=== PATIENT | female | born 1940 | race Caucasian/White ===

== ENCOUNTER → 2016-08-05 | Outpatient (CLI) | payer MEDICARE, OTHER ==
--- NOTE | 2016-08-06 16:21 | XCELERA REPORT ---
[address] [address] Transthoracic Echocardiogram Report Name: RACHNA MAYERS Age: 75 yrs Gender: Female : 1940 Patient Status: Outpatient Patient Location: Study Date: 08/05/2016 10:01 AM Height: 63 in Weight: 140 lb BSA: 1.7 m2 Procedure: A complete two-dimensional transthoracic echocardiogram was performed (2D, M-mode, spectral and color flow Doppler). The study was technically difficult with many images being suboptimal in quality. Reason For Study: AORTIC STENOSIS Ordering Physician: ALFREDA RENTERIA Performed By: Marva Acosta Interpretation Summary The left ventricular ejection fraction is within normal limits. Doppler measurements suggest pseudonormalized left ventricular relaxation, which is associated with grade II/IV or mild to moderate diastolic dysfunction There is borderline concentric left ventricular hypertrophy. There is moderate aortic stenosis There is a peak gradient of peak 40, mean 20-25 mm of Hg. There is a mild to moderate amount of aortic regurgitation There is a mild amount of mitral regurgitation There is a mild amount of tricuspid regurgitation There is mild pulmonary hypertension by echo Right ventricular systolic pressure is estimated to be elevated at 30- 40mmHg. There is no pericardial effusion. MMode/2D Measurements \T\ Calculations RVDd: 2.7 cm LVIDd: 5.1 cm FS: 35.4 % Ao root diam: 3.1 cm IVSd: 0.87 cm LVIDs: 3.3 cm EDV(Teich): 122.1 ml LVPWd: 0.87 cmESV(Teich): 43.4 ml Ao root area: 7.6 cm2 EF(Teich): 64.5 % LA dimension: 3.2 cm LVOT diam: 2.2 cm LVOT area: 3.7 cm2 Doppler Measurements \T\ Calculations MV E max carole: MV P1/2t max carole: Ao V2 max: AI max carole: 99.2 cm/sec 100.2 cm/sec 309.1 cm/sec 374.2 cm/sec MV A max carole: MV P1/2t: 66.3 msec Ao max PG: AI max P.1 cm/sec MVA(P1/2t): 3.3 cm2 38.3 mmHg 56.0 mmHg MV E/A: 0.95 MV dec slope: Ao V2 mean: AI dec slope: 442.4 cm/sec2 226.3 cm/sec 163.9 cm/sec2 MV dec time: Ao mean PG: AI P1/2t: 0.20 sec 23.1 mmHg 668.7 msec Ao V2 VTI: 78.1 cm NALINI(I,D): 1.4 cm2 NALINI(V,D): 1.4 cm2 LV V1 max PG: SV(LVOT): 110.4 ml PA V2 max: TR max carole: 5.6 mmHg 70.6 cm/sec 260.6 cm/sec LV V1 mean PG: PA max PG: TR max P.9 mmHg 2.0 mmHg 27.2 mmHg LV V1 max: 118.5 cm/sec LV V1 mean: 78.9 cm/sec LV V1 VTI: 30.0 cm Left Ventricle The left ventricle is grossly normal size. There is borderline concentric left ventricular hypertrophy. The left ventricular ejection fraction is within normal limits. Doppler measurements suggest pseudonormalized left ventricular relaxation, which is associated with grade II/IV or mild to moderate diastolic dysfunction. Wall motion cannot be accurately commented on, but no definite regional wall motion abnormalities noted. Right Ventricle The right ventricle is grossly normal size. There is normal right ventricular wall thickness. The right ventricular systolic function is normal. Atria The right atrium is normal in size. The left atrial size is normal. Interarterial septum not well visualized and not well dopplered. Cannot comment on ASD/PFO presence. Mitral Valve There is mild mitral annular calcification. There is no mitral valve stenosis. There is a mild amount of mitral regurgitation. Aortic Valve The aortic valve is moderately calcified. There is moderate aortic stenosis. There is a peak gradient of peak 40, mean 20-25 mm of Hg. There is a mild to moderate amount of aortic regurgitation. Tricuspid Valve The tricuspid valve is not well visualized, but is grossly normal. There is no tricuspid stenosis. There is a mild amount of tricuspid regurgitation. There is mild pulmonary hypertension by echo. Right ventricular systolic pressure is estimated to be elevated at 30-40mmHg. Pulmonic Valve The pulmonic valve is not well visualized. Great Vessels The aortic root is not well visualized but is probably normal size. The inferior vena cava appeared small and collapsed with respiration (RAP 0-5 mmHg). Effusions There is no pericardial effusion. : ALFREDA RENTERIA > [address]
== END ==
LOC: SP 09:51
PROVIDERS: ATTEND Internal Medicine
DX: I35.0 Nonrheumatic aortic (valve) stenosis (principal)
CPT/HCPCS: 93306

== ENCOUNTER 2016-08-25 07:33 | Day surgery (SDC) | payer MEDICARE, OTHER ==
[~2016-08-25 07:33] MED LIST: PROPOFOL INJ 200 MG/20 ML VIAL IV ONE
[2016-08-25] MEDS ORDERED: GLYCOPYRROLATE INJ 0.4 MG/2 ML VIAL ONE (08:52)
[2016-08-25] MEDS ORDERED: EPHEDRINE SULFATE INJ 50 MG/1 ML AMPULE ONE (08:52)
[2016-08-25 09:40] VITALS: BP 166/67
--- NOTE | 2016-08-25 14:02 | Operative Report ---
Operative Report DATE OF SURGERY: 08/25/16 Operative Report: The risks, benefits and alternatives of the procedure including risks of bleeding, perforation requiring surgery are explained to the patient in detail and informed consent is obtained. Patient is taken back to the endoscopy suite. Timeout is called. Propofol medication is administered. A rectal examination was done which did not reveal any masses, tears or fissures. An Olympus videoscope was inserted into the patient's rectum. Keeping the lumen in site at all times the scope was then gradually advanced all the way to the cecum. The cecum as identified by the usual anatomical landmarks of the ileocecal valve as well as the appendiceal office. Her documentations obtained. Prep is good. The scope was then sequentially pulled back out via the various segments of the colon including the ascending colon, hepatic flexure , transverse colon, splenic flexure, descending colon and find the rectosigmoid colon. Retroflexion maneuvers performed. PREOPERATIVE DIAGNOSIS: Bright red blood per rectum POSTOPERATIVE DIAGNOSIS: Mild colitis that is noted. Internal hemorrhoids. Mild diverticulosis OPERATION: Colonoscopy with biopsy SURGEON: ERNESTINE AMARAL ANESTHESIA: LMAC TISSUE REMOVED OR ALTERED: Right-sided colon specimens obtained rule out microscopic, lymphocytic, collagenous colitis COMPLICATIONS: None. ESTIMATED BLOOD LOSS: none. INTRAOPERATIVE FINDINGS: As described above. No evidence of obstructing mass, AVMs, or areas of ischemia noted. PROCEDURE: Patient tolerated the procedure well. No immediate postprocedure complications are noted. Patient is discharged in good condition. Discharge date 08/25/2016. Discharge diet: Regular. Discharge activity: Regular. Patient does have a 2-3 week follow-up to discuss findings She'll need a surveillance colonoscopy in 5 years We'll await on biopsies Patient is instructed to call the office or proceed to the emergency room should there be any further problems or questions
== END 2016-08-25 09:32 | disposition home or self-care (01) ==
LOC: END 07:33
PROVIDERS: ATTEND Internal Medicine Gastroenterology
PROC: 0DBF8ZX Excision of Right Large Intestine, Via Natural or Artificial Opening Endoscopic, Diagnostic (ICD-10-PCS; principal; 2016-08-25 08:30)
DX: K52.9 Noninfective gastroenteritis and colitis, unspecified (principal); K62.89 Other specified diseases of anus and rectum; K62.5 Hemorrhage of anus and rectum; I10 Essential (primary) hypertension; M19.90 Unspecified osteoarthritis, unspecified site; Z86.73 Personal history of transient ischemic attack (TIA), and cerebral infarction without residual deficits; Z79.82 Long term (current) use of aspirin; Z79.899 Other long term (current) drug therapy
CPT/HCPCS: 45380; 88305 ×2; J3490; J2704; 810

== ENCOUNTER → 2016-10-07 | Outpatient (CLI) | payer MEDICARE, OTHER ==
[2016-10-07 11:27] LABS: CHOLESTEROL 125.87 mg/dL (0-200); Direct HDL 63 mg/dL (>40); TRIGLYCERIDES 70 mg/dL (<150)
[2016-10-07 11:39] LABS: DIRECT LDL 32 mg/dL (<100)
== END ==
LOC: OD 09:08
PROVIDERS: ATTEND Family Medicine Geriatric Medicine
DX: E03.9 Hypothyroidism, unspecified (principal); E78.5 Hyperlipidemia, unspecified
CPT/HCPCS: 36415; 80061; 84443

== ENCOUNTER → 2017-02-09 | Outpatient (CLI) | payer MEDICARE, OTHER ==
[2017-02-09 09:33] LABS: ABSOLUTE EOSINOPHILS # (AUTO) 0.2 10^3/uL (0.0-0.6); ABSOLUTE MONOCYTES (AUTO) 0.5 10^3/uL (0.1-1.4); ABSOLUTE NEUT (AUTO) 2.3 10^3/uL (1.7-8.2); BASOPHILS % (AUTO) 1.1 % (0-2); EOSINOPHILS % (AUTO) 3.9 % (0-6); HEMATOCRIT 36.6 % (36.0-47.0); HEMOGLOBIN 12.4 g/dL (12.0-15.5); HGB HCT DIFFERENCE 0.6; LYMPHOCYTES % (AUTO) 25.5 % (13-45); MEAN CORPUSCULAR HEMOGLOBIN 34.2 pg (27.0-33.4); MEAN CORPUSCULAR HGB CONC 33.8 g/dL (32.0-36.0); MEAN CORPUSCULAR VOLUME 101 fl (80-97); MONOCYTES % (AUTO) 11.6 % (3-13); RED BLOOD COUNT 3.62 10^6/uL (3.72-5.28); RED CELL DISTRIBUTION WIDTH 14.2 % (11.5-14.0); SEGMENTED NEUTROPHILS % (AUTO) 57.9 % (42-78)
[2017-02-09 10:06] LABS: ANION GAP 8 (5-19); BLOOD UREA NITROGEN 19 mg/dL (7-20); CALCIUM 9.5 mg/dL (8.4-10.2); CARBON DIOXIDE 24 mmol/L (22-30); CHLORIDE 108 mmol/L (98-107); CREATININE RESULT 0.93 mg/dL (0.52-1.25); GLUCOSE 88 mg/dL (75-110); POTASSIUM 4.5 mmol/L (3.6-5.0); SODIUM 139.8 mmol/L (137-145)
== END ==
LOC: OD 08:47
PROVIDERS: ATTEND Family Medicine Geriatric Medicine
DX: E78.5 Hyperlipidemia, unspecified (principal); I10 Essential (primary) hypertension; E55.9 Vitamin D deficiency, unspecified; Z79.899 Other long term (current) drug therapy; G89.4 Chronic pain syndrome
CPT/HCPCS: 36415; 80048; 84443; 85025

== ENCOUNTER → 2017-06-23 | Outpatient (CLI) | payer MEDICARE, OTHER ==
--- NOTE | 2017-06-23 13:30 | RADIOLOGY REPORT (SQ) ---
EXAM DESCRIPTION: CHEST PA/LATERAL COMPLETED DATE/TIME: 06/23/2017 12:58 pm REASON FOR STUDY: COUGH COMPARISON: 06/12/2014 EXAM PARAMETERS: NUMBER OF VIEWS: two views TECHNIQUE: Digital Frontal and Lateral radiographic views of the chest acquired. RADIATION DOSE: NA LIMITATIONS: none FINDINGS: LUNGS AND PLEURA: Chronic interstitial changes are present. There is no acute pulmonary i nfiltrate. There is no effusion no mass is seen. MEDIASTINUM AND HILAR STRUCTURES: No masses or contour abnormalities. HEART AND VASCULAR STRUCTURES: Heart normal size. No evidence for failure. BONES: No acute findings. HARDWARE: None in the chest. OTHER: No other significant finding. IMPRESSION: Chronic interstitial changes with no acute cardiopulmonary disease. TECHNICAL DOCUMENTATION: JOB ID: [id number] [employer]- All Rights Reserved
== END ==
LOC: OD 11:45
PROVIDERS: ATTEND Family Medicine Geriatric Medicine
DX: R05 Cough (principal)
CPT/HCPCS: 71020

== ENCOUNTER → 2017-09-23 | Outpatient (CLI) | payer MEDICARE, OTHER ==
--- NOTE | 2017-09-25 13:29 | Pulmonary Function Test ---
Pulmonary Function Test Date of Procedure:: 09/23/17 INDICATION:: Dyspnea Referring Provider: Dr. Sanchez Subsystems Engineer: Becky Florence SENIOR TRAINING SPECIALIST - Report Spirometry: FVC 2.01 L 83% FEV1 1.73 L 96% FEV1/FVC % 86 predicted 81 FEF 25-75% 2.85 62% Lung Volume: Total lung capacity 3.35 L 77% Vital capacity 2.13 L 88% Inspiratory capacity 1.68 FRC N2 1.67 64% ERV 0.39 RV 1.23 66% RV/TLC % 37 predicted 42 Diffusion Capactity: DLCO 4.7 29% DLCO/VA 1.77 51% Impression: This study does not demonstrate any obstructive ventilatory defect. There is mild restrictive ventilatory defect with no hyperinflation or air trapping. Profound decrease in diffusion capacity.
== END ==
LOC: RT 11:44
PROVIDERS: ATTEND Family Medicine Geriatric Medicine
DX: J84.10 Pulmonary fibrosis, unspecified (principal)
CPT/HCPCS: 94060; 94727; 94729

== ENCOUNTER → 2017-12-22 | Outpatient (CLI) | payer MEDICARE, OTHER ==
[2017-12-22 10:28] LABS: ABSOLUTE EOSINOPHILS # (AUTO) 0.2 10^3/uL (0.0-0.6); ABSOLUTE MONOCYTES (AUTO) 0.5 10^3/uL (0.1-1.4); ABSOLUTE NEUT (AUTO) 2.7 10^3/uL (1.7-8.2); HEMATOCRIT 34.7 % (36.0-47.0); HEMOGLOBIN 12.1 g/dL (12.0-15.5); LYMPHOCYTES % (AUTO) 22.5 % (13-45); MEAN CORPUSCULAR HGB CONC 34.9 g/dL (32.0-36.0); MEAN CORPUSCULAR VOLUME 100 fl (80-97); MONOCYTES % (AUTO) 11.4 % (3-13); RED BLOOD COUNT 3.46 10^6/uL (3.72-5.28); RED CELL DISTRIBUTION WIDTH 14.2 % (11.5-14.0); SEGMENTED NEUTROPHILS % (AUTO) 61.1 % (42-78); TOTAL CELLS COUNTED % (AUTO) 100 %; WHITE BLOOD COUNT 4.5 10^3/uL (4.0-10.5)
[2017-12-22 10:44] LABS: PLATELET COUNT 66 10^3/uL (150-450)
[2017-12-22 10:48] LABS: ALANINE AMINOTRANSFERASE 36 U/L (9-52); ALBUMIN 3.3 g/dL (3.5-5.0); ALKALINE PHOSPHATASE 93 U/L (38-126); ANION GAP 12 (5-19); ASPARTATE AMINO TRANSFERASE 60 U/L (14-36); BILIRUBIN,DIRECT 0.5 mg/dL (0.0-0.4); BILIRUBIN,TOTAL 1.2 mg/dL (0.2-1.3); BLOOD UREA NITROGEN 18 mg/dL (7-20); CARBON DIOXIDE 26 mmol/L (22-30); CHLORIDE 109 mmol/L (98-107); CHOLESTEROL 104.58 mg/dL (0-200); GLUCOSE 103 mg/dL (75-110); NEONATAL BILIRUBIN RESULT 0.8 mg/dL (0.1-1.1); POTASSIUM 4.7 mmol/L (3.6-5.0); SODIUM 146.5 mmol/L (137-145); TOTAL PROTEIN 6.9 g/dL (6.3-8.2); TRIGLYCERIDES 53 mg/dL (<150)
[2017-12-22 10:58] LABS: DIRECT LDL 31 mg/dL (<100)
== END ==
LOC: OD 09:25
PROVIDERS: ATTEND Family Medicine Geriatric Medicine
DX: I10 Essential (primary) hypertension (principal); E78.5 Hyperlipidemia, unspecified; Z79.899 Other long term (current) drug therapy
CPT/HCPCS: 36415; 80053; 80061; 84443; 85025

== ENCOUNTER → 2017-12-23 | Outpatient (CLI) | payer MEDICARE, OTHER ==
--- NOTE | 2017-12-23 15:55 | RADIOLOGY REPORT (SQ) ---
EXAM DESCRIPTION: CHEST PA/LATERAL COMPLETED DATE/TIME: 12/23/2017 1:27 pm REASON FOR STUDY: WHEEZING COMPARISON: 06/23/2017 and 06/12/2014 EXAM PARAMETERS: NUMBER OF VIEWS: two views TECHNIQUE: Digital Frontal and Lateral radiographic views of the chest acquired. RADIATION DOSE: NA LIMITATIONS: none FINDINGS: LUNGS AND PLEURA: Interstitial/vascular markings seen of the lung bowman, concerning for c hronic interstitial change and/or vascular congestion. No consolidation or pleural fluid. MEDIASTINUM AND HILAR STRUCTURES: Stable. HEART AND VASCULAR STRUCTURES: heart appears borderline for size on the current study. Prominent in terstitial/ vascular markings. BONES: No acute findings. HARDWARE: None in the chest. OTHER: No other significant finding. IMPRESSION: Prominent interstitial/ vascular markings. Borderline heart size. TECHNICAL DOCUMENTATION: JOB ID: [id number] [email or web address]- All Rights Reserved Reading location - IP/workstation name: [email or web address]
== END ==
LOC: OD 13:09
PROVIDERS: ATTEND Family Medicine Geriatric Medicine
DX: R06.2 Wheezing (principal)
CPT/HCPCS: 71046

== ENCOUNTER → 2017-12-30 | Outpatient (CLI) | payer MEDICARE, OTHER ==
--- NOTE | 2017-12-31 07:47 | XCELERA REPORT ---
[address] [address] Lower Extremity Arterial Evaluation Name: RACHNA MAYERS Age: 77 yrs Gender: Female : 1940 Patient Status: Outpatient Patient Location: Study Date: 12/30/2017 11:14 AM Procedure: A color flow and duplex scan of the lower extremity arteries was performed bilaterally with velocity and waveform anaylsis. Ankle brachial indicies performed. Reason For Study: PVD Ordering Physician: JOON MORALEZ Performed By: Zo Jiménez Measurements and Calculations Right Left FALSEWORK BUILDER PSV 192.5 188.6 cm/sec Prox PFA PSV -82.0 -54.6 cm/sec Prox SFA PSV 100.7 -122.9 cm/sec Mid SFA PSV -103.7 -125.0 cm/sec Dist SFA PSV -121.3 -122.9 cm/sec Prox Pop A PSV 105.0 120.1 cm/sec Dist DARY PSV 91.8 129.2 cm/sec Dist JEWEL SUPERVISOR PSV 116.9 147.0 cm/sec Ivan Pedis PSV 99.9 119.7 cm/sec Right Side Arterial Evaluation Normal velocity and triphasic waveforms noted from the Common Femoral artery to the infrageniculate vessels. 0 % stenosis . Ankle Brachial index is 1.16. Left Side Arterial Evaluation Normal velocity and triphasic waveforms noted from the Common Femoral artery to the infrageniculate vessels. 0 % stenosis . Ankle Brachial index is 1.23. Interpretation Summary No hemodynamically significant lesions in the bilateral lower extremities, on duplex imaging, at rest. : JOON MORALEZ > [address] Lazar
== END ==
LOC: SP 10:54
PROVIDERS: ATTEND Family Medicine Geriatric Medicine
DX: I73.9 Peripheral vascular disease, unspecified (principal); R60.0 Localized edema
CPT/HCPCS: 93925

== ENCOUNTER → 2017-12-31 | Outpatient (CLI) | payer MEDICARE, OTHER ==
--- NOTE | 2017-12-31 17:58 | XCELERA REPORT ---
[address] [address] Transthoracic Echocardiogram Report Name: RACHNA MAYERS Age: 77 yrs Gender: Female : 1940 Patient Status: Outpatient Patient Location: Study Date: 12/31/2017 09:02 AM Height: 62.5 in Weight: 140 lb BSA: 1.7 m2 Procedure: A complete two-dimensional transthoracic echocardiogram was performed (2D, M-mode, spectral and color flow Doppler). The study was technically adequate with some images being suboptimal in quality. Reason For Study: CARDIOMEGALY Ordering Physician: JOON MORALEZ Performed By: Marva Acosta Interpretation Summary The left ventricular ejection fraction is normal. There is moderate to severe aortic stenosis There is a peak gradient of 55, mean 30-35 mm of Hg. There is a mild to moderate amount of aortic regurgitation There is borderline concentric left ventricular hypertrophy. There is a mild amount of mitral regurgitation There is no mitral valve stenosis. There is a mild amount of tricuspid regurgitation There is mild pulmonary hypertension by echo Right ventricular systolic pressure is estimated to be elevated at 30- 40mmHg. There is no pericardial effusion. MMode/2D Measurements & Calculations RVDd: 3.0 cm LVIDd: 5.6 cm FS: 42.0 % Ao root diam: 3.0 cm IVSd: 0.73 cm LVIDs: 3.3 cm EDV(Teich): 156.0 ml LVPWd: 0.71 cmESV(Teich): 43.1 ml Ao root area: 6.9 cm2 EF(Teich): 72.4 % LVOT diam: 2.1 cm LVOT area: 3.3 cm2 Doppler Measurements & Calculations MV E max carole: MV dec slope: Ao V2 max: AI max carole: 133.7 cm/sec 569.1 cm/sec2 379.0 cm/sec 436.3 cm/sec MV A max carole: MV dec time: Ao max PG: AI max P.6 cm/sec 0.24 sec 57.5 mmHg 76.1 mmHg MV E/A: 1.4 Ao V2 mean: AI dec slope: 268.9 cm/sec 251.0 cm/sec2 Ao mean PG: AI P1/2t: 32.3 mmHg 509.2 msec Ao V2 VTI: 104.4 cm NALINI(I,D): 1.1 cm2 NALINI(V,D): 1.0 cm2 LV V1 max PG: MR max carole: SV(LVOT): PA V2 max: 5.6 mmHg 554.2 cm/sec 110.5 ml 75.0 cm/sec LV V1 mean PG: MR max PG: PA max P.3 mmHg 3.2 mmHg 122.8 mmHg LV V1 max: 118.7 cm/sec LV V1 mean: 85.4 cm/sec LV V1 VTI: 33.3 cm LV dP/dt: 1407 mmHg/s TR max carole: 284.7 cm/sec TR max P.4 mmHg Left Ventricle The left ventricle is grossly normal size. There is borderline concentric left ventricular hypertrophy. The left ventricular ejection fraction is normal. LV diastolic function could not be adequately assessed. Wall motion cannot be accurately commented on, but no definite regional wall motion abnormalities noted. Right Ventricle The right ventricle is grossly normal size. There is normal right ventricular wall thickness. The right ventricular systolic function is normal. Atria The right atrium is normal in size. The left atrial size is normal. Interarterial septum not well visualized and not well dopplered. Cannot comment on ASD/PFO presence. Mitral Valve The mitral valve is grossly normal. There is no mitral valve stenosis. There is a mild amount of mitral regurgitation. Aortic Valve The aortic valve is moderately calcified. There is moderate to severe aortic stenosis. There is a peak gradient of 55, mean 30-35 mm of Hg. There is a mild to moderate amount of aortic regurgitation. Tricuspid Valve The tricuspid valve is not well visualized, but is grossly normal. There is no tricuspid stenosis. There is a mild amount of tricuspid regurgitation. There is mild pulmonary hypertension by echo. Right ventricular systolic pressure is estimated to be elevated at 30-40mmHg. Pulmonic Valve The pulmonic valve is not well visualized. Great Vessels The aortic root is not well visualized but is probably normal size. The inferior vena cava was not well visualized. Effusions There is no pericardial effusion. : JOON MORALEZ > [address]
== END ==
LOC: SP 08:44
PROVIDERS: ATTEND Family Medicine Geriatric Medicine
DX: I51.7 Cardiomegaly (principal)
CPT/HCPCS: 93306

== ENCOUNTER → 2018-01-09 | Outpatient (CLI) | payer MEDICARE, OTHER ==
[2018-01-09 10:21] LABS: ABSOLUTE BASOPHILS # (AUTO) 0.1 10^3/uL (0.0-0.2); ABSOLUTE EOSINOPHILS # (AUTO) 0.2 10^3/uL (0.0-0.6); ABSOLUTE MONOCYTES (AUTO) 0.5 10^3/uL (0.1-1.4); ABSOLUTE NEUT (AUTO) 3.1 10^3/uL (1.7-8.2); BASOPHILS % (AUTO) 1.4 % (0-2); EOSINOPHILS % (AUTO) 4.5 % (0-6); HEMATOCRIT 35.7 % (36.0-47.0); HEMOGLOBIN 12.4 g/dL (12.0-15.5); LYMPHOCYTES % (AUTO) 20.7 % (13-45); MEAN CORPUSCULAR HEMOGLOBIN 35.3 pg (27.0-33.4); MEAN CORPUSCULAR HGB CONC 34.8 g/dL (32.0-36.0); MEAN CORPUSCULAR VOLUME 101 fl (80-97); MONOCYTES % (AUTO) 10.4 % (3-13); RED BLOOD COUNT 3.52 10^6/uL (3.72-5.28); RED CELL DISTRIBUTION WIDTH 14.5 % (11.5-14.0); TOTAL CELLS COUNTED % (AUTO) 100 %; WHITE BLOOD COUNT 4.8 10^3/uL (4.0-10.5)
[2018-01-09 10:33] LABS: ALANINE AMINOTRANSFERASE 28 U/L (9-52); ALBUMIN 3.2 g/dL (3.5-5.0); ALKALINE PHOSPHATASE 108 U/L (38-126); ANION GAP 10 (5-19); ASPARTATE AMINO TRANSFERASE 61 U/L (14-36); BILIRUBIN,DIRECT 0.6 mg/dL (0.0-0.4); BILIRUBIN,TOTAL 2.4 mg/dL (0.2-1.3); BLOOD UREA NITROGEN 12 mg/dL (7-20); CARBON DIOXIDE 24 mmol/L (22-30); CHLORIDE 108 mmol/L (98-107); GLUCOSE 91 mg/dL (75-110); POTASSIUM 4.3 mmol/L (3.6-5.0); SODIUM 142.3 mmol/L (137-145)
[2018-01-09 10:43] LABS: PLATELET COUNT 58 10^3/uL (150-450)
== END ==
LOC: OD 09:31
PROVIDERS: ATTEND Family Medicine Geriatric Medicine
DX: I10 Essential (primary) hypertension (principal); R60.0 Localized edema; E66.9 Obesity, unspecified; Z79.899 Other long term (current) drug therapy
CPT/HCPCS: 36415; 80053; 84443; 85025

== ENCOUNTER 2018-01-29 10:24 | Emergency (ER) | payer MEDICARE, OTHER ==
[2018-01-29 10:30] VITALS: BP 134/45
[2018-01-29] MEDS ORDERED: SENNOSIDES/DOCUSATE 8.6-50 MG 1 EACH TABLET PO ONE (10:42)
[2018-01-29] MEDS ORDERED: POLYETHYLENE GLYCOL 3350 POWDER 17 GM/1 PACKET PO ONE (10:42)
[2018-01-29] MEDS ORDERED: DOCUSATE SODIUM 100 MG CAPSULE PO ONE (10:43)
--- NOTE | 2018-01-29 10:45 | ER Document Report ---
ED Medical Screen (RME) - General Chief Complaint: Abdominal Swelling Stated Complaint: ABDOMINAL PAIN Time Seen by Provider: 01/29/18 10:39 Notes: RAPID MEDICAL EVALUATION DISCLOSURE I have seen this patient as part of a Rapid Medical Evaluation and, if applicable, placed any initially appropriate orders. The patient will be seen and fully evaluated, including a full history and physical exam, by a provider ( in Main ED or Fast Track) when a room becomes available. 77-year-old female here with complaints of severe constipation for the past week. Over the past 2 days, she has been unable to defecate anything whereas prior to that she was at least able to get out very small pieces. She has not had any nausea vomiting dysuria hematuria frequency fevers chills. She has tried MiraLAX with minimal relief. She has not really had much abdominal pain and does not currently have any abdominal pain. She states "it feels like I have a basketball in my stomach". EXAM No abdominal TTP No peritoneal signs TRAVEL OUTSIDE OF THE [place] IN LAST 30 DAYS: No - Related Data Allergies/Adverse Reactions: No Known Allergies Allergy (Verified 01/29/18 10:25) Past Medical History - Social History Chew tobacco use (# tins/day): No Frequency of alcohol use: None Drug Abuse: None - Past Medical History Cardiac Medical History: Reports: Hx Coronary Artery Disease, Hx Hypertension, Hx Peripheral Vascular Disease - Bilateral internal carotid artery stenosis Denies: Hx Heart Attack Pulmonary Medical History: Denies: Hx Asthma, Hx Bronchitis, Hx COPD, Hx Pneumonia Neurological Medical History: Reports: Hx Cerebrovascular Accident - 2014. Denies: Hx Seizures Renal/ Medical History: Denies: Hx Peritoneal Dialysis Musculoskeltal Medical History: Reports Hx Arthritis Past Surgical History: Reports: Hx Appendectomy, Hx Cholecystectomy, Hx Hysterectomy, Hx Tonsillectomy - Immunizations Hx Diphtheria, Pertussis, Tetanus Vaccination: Yes Physical Exam - Vital signs Vitals: Temp Pulse Resp BP Pulse Ox 98.0 F 57 L 18 134/45 H 98 01/29/18 10:29 01/29/18 10:29 01/29/18 10:29 01/29/18 10:29 01/29/18 10:29 Course - Vital Signs Vital signs: Temp Pulse Resp BP Pulse Ox 98.0 F 57 L 18 134/45 H 98 01/29/18 10:29 01/29/18 10:29 01/29/18 10:29 01/29/18 10:01/29/18 10:29 Doctor's Discharge - Discharge Referrals: JOON MORALEZ MD [Primary Care Provider] - Follow up as needed
--- NOTE | 2018-01-29 12:02 | RADIOLOGY REPORT (SQ) ---
EXAM DESCRIPTION: ACUTE ABDOMEN SERIES COMPLETED DATE/TIME: 01/29/2018 11:32 am REASON FOR STUDY: severe constipation COMPARISON: None. NUMBER OF VIEWS: Three views. TECHNIQUE: Frontal chest, supine abdomen and upright/decubitus abdomen radiographic images acquired. LIMITATIONS: None. FINDINGS: CHEST: Severe chronic interstitial changes. FREE AIR: None. No abnormal gas collections. Large amount of fecal material in the right colon. Dis katarzyna colon is relatively free of fecal material. BOWEL GAS PATTERN: Nonobstructive pattern. No dilated loops or air fluid levels. CALCIFICATIONS: No suspicious calcifications. Arterial calcification. HARDWARE: Multiple surgical clips. SOFT TISSUES: No gross mass or suggestion of organomegaly. BONES: No acute fracture. No worrisome bone lesions. OTHER: No other significant finding. IMPRESSION: 1. Large amount of fecal material in the proximal colon. 2. Chronic interstitial lung disease. TECHNICAL DOCUMENTATION: JOB ID: [id number] [employer]- All Rights Reserved Reading location - IP/workstation name: [email or web address]
--- NOTE | 2018-01-29 12:18 | ER Document Report ---
ED General - General Chief Complaint: Abdominal Swelling Stated Complaint: ABDOMINAL PAIN Time Seen by Provider: 01/29/18 10:39 Notes: 77-year-old female here with complaints of severe constipation for the past week. Over the past 2 days, she has been unable to defecate anything whereas prior to that she was at least able to get out very small pieces. She has not had any nausea vomiting dysuria hematuria frequency fevers chills. She has tried MiraLAX with minimal relief. She has not really had much abdominal pain and does not currently have any abdominal pain. She states "it feels like I have a basketball in my stomach". TRAVEL OUTSIDE OF THE [place] IN LAST 30 DAYS: No - Related Data Allergies/Adverse Reactions: No Known Allergies Allergy (Verified 01/29/18 10:25) Past Medical History - Social History Smoking Status: Never Smoker Chew tobacco use (# tins/day): No Frequency of alcohol use: None Drug Abuse: None Family History: Reviewed & Not Pertinent Patient has suicidal ideation: No Patient has homicidal ideation: No - Past Medical History Cardiac Medical History: Reports: Hx Coronary Artery Disease, Hx Hypertension, Hx Peripheral Vascular Disease - Bilateral internal carotid artery stenosis Denies: Hx Heart Attack Pulmonary Medical History: Denies: Hx Asthma, Hx Bronchitis, Hx COPD, Hx Pneumonia Neurological Medical History: Reports: Hx Cerebrovascular Accident - 2014. Denies: Hx Seizures Renal/ Medical History: Denies: Hx Peritoneal Dialysis Musculoskeltal Medical History: Reports Hx Arthritis Past Surgical History: Reports: Hx Appendectomy, Hx Cholecystectomy, Hx Hysterectomy, Hx Tonsillectomy - Immunizations Hx Diphtheria, Pertussis, Tetanus Vaccination: Yes Hx Pneumococcal Vaccination: 06/03/16 Review of Systems - Review of Systems Notes: See history of present illness for pertinent positive review of systems; otherwise all review of systems have been reviewed and are negative Physical Exam - Vital signs Vitals: Temp Pulse Resp BP Pulse Ox 98.0 F 57 L 18 134/45 H 98 01/29/18 10:01/29/18 10:01/29/18 10:01/29/18 10:01/29/18 10:29 - Notes Notes: PHYSICAL EXAMINATION: GENERAL: Well-appearing and in no acute distress. HEAD: Atraumatic, normocephalic. EYES: Pupils equal round and reactive to light, extraocular movements intact, sclera anicteric, conjunctiva are normal. ENT: nares patent, oropharynx clear without exudates. Moist mucous membranes. NECK: Normal range of motion, supple without lymphadenopathy LUNGS: CTAB and equal. No wheezes rales or rhonchi. HEART: Regular rate and rhythm without murmurs ABDOMEN: Soft, no tenderness. No facial grimacing/wincing upon palpation. No guarding, no rebound. EXTREMITIES: Normal range of motion, no pitting edema. No cyanosis. NEUROLOGICAL: Cranial nerves grossly intact. Normal sensory/motor exams. PSYCH: Normal mood, normal affect. SKIN: Warm, Dry, normal turgor, no rashes or lesions noted Course - Re-evaluation Re-evalutation: 01/29/18 12:14 MEDICAL DECISION MAKING: Concern for constipation, lower suspicion for colitis diverticulitis (nontender) The x-ray shows proximal constipation so enema will not be of utility I have discussed the results with the patient and prescription for GoLYTELY Return precautions given otherwise follow-up PCP next day or few Patient understands and agrees to the plan of care - Vital Signs Vital signs: Temp Pulse Resp BP Pulse Ox 98.0 F 57 L 18 134/45 H 98 01/29/18 10:29 01/29/18 10:29 01/29/18 10:29 01/29/18 10:29 01/29/18 10:29 Discharge - Discharge Clinical Impression: Constipated Qualifiers: Constipation type: unspecified constipation type Qualified Code(s): K59.00 - Constipation, unspecified Condition: Good Disposition: HOME, SELF-CARE Additional Instructions: You were seen in the emergency department at [facility]. The x- ray showed moderate constipation. Drink one half of the gallon of GoLYTELY prescribed to you. Drink this 1/2 gallon over the next 24 hours or until you achieve desired results. If this 1/2 gallon does not resolve your symptoms, drink the rest of the half-gallon over the course of another 24 hours. If you happen to have any leftover, please refrigerate the left over GoLYTELY. Please followup with your primary physician in the next few days for further management /evaluation. Please return to the emergency department for worsening of symptoms or any symptom that you deem to be concerning or life-threatening. Thank you for allowing us to be part of your care. Prescriptions: Peg 3350/Na Sulf,Bicarb,Cl/KCl [Golytely Solution 4000 ml] 4,000 ml PO DAILY #1 bottle Referrals: JOON MORALEZ MD [Primary Care Provider] - Follow up as needed
== END 2018-01-29 12:26 | disposition home or self-care (01) ==
LOC: ER 10:24
DX: K59.00 Constipation, unspecified (principal); R10.9 Unspecified abdominal pain; I25.10 Atherosclerotic heart disease of native coronary artery without angina pectoris; I10 Essential (primary) hypertension; Z86.73 Personal history of transient ischemic attack (TIA), and cerebral infarction without residual deficits; Z90.49 Acquired absence of other specified parts of digestive tract; Z90.710 Acquired absence of both cervix and uterus
CPT/HCPCS: 99284; 74022; A9270 ×2; J3490

== ENCOUNTER 2018-02-02 15:40 | Inpatient (IN) | payer MEDICARE, OTHER ==
[2018-02-02 16:20] LABS: ABSOLUTE EOSINOPHILS # (AUTO) 0.2 10^3/uL (0.0-0.6); ABSOLUTE LYMPHOCYTES (AUTO) 0.6 10^3/uL (0.5-4.7); ABSOLUTE MONOCYTES (AUTO) 0.7 10^3/uL (0.1-1.4); ABSOLUTE NEUT (AUTO) 8.1 10^3/uL (1.7-8.2); BASOPHILS % (AUTO) 0.2 % (0-2); EOSINOPHILS % (AUTO) 1.9 % (0-6); HEMOGLOBIN 11.9 g/dL (12.0-15.5); LYMPHOCYTES % (AUTO) 6.4 % (13-45); MEAN CORPUSCULAR HEMOGLOBIN 35.6 pg (27.0-33.4); MEAN CORPUSCULAR HGB CONC 34.8 g/dL (32.0-36.0); MEAN CORPUSCULAR VOLUME 102 fl (80-97); MONOCYTES % (AUTO) 7.6 % (3-13); PLATELET COUNT 102 10^3/uL (150-450); RED BLOOD COUNT 3.33 10^6/uL (3.72-5.28); SEGMENTED NEUTROPHILS % (AUTO) 83.9 % (42-78); TOTAL CELLS COUNTED % (AUTO) 100 %; WHITE BLOOD COUNT 9.6 10^3/uL (4.0-10.5)
[2018-02-02 16:23] LABS: INTERNATIONAL RATION (INR) 1.37; PROTHROMBIN TIME 17.6 SEC (11.4-15.4)
[2018-02-02 16:39] LABS: ALANINE AMINOTRANSFERASE 32 U/L (9-52); ALKALINE PHOSPHATASE 93 U/L (38-126); ANION GAP 11 (5-19); ASPARTATE AMINO TRANSFERASE 66 U/L (14-36); BILIRUBIN,DIRECT 0.9 mg/dL (0.0-0.4); BLOOD UREA NITROGEN 21 mg/dL (7-20); CALCIUM 8.3 mg/dL (8.4-10.2); CARBON DIOXIDE 24 mmol/L (22-30); CHLORIDE 102 mmol/L (98-107); GLUCOSE 84 mg/dL (75-110); POTASSIUM 3.7 mmol/L (3.6-5.0); TOTAL PROTEIN 6.8 g/dL (6.3-8.2)
--- NOTE | 2018-02-02 16:58 | RADIOLOGY REPORT (SQ) ---
EXAM DESCRIPTION: CT HEAD WITHOUT COMPLETED DATE/TIME: 02/02/2018 4:29 pm REASON FOR STUDY: weakness COMPARISON: 2013 TECHNIQUE: Axial images acquired through the brain without intravenous contrast. Images reviewed wi th bone, brain and subdural windows. Additional sagittal and coronal reconstructions were generated. Images stored on PACS. All CT scanners at this facility use dose modulation, iterative reconstruction, and/or weight based d osing when appropriate to reduce radiation dose to as low as reasonably achievable (ALARA). [facility]: Dose Right [facility]: CareDose [facility]: Dose Right [facility]: Teradose 4D [facility]: Smart Phizzle RADIATION DOSE: CT Rad equipment meets quality standard of care and radiation dose reduction techniq ues were employed. CTDIvol: 48.7 mGy. DLP: 1004 mGy-cm. mGy. LIMITATIONS: None. FINDINGS: VENTRICLES: Normal size and contour. CEREBRUM: No masses. No hemorrhage. No midline shift. No evidence for acute infarction. Normal gra y/white matter differentiation. No areas of low density in the white matter. CEREBELLUM: No masses. No hemorrhage. No alteration of density. No evidence for acute infarction. EXTRAAXIAL SPACES: No fluid collections. No masses. ORBITS AND GLOBE: No intra- or extraconal masses. Normal contour of globe without masses. CALVARIUM: No fracture. PARANASAL SINUSES: No fluid or mucosal thickening. SOFT TISSUES: No mass or hematoma. OTHER: No other significant finding. IMPRESSION: NORMAL BRAIN CT WITHOUT CONTRAST. EVIDENCE OF ACUTE STROKE: NO. COMMENT: Quality ID # [id number]: Final reports with documentation of one or more dose reduction techniques (e.g., Automated exposure control, adjustment of the mA and/or kV according to patient size, use of iterative reconstruction technique) TECHNICAL DOCUMENTATION: JOB ID: [id number] [employer]- All Rights Reserved Reading location - IP/workstation name: [email or web address]
--- NOTE | 2018-02-02 17:00 | RADIOLOGY REPORT (SQ) ---
EXAM DESCRIPTION: CHEST 2 VIEWS COMPLETED DATE/TIME: 02/02/2018 4:46 pm REASON FOR STUDY: weakness COMPARISON: 06/12/2014 EXAM PARAMETERS: NUMBER OF VIEWS: two views TECHNIQUE: Digital Frontal and Lateral radiographic views of the chest acquired. RADIATION DOSE: NA LIMITATIONS: none FINDINGS: LUNGS AND PLEURA: Interstitial changes. Kelvin a and B-lines. Hilar haziness. MEDIASTINUM AND HILAR STRUCTURES: No masses or contour abnormalities. HEART AND VASCULAR STRUCTURES: Heart enlarged. Vascular congestion. BONES: No acute findings. HARDWARE: None in the chest. OTHER: No other significant finding. IMPRESSION: Congestive failure with interstitial pulmonary edema. Cannot exclude underlying interstitial lung disease. TECHNICAL DOCUMENTATION: JOB ID: [id number] [employer]- All Rights Reserved Reading location - IP/workstation name: [email or web address]
[2018-02-02] MEDS ORDERED: NORMAL SALINE 1000 ML 1,000 ML IV ONE (17:09)
[2018-02-02 17:34] LABS: VENOUS BLOOD BASE EXCESS -2.8 mmol/L; VENOUS BLOOD HCO3 20.1 mmol/L (20-32); VENOUS BLOOD PCO2 28.8 mmHg (35-63); VENOUS BLOOD PH 7.46 (7.30-7.42)
[2018-02-02 17:39] LABS: APPEARANCE,URINE CLEAR; BILIRUBIN,URINE NEGATIVE (NEGATIVE); GLUCOSE, URINE NEGATIVE (NEGATIVE); KETONES,URINE NEGATIVE (NEGATIVE); LEUKOCYTE ESTERASE,URINE NEGATIVE (NEGATIVE); NITRITE,URINE NEGATIVE (NEGATIVE); PROTEIN,URINE NEGATIVE (NEGATIVE)
[2018-02-02 17:40] LABS: COLOR,URINE YELLOW
[2018-02-02 17:42] LABS: LIPASE 185.5 U/L (23-300)
[2018-02-02] MEDS ORDERED: LIDOCAINE 1% INJ-PF (10 MG/ML) 30 ML SDV INJ ONE (17:50)
[2018-02-02] MEDS ORDERED: VANCOMYCIN HCL INJ 1000 MG VIAL IV ONE (17:50)
[2018-02-02] MEDS ORDERED: CEFTRIAXONE 1 GM/D5W RTU 1 GM/50 ML RTUPB IV ONE (17:55)
[2018-02-02] MEDS ORDERED: ACETAMINOPHEN 650 MG SUPP.RECT PR PRN (18:08)
[2018-02-02] MEDS ORDERED: ONDANSETRON HCL INJ/PF 4 MG/2 ML SDV IV PRN (18:08)
[2018-02-02] MEDS ORDERED: ONDANSETRON 4 MG TAB.RAPDIS PO PRN (18:08)
[2018-02-02] MEDS ORDERED: POTASSI CL 20 MEQ/NS 1L 1,000 ML IV PRN (18:08)
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
--- NOTE | 2018-02-02 18:37 | RADIOLOGY REPORT (SQ) ---
EXAM DESCRIPTION: CT ABD/PELVIS WITH IV ONLY COMPLETED DATE/TIME: 02/02/2018 6:17 pm REASON FOR STUDY: fever COMPARISON: Chest radiograph TECHNIQUE: CT scan of the abdomen and pelvis performed using helical scanning technique with dynamic intravenous contrast injection. No oral contrast. Images reviewed with lung, soft tissue, and bone windows. Reconstructed coronal and sagittal MPR images reviewed. Delayed images for evaluation of the urinary system also acquired. All images stored on PACS. All CT scanners at this facility use dose modulation, iterative reconstruction, and/or weight based d osing when appropriate to reduce radiation dose to as low as reasonably achievable (ALARA). [facility]: Dose Right [facility]: CareDose [facility]: Dose Right [facility]: Teradose 4D [facility]: Echolocation CONTRAST TYPE AND DOSE: contrast/concentration: Isovue 370.00 mg/ml; Total Contrast Delivered: 74.0 ml; Total Saline Delivered: 36.8 ml RENAL FUNCTION: Creatinine 1.15 RADIATION DOSE: CT Rad equipment meets quality standard of care and radiation dose reduction techniq ues were employed. CTDIvol: 7.3 - 8.6 mGy. DLP: 785 mGy-cm.. LIMITATIONS: None. FINDINGS: LOWER CHEST: Interstitial edema. LIVER: Nodular. No masses. SPLEEN: Normal size. No focal lesions. PANCREAS: No masses. No significant calcifications. No adjacent inflammation or peripancreatic fluid collections. Pancreatic duct not dilated. GALLBLADDER: Surgically absent. ADRENAL GLANDS: No significant masses or asymmetry. RIGHT KIDNEY AND URETER: No solid masses. No significant calcifications. No hydronephrosis or hyd roureter. LEFT KIDNEY AND URETER: No solid masses. No significant calcifications. No hydronephrosis or hydr oureter. AORTA AND VESSELS: No aneurysm. No dissection. Renal arteries, SMA, celiac without stenosis. RETROPERITONEUM: No retroperitoneal adenopathy, hemorrhage or masses. BOWEL AND PERITONEAL CAVITY: Marked generalized ascites. No bowel obstruction. APPENDIX: Surgically absent. PELVIS: No contrast in the bladder. Limited visualization of the collecting system. ABDOMINAL WALL: Generalized anasarca. BONES: No significant or acute findings. OTHER: No other significant finding. IMPRESSION: Massive ascites. Minimal visualization of the collecting system. Interstitial edema of the lung bases. TECHNICAL DOCUMENTATION: JOB ID: [id number] Quality ID # [id number]: Final reports with documentation of one or more dose reduction techniques (e.g., Au tomated exposure control, adjustment of the mA and/or kV according to patient size, use of iterative reconstruction technique) 2010 [employer]- All Rights Reserved Reading location - IP/workstation name: [email or web address]
--- NOTE | 2018-02-02 18:52 | EKG REPORT ---
SEVERITY:- ABNORMAL ECG - SINUS RHYTHM LEFT ANTERIOR FASCICULAR BLOCK BORDERLINE T ABNORMALITIES, ANT-LAT LEADS BORDERLINE PROLONGED QT INTERVAL : Confirmed by: Raheel Man MD 02-Feb-2018 18:51:20
[2018-02-02] MEDS ORDERED: FUROSEMIDE INJ/PF 20 MG/2 ML SDV IV ONE (18:58)
[2018-02-02] MEDS ORDERED: POTASSIUM CHLORIDE 20 MEQ/15 ML UDCUP PO ONE (19:00)
[2018-02-02] MEDS ORDERED: TRAMADOL HCL 50 MG TABLET PO PRN (19:01)
[2018-02-02] MEDS ORDERED: VANCOMYCIN HCL 0 MG in DEXTROSE 5%-WATER 250 ML IV NR (19:15)
[2018-02-02] MEDS ORDERED: FUROSEMIDE INJ/PF 40 MG/4 ML SDV IV ONE (19:30)
[2018-02-02 19:48] LABS: APPEARANCE ALL TUBES CLEAR; COLOR TUBE 1 PINK; COLOR TUBE 2 COLORLESS; COLOR TUBE 3 COLORLESS; COLOR TUBE 4 COLORLESS; CSF TUBE NUMBER 1
[2018-02-02 19:49] LABS: CSF TOTAL VOLUME 2.9 CC; VOLUME TUBE 1 0.5 CC; VOLUME TUBE 2 0.8 CC; VOLUME TUBE 3 0.8 CC; VOLUME TUBE 4 0.8 CC
[2018-02-02 19:50] LABS: RED BLOOD CELL,CSF 43 /uL (0-10); WHITE BLOOD CELL,CSF 3 /uL (0-5)
[2018-02-02 19:51] LABS: APPEARANCE ALL TUBES CLEAR; COLOR TUBE 1 PINK; COLOR TUBE 2 COLORLESS; COLOR TUBE 3 COLORLESS; COLOR TUBE 4 COLORLESS; CSF TOTAL VOLUME 2.9 CC; CSF TUBE NUMBER 4; VOLUME TUBE 1 0.5 CC; VOLUME TUBE 2 0.8 CC; VOLUME TUBE 3 0.8 CC; VOLUME TUBE 4 0.8 CC
[2018-02-02 19:52] LABS: RED BLOOD CELL,CSF 4 /uL (0-10); WHITE BLOOD CELL,CSF 1 /uL (0-5)
[2018-02-02 19:53] LABS: GLUCOSE,CSF 43 mg/dL (40-70); PROTEIN,CSF 64 mg/dL (12-60)
--- NOTE | 2018-02-02 19:53 | PDOC H&P ---
History of Present Illness Admission Date/PCP: 02/02/18 18:37 JOON MORALEZ MD Patient complains of: Fever, confusion History of Present Illness: The patient is a very pleasant 77-year-old female with past medical history of Moderate to severe aortic stenosis Hemochromatosis Cirrhosis Hypertension Hyperlipidemia Is Past Medical History Cardiac Medical History: Reports: Coronary Artery Disease, Hypertension, Peripheral Vascular Disease - Bilateral internal carotid artery stenosis GI Medical History: Reports: Cirrhosis - Thank you for your Musculoskeltal Medical History: Reports: Arthritis Hematology: Reports: Other - Hemochromatosis Past Surgical History Past Surgical History: Reports: Appendectomy, Cholecystectomy, Hysterectomy, Tonsillectomy Social History Information Source: Patient Smoking Status: Never Smoker Frequency of Alcohol Use: None Hx Recreational Drug Use: No Hx Prescription Drug Abuse: No - Advance Directive Resuscitation Status: Full Code Family History Family History: Hypertension Parental Family History Reviewed: Yes Children Family History Reviewed: Yes Sibling(s) Family History Reviewed.: Yes Medication/Allergy Home Medications: Amlodipine Besylate [Norvasc 2.5 mg Tablet] 2.5 mg PO DAILY 02/02/18 Aspirin [Aspirin EC] 81 mg PO DAILY 02/02/18 Atorvastatin Calcium [Lipitor 10 mg Tablet] 10 mg PO QHS 02/02/18 Bisoprolol/Hydrochlorothiazide [Bisoprolol-Hctz 5-6.25 mg Tab] 1 tab PO DAILY Cholecalciferol (Vitamin D3) [Vitamin D3 1000 Unit Tablet] 2,000 unit PO DAILY 02/02/18 Losartan Potassium [Cozaar 100 mg Tablet] 100 mg PO DAILY 02/02/18 Sulfamethoxazole/Trimethoprim [Bactrim Ds Tablet] 1 tab PO BID 02/02/18 Tramadol HCl [Ultram 50 mg Tablet] 50 mg PO Q6HP PRN 02/02/18 Allergies/Adverse Reactions: No Known Allergies Allergy (Verified 01/29/18 10:25) Physical Exam Vital Signs: Temp Pulse Resp BP Pulse Ox 98.6 F 60 19 100/66 95 02/02/18 19:11 02/02/18 17:00 02/02/18 19:06 02/02/18 19:06 02/02/18 19:06 Intake & Output 02/01/18 02/02/18 02/03/18 06:59 06:59 06:59 Weight 65.771 kg General appearance: PRESENT: no acute distress, thin Head exam: PRESENT: normocephalic Eye exam: PRESENT: PERRLA - Nutrition. ABSENT: scleral icterus Ear exam: PRESENT: normal external ear exam Mouth exam: PRESENT: moist Throat exam: ABSENT: tonsillar erythema - Swallow Neck exam: ABSENT: meningismus, tracheal deviation Respiratory exam: PRESENT: crackles - bibasilar crackles, symmetrical, unlabored. ABSENT: wheezes Cardiovascular exam: PRESENT: RRR, systolic murmur GI/Abdominal exam: PRESENT: ascites - She, distended, soft. ABSENT: tenderness Rectal exam: PRESENT: deferred Gentrourinary exam: ABSENT: indwelling catheter Extremities exam: PRESENT: pedal edema Musculoskeletal exam: PRESENT: normal inspection Neurological exam: PRESENT: alert, awake, oriented to person, oriented to place , oriented to time, oriented to situation, CN II-XII grossly intact. ABSENT: motor sensory deficit, aphasic Psychiatric exam: PRESENT: appropriate affect Skin exam: ABSENT: petechiae Results Impressions: Chest X-Ray 02/02/18 16:09 IMPRESSION: Congestive failure with interstitial pulmonary edema. Cannot exclude underlying interstitial lung disease. Head CT 02/02/18 16:09 IMPRESSION: NORMAL BRAIN CT WITHOUT CONTRAST. EVIDENCE OF ACUTE STROKE: NO. Abdomen/Pelvis CT 02/02/18 17:46 IMPRESSION: Massive ascites. Minimal visualization of the collecting system. Interstitial edema of the lung bases. Assessment & Plan - Diagnosis (1) Confusion Is this a current diagnosis for this admission?: Yes Plan: Likely secondary to fever and underlying UTI. Urinalysis here does not show any evidence of infection. She only had 1 dose of antibiotics at home yesterday. CT showed no acute abnormality. LP was done. (2) Fever of unknown origin Is this a current diagnosis for this admission?: Yes Plan: Follow-up on CSF studies. She has been started on empiric Rocephin and vancomycin. (3) Cirrhosis Is this a current diagnosis for this admission?: Yes Plan: Due to hemochromatosis. (4) Pedal edema Is this a current diagnosis for this admission?: Yes (5) Severe aortic stenosis Is this a current diagnosis for this admission?: Yes (6) Hemochromatosis Is this a current diagnosis for this admission?: Yes (7) Pulmonary vascular congestion Is this a current diagnosis for this admission?: Yes Plan: Diurese. (8) Ascites Qualifiers: Ascites type: other type Qualified Code(s): R18.8 - Other ascites Is this a current diagnosis for this admission?: Yes Plan: IV furosemide, low-sodium diet. Will also start her on some spironolactone. No abdominal tenderness tenderness, do not suspect SBP.. - Time Time Spent: Greater than 70 Minutes - Inpatient Certification Based on my medical assessment, after consideration of the patient's comorbidities, presenting symptoms, or acuity I expect that the services needed warrant INPATIENT care.: Yes I certify that my determination is in accordance with my understanding of Medicare's requirements for reasonable and necessary INPATIENT services [42 CFR 412.3e].: Yes Medical Necessity: Need Close Monitoring Due to Risk of Patient Decompensation, Need for IV Antibiotics
[2018-02-02 19:59] LABS: H. INFLUENZAE TYPE B AG NEGATIVE (NEGATIVE); S. PNEUMONIAE AG NEGATIVE (NEGATIVE); STREP. GROUP B AG NEGATIVE (NEGATIVE)
[2018-02-02] MEDS ORDERED: CEFTRIAXONE 2 GM/D5W RTU 2 GM/50 ML RTUPB IV ONE (22:27)
[2018-02-02] MEDS ORDERED: FUROSEMIDE INJ/PF 40 MG/4 ML SDV ONE (22:35)
[2018-02-02] MEDS ORDERED: POTASSIUM CHLORIDE 20 MEQ/15 ML UDCUP ONE (22:35)
[2018-02-02] MEDS: CEFTRIAXONE 2 GM/D5W RTU 2 GM/50 ML RTUPB IV SCH (22:50)
[2018-02-02] MEDS: ATORVASTATIN CALCIUM 10 MG TABLET PO SCH (22:55)
[2018-02-03] MEDS: IPRATROPIUM/ALBUTEROL 0.5-2.5 MG/3 ML AMPUL NEB PRN ×2 (01:26→04:05)
[2018-02-03 02:40] LABS: ARTERIAL BLOOD BASE EXCESS -4.2 mmol/L; ARTERIAL BLOOD H2CO3 0.75 mmol/L (1.05-1.35); ARTERIAL BLOOD HCO3 17.7 mmol/L (20-26); ARTERIAL BLOOD O2 SATURATION 96.7 % (94-98); ARTERIAL BLOOD PCO2 24.9 mmHg (35-45); ARTERIAL BLOOD PH 7.47 (7.35-7.45); ARTERIAL BLOOD PO2 80.4 mmHg (80-100); ARTERIAL BLOOD TOTAL CO2 18.5 mmol/L (21-25)
[2018-02-03 02:42] LABS: ARTERIAL BLOOD FIO2 3L
[2018-02-03] MEDS ORDERED: PHYTONADIONE INJ 10 MG/1 ML AMPULE SUBCUT ONE (02:54)
--- NOTE | 2018-02-03 03:33 | RADIOLOGY REPORT (SQ) ---
EXAM DESCRIPTION: US ABDOMEN ANEURYSM SCREENING COMPLETED DATE/TME: 02/03/2018 00:00 CLINICAL HISTORY: 77 years Female, DYSPNEA COMPARISON: None. NUMBER OF VIEWS/TECHNIQUE: 3 LIMITATIONS: None. FINDINGS: Intestinal gas pattern is within normal limits. No suspicious calcification. Surgical clips of the right upper quadrant and mid upper pelvis. Grossly intact skeletal structures. Moderate chronic interstitial markings. Atherosclerosis. IMPRESSION: No acute findings. Moderate chronic interstitial lung disease.
[2018-02-03] MEDS ORDERED: FUROSEMIDE INJ/PF 20 MG/2 ML SDV IV SCH (06:00)
[2018-02-03 06:39] LABS: ABSOLUTE RETICS # 0.076 10^6/uL (0.028-0.122); HEMOGLOBIN 11.1 g/dL (12.0-15.5); MEAN CORPUSCULAR HEMOGLOBIN 36.3 pg (27.0-33.4); MEAN CORPUSCULAR HGB CONC 35.8 g/dL (32.0-36.0); MEAN CORPUSCULAR VOLUME 101 fl (80-97); RED BLOOD COUNT 3.06 10^6/uL (3.72-5.28); RETICULOCYTE COUNT (AUTO) 2.47 % (0.66-2.85); WHITE BLOOD COUNT 6.5 10^3/uL (4.0-10.5)
[2018-02-03 06:53] LABS: ALANINE AMINOTRANSFERASE 34 U/L (9-52); ALBUMIN 2.6 g/dL (3.5-5.0); ALKALINE PHOSPHATASE 76 U/L (38-126); ANION GAP 8 (5-19); ASPARTATE AMINO TRANSFERASE 77 U/L (14-36); BILIRUBIN,DIRECT 0.9 mg/dL (0.0-0.4); BILIRUBIN,TOTAL 1.7 mg/dL (0.2-1.3); BLOOD UREA NITROGEN 20 mg/dL (7-20); CALCIUM 7.7 mg/dL (8.4-10.2); CARBON DIOXIDE 20 mmol/L (22-30); CHLORIDE 108 mmol/L (98-107); CREATINE KINASE 312 U/L (30-135); GLUCOSE 94 mg/dL (75-110); IRON(TIBC) 57.5 ug/dL (37-170); PHOSPHORUS 2.3 mg/dL (2.5-4.5); POTASSIUM 3.9 mmol/L (3.6-5.0); SODIUM 135.9 mmol/L (137-145)
[2018-02-03 07:27] LABS: ABSOLUTE MONOCYTES # (MANUAL) 0.3 10^3/uL (0.1-1.4); ABSOLUTE NEUTROPHILS# (MANUAL) 6.2 10^3/uL (1.7-8.2); BASOPHILS % (MANUAL) 0 % (0-2); EOSINOPHILS % (MANUAL) 0 % (0-6); LYMPHOCYTES % (MANUAL) 0 % (13-45); MONOCYTES % (MANUAL) 5 % (3-13); SEGMENTED NEUTROPHILS % (MAN) 95 % (42-78); TOTAL CELLS COUNTED 100
[2018-02-03 07:33] LABS: ANISOCYTOSIS SLIGHT; OVALOCYTES SLIGHT; PLATELET COMMENT DECREASED; POIKILOCYTOSIS SLIGHT
[2018-02-03 07:38] LABS: PLATELET COUNT 47 10^3/uL (150-450)
[2018-02-03 07:59] LABS: FOLATE 4.29 ng/mL (>2.76)
[2018-02-03] MEDS ORDERED: THIAMINE HCL 100 MG, FOLIC ACID 1 MG in NORMAL SALINE 250 ML IV SCH (08:00)
[2018-02-03] MEDS: CYANOCOBALAMIN (VITAMIN B-12) INJ 1000 MCG/1 ML VIAL IM SCH (08:54)
[2018-02-03] MEDS: CEFTRIAXONE 2 GM/D5W RTU 2 GM/50 ML RTUPB IV SCH ×2 (09:11→19:31)
[2018-02-03] MEDS: LACTOBACILLUS ACIDOPHILUS 250 MG TAB PO SCH ×2 (09:13→17:50)
[2018-02-03] MEDS: LOSARTAN POTASSIUM 25 MG TABLET PO SCH (09:14)
[2018-02-03] MEDS: METOPROLOL TARTRATE 25 MG TABLET PO SCH ×2 (09:15→21:13)
[2018-02-03] MEDS: ACETAMINOPHEN 325 MG TABLET PO PRN (09:34)
[2018-02-03] MEDS ORDERED: SPIRONOLACTONE 25 MG TABLET PO SCH (10:00)
[2018-02-03] MEDS ORDERED: ASPIRIN 81 MG TABLET, ENT COATED PO SCH (10:00)
[2018-02-03] MEDS: THIAMINE HCL 100 MG, FOLIC ACID 1 MG in NORMAL SALINE 250 ML IV SCH (11:14)
--- NOTE | 2018-02-03 12:29 | PDOC PROGRESS REPORT ---
Subjective Progress Note for:: 02/03/18 Subjective:: Feeling better today. Thinking better/less confused since admission. Was afebrile overnight however spiked fever this AM, while on broad spectrum antibtiotics. Infectious work up pending. Notes to have abdominal distention with mild pain. No nausea or vomiting. Denies chills or other localizing symptoms. Admits to history of hemochromatosis. Reason For Visit: FEVER AND ENCEPHALOPATHY OF UNKNOWN ORIGIN Physical Exam Vital Signs: Temp Pulse Resp BP Pulse Ox 101.1 F H 70 18 104/41 L 99 02/03/18 07:44 02/03/18 07:44 02/03/18 07:44 02/03/18 07:44 02/03/18 07:44 Intake & Output 02/02/18 02/03/18 02/04/18 06:59 06:59 06:59 Intake Total 310 Output Total 1000 Balance -690 Weight 72.8 kg General appearance: PRESENT: no acute distress, well-developed, well-nourished Head exam: PRESENT: normocephalic Mouth exam: PRESENT: moist Respiratory exam: PRESENT: unlabored. ABSENT: tachypnea Cardiovascular exam: PRESENT: +S1, +S2 GI/Abdominal exam: PRESENT: distended, other - Typanic. ABSENT: firm Neurological exam: PRESENT: alert, awake, CN II-XII grossly intact, other - No asterixis Psychiatric exam: PRESENT: appropriate affect Skin exam: PRESENT: dry, warm Results Laboratory Results: 02/03/18 05:18 02/03/18 05:18 02/02/18 02/02/18 02/02/18 19:00 19:00 19:00 WBC RBC Hgb Hct MCV MCH MCHC RDW Plt Count Seg Neutrophils % Lymphocytes % Monocytes % Eosinophils % Basophils % Absolute Neutrophils Absolute Lymphocytes Absolute Monocytes Absolute Eosinophils Absolute Basophils Retic Count (auto) Absolute Retic Carbonic Acid HCO3/H2CO3 Ratio ABG pH ABG pCO2 ABG pO2 ABG HCO3 ABG O2 Saturation ABG Base Excess FiO2 Sodium Potassium Chloride Carbon Dioxide Anion Gap BUN Creatinine Est GFR ( Amer) Est GFR (Non-Af Amer) Glucose Lactic Acid Calcium Phosphorus Magnesium Iron TIBC % Saturation Ferritin Total Bilirubin AST ALT Alkaline Phosphatase Total Protein Albumin Vitamin B12 Folate TSH Fluid Tube Number 1 4 CSF Volume 2.9 2.9 CSF Appearance CLEAR CLEAR CSF Color CSF WBC 3 1 CSF RBC 43 4 CSF Color (1) PINK PINK CSF Appearance (1) CSF Color (2) COLORLESS COLORLESS CSF Appearance (2) CSF Color (3) COLORLESS COLORLESS CSF Appearance (3) CSF Color (4) COLORLESS COLORLESS CSF Appearance (4) CSF Comment CSF CULTURE ORDERED CSF Glucose CSF Total Protein 02/02/18 02/02/18 02/02/18 19:00 19:00 19:00 WBC RBC Hgb Hct MCV MCH MCHC RDW Plt Count Seg Neutrophils % Lymphocytes % Monocytes % Eosinophils % Basophils % Absolute Neutrophils Absolute Lymphocytes Absolute Monocytes Absolute Eosinophils Absolute Basophils Retic Count (auto) Absolute Retic Carbonic Acid HCO3/H2CO3 Ratio ABG pH ABG pCO2 ABG pO2 ABG HCO3 ABG O2 Saturation ABG Base Excess FiO2 Sodium Potassium Chloride Carbon Dioxide Anion Gap BUN Creatinine Est GFR ( Amer) Est GFR (Non-Af Amer) Glucose Lactic Acid Calcium Phosphorus Magnesium Iron TIBC % Saturation Ferritin Total Bilirubin AST ALT Alkaline Phosphatase Total Protein Albumin Vitamin B12 Folate TSH Fluid Tube Number Cancelled Cancelled CSF Volume Cancelled Cancelled CSF Appearance Cancelled Cancelled CSF Color Cancelled Cancelled CSF WBC Cancelled Cancelled CSF RBC Cancelled Cancelled CSF Color (1) Cancelled Cancelled CSF Appearance (1) Cancelled Cancelled CSF Color (2) Cancelled Cancelled CSF Appearance (2) Cancelled Cancelled CSF Color (3) Cancelled Cancelled CSF Appearance (3) Cancelled Cancelled CSF Color (4) Cancelled Cancelled CSF Appearance (4) Cancelled Cancelled CSF Comment CSF Glucose 43 CSF Total Protein 64 H 02/02/18 02/03/18 02/03/18 21:25 02:20 05:18 WBC 6.5 RBC 3.06 L Hgb 11.1 L Hct 31.0 L MCV 101 H MCH 36.3 H MCHC 35.8 RDW 15.0 H Plt Count 47 L Seg Neutrophils % Not Reportable Lymphocytes % Not Reportable Monocytes % Not Reportable Eosinophils % Not Reportable Basophils % Not Reportable Absolute Neutrophils Not Reportable Absolute Lymphocytes Not Reportable Absolute Monocytes Not Reportable Absolute Eosinophils Not Reportable Absolute Basophils Not Reportable Retic Count (auto) 2.47 Absolute Retic 0.076 Carbonic Acid 0.75 L HCO3/H2CO3 Ratio 23:1 ABG pH 7.47 H ABG pCO2 24.9 L ABG pO2 80.4 ABG HCO3 17.7 L ABG O2 Saturation 96.7 ABG Base Excess -4.2 FiO2 3L Sodium Potassium Chloride Carbon Dioxide Anion Gap BUN Creatinine Est GFR ( Amer) Est GFR (Non-Af Amer) Glucose Lactic Acid 1.9 Calcium Phosphorus Magnesium Iron TIBC % Saturation Ferritin Total Bilirubin AST ALT Alkaline Phosphatase Total Protein Albumin Vitamin B12 Folate TSH Fluid Tube Number CSF Volume CSF Appearance CSF Color CSF WBC CSF RBC CSF Color (1) CSF Appearance (1) CSF Color (2) CSF Appearance (2) CSF Color (3) CSF Appearance (3) CSF Color (4) CSF Appearance (4) CSF Comment CSF Glucose CSF Total Protein 02/03/18 02/03/18 05:18 05:18 WBC RBC Hgb Hct MCV MCH MCHC RDW Plt Count Seg Neutrophils % Lymphocytes % Monocytes % Eosinophils % Basophils % Absolute Neutrophils Absolute Lymphocytes Absolute Monocytes Absolute Eosinophils Absolute Basophils Retic Count (auto) Absolute Retic Carbonic Acid HCO3/H2CO3 Ratio ABG pH ABG pCO2 ABG pO2 ABG HCO3 ABG O2 Saturation ABG Base Excess FiO2 Sodium 135.9 L Potassium 3.9 Chloride 108 H Carbon Dioxide 20 L Anion Gap 8 BUN 20 Creatinine 0.97 Est GFR ( Amer) > 60 Est GFR (Non-Af Amer) 55 L Glucose 94 Lactic Acid Calcium 7.7 L Phosphorus 2.3 L Magnesium 1.7 Iron 57.5 TIBC 206 L % Saturation 28 Ferritin 133.00 Total Bilirubin 1.7 H AST 77 H ALT 34 Alkaline Phosphatase 76 Total Protein 6.0 L Albumin 2.6 L Vitamin B12 787.0 Folate 4.29 TSH 5.12 H Fluid Tube Number CSF Volume CSF Appearance CSF Color CSF WBC CSF RBC CSF Color (1) CSF Appearance (1) CSF Color (2) CSF Appearance (2) CSF Color (3) CSF Appearance (3) CSF Color (4) CSF Appearance (4) CSF Comment CSF Glucose CSF Total Protein 02/03/18 05:18 Creatine Kinase 312 H Impressions: Chest X-Ray 02/02/18 16:09 IMPRESSION: Congestive failure with interstitial pulmonary edema. Cannot exclude underlying interstitial lung disease. Head CT 02/02/18 16:09 IMPRESSION: NORMAL BRAIN CT WITHOUT CONTRAST. EVIDENCE OF ACUTE STROKE: NO. Abdomen/Pelvis CT 02/02/18 17:46 IMPRESSION: Massive ascites. Minimal visualization of the collecting system. Interstitial edema of the lung bases. Acute Abdomen Series 02/03/18 00:00 IMPRESSION: No acute findings. Moderate chronic interstitial lung disease. Assessment & Plan - Diagnosis (1) Fever of unknown origin Is this a current diagnosis for this admission?: Yes Plan: Febrile at admission and again this AM. Technically this does not meet FUO criteria. Differential includes SBP vs bacterial infection. Viral encephalopathy also on differential. - Infectious work up: CSF and urine culture NGTD. Blood culture pending. Viral serology in CSF negative so far, HSV CSF pending. - Patient has ascites on exam and imaging. Will need paracentesis. Due to holiday will be done on 02/04. Ascites fluid studies ordered to evaluate for SBP and other pathologies. Given that patient has been on antibiotics this will decrease sensitivity of paracentesis. This was discussed with patient - Continue broad spectrum antibiotic coverage with Ceftriaxone and Vanc. If persistently febrile, would broaden coverage to Zosyn. (2) Ascites Qualifiers: Ascites type: other type Qualified Code(s): R18.8 - Other ascites Is this a current diagnosis for this admission?: Yes Plan: Diagnosed and therapeutic paracentesis ordered - Avoid diuresis given history of aortic stenosis and pre-load dependence (3) Cirrhosis Is this a current diagnosis for this admission?: Yes Plan: Unclear if this is in fact true. 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 Followed locally by Dr. Florentino with occasional phlebotomy (5) Severe aortic stenosis Is this a current diagnosis for this admission?: Yes Plan: Reported . Avoid overdiuresis per above - Time Time Spent with patient: 15-24 minutes - Inpatient Certification Medical Necessity: Need Close Monitoring Due to Risk of Patient Decompensation, Need for IV Antibiotics
[2018-02-03 15:30] LABS: INTERNATIONAL RATION (INR) 1.46; PROTHROMBIN TIME 18.5 SEC (11.4-15.4)
[2018-02-03 15:31] LABS: PARTIAL THROMBOPLASTIN TIME 50.9 SEC (23.5-35.8)
[2018-02-03] MEDS: ATORVASTATIN CALCIUM 10 MG TABLET PO SCH (21:13)
[2018-02-03] MEDS ORDERED: VANCOMYCIN HCL 1,000 MG in DEXTROSE 5%-WATER 250 ML IV SCH (22:00)
[2018-02-03] MEDS ORDERED: VANCOMYCIN HCL 750 MG in DEXTROSE 5%-WATER 250 ML IV SCH (22:00)
[2018-02-04 05:20] LABS: ABSOLUTE EOSINOPHILS # (AUTO) 0.6 10^3/uL (0.0-0.6); ABSOLUTE MONOCYTES (AUTO) 0.8 10^3/uL (0.1-1.4); ABSOLUTE NEUT (AUTO) 4.2 10^3/uL (1.7-8.2); BASOPHILS % (AUTO) 0.5 % (0-2); EOSINOPHILS % (AUTO) 8.4 % (0-6); HEMATOCRIT 31.2 % (36.0-47.0); LYMPHOCYTES % (AUTO) 15.6 % (13-45); MEAN CORPUSCULAR HEMOGLOBIN 35.5 pg (27.0-33.4); MEAN CORPUSCULAR HGB CONC 35.3 g/dL (32.0-36.0); MEAN CORPUSCULAR VOLUME 101 fl (80-97); MONOCYTES % (AUTO) 11.8 % (3-13); RED CELL DISTRIBUTION WIDTH 15.3 % (11.5-14.0); SEGMENTED NEUTROPHILS % (AUTO) 63.7 % (42-78); TOTAL CELLS COUNTED % (AUTO) 100 %; WHITE BLOOD COUNT 6.6 10^3/uL (4.0-10.5)
[2018-02-04 05:23] LABS: ANION GAP 7 (5-19); BLOOD UREA NITROGEN 15 mg/dL (7-20); CALCIUM 7.8 mg/dL (8.4-10.2); CARBON DIOXIDE 22 mmol/L (22-30); CHLORIDE 108 mmol/L (98-107); GLUCOSE 91 mg/dL (75-110); PHOSPHORUS 2.1 mg/dL (2.5-4.5); SODIUM 136.8 mmol/L (137-145)
[2018-02-04 05:54] LABS: PLATELET COUNT 58 10^3/uL (150-450)
[2018-02-04] MEDS: METOPROLOL TARTRATE 25 MG TABLET PO SCH ×2 (09:42→21:25)
[2018-02-04] MEDS: AMLODIPINE BESYLATE 2.5 MG TABLET PO SCH (09:43)
[2018-02-04] MEDS: LACTOBACILLUS ACIDOPHILUS 250 MG TAB PO SCH ×2 (09:43→18:30)
[2018-02-04] MEDS: CYANOCOBALAMIN (VITAMIN B-12) INJ 1000 MCG/1 ML VIAL IM SCH (09:43)
[2018-02-04] MEDS: LOSARTAN POTASSIUM 25 MG TABLET PO SCH (09:43)
[2018-02-04] MEDS ORDERED: LORAZEPAM INJ 2 MG/1 ML VIAL IV PRN (09:50)
[2018-02-04] MEDS ORDERED: LORAZEPAM INJ 2 MG/1 ML VIAL ONE (09:53)
[2018-02-04] MEDS ORDERED: CEFTRIAXONE 2 GM/D5W RTU 2 GM/50 ML RTUPB IV SCH (10:00)
[2018-02-04] MEDS ORDERED: ONDANSETRON HCL INJ/PF 4 MG/2 ML SDV IV PRN (10:00)
[2018-02-04] MEDS ORDERED: ONDANSETRON 4 MG TAB.RAPDIS PO PRN (10:00)
[2018-02-04] MEDS ORDERED: LIDOCAINE 1% INJ-PF (10 MG/ML) 30 ML SDV ONE (10:04)
[2018-02-04] MEDS: ASPIRIN 81 MG TABLET, ENT COATED PO SCH (10:08)
--- NOTE | 2018-02-04 12:08 | RADIOLOGY REPORT (SQ) ---
EXAM DESCRIPTION: U/S ABD PARACENTESIS COMPLETED DATE/TIME: 02/04/2018 11:25 am REASON FOR STUDY: abdominal distention, ascites, c/f SBP COMPARISON Paracentesis 10/28/2013 LIMITATIONS: None. PROCEDURE: After obtaining informed consent, the patient was brought to the ultrasound suite. The p rocedure was performed with the patient on a gurney. Ultrasound was used to identify a prominent poc ket of ascites in the left lower quadrant. An appropriate access site was selected. The patient was prepped and draped in usual sterile fashion. The access site was anesthetized with 7 mL 1% lidocai ne. A [id number]-Slyaqltl needle was advanced into the fluid. After aspiration of fluid the needle, the catheter was advanced off the needle into the fluid. A total of 3,800 mL of clear yellow fluid was removed. The patient tolerated the procedure well left the department in satisfactory condition. Fluid was sent for testing as per hospitalist attending physician IMPRESSION: Successful ultrasound-guided diagnostic and therapeutic paracentesis COMMENT: Patient medication list reviewed: Yes- Quality ID# [id number]:Eligible professional attests to doc umenting in the medical record they obtained, updated, or reviewed the patient's current medications. TECHNICAL DOCUMENTATION: JOB ID: [id number] [employer]- All Rights Reserved Reading location - IP/workstation name: [facility] / [email or web address]
[2018-02-04 12:35] LABS: FLUID APPEARANCE SLIGHTLY HAZY; FLUID COLOR YELLOW; FLUID SOURCE ASCITES; FLUID TYPE PERITONEAL; FLUID VISCOSITY LIQUID
[2018-02-04] MEDS: THIAMINE HCL 100 MG, FOLIC ACID 1 MG in NORMAL SALINE 250 ML IV SCH (12:49)
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
[2018-02-04] MEDS: ATORVASTATIN CALCIUM 10 MG TABLET PO SCH (21:25)
[2018-02-04] MEDS: ACETAMINOPHEN 325 MG TABLET PO PRN (23:50)
[2018-02-05 05:16] LABS: ABSOLUTE EOSINOPHILS # (AUTO) 0.3 10^3/uL (0.0-0.6); ABSOLUTE LYMPHOCYTES (AUTO) 1.2 10^3/uL (0.5-4.7); ABSOLUTE MONOCYTES (AUTO) 0.9 10^3/uL (0.1-1.4); ABSOLUTE NEUT (AUTO) 4.3 10^3/uL (1.7-8.2); BASOPHILS % (AUTO) 0.5 % (0-2); EOSINOPHILS % (AUTO) 4.6 % (0-6); HEMATOCRIT 32.4 % (36.0-47.0); HEMOGLOBIN 11.4 g/dL (12.0-15.5); LYMPHOCYTES % (AUTO) 18.1 % (13-45); MEAN CORPUSCULAR HEMOGLOBIN 35.7 pg (27.0-33.4); MEAN CORPUSCULAR HGB CONC 35.2 g/dL (32.0-36.0); MEAN CORPUSCULAR VOLUME 101 fl (80-97); MONOCYTES % (AUTO) 12.7 % (3-13); RED BLOOD COUNT 3.19 10^6/uL (3.72-5.28); RED CELL DISTRIBUTION WIDTH 15.6 % (11.5-14.0); SEGMENTED NEUTROPHILS % (AUTO) 64.1 % (42-78); TOTAL CELLS COUNTED % (AUTO) 100 %; WHITE BLOOD COUNT 6.7 10^3/uL (4.0-10.5)
[2018-02-05 05:30] LABS: PHOSPHORUS 2.6 mg/dL (2.5-4.5)
[2018-02-05 05:43] LABS: PLATELET COUNT 69 10^3/uL (150-450)
[2018-02-05] MEDS: CYANOCOBALAMIN (VITAMIN B-12) INJ 1000 MCG/1 ML VIAL IM SCH (07:56)
[2018-02-05] MEDS: ASPIRIN 81 MG TABLET, ENT COATED PO SCH (10:53)
[2018-02-05] MEDS: LOSARTAN POTASSIUM 25 MG TABLET PO SCH (10:54)
[2018-02-05] MEDS: LACTOBACILLUS ACIDOPHILUS 250 MG TAB PO SCH (10:54)
[2018-02-05] MEDS: AMLODIPINE BESYLATE 2.5 MG TABLET PO SCH (10:55)
[2018-02-05] MEDS: THIAMINE HCL 100 MG, FOLIC ACID 1 MG in NORMAL SALINE 250 ML IV SCH (10:56)
[2018-02-05] MEDS: METOPROLOL TARTRATE 25 MG TABLET PO SCH (10:57)
[2018-02-05 12:47] VITALS: BP 123/41
--- NOTE | 2018-02-05 19:18 | PDOC DISCHARGE SUMMARY ---
General - Admit/Disc Date/PCP Admission Date/Primary Care Provider: 02/02/18 18:37 JOON MORALEZ MD Discharge Date: 02/05/18 - Patient seen on rounds this morning - Discharge Diagnosis (1) Ascites Is this a current diagnosis for this admission?: Yes (2) Cirrhosis Is this a current diagnosis for this admission?: Yes (3) Confusion Is this a current diagnosis for this admission?: Yes (4) Fever of unknown origin Is this a current diagnosis for this admission?: Yes (5) Hemochromatosis Is this a current diagnosis for this admission?: Yes (6) Pulmonary vascular congestion Is this a current diagnosis for this admission?: Yes (7) Severe aortic stenosis Is this a current diagnosis for this admission?: Yes - Additional Information Resuscitation Status: Full Code Discharge Diet: As Tolerated Discharge Activity: Activity As Tolerated Prescriptions: Ciprofloxacin HCl [Cipro 500 mg Tablet] 500 mg PO BID 3 Days #6 tablet Losartan Potassium [Cozaar 25 mg Tablet] 25 mg PO DAILY #30 tablet Metoprolol Tartrate [Lopressor 25 mg Tablet] 12.5 mg PO Q12 #60 tablet Spironolactone [Aldactone 25 mg Tablet] 25 mg PO DAILY #30 tablet Home Medications: Amlodipine Besylate [Norvasc 2.5 mg Tablet] 2.5 mg PO DAILY 02/02/18 Aspirin [Aspirin EC] 81 mg PO DAILY 02/02/18 Atorvastatin Calcium [Lipitor 10 mg Tablet] 10 mg PO QHS 02/02/18 Cholecalciferol (Vitamin D3) [Vitamin D3 1000 Unit Tablet] 2,000 unit PO DAILY 02/02/18 Tramadol HCl [Ultram 50 mg Tablet] 50 mg PO Q6HP PRN 02/02/18 Acetaminophen [Tylenol 325 mg Tablet] 650 mg PO Q4HP PRN tablet 02/05/18 Amlodipine Besylate [Norvasc 2.5 mg Tablet] 2.5 mg PO DAILY tablet 02/05/18 Aspirin [Ecotrin 81 mg EC Tablet] 81 mg PO DAILY tabec 02/05/18 Atorvastatin Calcium [Lipitor 10 mg Tablet] 10 mg PO QHS tablet 02/05/18 Ciprofloxacin HCl [Cipro 500 mg Tablet] 500 mg PO BID 3 Days #6 tablet 02/05/18 Ipratropium/Albuterol Sulfate [Duoneb 3 ml Ampul] 3 ml NEB RTQ3HP PRN vial.neb 02/05/18 Losartan Potassium [Cozaar 25 mg Tablet] 25 mg PO DAILY #30 tablet 02/05/18 Metoprolol Tartrate [Lopressor 25 mg Tablet] 12.5 mg PO Q12 #60 tablet 02/05/18 Spironolactone [Aldactone 25 mg Tablet] 25 mg PO DAILY #30 tablet 02/05/18 Tramadol HCl [Ultram 50 mg Tablet] 50 mg PO Q8HP PRN tablet 02/05/18 History of Present Illness History of Present Illness: RACHNA MAYERS is a 77 year old female was admitted for confusion and fever later found to have 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 Please see HPI for full assessment and plan Hospital Course Hospital Course: After admission to the hospital she was given IV antibiotics to treat for suspected infection. CT abdomen had not shown any acute abnormality LP was done and labs were sent. Infectious disease was contacted to rule out SBP versus other infection. Fortunately CSF and urine was negative. Blood culture also remained negative. A diagnostic paracentesis was done but was not indicative of SBP. Infectious disease was consulted and appreciate their assistance. As per recommendation since patient has remained afebrile within the last 24 hours it is likely that she may have had SBP but because she already received IV antibiotics prior to her paracentesis results may not be accurate. At this time ID recommends continue with p.o. antibiotics for total of 5 days. Patient will be discharged on Cipro for a few more days. Due to hypertension and recent findings of ascites her medications where changed-I discussed with family and patient about these changes and verbalized understanding. The medications were prescribed to her. Her losartan was decreased to 25 mg, she is now on metoprolol 25 mg twice daily, amlodipine 2.5 mg, spironolactone 25 mg daily. She was told to follow-up with her family doctor and GI doctor after discharge. Physical Exam Vital Signs: Temp Pulse Resp BP Pulse Ox 97.6 F 57 L 16 111/66 97 02/05/18 07:45 02/05/18 07:45 02/05/18 07:45 02/05/18 07:45 02/05/18 07:45 Intake & Output 02/04/18 02/05/18 02/06/18 06:59 06:59 06:59 Intake Total 1687 918 Output Total 400 551 Balance 1287 367 Weight 161 lb 2.526 oz 149 lb 0.52 oz General appearance: PRESENT: no acute distress, thin, well-developed, well- nourished Eye exam: PRESENT: EOMI. ABSENT: conjunctival injection, scleral icterus Mouth exam: PRESENT: moist, neck supple Neck exam: PRESENT: full ROM, JVD. ABSENT: tenderness Respiratory exam: PRESENT: clear to auscultation alfredo, symmetrical Cardiovascular exam: PRESENT: RRR, +S1, +S2 Pulses: PRESENT: +2 pedal pulses bilateral GI/Abdominal exam: PRESENT: normal bowel sounds, soft. ABSENT: tenderness Extremities exam: ABSENT: joint swelling Musculoskeletal exam: PRESENT: full ROM. ABSENT: tenderness Neurological exam: PRESENT: alert, altered, awake, CN II-XII grossly intact Skin exam: PRESENT: dry, warm Results Laboratory Results: 02/05/18 04:51 02/04/18 04:36 02/04/18 02/05/18 02/05/18 10:52 04:51 04:51 WBC 6.7 RBC 3.19 L Hgb 11.4 L Hct 32.4 L MCV 101 H MCH 35.7 H MCHC 35.2 RDW 15.6 H Plt Count 69 L Seg Neutrophils % 64.1 Lymphocytes % 18.1 Monocytes % 12.7 Eosinophils % 4.6 Basophils % 0.5 Absolute Neutrophils 4.3 Absolute Lymphocytes 1.2 Absolute Monocytes 0.9 Absolute Eosinophils 0.3 Absolute Basophils 0.0 Phosphorus 2.6 Magnesium 2.1 Ammonia Fluid Type PERITONEAL Fluid Source ASCITES Fluid Color YELLOW Fluid Appearance SLIGHTLY HAZY Fluid Viscosity LIQUID Fluid WBC 177 Fluid RBC 2270 02/05/18 04:51 WBC RBC Hgb Hct MCV MCH MCHC RDW Plt Count Seg Neutrophils % Lymphocytes % Monocytes % Eosinophils % Basophils % Absolute Neutrophils Absolute Lymphocytes Absolute Monocytes Absolute Eosinophils Absolute Basophils Phosphorus Magnesium Ammonia 16.1 Fluid Type Fluid Source Fluid Color Fluid Appearance Fluid Viscosity Fluid WBC Fluid RBC 02/02/18 19:00 Cerebral Spinal Fluid - Tube 3 (Csf) Gram Stain - Final 02/02/18 19:00 Cerebral Spinal Fluid - Tube 3 (Csf) CSF Culture - Final NO GROWTH 3 DAYS 02/03/18 05:18 Creatine Kinase 312 H Impressions: Chest X-Ray 02/02/18 16:09 IMPRESSION: Congestive failure with interstitial pulmonary edema. Cannot exclude underlying interstitial lung disease. Head CT 02/02/18 16:09 IMPRESSION: NORMAL BRAIN CT WITHOUT CONTRAST. EVIDENCE OF ACUTE STROKE: NO. Abdomen/Pelvis CT 02/02/18 17:46 IMPRESSION: Massive ascites. Minimal visualization of the collecting system. Interstitial edema of the lung bases. Acute Abdomen Series 02/03/18 00:00 IMPRESSION: No acute findings. Moderate chronic interstitial lung disease. Paracentesis Ultrasound 02/04/18 00:00 IMPRESSION: Successful ultrasound-guided diagnostic and therapeutic paracentesis Qualifiers - * PATIENT BEING DISCHARGED WITH ANY OF THE FOLLOWING DIAGNOSIS: No Plan Time Spent: Less than 30 Minutes
[2018-02-05 22:37] LABS: HSV I DNA Negative (Negative)
[2018-02-06 10:17] LABS: HSV II DNA Negative (Negative)
== END 2018-02-05 14:10 | disposition home health service (06) | DRG 432 ==
LOC: ER 15:40 → EH 18:37 → 3W 21:15
PROVIDERS: ADMIT Internal Medicine; ATTEND Internal Medicine
PROC: 009U3ZX Drainage of Spinal Canal, Percutaneous Approach, Diagnostic (ICD-10-PCS; principal; 2018-02-02)
PROC: 0W9G3ZX Drainage of Peritoneal Cavity, Percutaneous Approach, Diagnostic (ICD-10-PCS; 2018-02-04)
DX: K74.69 Other cirrhosis of liver (principal); G93.41 Metabolic encephalopathy; R18.8 Other ascites; N39.0 Urinary tract infection, site not specified; I95.89 Other hypotension; E78.5 Hyperlipidemia, unspecified; R60.9 Edema, unspecified; E83.110 Hereditary hemochromatosis; R09.89 Other specified symptoms and signs involving the circulatory and respiratory systems; I25.10 Atherosclerotic heart disease of native coronary artery without angina pectoris; I73.9 Peripheral vascular disease, unspecified; I50.9 Heart failure, unspecified; I11.0 Hypertensive heart disease with heart failure; M19.90 Unspecified osteoarthritis, unspecified site; I35.0 Nonrheumatic aortic (valve) stenosis; Z82.49 Family history of ischemic heart disease and other diseases of the circulatory system; Z79.899 Other long term (current) drug therapy; Z79.82 Long term (current) use of aspirin
CPT/HCPCS: 36415; 36600; 49083; 70450; 71046; 74022; 74177; 80048; 80053; 81001; 82042; 82140; 82550; 82607; 82728; 82746; 82803; 82945; 83036; 83540; 83550; 83605; 83615; 83690; 83735; 83880; 84100; 84157; 84443; 85025; 85045; 85610; 85730; 86403; 87040; 87070; 87075; 87086; 87205; 87529; 88305; 89050; 93005; 93010; 94640; 96374; 99285; G8978-GP; G8979-GP; J0696; J1940; J2060; J3370; J3411; J3420; J3430; J3490; J7030; J7050; J7060; J7620

== ENCOUNTER → 2018-02-18 | Outpatient (CLI) | payer MEDICARE, OTHER ==
[2018-02-18 14:11] LABS: ALANINE AMINOTRANSFERASE 25 U/L (9-52); ALBUMIN 2.8 g/dL (3.5-5.0); ALKALINE PHOSPHATASE 112 U/L (38-126); ANION GAP 11 (5-19); ASPARTATE AMINO TRANSFERASE 61 U/L (14-36); BILIRUBIN,DIRECT 0.5 mg/dL (0.0-0.4); BILIRUBIN,TOTAL 1.5 mg/dL (0.2-1.3); BLOOD UREA NITROGEN 15 mg/dL (7-20); CALCIUM 8.2 mg/dL (8.4-10.2); CARBON DIOXIDE 22 mmol/L (22-30); CHLORIDE 106 mmol/L (98-107); GLUCOSE 109 mg/dL (75-110); POTASSIUM 4.3 mmol/L (3.6-5.0); SODIUM 138.9 mmol/L (137-145); TOTAL PROTEIN 6.8 g/dL (6.3-8.2)
== END ==
LOC: OD 12:32
PROVIDERS: ATTEND Internal Medicine
DX: K72.90 Hepatic failure, unspecified without coma (principal); I10 Essential (primary) hypertension; E83.110 Hereditary hemochromatosis; Z68.27 Body mass index [BMI] 27.0-27.9, adult
CPT/HCPCS: 36415; 80053

== ENCOUNTER → 2018-02-24 | Outpatient (CLI) | payer MEDICARE, OTHER ==
[2018-02-24 16:00] LABS: ALANINE AMINOTRANSFERASE 30 U/L (9-52); ALBUMIN 2.7 g/dL (3.5-5.0); ALKALINE PHOSPHATASE 119 U/L (38-126); ANION GAP 11 (5-19); ASPARTATE AMINO TRANSFERASE 64 U/L (14-36); BILIRUBIN,DIRECT 0.5 mg/dL (0.0-0.4); BILIRUBIN,TOTAL 1.7 mg/dL (0.2-1.3); BLOOD UREA NITROGEN 16 mg/dL (7-20); CALCIUM 8.4 mg/dL (8.4-10.2); CARBON DIOXIDE 23 mmol/L (22-30); CHLORIDE 107 mmol/L (98-107); GLUCOSE 97 mg/dL (75-110); POTASSIUM 4.6 mmol/L (3.6-5.0); SODIUM 140.5 mmol/L (137-145); TOTAL PROTEIN 6.7 g/dL (6.3-8.2)
== END ==
LOC: OD 14:57
PROVIDERS: ATTEND Internal Medicine
DX: E87.79 Other fluid overload (principal)
CPT/HCPCS: 36415; 80053

== ENCOUNTER → 2018-03-26 | Outpatient (CLI) | payer MEDICARE, OTHER ==
[2018-03-28 16:36] LABS: HEPATITIS C QUANTITATION HCV Not Detected IU/mL (.)
== END ==
LOC: OD 09:49
PROVIDERS: ATTEND Internal Medicine
DX: B19.20 Unspecified viral hepatitis C without hepatic coma (principal); E83.110 Hereditary hemochromatosis
CPT/HCPCS: 36415; 87522

== ENCOUNTER → 2018-04-01 | Outpatient (CLI) | payer MEDICARE, OTHER ==
[2018-04-01 11:10] LABS: ABSOLUTE BASOPHILS # (AUTO) 0.1 10^3/uL (0.0-0.2); ABSOLUTE EOSINOPHILS # (AUTO) 0.1 10^3/uL (0.0-0.6); ABSOLUTE LYMPHOCYTES (AUTO) 0.9 10^3/uL (0.5-4.7); ABSOLUTE MONOCYTES (AUTO) 0.5 10^3/uL (0.1-1.4); ABSOLUTE NEUT (AUTO) 2.6 10^3/uL (1.7-8.2); BASOPHILS % (AUTO) 1.3 % (0-2); EOSINOPHILS % (AUTO) 2.8 % (0-6); HEMOGLOBIN 10.7 g/dL (12.0-15.5); MEAN CORPUSCULAR HGB CONC 34.4 g/dL (32.0-36.0); MEAN CORPUSCULAR VOLUME 102 fl (80-97); MONOCYTES % (AUTO) 13.1 % (3-13); RED BLOOD COUNT 3.05 10^6/uL (3.72-5.28); RED CELL DISTRIBUTION WIDTH 14.6 % (11.5-14.0); SEGMENTED NEUTROPHILS % (AUTO) 60.8 % (42-78); TOTAL CELLS COUNTED % (AUTO) 100 %; WHITE BLOOD COUNT 4.2 10^3/uL (4.0-10.5)
[2018-04-01 11:44] LABS: ERYTHROCYTE SEDIMENTATION RATE 94 mm/hr (0-30)
[2018-04-01 11:51] LABS: PLATELET COUNT 74 10^3/uL (150-450)
[2018-04-01 12:06] LABS: ALANINE AMINOTRANSFERASE 27 U/L (9-52); ALKALINE PHOSPHATASE 108 U/L (38-126); ANION GAP 10 (5-19); ASPARTATE AMINO TRANSFERASE 52 U/L (14-36); BILIRUBIN,DIRECT 0.5 mg/dL (0.0-0.4); BILIRUBIN,TOTAL 1.6 mg/dL (0.2-1.3); BLOOD UREA NITROGEN 14 mg/dL (7-20); CARBON DIOXIDE 22 mmol/L (22-30); CHLORIDE 110 mmol/L (98-107); GLUCOSE 90 mg/dL (75-110); POTASSIUM 4.9 mmol/L (3.6-5.0); SODIUM 142.2 mmol/L (137-145); TOTAL PROTEIN 7.4 g/dL (6.3-8.2)
== END ==
LOC: OD 09:23
PROVIDERS: ATTEND Internal Medicine
DX: K72.90 Hepatic failure, unspecified without coma (principal); E83.110 Hereditary hemochromatosis; I10 Essential (primary) hypertension; I38 Endocarditis, valve unspecified; E55.9 Vitamin D deficiency, unspecified
CPT/HCPCS: 36415; 80053; 82306; 83036; 84443; 85025; 85652

== ENCOUNTER → 2018-04-06 | Outpatient (CLI) | payer MEDICARE, OTHER ==
[2018-04-07 05:39] LABS: THYROID PEROXIDASE (TPO) AB 12 IU/mL (0-34)
[2018-04-07 10:34] LABS: THYROGLOBULIN AB <1.0 IU/mL (0.0-0.9)
== END ==
LOC: OD 11:13
PROVIDERS: ATTEND Internal Medicine
DX: R79.89 Other specified abnormal findings of blood chemistry (principal)
CPT/HCPCS: 36415; 84436; 84481; 86376

== ENCOUNTER → 2018-06-21 | Outpatient (CLI) | payer MEDICARE, OTHER ==
[2018-06-21 12:11] LABS: ANION GAP 12 (5-19); BLOOD UREA NITROGEN 26 mg/dL (7-20); CALCIUM 9.2 mg/dL (8.4-10.2); CARBON DIOXIDE 25 mmol/L (22-30); CHLORIDE 105 mmol/L (98-107); GLUCOSE 102 mg/dL (75-110); POTASSIUM 3.8 mmol/L (3.6-5.0); SODIUM 141.8 mmol/L (137-145)
== END ==
LOC: OD 10:37
PROVIDERS: ATTEND Internal Medicine Gastroenterology
DX: K74.60 Unspecified cirrhosis of liver (principal); R18.8 Other ascites
CPT/HCPCS: 36415; 80048

== ENCOUNTER 2018-07-13 15:20 | Inpatient (IN) | payer MEDICARE, OTHER ==
--- NOTE | 2018-07-13 16:55 | ER Document Report ---
ED Medical Screen (RME) - General Chief Complaint: General Weakness Stated Complaint: WEAKNESS Time Seen by Provider: 07/13/18 16:49 TRAVEL OUTSIDE OF THE [place] IN LAST 30 DAYS: No - HPI Notes: 07/13/18 16:54 Patient is a 77-year-old female with hemochromatosis that presents to the emergency department for chief complaint of confusion. Family reports increased confusion since Thursday. She does live at home but has frequent family members around her. Patient reports some urinary frequency but has no other complaints.. ROS: GENERAL: Denies fever of chills : Urinary frequency CV: Denies chest pain PHYSICAL EXAMINATION: GENERAL: Well-appearing, well-nourished and in no acute distress. HEAD: Atraumatic, normocephalic. EYES: Pupils equal round extraocular movements intact, conjunctiva are normal. ENT: Nares patent NECK: Normal range of motion LUNGS: No respiratory distress Musculoskeletal: Normal range of motion NEUROLOGICAL: Normal speech, normal gait. PSYCH: Normal mood, normal affect. MDM: Patient seen and examined for rapid initial assessment. Vital signs reviewed. A comprehensive ED assessment and evaluation of the patient, analysis of test results and completion of the medical decision making process will be conducted by additional ED providers. - Related Data Allergies/Adverse Reactions: furosemide [From Lasix] Allergy (Verified 07/13/18 16:49) shellfish derived Allergy (Verified 07/13/18 16:49) Iodinated Contrast- Oral and IV Dye Adverse Reaction (Verified 07/13/18 15:28) iodine Adverse Reaction (Verified 07/13/18 15:28) Past Medical History - Past Medical History Cardiac Medical History: Reports: Hx Coronary Artery Disease, Hx Hypertension, Hx Peripheral Vascular Disease - Bilateral internal carotid artery stenosis Denies: Hx Heart Attack Pulmonary Medical History: Denies: Hx Asthma, Hx Bronchitis, Hx COPD, Hx Pneumonia Neurological Medical History: Reports: Hx Cerebrovascular Accident - 2014. Denies: Hx Seizures Renal/ Medical History: Denies: Hx Peritoneal Dialysis GI Medical History: Reports: Hx Cirrhosis - Thank you for your Musculoskeltal Medical History: Reports Hx Arthritis Past Surgical History: Reports: Hx Appendectomy, Hx Cholecystectomy, Hx Hysterectomy, Hx Tonsillectomy - Immunizations Hx Diphtheria, Pertussis, Tetanus Vaccination: Yes Physical Exam - Vital signs Vitals: Temp Pulse Resp BP Pulse Ox 99.0 F 66 16 105/60 96 12/11/18 15:34 07/13/18 15:34 07/13/18 15:34 07/13/18 15:34 07/13/18 15:34 Course - Vital Signs Vital signs: Temp Pulse Resp BP Pulse Ox 99.0 F 66 16 105/60 96 07/13/18 15:34 07/13/18 15:34 07/13/18 15:34 07/13/18 15:34 07/13/18 15:34 Doctor's Discharge - Discharge Referrals: LOCALMD,NO [Primary Care Provider] - Follow up as needed
--- NOTE | 2018-07-13 17:49 | RADIOLOGY REPORT (SQ) ---
EXAM DESCRIPTION: CT HEAD WITHOUT COMPLETED DATE/TIME: 07/13/2018 5:11 pm REASON FOR STUDY: confusion COMPARISON: 02/02/2018. TECHNIQUE: Axial images acquired through the brain without intravenous contrast. Images reviewed wi th bone, brain and subdural windows. Additional sagittal and coronal reconstructions were generated. Images stored on PACS. All CT scanners at this facility use dose modulation, iterative reconstruction, and/or weight based d osing when appropriate to reduce radiation dose to as low as reasonably achievable (ALARA). [facility]: Dose Right [facility]: CareDose [facility]: Dose Right [facility]: Teradose 4D [facility]: [employer] RADIATION DOSE: CT Rad equipment meets quality standard of care and radiation dose reduction techniq ues were employed. CTDIvol: 53.2 mGy. DLP: 991 mGy-cm. mGy. LIMITATIONS: None. FINDINGS: VENTRICLES: Prominent. CEREBRUM: No masses. No hemorrhage. No midline shift. Areas of low density in the white matter mos t likely due to chronic micro-vascular ischemic change. Old infarct in the left frontal lobe. No ev idence for acute infarction. CEREBELLUM: No masses. No hemorrhage. No alteration of density. No evidence for acute infarction. EXTRAAXIAL SPACES: Mild age-related involutional change. No fluid collections. No masses. ORBITS AND GLOBE: No intra- or extraconal masses. Normal contour of globe without masses. CALVARIUM: No fracture. PARANASAL SINUSES: No fluid or mucosal thickening. SOFT TISSUES: No mass or hematoma. OTHER: No other significant finding. IMPRESSION: MILD CHRONIC CHANGES OF ATROPHY AND MICROVASCULAR ISCHEMIA. OLD INFARCT IN THE LEFT FRO NTAL LOBE. NO ACUTE PROCESS. EVIDENCE OF ACUTE STROKE: NO. TECHNICAL DOCUMENTATION: JOB ID: [id number] Quality ID # [id number]: Final reports with documentation of one or more dose reduction techniques (e.g., Au tomated exposure control, adjustment of the mA and/or kV according to patient size, use of iterative reconstruction technique) 2010 [employer]- All Rights Reserved Reading location - IP/workstation name: [email or web address]
--- NOTE | 2018-07-13 17:50 | RADIOLOGY REPORT (SQ) ---
EXAM DESCRIPTION: CHEST SINGLE VIEW COMPLETED DATE/TIME: 07/13/2018 5:10 pm REASON FOR STUDY: confusion COMPARISON: 02/02/2018. EXAM PARAMETERS: NUMBER OF VIEWS: One view. TECHNIQUE: Single frontal radiographic view of the chest acquired. RADIATION DOSE: NA LIMITATIONS: None. FINDINGS: LUNGS AND PLEURA: Diffuse interstitial prominence. No focal infiltrates, masses or pneumo thorax. No pleural effusion. MEDIASTINUM AND HILAR STRUCTURES: No masses. Contour normal. HEART AND VASCULAR STRUCTURES: Heart normal in size. Normal vasculature. BONES: No acute findings. HARDWARE: None in the chest. OTHER: No other significant finding. IMPRESSION: CHRONIC DIFFUSE INTERSTITIAL CHANGES. NO ACUTE RADIOGRAPHIC FINDING IN THE CHEST. TECHNICAL DOCUMENTATION: JOB ID: [id number] [employer]- All Rights Reserved Reading location - IP/workstation name: [email or web address]
[2018-07-13 18:07] LABS: ABSOLUTE BASOPHILS # (AUTO) 0.1 10^3/uL (0.0-0.2); ABSOLUTE EOSINOPHILS # (AUTO) 0.2 10^3/uL (0.0-0.6); ABSOLUTE LYMPHOCYTES (AUTO) 1.5 10^3/uL (0.5-4.7); ABSOLUTE MONOCYTES (AUTO) 0.8 10^3/uL (0.1-1.4); ABSOLUTE NEUT (AUTO) 4.7 10^3/uL (1.7-8.2); BASOPHILS % (AUTO) 0.8 % (0-2); EOSINOPHILS % (AUTO) 2.5 % (0-6); HEMATOCRIT 36.8 % (36.0-47.0); HEMOGLOBIN 12.8 g/dL (12.0-15.5); LYMPHOCYTES % (AUTO) 20.4 % (13-45); MEAN CORPUSCULAR HEMOGLOBIN 34.7 pg (27.0-33.4); MEAN CORPUSCULAR HGB CONC 34.8 g/dL (32.0-36.0); MEAN CORPUSCULAR VOLUME 100 fl (80-97); MONOCYTES % (AUTO) 11.4 % (3-13); RED BLOOD COUNT 3.69 10^6/uL (3.72-5.28); RED CELL DISTRIBUTION WIDTH 15.7 % (11.5-14.0); SEGMENTED NEUTROPHILS % (AUTO) 64.9 % (42-78); TOTAL CELLS COUNTED % (AUTO) 100 %; WHITE BLOOD COUNT 7.2 10^3/uL (4.0-10.5)
[2018-07-13 18:09] LABS: PLATELET COUNT 77 10^3/uL (150-450)
[2018-07-13 18:16] LABS: ALANINE AMINOTRANSFERASE 47 U/L (9-52); ALBUMIN 3.4 g/dL (3.5-5.0); ALKALINE PHOSPHATASE 119 U/L (38-126); ANION GAP 11 (5-19); ASPARTATE AMINO TRANSFERASE 70 U/L (14-36); BILIRUBIN,DIRECT 0.7 mg/dL (0.0-0.4); BILIRUBIN,TOTAL 2.4 mg/dL (0.2-1.3); BLOOD UREA NITROGEN 19 mg/dL (7-20); CALCIUM 9.2 mg/dL (8.4-10.2); CARBON DIOXIDE 21 mmol/L (22-30); CHLORIDE 111 mmol/L (98-107); GLUCOSE 98 mg/dL (75-110); POTASSIUM 3.5 mmol/L (3.6-5.0); SODIUM 143.3 mmol/L (137-145); TOTAL PROTEIN 7.8 g/dL (6.3-8.2)
--- NOTE | 2018-07-13 19:04 | ER Document Report ---
ED Dizziness/Weakness - General Chief Complaint: General Weakness Stated Complaint: WEAKNESS Time Seen by Provider: 07/13/18 16:49 Notes: 77-year-old female patient presents emergency department from primary care doctor for evaluation of altered mental status. Increasing weakness. Has a history of hemochromatosis with liver failure. Elevated ammonia. Currently on lactulose. Patient states that she has difficulty talking. Words do not seem to be coming out right. Increased amount of weakness. Family members are present. States that this is happened and has been getting worse over the last [address] Kwok. Sent here for head CT and possible admit. Denies any fever, chills, sweats. No abdominal pain. TRAVEL OUTSIDE OF THE [place] IN LAST 30 DAYS: No - HPI Patient complains to provider of: Altered mental status, Dizziness, Weakness Onset: Other - 3 days ago Onset/Duration: Gradual, Worse Quality of pain: No pain Severity: Moderate Pain Level: 0 Associated symptoms: Confused, Weak all over - Related Data Allergies/Adverse Reactions: furosemide [From Lasix] Allergy (Verified 07/13/18 16:49) shellfish derived Allergy (Verified 07/13/18 16:49) Iodinated Contrast- Oral and IV Dye Adverse Reaction (Verified 07/13/18 15:28) iodine Adverse Reaction (Verified 07/13/18 15:28) Past Medical History - General Information source: Patient, Relative - Social History Smoking Status: Never Smoker Frequency of alcohol use: None Drug Abuse: None Lives with: Alone Family History: Hypertension Patient has suicidal ideation: No Patient has homicidal ideation: No - Past Medical History Cardiac Medical History: Reports: Hx Coronary Artery Disease, Hx Hypertension, Hx Peripheral Vascular Disease - Bilateral internal carotid artery stenosis Denies: Hx Heart Attack Pulmonary Medical History: Denies: Hx Asthma, Hx Bronchitis, Hx COPD, Hx Pneumonia Neurological Medical History: Reports: Hx Cerebrovascular Accident - 2014. Denies: Hx Seizures Renal/ Medical History: Denies: Hx Peritoneal Dialysis GI Medical History: Reports: Hx Cirrhosis - Thank you for your, Other - History of cirrhosis from hemochromatosis Musculoskeletal Medical History: Reports Hx Arthritis Past Surgical History: Reports: Hx Appendectomy, Hx Cholecystectomy, Hx Hysterectomy, Hx Tonsillectomy - Immunizations Hx Diphtheria, Pertussis, Tetanus Vaccination: Yes Hx Pneumococcal Vaccination: 06/03/16 Review of Systems - Review of Systems Notes: Constitutional: denies: Chills, Diaphoresis,. Patient complaining of generalized malaise and weakness EENT: denies: Eye discharge, Blurred vision, Tearing, Double vision, Nose congestion, Nose discharge, Throat swelling, Mouth pain Cardiovascular: denies: Palpitations, Heart racing, Orthopnea, Dyspnea, Chest pain Respiratory: denies: Cough, Hurts to breathe, Wheezing, Shortness of breath Gastrointestinal: denies: Abdominal pain, Diarrhea, Nausea, Vomiting, Black stools, bright red blood in stool and history of cirrhosis with some chronic edema to the abdomen. Genitourinary: denies: Burning, Dysuria, Discharge, Frequency, Flank pain, Hematuria Musculoskeletal: denies: Joint pain, Joint swelling, Muscle pain, Muscle stiffness, back pain Hematologic/Lymphatic: denies: Anemia, Easy bleeding, Easy bruising, Blood clots Neurological/Psychological: denies: Dementia, Depression, Loss of consciousness. Having some increased confusion as well as difficulty with speaking and unsteady on her feet. Skin: No lesions, no masses, no skin breakdown, no abscesses Physical Exam - Vital signs Vitals: Temp Pulse Resp BP Pulse Ox 99.0 F 66 16 105/60 96 07/13/18 15:34 07/13/18 15:34 07/13/18 15:34 07/13/18 15:34 07/13/18 15:34 Interpretation: Normal - General General appearance: Appears well, Alert - HEENT Head: Normocephalic, Atraumatic Eyes: Normal Pupils: PERRL - Respiratory Respiratory status: No respiratory distress Chest status: Nontender Breath sounds: Normal Chest palpation: Normal - Cardiovascular Rhythm: Regular Heart sounds: Normal auscultation Murmur: No - Abdominal Inspection: Normal Distension: No distension Bowel sounds: Normal Tenderness: Nontender Organomegaly: No organomegaly - Back Back: Normal, Nontender - Extremities General upper extremity: Normal inspection, Nontender, Normal color, Normal ROM , Normal temperature General lower extremity: Normal inspection, Nontender, Normal color, Normal ROM , Normal temperature. No: Hoa's sign - Neurological Neuro grossly intact: Yes Cognition: Normal Orientation: AAOx4 Holden Coma Scale Eye Opening: Spontaneous [place] Coma Scale Verbal: Oriented [place] Coma Scale Motor: Obeys Commands Holden Coma Scale Total: 15 Speech: Normal Motor strength normal: LUE, RUE, LLE, RLE Sensory: Normal - Psychological Associated symptoms: Normal affect, Normal mood - Skin Skin Temperature: Warm Skin Moisture: Dry Skin Color: Normal Course - Re-evaluation Re-evalutation: 07/13/18 19:20 Chest X-Ray 07/13/18 16:53 IMPRESSION: CHRONIC DIFFUSE INTERSTITIAL CHANGES. NO ACUTE RADIOGRAPHIC FINDING IN THE CHEST. Head CT 07/13/18 16:54 IMPRESSION: MILD CHRONIC CHANGES OF ATROPHY AND MICROVASCULAR ISCHEMIA. 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 NO ACUTE PROCESS. EVIDENCE OF ACUTE STROKE: NO. Discussed case with patient's primary care doctor, Dr. Kwok. He would like patient admitted. Ammonia level still pending. Slightly elevated cardiac troponin which needs to be evaluated. Dr. Kwok states that he will call the hospitalist at this time. I will call them as well in few minutes to secure admit. - Vital Signs Vital signs: Temp Pulse Resp BP Pulse Ox 99.0 F 66 16 105/60 96 07/13/18 15:34 07/13/18 15:34 07/13/18 15:34 07/13/18 15:34 07/13/18 15:34 - Laboratory Result Diagrams: 07/13/18 17:50 07/13/18 17:50 Laboratory results interpreted by me: 07/13/18 07/13/18 07/13/18 17:50 17:50 17:50 RBC 3.69 L MCV 100 H MCH 34.7 H RDW 15.7 H Plt Count 77 L Potassium 3.5 L Chloride 111 H Carbon Dioxide 21 L Est GFR ( Amer) 55 L Est GFR (Non-Af Amer) 46 L Total Bilirubin 2.4 H Direct Bilirubin 0.7 H AST 70 H Creatine Kinase 185 H Albumin 3.4 L - EKG Interpretation by Me Voltage: Consistant with LVH Additional EKG results interpreted by me: 07/13/18 19:20 Patient has a normal sinus rhythm heart rate 64 with left anterior fascicular block and LVH. Nonspecific T wave abnormalities in the anterior lateral leads. No significant change from prior. Discharge - Discharge Clinical Impression: Non-ST elevation [place] (NSTEMI), Increased ammonia level Altered mental status, unspecified Qualifiers: Altered mental status type: unspecified Qualified Code(s): R41.82 - Altered mental status, unspecified Condition: Good Disposition: ADMITTED INPATIENT [facility] Admitted: Telemetry
[2018-07-13] MEDS ORDERED: ONDANSETRON 4 MG TAB.RAPDIS PO PRN (20:11)
[2018-07-13] MEDS ORDERED: MAG HYDROX/AL HYDROX/SIMETH SUSP 30 ML UDCUP PO PRN (20:11)
[2018-07-13 21:12] LABS: CREATINE KINASE MB 1.16 ng/mL (<4.55); TROPONIN I 0.074 ng/mL
[2018-07-13] MEDS: HEPARIN SOD (PORCINE) 5,000 UNIT/ML 1 ML SYRINGE SUBCUT SCH (22:49)
[2018-07-13] MEDS ORDERED: POTASSIUM CHLORIDE 10 MEQ CAPSULE.ER PO ONE (23:00)
--- NOTE | 2018-07-13 23:06 | PDOC H&P ---
History of Present Illness Admission Date/PCP: 07/13/18 20:06 ERIKA RENTERIA MD Patient complains of: Progressive mental decline History of Present Illness: RACHNA MAYERS is a 77 year old female who presented to the emergency room after being evaluated by Dr. Clifton Renteria at his office earlier in the day for a 2-day history of progressively worsening unsteadiness of gait with progressively decreasing mentation and progressive difficulty with speech (slow and slurring). The patient and her family admit that she has had one prior similar episode about 1 month ago that lasted for less than 24 hours and resolved spontaneously. The current episode seems to have been gradually worsening though it improved for a few hours and then began worsening again about 24 hours prior to seeing Dr[address] Renteria. Patient and her family have not identified any aggravating or ameliorating factors for her symptoms. In the emergency room she was found to have a negative CT scan of the head, a mild thrombocytopenia, a minimal hypokalemia and evidence of her chronic hemochromatosis with secondary hepatic cirrhosis. Patient was admitted to my service for transfer to Dr. Clifton Renteria in the morning. Past Medical History Cardiac Medical History: Reports: Coronary Artery Disease, Hypertension, Peripheral Vascular Disease - Bilateral internal carotid artery stenosis, Heart Murmur - Aortic stenosis Denies: Myocardial Infarction Pulmonary Medical History: Denies: Asthma, Bronchitis, Chronic Obstructive Pulmonary Disease (COPD), Pneumonia EENT Medical History: Reports: None Neurological Medical History: Denies: Hemorrhagic CVA, Ischemic CVA, Multiple Sclerosis, Seizures Endocrine Medical History: Denies: Diabetes Mellitus Type 1, Diabetes Mellitus Type 2, Obesity Renal/ Medical History: Denies: Chronic Kidney Disease, Nephrolithiasis Malignancy Medical History: Reports: None GI Medical History: Reports: Cirrhosis - Thank you for your, Other - History of cirrhosis from hemochromatosis Denies: Crohn's Disease, Hepatitis, Ulcerative Colitis Musculoskeltal Medical History: Reports: Arthritis Denies: Gout Skin Medical History: Denies: Eczema, Psoriasis Psychiatric Medical History: Denies: Alcohol Dependency, Substance Abuse, Tobacco Dependency Traumatic Medical History: Reports: None Hematology: Reports: Other - Hemochromatosis Denies: Hemophilia, Bleeding Tendencies, Neutropenia Infectious Medical History: Reports: None Past Surgical History Past Surgical History: Reports: Appendectomy, Carotid Endarterectomy - Left, Cholecystectomy, Hysterectomy, Tonsillectomy Social History Information Source: Patient Lives with: Alone Smoking Status: Never Smoker Frequency of Alcohol Use: None Hx Recreational Drug Use: No Hx Prescription Drug Abuse: No - Advance Directive Resuscitation Status: Full Code Surrogate healthcare decision maker:: Son Family History Family History: CAD, DM, Hypertension Parental Family History Reviewed: Yes Children Family History Reviewed: No Sibling(s) Family History Reviewed.: Yes Medication/Allergy Home Medications: Albuterol Sulfate [Ventolin 0.083% Neb 2.5 mg/3 mL Ampul] 3 ml NEB Q8HP PRN 06/20 Amlodipine Besylate [Norvasc 2.5 mg Tablet] 2.5 mg PO DAILY 07/13/18 Atorvastatin Calcium [Lipitor 10 mg Tablet] 10 mg PO QHS 07/13/18 Folic Acid [Folvite 1 mg Tablet] 1 mg PO DAILY 07/13/18 Lactulose [Constulose 10 gm/15 mL Oral Solution] 30 ml PO BID 07/13/18 Metoprolol Tartrate [Lopressor 25 mg Tablet] 12.5 mg PO Q12 07/13/18 Pantoprazole Sodium [Protonix] 40 mg PO DAILY 07/13/18 Torsemide [Demadex 20 mg Tablet] 20 mg PO DAILY 07/13/18 Tramadol HCl [Ultram 50 mg Tablet] 50 mg PO Q6HP PRN 07/13/18 Vitamin B Complex [B Complex] 1 tab PO DAILY 07/13/18 Allergies/Adverse Reactions: furosemide [From Lasix] Allergy (Verified 07/13/18 16:49) shellfish derived Allergy (Verified 07/13/18 16:49) Iodinated Contrast- Oral and IV Dye Adverse Reaction (Verified 07/13/18 15:28) iodine Adverse Reaction (Verified 07/13/18 15:28) Review of Systems Constitutional: PRESENT: weakness - Generalized. ABSENT: chills, fever(s) Eyes: ABSENT: visual disturbances, other - Ocular pain Ears: ABSENT: hearing changes, other - Ear pain Nose, Mouth, and Throat: ABSENT: mouth pain, sore throat Cardiovascular: ABSENT: chest pain, dyspnea on exertion, edema, palpitations Respiratory: ABSENT: cough, dyspnea Gastrointestinal: PRESENT: other - Chronic loose stools with regular use of lactulose. ABSENT: abdominal pain, constipation, diarrhea, nausea, vomiting Genitourinary: ABSENT: dysuria, hematuria Musculoskeletal: PRESENT: muscle weakness - Generalized weakness as noted in history of present illness. ABSENT: back pain, deformity, joint swelling Integumentary: ABSENT: pruritus, rash Neurological: PRESENT: abnormal gait - Unsteadiness, abnormal speech - Slurring , confusion - Decreased mental sharpness, lack of coordination. ABSENT: convulsions, focal weakness Psychiatric: ABSENT: anxiety, depression, hallucinations Endocrine: ABSENT: cold intolerance, heat intolerance Hematologic/Lymphatic: ABSENT: easy bleeding, easy bruising Physical Exam Vital Signs: Temp Pulse Resp BP Pulse Ox 99.0 F 61 16 105/60 96 07/13/18 15:34 07/13/18 21:42 07/13/18 15:34 07/13/18 15:34 07/13/18 15:34 General appearance: PRESENT: no acute distress, cooperative Head exam: PRESENT: atraumatic, normocephalic Eye exam: PRESENT: EOMI. ABSENT: conjunctival injection, nystagmus, scleral icterus Ear exam: PRESENT: normal external ear exam. ABSENT: drainage Mouth exam: PRESENT: neck supple, other - Oral mucosa is moist and intact, dentition is fair Neck exam: ABSENT: JVD, thyromegaly, tracheal deviation Respiratory exam: PRESENT: clear to auscultation alfredo, symmetrical, unlabored Cardiovascular exam: PRESENT: RRR, systolic murmur - 4/6 crescendo decrescendo systolic murmur at the aortic root with radiation to the neck. ABSENT: clicks, gallop, rubs Pulses: PRESENT: normal carotid pulses, normal radial pulses, normal dorsalis pedis pul Vascular exam: PRESENT: normal capillary refill. ABSENT: pallor GI/Abdominal exam: PRESENT: normal bowel sounds, soft. ABSENT: tenderness Rectal exam: PRESENT: deferred Extremities exam: ABSENT: joint swelling, pedal edema Musculoskeletal exam: PRESENT: full ROM, normal inspection Neurological exam: PRESENT: alert, oriented to person, oriented to place, oriented to time, oriented to situation, CN II-XII grossly intact, motor sensory deficit Psychiatric exam: PRESENT: appropriate affect, normal mood Skin exam: PRESENT: dry, intact, warm. ABSENT: jaundice, rash, urticaria Results Laboratory Results: 07/13/18 20:20 Ammonia 19.2 07/13/18 07/13/18 20:20 20:20 Creatine Kinase 168 H CK-MB (CK-2) 1.16 Troponin I 0.074 Impressions: Chest X-Ray 07/13/18 16:53 IMPRESSION: CHRONIC DIFFUSE INTERSTITIAL CHANGES. NO ACUTE RADIOGRAPHIC FINDING IN THE CHEST. Head CT 07/13/18 16:54 IMPRESSION: MILD CHRONIC CHANGES OF ATROPHY AND MICROVASCULAR ISCHEMIA. 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 NO ACUTE PROCESS. EVIDENCE OF ACUTE STROKE: NO. Assessment & Plan - Diagnosis (1) Altered mental status, unspecified Qualifiers: Altered mental status type: unspecified Qualified Code(s): R41.82 - Altered mental status, unspecified Is this a current diagnosis for this admission?: Yes Plan: The patient agrees with family members who have indicated that her mental status has decreased slightly and progressively over the last 2 days. She has more difficulty finding her words to say and speaks some slowly and sometimes with slurred speech. Additionally she does not seem to be as mentally sharp or bright as she is at her baseline. This will be further evaluated as deemed appropriate by Dr. Renteria. (2) Balance problem Is this a current diagnosis for this admission?: Yes Plan: Patient will be evaluated for the etiology of her sense of being off balance and tendency to fall without assistance. This unsteadiness of gait is new for her in a physical therapy consult will be obtained. 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 Serial cardiac enzymes will be obtained. Further evaluation will be pursued as indicated. (5) Cirrhosis Qualifiers: Hepatic cirrhosis type: unspecified hepatic cirrhosis Ascites presence: without ascites Qualified Code(s): K74.60 - Unspecified cirrhosis of liver Is this a current diagnosis for this admission?: Yes Plan: Patient will be continued on her usual hepatic medication regimen. Serial ammonia levels will be obtained during her hospital course. - Time Time Spent: 50 to 70 Minutes Critical Time spent with patient: Less than 15 minutes Medications reviewed and adjusted accordingly: Yes - Inpatient Certification Based on my medical assessment, after consideration of the patient's comorbidities, presenting symptoms, or acuity I expect that the services needed warrant INPATIENT care.: Yes I certify that my determination is in accordance with my understanding of Medicare's requirements for reasonable and necessary INPATIENT services [42 CFR 412.3e].: Yes Medical Necessity: Significant Comorbidiites Make Outpatient Treatment Too Risky , Need For Continuous Telemetry Monitoring, Need for Neurological Checks
[2018-07-13] MEDS: METOPROLOL TARTRATE 25 MG TABLET PO SCH (23:09)
[2018-07-13] MEDS: FAMOTIDINE 20 MG TABLET PO SCH (23:09)
[2018-07-13] MEDS: ATORVASTATIN CALCIUM 10 MG TABLET PO SCH (23:09)
--- NOTE | 2018-07-13 23:33 | EKG REPORT ---
SEVERITY:- ABNORMAL ECG - SINUS RHYTHM LEFT ANTERIOR FASCICULAR BLOCK LEFT VENTRICULAR HYPERTROPHY : Confirmed by: Beatrice Del Cid MD 13-Jul-2018 23:32:26
[2018-07-14] MEDS: LEVALBUTEROL HCL NEB 1.25 MG/3 ML AMPUL NEB SCH ×3 (00:46→17:19)
[2018-07-14] MEDS: IPRATROPIUM BROMIDE 0.02% NEB 0.5 MG/2.5 ML AMPUL NEB SCH ×3 (00:46→17:19)
[2018-07-14 02:52] LABS: ABSOLUTE EOSINOPHILS # (AUTO) 0.2 10^3/uL (0.0-0.6); ABSOLUTE LYMPHOCYTES (AUTO) 1.4 10^3/uL (0.5-4.7); ABSOLUTE MONOCYTES (AUTO) 0.7 10^3/uL (0.1-1.4); ABSOLUTE NEUT (AUTO) 3.9 10^3/uL (1.7-8.2); BASOPHILS % (AUTO) 0.8 % (0-2); HEMATOCRIT 33.9 % (36.0-47.0); HEMOGLOBIN 11.9 g/dL (12.0-15.5); LYMPHOCYTES % (AUTO) 22.3 % (13-45); MEAN CORPUSCULAR HEMOGLOBIN 34.6 pg (27.0-33.4); MEAN CORPUSCULAR VOLUME 99 fl (80-97); MONOCYTES % (AUTO) 11.8 % (3-13); RED BLOOD COUNT 3.43 10^6/uL (3.72-5.28); RED CELL DISTRIBUTION WIDTH 15.5 % (11.5-14.0); SEGMENTED NEUTROPHILS % (AUTO) 62.1 % (42-78); TOTAL CELLS COUNTED % (AUTO) 100 %; WHITE BLOOD COUNT 6.3 10^3/uL (4.0-10.5)
[2018-07-14 03:06] LABS: PLATELET COUNT 59 10^3/uL (150-450)
[2018-07-14 03:10] LABS: ALANINE AMINOTRANSFERASE 43 U/L (9-52); ALBUMIN 2.9 g/dL (3.5-5.0); ALKALINE PHOSPHATASE 105 U/L (38-126); ANION GAP 9 (5-19); ASPARTATE AMINO TRANSFERASE 61 U/L (14-36); BILIRUBIN,DIRECT 0.6 mg/dL (0.0-0.4); BILIRUBIN,TOTAL 1.8 mg/dL (0.2-1.3); BLOOD UREA NITROGEN 18 mg/dL (7-20); CALCIUM 8.7 mg/dL (8.4-10.2); CARBON DIOXIDE 20 mmol/L (22-30); CHLORIDE 111 mmol/L (98-107); GLUCOSE 102 mg/dL (75-110); POTASSIUM 3.6 mmol/L (3.6-5.0); TOTAL PROTEIN 6.7 g/dL (6.3-8.2)
[2018-07-14 03:18] LABS: CREATINE KINASE MB 1.07 ng/mL (<4.55); TROPONIN I 0.05 ng/mL
[2018-07-14 03:24] LABS: FREE T3 3.01 pg/mL (2.77-5.27); FREE T4 (FREE THYROXINE) 1.77 ng/dL (0.78-2.19)
[2018-07-14 03:38] LABS: THYROID STIMULATING HORMONE 5.7 uIU/mL (0.47-4.68)
[2018-07-14] MEDS: HEPARIN SOD (PORCINE) 5,000 UNIT/ML 1 ML SYRINGE SUBCUT SCH ×3 (05:21→22:48)
[2018-07-14 08:31] LABS: APPEARANCE,URINE SLIGHTLY-CLOUDY; BILIRUBIN,URINE NEGATIVE (NEGATIVE); COLOR,URINE YELLOW; GLUCOSE, URINE NEGATIVE (NEGATIVE); KETONES,URINE NEGATIVE (NEGATIVE); LEUKOCYTE ESTERASE,URINE SMALL (NEGATIVE); NITRITE,URINE NEGATIVE (NEGATIVE); PROTEIN,URINE NEGATIVE (NEGATIVE); URINE SPECIFIC GRAVITY 1.005; UROBILINOGEN,URINE NEGATIVE mg/dL (<2.0)
[2018-07-14] MEDS: ASPIRIN 81 MG TABLET, ENT COATED PO SCH (09:49)
[2018-07-14] MEDS: FAMOTIDINE 20 MG TABLET PO SCH ×2 (09:49→22:48)
[2018-07-14] MEDS: POTASSIUM CHLORIDE 10 MEQ CAPSULE.ER PO SCH (09:49)
[2018-07-14] MEDS: METOPROLOL TARTRATE 25 MG TABLET PO SCH ×2 (09:49→23:45)
[2018-07-14] MEDS: FOLIC ACID 1 MG TABLET PO SCH (09:49)
[2018-07-14] MEDS: LACTULOSE SYRUP 20 GM/30 ML UDCUP PO SCH ×2 (09:49→18:12)
[2018-07-14] MEDS: CHOLECALCIFEROL (D3) 1,000 UNIT TABLET PO SCH (09:49)
[2018-07-14] MEDS: MULTIVIT-STRESS FORMULA/ZINC TABLET PO SCH (09:49)
[2018-07-14] MEDS: 1/2 NORMAL SALINE 1,000 ML IV PRN (09:49)
[2018-07-14 09:51] LABS: CREATINE KINASE MB 0.95 ng/mL (<4.55); TROPONIN I 0.041 ng/mL
[2018-07-14] MEDS: SPIRONOLACTONE 25 MG TABLET PO SCH (09:55)
[2018-07-14] MEDS: LOSARTAN POTASSIUM 25 MG TABLET PO SCH (09:55)
[2018-07-14] MEDS: TORSEMIDE 20 MG TABLET PO SCH (09:58)
[2018-07-14] MEDS: AMLODIPINE BESYLATE 2.5 MG TABLET PO SCH (09:58)
[2018-07-14] MEDS ORDERED: (PENDING PHARMACY ID) (Lactulose [Constulose 10 Gm/15 Ml Oral Solution] 30 ML) PO SCH (10:00)
[2018-07-14] MEDS ORDERED: (PENDING PHARMACY ID) (Vitamin B Complex [B Complex] 1 TAB) PO SCH (10:00)
--- NOTE | 2018-07-14 12:05 | RADIOLOGY REPORT (SQ) ---
EXAM DESCRIPTION: MRI HEAD WITHOUT COMPLETED DATE/TIME: 07/14/2018 11:45 am REASON FOR STUDY: cva COMPARISON: MR brain, 06/12/2014 TECHNIQUE: Multiplanar imaging includes non-contrasted T1, T2, FLAIR, and diffusion with ADC map seq uences. Images stored on PACS. LIMITATIONS: None. FINDINGS: ANATOMY: No anomalies. Normal vascular flow voids. Pituitary fossa normal. CSF SPACES: Normal in size and contour. No hemorrhage. CEREBRUM: There is extensive deep white matter T2/FLAIR hyperintensity and encephalomalacia of the le ft insula in keeping with acute infarction seen on prior MR dated 2013. POSTERIOR FOSSA: No signal alteration. No hemorrhage. No edema, masses or mass effect. Internal milli tory canals, cerebello-pontine angles, mastoids normal. DIFFUSION IMAGING: Negative for acute or sub-acute infarction. ORBITS: No masses. Globes normal. PARANASAL SINUSES: No fluid levels. Mucosa normal. OTHER: No other significant finding. IMPRESSION: 1. No acute intracranial pathology. No evidence of acute diffusion restricting infarcti on. 2. 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 3. Extensive deep white matter T2/FLAIR hyperintensity, which is significantly advanced compared to prior examination dated 2013 and likely reflects age related change and/or small vessel white matter disease. EVIDENCE OF ACUTE STROKE: NO. TECHNICAL DOCUMENTATION: JOB ID: [id number] [employer]- All Rights Reserved Reading location - IP/workstation name: [email or web address]
--- NOTE | 2018-07-14 16:16 | PDOC PROGRESS REPORT ---
Subjective Progress Note for:: 07/14/18 Subjective:: Patient is seen today family is present she is awake not as lethargic as yesterday not as slow of speech she has had several bowel movements she is been afebrile no shortness of breath or chest pain. Discussed results of CT laboratory with family in full detail. Reason For Visit: LETHARGY Physical Exam Vital Signs: Temp Pulse Resp BP Pulse Ox 98.2 F 65 20 121/53 L 97 07/14/18 12:07 07/14/18 12:07 07/14/18 12:07 07/14/18 12:07 07/14/18 12:07 Intake & Output 07/13/18 07/14/18 07/15/18 06:59 06:59 06:59 Intake Total 380 474 Balance 380 474 Weight 58 kg General appearance: PRESENT: no acute distress, well-developed, well-nourished Head exam: PRESENT: atraumatic, normocephalic Eye exam: PRESENT: conjunctiva pink, EOMI, PERRLA. ABSENT: scleral icterus Ear exam: PRESENT: normal external ear exam Mouth exam: PRESENT: moist, tongue midline Neck exam: PRESENT: full ROM. ABSENT: carotid bruit, JVD, lymphadenopathy, thyromegaly Respiratory exam: PRESENT: crackles Cardiovascular exam: PRESENT: RRR. ABSENT: diastolic murmur, rubs, systolic murmur Murmur grade: 4 Additional comments: At the second right intercostal space Pulses: PRESENT: normal dorsalis pedis pul, +2 pedal pulses bilateral GI/Abdominal exam: PRESENT: normal bowel sounds Rectal exam: PRESENT: deferred Extremities exam: PRESENT: full ROM Musculoskeletal exam: PRESENT: other Neurological exam: PRESENT: alert, awake, oriented to person, oriented to situation, abnormal gait, CN II-XII grossly intact Psychiatric exam: PRESENT: appropriate affect, normal mood. ABSENT: homicidal ideation, suicidal ideation Results Laboratory Results: 07/14/18 02:26 07/14/18 02:26 07/13/18 07/14/18 07/14/18 20:20 02:26 02:26 WBC 6.3 RBC 3.43 L Hgb 11.9 L Hct 33.9 L MCV 99 H MCH 34.6 H MCHC 35.0 RDW 15.5 H Plt Count 59 L Seg Neutrophils % 62.1 Lymphocytes % 22.3 Monocytes % 11.8 Eosinophils % 3.0 Basophils % 0.8 Absolute Neutrophils 3.9 Absolute Lymphocytes 1.4 Absolute Monocytes 0.7 Absolute Eosinophils 0.2 Absolute Basophils 0.0 Sodium 140.0 Potassium 3.6 Chloride 111 H Carbon Dioxide 20 L Anion Gap 9 BUN 18 Creatinine 1.09 Est GFR ( Amer) 59 L Est GFR (Non-Af Amer) 48 L Glucose 102 Calcium 8.7 Magnesium 1.9 Total Bilirubin 1.8 H AST 61 H ALT 43 Alkaline Phosphatase 105 Ammonia 19.2 Total Protein 6.7 Albumin 2.9 L TSH Free T4 Free T3 pg/mL Urine Color Urine Appearance Urine pH Ur Specific [place] Urine Protein Urine Glucose (UA) Urine Ketones Urine Blood Urine Nitrite Ur Leukocyte Esterase Urine WBC (Auto) Urine RBC (Auto) 07/14/18 07/14/18 07/14/18 02:26 02:26 07:45 WBC RBC Hgb Hct MCV MCH MCHC RDW Plt Count Seg Neutrophils % Lymphocytes % Monocytes % Eosinophils % Basophils % Absolute Neutrophils Absolute Lymphocytes Absolute Monocytes Absolute Eosinophils Absolute Basophils Sodium Potassium Chloride Carbon Dioxide Anion Gap BUN Creatinine Est GFR ( Amer) Est GFR (Non-Af Amer) Glucose Calcium Magnesium Total Bilirubin AST ALT Alkaline Phosphatase Ammonia 85.7 H Total Protein Albumin TSH 5.70 H Free T4 1.77 Free T3 pg/mL 3.01 Urine Color YELLOW Urine Appearance SLIGHTLY-CLOUDY Urine pH 7.0 Ur Specific [place] 1.005 Urine Protein NEGATIVE Urine Glucose (UA) NEGATIVE Urine Ketones NEGATIVE Urine Blood NEGATIVE Urine Nitrite NEGATIVE Ur Leukocyte Esterase SMALL H Urine WBC (Auto) 3 Urine RBC (Auto) 1 07/13/18 07/13/18 07/14/18 20:20 20:20 02:26 Creatine Kinase 168 H 166 H CK-MB (CK-2) 1.16 Troponin I 0.074 07/14/18 07/14/18 07/14/18 02:26 08:48 08:48 Creatine Kinase 166 H CK-MB (CK-2) 1.07 0.95 Troponin I 0.050 0.041 Impressions: Chest X-Ray 07/13/18 16:53 IMPRESSION: CHRONIC DIFFUSE INTERSTITIAL CHANGES. NO ACUTE RADIOGRAPHIC FINDING IN THE CHEST. Head CT 07/13/18 16:54 IMPRESSION: MILD CHRONIC CHANGES OF ATROPHY AND MICROVASCULAR ISCHEMIA. 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 NO ACUTE PROCESS. EVIDENCE OF ACUTE STROKE: NO. Head MRI 07/14/18 09:01 IMPRESSION: 1. No acute intracranial pathology. No evidence of acute diffusion restricting infarction. 2. 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 3. Extensive deep white matter T2/FLAIR hyperintensity, which is significantly advanced compared to prior examination dated 2013 and likely reflects age related change and/or small vessel white matter disease. EVIDENCE OF ACUTE STROKE: NO. Assessment & Plan - Diagnosis (1) Altered mental status, unspecified Qualifiers: Altered mental status type: unspecified Qualified Code(s): R41.82 - Altered mental status, unspecified Is this a current diagnosis for this admission?: Yes Plan: Plan she will be started on fluid hydration blood cultures have been done we will continue on lactulose and monitor her ammonia level. We will also order an MR to rule out any occult CVA. (2) Cirrhosis Qualifiers: Hepatic cirrhosis type: unspecified hepatic cirrhosis Ascites presence: without ascites Qualified Code(s): K74.60 - Unspecified cirrhosis of liver Is this a current diagnosis for this admission?: Yes Plan: Continue on folic acid, spironolactone, torsemide and monitor liver function and renal function daily. (3) Elevated troponin Is this a current diagnosis for this admission?: Yes Plan: 1 will be getting troponin and cardiac enzymes every 8 hours x3 unlikely cardiac. - Time Time Spent with patient: 15-24 minutes Medications reviewed and adjusted accordingly: Yes Anticipated discharge: Home Within: Other - Inpatient Certification I certify that my determination is in accordance with my understanding of Medicare's requirements for reasonable and necessary INPATIENT services [42 CFR 412.3e].: Yes Medical Necessity: Failure to Improve With Outpatient Therapy, Significant Comorbidiites Make Outpatient Treatment Too Risky, Need For IV Fluids Post Hospital Care: D/C Tax Specialist Documentation
[2018-07-14] MEDS: ATORVASTATIN CALCIUM 10 MG TABLET PO SCH (22:48)
[2018-07-15] MEDS: LEVALBUTEROL HCL NEB 1.25 MG/3 ML AMPUL NEB SCH ×3 (00:02→16:06)
[2018-07-15] MEDS: IPRATROPIUM BROMIDE 0.02% NEB 0.5 MG/2.5 ML AMPUL NEB SCH ×3 (00:02→16:06)
[2018-07-15] MEDS ORDERED: CEFTRIAXONE 1 GM/D5W RTU 1 GM/50 ML RTUPB IV ONE ×2 (04:00→05:00)
[2018-07-15] MEDS: HEPARIN SOD (PORCINE) 5,000 UNIT/ML 1 ML SYRINGE SUBCUT SCH ×3 (05:16→22:47)
[2018-07-15 05:33] LABS: ABSOLUTE BASOPHILS # (AUTO) 0.1 10^3/uL (0.0-0.2); ABSOLUTE EOSINOPHILS # (AUTO) 0.2 10^3/uL (0.0-0.6); ABSOLUTE LYMPHOCYTES (AUTO) 1.2 10^3/uL (0.5-4.7); ABSOLUTE MONOCYTES (AUTO) 0.8 10^3/uL (0.1-1.4); ABSOLUTE NEUT (AUTO) 3.7 10^3/uL (1.7-8.2); BASOPHILS % (AUTO) 0.9 % (0-2); EOSINOPHILS % (AUTO) 2.8 % (0-6); HEMOGLOBIN 11.2 g/dL (12.0-15.5); LYMPHOCYTES % (AUTO) 20.5 % (13-45); MEAN CORPUSCULAR HEMOGLOBIN 34.6 pg (27.0-33.4); MEAN CORPUSCULAR HGB CONC 34.9 g/dL (32.0-36.0); MEAN CORPUSCULAR VOLUME 99 fl (80-97); MONOCYTES % (AUTO) 13.9 % (3-13); RED BLOOD COUNT 3.22 10^6/uL (3.72-5.28); RED CELL DISTRIBUTION WIDTH 15.7 % (11.5-14.0); SEGMENTED NEUTROPHILS % (AUTO) 61.9 % (42-78); TOTAL CELLS COUNTED % (AUTO) 100 %
[2018-07-15 05:52] LABS: ALANINE AMINOTRANSFERASE 34 U/L (9-52); ALBUMIN 2.6 g/dL (3.5-5.0); ALKALINE PHOSPHATASE 90 U/L (38-126); ANION GAP 11 (5-19); ASPARTATE AMINO TRANSFERASE 52 U/L (14-36); BILIRUBIN,DIRECT 0.3 mg/dL (0.0-0.4); BILIRUBIN,TOTAL 1.1 mg/dL (0.2-1.3); BLOOD UREA NITROGEN 16 mg/dL (7-20); CALCIUM 8.6 mg/dL (8.4-10.2); CARBON DIOXIDE 21 mmol/L (22-30); CHLORIDE 110 mmol/L (98-107); GLUCOSE 116 mg/dL (75-110); POTASSIUM 3.6 mmol/L (3.6-5.0); SODIUM 142.1 mmol/L (137-145); TOTAL PROTEIN 6.3 g/dL (6.3-8.2)
[2018-07-15 05:57] LABS: PLATELET COUNT 61 10^3/uL (150-450)
[2018-07-15] MEDS: POTASSIUM CHLORIDE 10 MEQ CAPSULE.ER PO SCH (10:20)
[2018-07-15] MEDS: LACTULOSE SYRUP 20 GM/30 ML UDCUP PO SCH ×2 (10:21→17:15)
[2018-07-15] MEDS: LOSARTAN POTASSIUM 25 MG TABLET PO SCH (10:21)
[2018-07-15] MEDS: METOPROLOL TARTRATE 25 MG TABLET PO SCH ×2 (10:21→22:57)
[2018-07-15] MEDS: CIPROFLOXACIN HCL 500 MG TABLET PO SCH ×2 (10:21→22:56)
[2018-07-15] MEDS: AMLODIPINE BESYLATE 2.5 MG TABLET PO SCH (10:21)
[2018-07-15] MEDS: MULTIVIT-STRESS FORMULA/ZINC TABLET PO SCH (10:21)
[2018-07-15] MEDS: FAMOTIDINE 20 MG TABLET PO SCH ×2 (10:22→22:56)
[2018-07-15] MEDS: CHOLECALCIFEROL (D3) 1,000 UNIT TABLET PO SCH (10:22)
[2018-07-15] MEDS: FOLIC ACID 1 MG TABLET PO SCH (10:22)
[2018-07-15] MEDS: SPIRONOLACTONE 25 MG TABLET PO SCH (10:22)
[2018-07-15] MEDS: ASPIRIN 81 MG TABLET, ENT COATED PO SCH (10:22)
[2018-07-15] MEDS: TORSEMIDE 20 MG TABLET PO SCH (10:23)
--- NOTE | 2018-07-15 13:08 | PDOC PROGRESS REPORT ---
Subjective Progress Note for:: 07/15/18 Subjective:: Patient seen today she looks improved she is not lethargic her appetite is better she is afebrile she has had several bowel movements, discuss results of MRI recent lab test and urine test with family in full detail. Reason For Visit: LETHARGY Physical Exam Vital Signs: Temp Pulse Resp BP Pulse Ox 98.1 F 70 16 120/44 L 99 07/15/18 07:39 07/15/18 09:43 07/15/18 09:43 07/15/18 07:39 07/15/18 09:43 Intake & Output 07/14/18 07/15/18 07/16/18 06:59 06:59 06:59 Intake Total 380 1524 Balance 380 1524 Weight 58 kg 59.7 kg General appearance: PRESENT: no acute distress, well-developed, well-nourished Head exam: PRESENT: atraumatic, normocephalic Eye exam: PRESENT: conjunctiva pink, EOMI, PERRLA. ABSENT: scleral icterus Ear exam: PRESENT: normal external ear exam Mouth exam: PRESENT: moist, tongue midline Neck exam: PRESENT: full ROM. ABSENT: carotid bruit, JVD, lymphadenopathy, thyromegaly Respiratory exam: PRESENT: accessory muscle use Cardiovascular exam: PRESENT: RRR, systolic murmur. ABSENT: diastolic murmur, rubs Murmur grade: 4 Pulses: PRESENT: normal dorsalis pedis pul, +2 pedal pulses bilateral Vascular exam: PRESENT: normal capillary refill GI/Abdominal exam: PRESENT: normal bowel sounds, soft. ABSENT: distended, guarding, mass, organolmegaly, rebound, tenderness Rectal exam: PRESENT: deferred Extremities exam: PRESENT: full ROM Musculoskeletal exam: PRESENT: other Neurological exam: PRESENT: alert, awake, oriented to person, oriented to place , oriented to time, oriented to situation, CN II-XII grossly intact. ABSENT: motor sensory deficit Psychiatric exam: PRESENT: appropriate affect, normal mood. ABSENT: homicidal ideation, suicidal ideation Skin exam: PRESENT: dry, intact, warm. ABSENT: cyanosis, rash Results Laboratory Results: 07/15/18 05:00 07/15/18 05:00 07/15/18 07/15/18 07/15/18 05:00 05:00 05:00 WBC 6.0 RBC 3.22 L Hgb 11.2 L Hct 32.0 L MCV 99 H MCH 34.6 H MCHC 34.9 RDW 15.7 H Plt Count 61 L Seg Neutrophils % 61.9 Lymphocytes % 20.5 Monocytes % 13.9 H Eosinophils % 2.8 Basophils % 0.9 Absolute Neutrophils 3.7 Absolute Lymphocytes 1.2 Absolute Monocytes 0.8 Absolute Eosinophils 0.2 Absolute Basophils 0.1 Sodium 142.1 Potassium 3.6 Chloride 110 H Carbon Dioxide 21 L Anion Gap 11 BUN 16 Creatinine 1.15 Est GFR ( Amer) 55 L Est GFR (Non-Af Amer) 46 L Glucose 116 H Calcium 8.6 Magnesium 2.0 Total Bilirubin 1.1 AST 52 H ALT 34 Alkaline Phosphatase 90 Ammonia 31.9 Total Protein 6.3 Albumin 2.6 L 07/13/18 07/13/18 07/14/18 20:20 20:20 02:26 Creatine Kinase 168 H 166 H CK-MB (CK-2) 1.16 Troponin I 0.074 07/14/18 07/14/18 07/14/18 02:26 08:48 08:48 Creatine Kinase 166 H CK-MB (CK-2) 1.07 0.95 Troponin I 0.050 0.041 Impressions: Chest X-Ray 07/13/18 16:53 IMPRESSION: CHRONIC DIFFUSE INTERSTITIAL CHANGES. NO ACUTE RADIOGRAPHIC FINDING IN THE CHEST. Head CT 07/13/18 16:54 IMPRESSION: MILD CHRONIC CHANGES OF ATROPHY AND MICROVASCULAR ISCHEMIA. 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 NO ACUTE PROCESS. EVIDENCE OF ACUTE STROKE: NO. Head MRI 07/14/18 09:01 IMPRESSION: 1. No acute intracranial pathology. No evidence of acute diffusion restricting infarction. 2. 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 3. Extensive deep white matter T2/FLAIR hyperintensity, which is significantly advanced compared to prior examination dated 2013 and likely reflects age related change and/or small vessel white matter disease. EVIDENCE OF ACUTE STROKE: NO. Assessment & Plan - Diagnosis (1) Altered mental status, unspecified Qualifiers: Altered mental status type: unspecified Qualified Code(s): R41.82 - Altered mental status, unspecified Is this a current diagnosis for this admission?: Yes Plan: Plan resolved we will continue on lactulose we will monitor liver function and ammonia level. (2) Cirrhosis Qualifiers: Hepatic cirrhosis type: unspecified hepatic cirrhosis Ascites presence: without ascites Qualified Code(s): K74.60 - Unspecified cirrhosis of liver Is this a current diagnosis for this admission?: Yes Plan: Vision looks compensated presently will continue on spironolactone, torsemide, lactulose. (3) Elevated troponin Is this a current diagnosis for this admission?: Yes (4) Urinary tract infection Qualifiers: Urinary tract infection type: acute cystitis Is this a current diagnosis for this admission?: Yes Plan: Patient received 1 g of Rocephin we will start on Cipro 500 twice daily this will cover also for S BP. - Time Time Spent with patient: 15-24 minutes Medications reviewed and adjusted accordingly: Yes Anticipated discharge: Other - Inpatient Certification I certify that my determination is in accordance with my understanding of Medicare's requirements for reasonable and necessary INPATIENT services [42 CFR 412.3e].: Yes Medical Necessity: Failure to Improve With Outpatient Therapy, Need For IV Fluids
[2018-07-15] MEDS ORDERED: PERMETHRIN 1% LOTION 59 ML TP ONE (22:00)
[2018-07-15] MEDS: ATORVASTATIN CALCIUM 10 MG TABLET PO SCH (22:56)
[2018-07-16] MEDS: 1/2 NORMAL SALINE 1,000 ML IV PRN (00:09)
[2018-07-16] MEDS: LEVALBUTEROL HCL NEB 1.25 MG/3 ML AMPUL NEB SCH ×2 (00:13→08:33)
[2018-07-16] MEDS: IPRATROPIUM BROMIDE 0.02% NEB 0.5 MG/2.5 ML AMPUL NEB SCH ×2 (00:13→08:33)
[2018-07-16 04:46] VITALS: BP 115/51
[2018-07-16] MEDS: HEPARIN SOD (PORCINE) 5,000 UNIT/ML 1 ML SYRINGE SUBCUT SCH (05:23)
[2018-07-16 07:23] LABS: ABSOLUTE BASOPHILS # (AUTO) 0.1 10^3/uL (0.0-0.2); ABSOLUTE EOSINOPHILS # (AUTO) 0.2 10^3/uL (0.0-0.6); ABSOLUTE LYMPHOCYTES (AUTO) 1.2 10^3/uL (0.5-4.7); ABSOLUTE MONOCYTES (AUTO) 0.9 10^3/uL (0.1-1.4); BASOPHILS % (AUTO) 1.1 % (0-2); EOSINOPHILS % (AUTO) 2.7 % (0-6); HEMATOCRIT 32.6 % (36.0-47.0); HEMOGLOBIN 11.4 g/dL (12.0-15.5); MEAN CORPUSCULAR HEMOGLOBIN 34.8 pg (27.0-33.4); MEAN CORPUSCULAR HGB CONC 35.1 g/dL (32.0-36.0); MEAN CORPUSCULAR VOLUME 99 fl (80-97); MONOCYTES % (AUTO) 12.1 % (3-13); RED BLOOD COUNT 3.28 10^6/uL (3.72-5.28); RED CELL DISTRIBUTION WIDTH 15.6 % (11.5-14.0); SEGMENTED NEUTROPHILS % (AUTO) 68.1 % (42-78); TOTAL CELLS COUNTED % (AUTO) 100 %; WHITE BLOOD COUNT 7.4 10^3/uL (4.0-10.5)
[2018-07-16 08:02] LABS: ALANINE AMINOTRANSFERASE 34 U/L (9-52); ALBUMIN 2.8 g/dL (3.5-5.0); ALKALINE PHOSPHATASE 93 U/L (38-126); ANION GAP 8 (5-19); ASPARTATE AMINO TRANSFERASE 55 U/L (14-36); BILIRUBIN,DIRECT 0.4 mg/dL (0.0-0.4); BILIRUBIN,TOTAL 1.5 mg/dL (0.2-1.3); BLOOD UREA NITROGEN 21 mg/dL (7-20); CALCIUM 8.5 mg/dL (8.4-10.2); CARBON DIOXIDE 20 mmol/L (22-30); CHLORIDE 111 mmol/L (98-107); GLUCOSE 114 mg/dL (75-110); POTASSIUM 4.3 mmol/L (3.6-5.0); SODIUM 139.3 mmol/L (137-145); TOTAL PROTEIN 6.6 g/dL (6.3-8.2)
[2018-07-16 08:21] LABS: PLATELET COUNT 60 10^3/uL (150-450)
[2018-07-16] MEDS: SPIRONOLACTONE 25 MG TABLET PO SCH (11:10)
[2018-07-16] MEDS: ASPIRIN 81 MG TABLET, ENT COATED PO SCH (11:10)
[2018-07-16] MEDS: MULTIVIT-STRESS FORMULA/ZINC TABLET PO SCH (11:10)
[2018-07-16] MEDS: FOLIC ACID 1 MG TABLET PO SCH (11:10)
[2018-07-16] MEDS: FAMOTIDINE 20 MG TABLET PO SCH (11:10)
[2018-07-16] MEDS: LOSARTAN POTASSIUM 25 MG TABLET PO SCH (11:11)
[2018-07-16] MEDS: METOPROLOL TARTRATE 25 MG TABLET PO SCH (11:11)
[2018-07-16] MEDS: LACTULOSE SYRUP 20 GM/30 ML UDCUP PO SCH (11:11)
[2018-07-16] MEDS: CIPROFLOXACIN HCL 500 MG TABLET PO SCH (11:11)
[2018-07-16] MEDS: CHOLECALCIFEROL (D3) 1,000 UNIT TABLET PO SCH (11:12)
[2018-07-16] MEDS: AMLODIPINE BESYLATE 2.5 MG TABLET PO SCH (11:12)
[2018-07-16] MEDS: POTASSIUM CHLORIDE 10 MEQ CAPSULE.ER PO SCH (11:12)
[2018-07-16] MEDS: TORSEMIDE 20 MG TABLET PO SCH (11:12)
--- NOTE | 2018-07-16 11:18 | PDOC DISCHARGE SUMMARY ---
General - Admit/Disc Date/PCP Admission Date/Primary Care Provider: 07/13/18 20:06 ALFREDA RENTERIA MD Discharge Date: 07/16/18 - Discharge Diagnosis (1) Altered mental status, unspecified Is this a current diagnosis for this admission?: Yes (2) Cirrhosis Is this a current diagnosis for this admission?: Yes (3) Elevated troponin Is this a current diagnosis for this admission?: Yes (4) Urinary tract infection Is this a current diagnosis for this admission?: Yes - Additional Information Resuscitation Status: Full Code Discharge Diet: Cardiac Discharge Activity: Activity As Tolerated Prescriptions: Ciprofloxacin HCl [Cipro 500 mg Tablet] 500 mg PO Q12 #14 tablet Home Medications: Albuterol Sulfate [Ventolin 0.083% Neb 2.5 mg/3 mL Ampul] 3 ml NEB Q8HP PRN 06/20 Amlodipine Besylate [Norvasc 2.5 mg Tablet] 2.5 mg PO DAILY 07/13/18 Atorvastatin Calcium [Lipitor 10 mg Tablet] 10 mg PO QHS 07/13/18 Folic Acid [Folvite 1 mg Tablet] 1 mg PO DAILY 07/13/18 Lactulose [Constulose 10 gm/15 mL Oral Solution] 30 ml PO BID 07/13/18 Pantoprazole Sodium [Protonix] 40 mg PO DAILY 07/13/18 Torsemide [Demadex 20 mg Tablet] 20 mg PO DAILY 07/13/18 Tramadol HCl [Ultram 50 mg Tablet] 50 mg PO Q6HP PRN 07/13/18 Vitamin B Complex [B Complex] 1 tab PO DAILY 07/13/18 Amlodipine Besylate [Norvasc 2.5 mg Tablet] 2.5 mg PO DAILY tablet 07/16/18 Aspirin [Ecotrin 81 mg EC Tablet] 81 mg PO DAILY tabec 07/16/18 Atorvastatin Calcium [Lipitor 10 mg Tablet] 10 mg PO QHS tablet 07/16/18 Cholecalciferol (Vitamin D3) [Vitamin D3 1000 Unit Tablet] 2,000 unit PO DAILY tablet 07/16/18 Ciprofloxacin HCl [Cipro 500 mg Tablet] 500 mg PO Q12 #14 tablet 07/16/18 Losartan Potassium [Cozaar 25 mg Tablet] 25 mg PO DAILY tablet 07/16/18 Metoprolol Tartrate [Lopressor 25 mg Tablet] 12.5 mg PO Q12 tablet 07/16/18 Multivit-Stress Formula/Zinc [Zbec Tablet] 1 tab PO DAILY tablet 07/16/18 Spironolactone [Aldactone 25 mg Tablet] 25 mg PO DAILY tablet 07/16/18 History of Present Illness Patient complains of: Patient was brought due to generalized weakness fatigue, History of Present Illness: RACHNA MAYERS is a 77 year old female Hospital Course Hospital Course: Patient was admitted IV fluids her lactulose was increased and monitored on admission was 85 and discharge was 30. She was also found to have a UTI with E.COLI sensitive to Cipro , which was given in hospital and tolerated. Clinically she improved with her mentation and was stable for D/C . SAhe was also seen by PT and home health was arranged. She was also diagnosed with lice and trweated with good response. Physical Exam Vital Signs: Temp Pulse Resp BP Pulse Ox 97.8 F 88 12 115/51 L 98 07/16/18 10:41 07/16/18 10:41 07/16/18 10:41 07/16/18 10:41 07/16/18 10:41 Intake & Output 07/15/18 07/16/18 07/17/18 06:59 06:59 06:59 Intake Total 1524 584 Balance 1524 584 Weight 59.7 kg 60.1 kg General appearance: PRESENT: no acute distress, well-developed, well-nourished Head exam: PRESENT: atraumatic, normocephalic Eye exam: PRESENT: conjunctiva pink, EOMI, PERRLA. ABSENT: scleral icterus Ear exam: PRESENT: normal external ear exam Mouth exam: PRESENT: moist, tongue midline Neck exam: PRESENT: full ROM. ABSENT: carotid bruit, JVD, lymphadenopathy, thyromegaly Respiratory exam: PRESENT: clear to auscultation alfredo Cardiovascular exam: PRESENT: systolic murmur Murmur grade: 4 Pulses: PRESENT: normal dorsalis pedis pul, +2 pedal pulses bilateral Vascular exam: PRESENT: normal capillary refill GI/Abdominal exam: PRESENT: normal bowel sounds, soft. ABSENT: distended, guarding, mass, organolmegaly, rebound, tenderness Rectal exam: PRESENT: deferred Extremities exam: PRESENT: full ROM Musculoskeletal exam: PRESENT: ambulatory Neurological exam: PRESENT: alert, awake, oriented to person, oriented to place , oriented to time, oriented to situation, CN II-XII grossly intact. ABSENT: motor sensory deficit Psychiatric exam: PRESENT: appropriate affect, normal mood. ABSENT: homicidal ideation, suicidal ideation Skin exam: PRESENT: dry, intact, warm. ABSENT: cyanosis, rash Results Laboratory Results: 07/16/18 07:02 07/16/18 07:02 07/16/18 07/16/18 07/16/18 07:02 07:02 07:02 WBC 7.4 RBC 3.28 L Hgb 11.4 L Hct 32.6 L MCV 99 H MCH 34.8 H MCHC 35.1 RDW 15.6 H Plt Count 60 L Seg Neutrophils % 68.1 Lymphocytes % 16.0 Monocytes % 12.1 Eosinophils % 2.7 Basophils % 1.1 Absolute Neutrophils 5.0 Absolute Lymphocytes 1.2 Absolute Monocytes 0.9 Absolute Eosinophils 0.2 Absolute Basophils 0.1 Sodium 139.3 Potassium 4.3 Chloride 111 H Carbon Dioxide 20 L Anion Gap 8 BUN 21 H Creatinine 1.11 Est GFR ( Amer) 57 L Est GFR (Non-Af Amer) 47 L Glucose 114 H Calcium 8.5 Magnesium 2.2 Total Bilirubin 1.5 H AST 55 H ALT 34 Alkaline Phosphatase 93 Ammonia 32.0 Total Protein 6.6 Albumin 2.8 L 07/13/18 07/13/18 07/14/18 20:20 20:20 02:26 Creatine Kinase 168 H 166 H CK-MB (CK-2) 1.16 Troponin I 0.074 07/14/18 07/14/18 07/14/18 02:26 08:48 08:48 Creatine Kinase 166 H CK-MB (CK-2) 1.07 0.95 Troponin I 0.050 0.041 Impressions: Chest X-Ray 07/13/18 16:53 IMPRESSION: CHRONIC DIFFUSE INTERSTITIAL CHANGES. NO ACUTE RADIOGRAPHIC FINDING IN THE CHEST. Head CT 07/13/18 16:54 IMPRESSION: MILD CHRONIC CHANGES OF ATROPHY AND MICROVASCULAR ISCHEMIA. 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 NO ACUTE PROCESS. EVIDENCE OF ACUTE STROKE: NO. Head MRI 07/14/18 09:01 IMPRESSION: 1. No acute intracranial pathology. No evidence of acute diffusion restricting infarction. 2. 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 3. Extensive deep white matter T2/FLAIR hyperintensity, which is significantly advanced compared to prior examination dated 2013 and likely reflects age related change and/or small vessel white matter disease. EVIDENCE OF ACUTE STROKE: NO. Qualifiers - * PATIENT BEING DISCHARGED WITH ANY OF THE FOLLOWING DIAGNOSIS: No Plan Discharge Plan: Patient will be D/C home and f/u in 1-2 weeks . Time Spent: Less than 30 Minutes
== END 2018-07-16 12:34 | disposition home health service (06) | DRG 690 ==
LOC: ER 15:20 → EH 20:06 → 4N 21:26
PROVIDERS: ADMIT Emergency Medicine; ATTEND Internal Medicine
DX: N39.0 Urinary tract infection, site not specified (principal); B96.20 Unspecified Escherichia coli [E. coli] as the cause of diseases classified elsewhere; E83.119 Hemochromatosis, unspecified; K74.69 Other cirrhosis of liver; I25.10 Atherosclerotic heart disease of native coronary artery without angina pectoris; I73.9 Peripheral vascular disease, unspecified; I35.0 Nonrheumatic aortic (valve) stenosis; B85.2 Pediculosis, unspecified; R41.82 Altered mental status, unspecified; Z86.73 Personal history of transient ischemic attack (TIA), and cerebral infarction without residual deficits
CPT/HCPCS: 36415; 70450; 70551; 71045; 80048; 80053; 80076; 81001; 82140; 82550; 82553; 83735; 84439; 84443; 84481; 84484; 85025; 87040; 87077; 87086; 87088; 87186; 93005; 93010; 99285; G8978-GP; G8979-GP; J0696; J3490

== ENCOUNTER → 2018-07-28 | Outpatient (CLI) | payer MEDICARE, OTHER ==
[2018-07-28 09:26] LABS: ALANINE AMINOTRANSFERASE 37 U/L (9-52); ALBUMIN 3.1 g/dL (3.5-5.0); ALKALINE PHOSPHATASE 96 U/L (38-126); ANION GAP 6 (5-19); ASPARTATE AMINO TRANSFERASE 66 U/L (14-36); BILIRUBIN,DIRECT 0.4 mg/dL (0.0-0.4); BILIRUBIN,TOTAL 1.5 mg/dL (0.2-1.3); BLOOD UREA NITROGEN 23 mg/dL (7-20); CALCIUM 8.8 mg/dL (8.4-10.2); CARBON DIOXIDE 30 mmol/L (22-30); CHLORIDE 104 mmol/L (98-107); GLUCOSE 115 mg/dL (75-110); SODIUM 139.9 mmol/L (137-145); TOTAL PROTEIN 6.9 g/dL (6.3-8.2)
== END ==
LOC: OD 08:38
PROVIDERS: ATTEND Family Medicine Geriatric Medicine
DX: E83.10 Disorder of iron metabolism, unspecified (principal); M79.606 Pain in leg, unspecified
CPT/HCPCS: 36415; 80053; 82140; 84550

== ENCOUNTER → 2018-08-05 | Outpatient (CLI) | payer MEDICARE, OTHER ==
[2018-08-05 15:15] LABS: ABSOLUTE EOSINOPHILS # (AUTO) 0.1 10^3/uL (0.0-0.6); ABSOLUTE MONOCYTES (AUTO) 0.8 10^3/uL (0.1-1.4); ABSOLUTE NEUT (AUTO) 3.9 10^3/uL (1.7-8.2); ALANINE AMINOTRANSFERASE 34 U/L (9-52); ALBUMIN 3.5 g/dL (3.5-5.0); ALKALINE PHOSPHATASE 125 U/L (38-126); ANION GAP 11 (5-19); ASPARTATE AMINO TRANSFERASE 68 U/L (14-36); BASOPHILS % (AUTO) 0.8 % (0-2); BILIRUBIN,DIRECT 0.4 mg/dL (0.0-0.4); BILIRUBIN,TOTAL 1.9 mg/dL (0.2-1.3); BLOOD UREA NITROGEN 18 mg/dL (7-20); CALCIUM 9.7 mg/dL (8.4-10.2); CARBON DIOXIDE 24 mmol/L (22-30); CHLORIDE 108 mmol/L (98-107); EOSINOPHILS % (AUTO) 2.2 % (0-6); GAMMA-GLUTAMYL TRANSFERASE 223 U/L (8-78); GLUCOSE 94 mg/dL (75-110); HEMATOCRIT 35.2 % (36.0-47.0); HEMOGLOBIN 12.2 g/dL (12.0-15.5); LYMPHOCYTES % (AUTO) 17.5 % (13-45); MEAN CORPUSCULAR HEMOGLOBIN 34.3 pg (27.0-33.4); MEAN CORPUSCULAR HGB CONC 34.7 g/dL (32.0-36.0); MEAN CORPUSCULAR VOLUME 99 fl (80-97); MONOCYTES % (AUTO) 13.7 % (3-13); POTASSIUM 3.4 mmol/L (3.6-5.0); RED BLOOD COUNT 3.56 10^6/uL (3.72-5.28); RED CELL DISTRIBUTION WIDTH 15.9 % (11.5-14.0); SEGMENTED NEUTROPHILS % (AUTO) 65.8 % (42-78); SODIUM 143.3 mmol/L (137-145); TOTAL CELLS COUNTED % (AUTO) 100 %; TOTAL PROTEIN 7.6 g/dL (6.3-8.2); WHITE BLOOD COUNT 5.9 10^3/uL (4.0-10.5)
[2018-08-05 15:36] LABS: APPEARANCE,URINE SLIGHTLY-CLOUDY; BILIRUBIN,URINE NEGATIVE (NEGATIVE); COLOR,URINE YELLOW; GLUCOSE, URINE NEGATIVE (NEGATIVE); KETONES,URINE NEGATIVE (NEGATIVE); LEUKOCYTE ESTERASE,URINE NEGATIVE (NEGATIVE); NITRITE,URINE NEGATIVE (NEGATIVE); PROTEIN,URINE NEGATIVE (NEGATIVE); URINE SPECIFIC GRAVITY 1.005; UROBILINOGEN,URINE NEGATIVE mg/dL (<2.0)
[2018-08-05 15:58] LABS: PLATELET COUNT 75 10^3/uL (150-450)
== END ==
LOC: OD 14:26
PROVIDERS: ATTEND Internal Medicine
DX: N18.6 End stage renal disease (principal); D64.9 Anemia, unspecified; N39.0 Urinary tract infection, site not specified
CPT/HCPCS: 36415; 80053; 81001; 82140; 82977; 85025; 87086; 87088; 87186

== ENCOUNTER 2018-08-09 15:35 | Inpatient (IN) | payer MEDICARE, OTHER ==
[2018-08-09] MEDS: IPRATROPIUM/ALBUTEROL 0.5-2.5 MG/3 ML AMPUL NEB SCH (16:56)
--- NOTE | 2018-08-09 17:33 | RADIOLOGY REPORT (SQ) ---
EXAM DESCRIPTION: CT HEAD WITHOUT COMPLETED DATE/TIME: 08/09/2018 5:23 pm REASON FOR STUDY: AMS COMPARISON: None. TECHNIQUE: Axial images acquired through the brain without intravenous contrast. Images reviewed wi th bone, brain and subdural windows. Additional sagittal and coronal reconstructions were generated. Images stored on PACS. All CT scanners at this facility use dose modulation, iterative reconstruction, and/or weight based d osing when appropriate to reduce radiation dose to as low as reasonably achievable (ALARA). [facility]: Dose Right [facility]: CareDose [facility]: Dose Right [facility]: Teradose 4D [facility]: Polyvore RADIATION DOSE: CT Rad equipment meets quality standard of care and radiation dose reduction techniq ues were employed. CTDIvol: 53.2 mGy. DLP: 1017 mGy-cm.mGy. LIMITATIONS: None. FINDINGS: VENTRICLES: Prominent. CEREBRUM: No masses. No hemorrhage. No midline shift. Areas of low density in the white matter mos t likely due to chronic micro-vascular ischemic change. No evidence for acute infarction. CEREBELLUM: No masses. No hemorrhage. No alteration of density. No evidence for acute infarction. EXTRAAXIAL SPACES: Age-related involutional change. No fluid collections. No masses. ORBITS AND GLOBE: No intra- or extraconal masses. Normal contour of globe without masses. CALVARIUM: No fracture. PARANASAL SINUSES: No fluid or mucosal thickening. SOFT TISSUES: No mass or hematoma. OTHER: No other significant finding. IMPRESSION: CHRONIC CHANGES OF ATROPHY AND MICROVASCULAR ISCHEMIA. NO ACUTE PROCESS. EVIDENCE OF ACUTE STROKE: NO. TECHNICAL DOCUMENTATION: JOB ID: [id number] Quality ID # [id number]: Final reports with documentation of one or more dose reduction techniques (e.g., Au tomated exposure control, adjustment of the mA and/or kV according to patient size, use of iterative reconstruction technique) 2010 Personally- All Rights Reserved Reading location - IP/workstation name: [email or web address]
[2018-08-09] MEDS: 1/2 NORMAL SALINE 1,000 ML IV PRN (17:58)
[2018-08-09] MEDS: METOPROLOL TARTRATE 25 MG TABLET PO SCH (17:58)
[2018-08-09] MEDS ORDERED: LACTULOSE SYRUP 20 GM/30 ML UDCUP PO SCH (18:00)
[2018-08-09] MEDS ORDERED: AMLODIPINE BESYLATE 2.5 MG TABLET PO SCH (18:00)
[2018-08-09] MEDS: ENOXAPARIN SODIUM INJ 30 MG/0.3 ML DISP.SYRIN SUBCUT SCH (18:10)
[2018-08-09] MEDS: CHOLECALCIFEROL (D3) 1,000 UNIT TABLET PO SCH (18:11)
[2018-08-09] MEDS: LANSOPRAZOLE 30 MG TAB.RAP.DR PO SCH (18:11)
[2018-08-09] MEDS: FOLIC ACID 1 MG TABLET PO SCH (18:11)
[2018-08-09] MEDS: SPIRONOLACTONE 25 MG TABLET PO SCH (18:11)
[2018-08-09 18:25] LABS: ALANINE AMINOTRANSFERASE 35 U/L (9-52); ALBUMIN 3.1 g/dL (3.5-5.0); ALKALINE PHOSPHATASE 128 U/L (38-126); ANION GAP 7 (5-19); ASPARTATE AMINO TRANSFERASE 70 U/L (14-36); BILIRUBIN,DIRECT 0.4 mg/dL (0.0-0.4); BILIRUBIN,TOTAL 1.9 mg/dL (0.2-1.3); BLOOD UREA NITROGEN 20 mg/dL (7-20); CARBON DIOXIDE 22 mmol/L (22-30); CHLORIDE 110 mmol/L (98-107); GLUCOSE 95 mg/dL (75-110); POTASSIUM 3.9 mmol/L (3.6-5.0); SODIUM 139.3 mmol/L (137-145); TOTAL PROTEIN 7.2 g/dL (6.3-8.2)
[2018-08-09 18:48] LABS: ABSOLUTE BASOPHILS # (AUTO) 0.1 10^3/uL (0.0-0.2); ABSOLUTE EOSINOPHILS # (AUTO) 0.2 10^3/uL (0.0-0.6); ABSOLUTE LYMPHOCYTES (AUTO) 1.1 10^3/uL (0.5-4.7); ABSOLUTE MONOCYTES (AUTO) 0.9 10^3/uL (0.1-1.4); ABSOLUTE NEUT (AUTO) 4.4 10^3/uL (1.7-8.2); BASOPHILS % (AUTO) 1.1 % (0-2); EOSINOPHILS % (AUTO) 2.5 % (0-6); HEMATOCRIT 34.4 % (36.0-47.0); HEMOGLOBIN 11.8 g/dL (12.0-15.5); LYMPHOCYTES % (AUTO) 17.2 % (13-45); MEAN CORPUSCULAR HEMOGLOBIN 34.4 pg (27.0-33.4); MEAN CORPUSCULAR HGB CONC 34.5 g/dL (32.0-36.0); MEAN CORPUSCULAR VOLUME 100 fl (80-97); RED BLOOD COUNT 3.44 10^6/uL (3.72-5.28); RED CELL DISTRIBUTION WIDTH 16.1 % (11.5-14.0); SEGMENTED NEUTROPHILS % (AUTO) 66.2 % (42-78); TOTAL CELLS COUNTED % (AUTO) 100 %; WHITE BLOOD COUNT 6.6 10^3/uL (4.0-10.5)
[2018-08-09 18:58] LABS: PLATELET COUNT 76 10^3/uL (150-450)
[2018-08-09 19:33] LABS: FOLATE > 20.00 ng/mL (>2.76)
[2018-08-09] MEDS: POTASSIUM CHLORIDE 20 MEQ/50 ML RTU IV SCH ×2 (20:48→23:16)
[2018-08-09] MEDS: ATORVASTATIN CALCIUM 10 MG TABLET PO SCH (23:06)
[2018-08-09] MEDS ORDERED: POTASSI CL 20 MEQ/50 ML RIDER 20 MEQ/50 ML RTUPB IV ONE (23:14)
[2018-08-10] MEDS: IPRATROPIUM/ALBUTEROL 0.5-2.5 MG/3 ML AMPUL NEB SCH ×3 (00:13→17:11)
[2018-08-10] MEDS: METOPROLOL TARTRATE 25 MG TABLET PO SCH ×2 (05:31→17:03)
[2018-08-10] MEDS: LANSOPRAZOLE 30 MG TAB.RAP.DR PO SCH (05:32)
[2018-08-10] MEDS: 1/2 NORMAL SALINE 1,000 ML IV PRN ×2 (06:49→21:07)
[2018-08-10 08:53] LABS: FREE T3 2.82 pg/mL (2.77-5.27)
[2018-08-10 09:16] LABS: FREE T4 (FREE THYROXINE) 1.91 ng/dL (0.78-2.19)
[2018-08-10 09:56] LABS: ARTERIAL BLOOD H2CO3 0.73 mmol/L (1.05-1.35); ARTERIAL BLOOD HCO3 18.7 mmol/L (20-24); ARTERIAL BLOOD O2 SATURATION 96.2 % (94-98); ARTERIAL BLOOD PCO2 24.3 mmHg (35-45); ARTERIAL BLOOD PH 7.51 (7.35-7.45); ARTERIAL BLOOD PO2 73.3 mmHg (80-100); ARTERIAL BLOOD TOTAL CO2 19.5 mmol/L (21-25)
[2018-08-10 09:57] LABS: ARTERIAL BLOOD FIO2 ROOM AIR
[2018-08-10] MEDS: CHOLECALCIFEROL (D3) 1,000 UNIT TABLET PO SCH (10:01)
[2018-08-10] MEDS: SPIRONOLACTONE 25 MG TABLET PO SCH (10:01)
[2018-08-10] MEDS: LACTULOSE SYRUP 20 GM/30 ML UDCUP PO SCH ×2 (10:02→17:03)
[2018-08-10] MEDS: ENOXAPARIN SODIUM INJ 30 MG/0.3 ML DISP.SYRIN SUBCUT SCH (10:03)
[2018-08-10] MEDS: FOLIC ACID 1 MG TABLET PO SCH (10:11)
[2018-08-10 10:45] LABS: CREATINE KINASE MB 0.42 ng/mL (<4.55)
[2018-08-10 10:58] LABS: TROPONIN I < 0.012 ng/mL
--- NOTE | 2018-08-10 13:26 | PDOC H&P ---
History of Present Illness Admission Date/PCP: 08/10/18 15:35 ALFREDA RENTERIA MD Patient presents today after being sent from my office with progressive weakness, slurring of speech, difficulty with walking, no nausea vomiting decreased appetite no diarrhea. History of Present Illness: RACHNA MAYERS is a 77 year old female Patient presents with progressive weakness, lethargy, slurring of speech, decreased appetite for 3-4 days prior to admission Past Medical History Cardiac Medical History: Reports: Coronary Artery Disease, Hypertension, P eripheral Vascular Disease - Bilateral internal carotid artery stenosis, Heart Murmur - Aortic stenosis Denies: Myocardial Infarction Cardiac History Note: Moderate to severe aortic stenosis Pulmonary Medical History: Denies: Asthma, Bronchitis, Chronic Obstructive Pulmonary Disease (COPD), Pneumonia EENT Medical History: Reports: None Neurological Medical History: Reports: Ischemic CVA Denies: Seizures Endocrine Medical History: Denies: Diabetes Mellitus Type 1, Diabetes Mellitus Type 2 GI Medical History: Reports: Cirrhosis - Thank you for your Denies: Crohn's Disease, Hepatitis, Ulcerative Colitis GI History Note: Hemochromatosis Musculoskeltal Medical History: Reports: Arthritis Denies: Gout Skin Medical History: Denies: Eczema, Psoriasis Psychiatric Medical History: Reports: None Traumatic Medical History: Reports: None Hematology: Denies: Anemia, Hemophilia, Bleeding Tendencies, Neutropenia Hematology History Note: hemachromatosis Infectious History Note: Urinary tract infections Past Surgical History Past Surgical History: Reports: Appendectomy, Carotid Endarterectomy - Left, Cholecystectomy, Hysterectomy, Tonsillectomy Social History Lives with: Alone Smoking Status: Never Smoker Frequency of Alcohol Use: None Hx Recreational Drug Use: No Hx Prescription Drug Abuse: No Family History Family History: CAD, DM, Hypertension Parental Family History Reviewed: Yes Children Family History Reviewed: Yes Sibling(s) Family History Reviewed.: Yes Medication/Allergy Home Medications: Amlodipine Besylate [Norvasc 2.5 mg Tablet] 2.5 mg PO DAILY 07/13/18 Atorvastatin Calcium [Lipitor 10 mg Tablet] 10 mg PO QHS 07/13/18 Folic Acid [Folvite 1 mg Tablet] 1 mg PO DAILY 07/13/18 Lactulose [Constulose 10 gm/15 mL Oral Solution] 15 ml PO BID 07/13/18 Pantoprazole Sodium [Protonix] 40 mg PO DAILY 07/13/18 Torsemide [Demadex 20 mg Tablet] 20 mg PO DAILY 07/13/18 Aspirin [Ecotrin 81 mg EC Tablet] 81 mg PO DAILY tabec 07/16/18 Ciprofloxacin HCl [Cipro 500 mg Tablet] 500 mg PO Q12 #14 tablet 07/16/18 Metoprolol Tartrate [Lopressor 25 mg Tablet] 12.5 mg PO Q12 tablet 07/16/18 Allopurinol [Zyloprim 100 mg Tablet] 100 mg PO DAILY 08/09/18 Cholecalciferol (Vitamin D3) [Vitamin D3 1000 Unit Tablet] 1,000 unit PO DAILY 08/09/18 Ipratropium/Albuterol Sulfate [Duoneb 3 ml Ampul] 3 ml NEB RTQ3 PRN 08/09/18 Spironolactone 50 mg PO QAM 08/09/18 Spironolactone [Aldactone 25 mg Tablet] 25 mg PO QPM 08/09/18 Allergies/Adverse Reactions: furosemide [From Lasix] Allergy (Verified 07/13/18 16:49) shellfish derived Allergy (Verified 07/13/18 16:49) Iodinated Contrast- Oral and IV Dye Adverse Reaction (Verified 07/13/18 15:28) iodine Adverse Reaction (Verified 07/13/18 15:28) Review of Systems Constitutional: PRESENT: as per HPI Eyes: PRESENT: as per HPI Ears: PRESENT: as per HPI Nose, Mouth, and Throat: PRESENT: as per HPI Breasts: PRESENT: as per HPI Cardiovascular: PRESENT: as per HPI Respiratory: PRESENT: as per HPI Gastrointestinal: PRESENT: as per HPI Genitourinary: PRESENT: as per HPI Musculoskeletal: PRESENT: as per HPI Integumentary: PRESENT: as per HPI Neurological: PRESENT: as per HPI Psychiatric: PRESENT: as per HPI Endocrine: PRESENT: as per HPI Hematologic/Lymphatic: PRESENT: as per HPI Allergic/Immunologic: PRESENT: as per HPI Physical Exam Vital Signs: Temp Pulse Resp BP Pulse Ox 97.7 F 65 19 112/45 L 97 08/10/18 12:31 08/10/18 12:31 08/10/18 12:31 08/10/18 12:31 08/10/18 12:31 Intake & Output 08/09/18 08/10/18 08/11/18 06:59 06:59 06:59 Intake Total 1100 Balance 1100 Weight 44.9 kg General appearance: PRESENT: no acute distress, other Head exam: PRESENT: atraumatic, normocephalic Eye exam: PRESENT: conjunctiva pink, EOMI, PERRLA. ABSENT: scleral icterus Ear exam: PRESENT: normal external ear exam Mouth exam: PRESENT: moist, tongue midline Throat exam: PRESENT: post pharyngeal erythema Neck exam: PRESENT: full ROM. ABSENT: carotid bruit, JVD, lymphadenopathy, thyromegaly Respiratory exam: PRESENT: clear to auscultation alfredo Cardiovascular exam: PRESENT: RRR. ABSENT: diastolic murmur, rubs, systolic murmur Murmur grade: 4 Pulses: PRESENT: normal dorsalis pedis pul, +2 pedal pulses bilateral Vascular exam: PRESENT: normal capillary refill GI/Abdominal exam: PRESENT: normal bowel sounds, soft. ABSENT: distended, guarding, mass, organolmegaly, rebound, tenderness Rectal exam: PRESENT: deferred Extremities exam: PRESENT: pedal edema Musculoskeletal exam: PRESENT: ambulatory Neurological exam: PRESENT: alert, awake, oriented to person, oriented to place, oriented to situation, reflexes normal, CN II-XII grossly intact Psychiatric exam: PRESENT: appropriate affect, normal mood. ABSENT: homicidal ideation, suicidal ideation Skin exam: PRESENT: dry, intact, warm. ABSENT: cyanosis, rash Results Laboratory Results: 08/09/18 18:13 08/09/18 17:44 08/09/18 08/09/18 08/09/18 17:44 17:44 17:44 WBC RBC Hgb Hct MCV MCH MCHC RDW Plt Count Seg Neutrophils % Lymphocytes % Monocytes % Eosinophils % Basophils % Absolute Neutrophils Absolute Lymphocytes Absolute Monocytes Absolute Eosinophils Absolute Basophils Carbonic Acid HCO3/H2CO3 Ratio ABG pH ABG pCO2 ABG pO2 ABG HCO3 ABG O2 Saturation ABG Base Excess FiO2 Sodium 139.3 Potassium 3.9 Chloride 110 H Carbon Dioxide 22 Anion Gap 7 BUN 20 Creatinine 0.93 Est GFR ( Amer) > 60 Est GFR (Non-Af Amer) 58 L Glucose 95 Calcium 9.0 Magnesium 2.1 Total Bilirubin 1.9 H AST 70 H ALT 35 Alkaline Phosphatase 128 H Ammonia Total Protein 7.2 Albumin 3.1 L Vitamin B12 884.0 Folate > 20.00 TSH 5.02 H Free T4 1.91 Free T3 pg/mL 2.82 08/09/18 08/09/18 08/10/18 18:13 18:13 09:30 WBC 6.6 RBC 3.44 L Hgb 11.8 L Hct 34.4 L MCV 100 H MCH 34.4 H MCHC 34.5 RDW 16.1 H Plt Count 76 L Seg Neutrophils % 66.2 Lymphocytes % 17.2 Monocytes % 13.0 Eosinophils % 2.5 Basophils % 1.1 Absolute Neutrophils 4.4 Absolute Lymphocytes 1.1 Absolute Monocytes 0.9 Absolute Eosinophils 0.2 Absolute Basophils 0.1 Carbonic Acid 0.73 L HCO3/H2CO3 Ratio 25:1 ABG pH 7.51 H ABG pCO2 24.3 L ABG pO2 73.3 L ABG HCO3 18.7 L ABG O2 Saturation 96.2 ABG Base Excess -3.0 FiO2 ROOM AIR Sodium Potassium Chloride Carbon Dioxide Anion Gap BUN Creatinine Est GFR ( Amer) Est GFR (Non-Af Amer) Glucose Calcium Magnesium Total Bilirubin AST ALT Alkaline Phosphatase Ammonia 31.3 Total Protein Albumin Vitamin B12 Folate TSH Free T4 Free T3 pg/mL 08/10/18 08/10/18 09:59 09:59 Creatine Kinase 88 CK-MB (CK-2) 0.42 Troponin I < 0.012 Impressions: Head CT 08/09/18 00:00 IMPRESSION: CHRONIC CHANGES OF ATROPHY AND MICROVASCULAR ISCHEMIA. NO ACUTE PROCESS. EVIDENCE OF ACUTE STROKE: NO. Assessment & Plan - Diagnosis (1) Acute metabolic encephalopathy Is this a current diagnosis for this admission?: Yes Plan: We will order cardiac enzymes every 3 TSH T3-T4 vitamin B12, folic acid, ammonia level we will get a CT of the head blood cultures urine cultures. We will also do neuro checks every 4 hours. (2) Dehydration Is this a current diagnosis for this admission?: Yes Plan: We will do No hydration monitor BMP 7 (3) Hypertension Qualifiers: Hypertension type: essential hypertension Qualified Code(s): I10 - Essential (primary) hypertension Is this a current diagnosis for this admission?: Yes Plan: Plan we will continue the metoprolol because of her portal hypertension, discontinue amlodipine. - Time Time Spent: 50 to 70 Minutes Medications reviewed and adjusted accordingly: Yes Anticipated discharge: Home Within: Other - Inpatient Certification I certify that my determination is in accordance with my understanding of Medicare's requirements for reasonable and necessary INPATIENT services [42 CFR 412.3e].: Yes Medical Necessity: Failure to Improve With Outpatient Therapy, Need For IV Fluids, Need for Neurological Checks Post Hospital Care: D/C Rn Compliance Documentation
[2018-08-10 16:08] LABS: CREATINE KINASE MB 0.38 ng/mL (<4.55)
[2018-08-10 16:15] LABS: TROPONIN I < 0.012 ng/mL
--- NOTE | 2018-08-10 16:59 | Physician Advisory Note ---
Physician Advisor ProgressNote .: Pursuant to the plan for [facility], I have reviewed the medical record for this patient. Physician Advisor Statement: Please consider documenting, if you agree: 1. "Acute Hypotension, suspect due to " (adverse effects of Demadex/aldactone/norvasc/metoprolol? dehydration not from Rxs? ...) 2. "acute dysarthria due to acute cerebrovascular insufficiency" due to #1 (vs. cerebrovascular atherosclerosis, vs acute ___ type CVA, ...) 3. "Acute metabolic encephalopathy, likely due to (?cerebrovascular insufficiency? UTI? dehydration? ...), & evidenced by " (Please make explicit what was different about pt's mental status compared to baseline, & how it continues to be different from baseline today, if it is - "paint the picture" for the reviewer who doesn't know pt's baseline.) 4. "acute respiratory alkalosis, suspect due to " (acute CVA? gram-neg sepsis? CHF? hyperventilation/pain w/ABG? ...) 5. "pulmonary hypertension" (per prior ECHO) Please also clarify: - H&P states pt needs Inpt status due to "failure to improve w/outpt tx" - What tx was done outpt, when, & what were results? - How low was BP in office? - H&P states "Absent: diastolic murmur, systolic murmur", but then "murmur grade 4" - please clarify this. Status: AMS/dehyd cases are typically most appropriate to start as Obs status, changing to Inpatient after showing they continue to have ongoing clinical issues the next day requiring Inpatient status. In this case, 77yo w/HTN at baseline, CAD/mod-severe aortic stenosis (so poor cardiac output to brain & rest of body), bilat carotid stenosis (so poor vascular supply to brain), & cerebrovascular atherosclerosis (even further compromising blood flow to brain), cirrhosis w/portal hypertension (so needing beta-carson for GI bleeding risk, but also needing diuretic tx due to cirrhosis) - who had decreased appetite x 3-4 days, presented with weakness/lethargy/dysarthria, difficulty walking, associated w/hypotension. Attending held pt's usual Demadex, cut usual Aldactone from 50mg AM/25mg PM to just 25mg AM, and gave IVF at 80ml/hr (needing to be cautious w/IVF given compromised cardiac output ability - high risk for precipitating "acute CHF w/nl EF" or worsening ascites), but pt continued to have hypotension as low as 96/37 overnight. This AM, attending further adjusting meds, stopping amlodipine as well & continuing to monitor BPs, while continuing to cautiously give IVF. Ur cx growing GNRs; UTI could contribute to encephalopathy & to dehydration. It appears the attending is expecting to keep to for at least a 2nd MN due to these ongoing clinical issues. Inpatient status appears appropriate at this time. Thanks, CK
[2018-08-10] MEDS: ATORVASTATIN CALCIUM 10 MG TABLET PO SCH (21:09)
[2018-08-10 22:22] LABS: CREATINE KINASE MB 0.28 ng/mL (<4.55)
[2018-08-10 22:25] LABS: TROPONIN I < 0.012 ng/mL
[2018-08-11] MEDS: IPRATROPIUM/ALBUTEROL 0.5-2.5 MG/3 ML AMPUL NEB SCH ×2 (00:27→08:00)
[2018-08-11] MEDS: METOPROLOL TARTRATE 25 MG TABLET PO SCH (05:22)
[2018-08-11] MEDS: LANSOPRAZOLE 30 MG TAB.RAP.DR PO SCH (05:24)
[2018-08-11] MEDS: FOLIC ACID 1 MG TABLET PO SCH (09:05)
[2018-08-11] MEDS: ENOXAPARIN SODIUM INJ 30 MG/0.3 ML DISP.SYRIN SUBCUT SCH (09:05)
[2018-08-11] MEDS: LACTULOSE SYRUP 20 GM/30 ML UDCUP PO SCH (09:05)
[2018-08-11] MEDS: SPIRONOLACTONE 25 MG TABLET PO SCH (09:05)
[2018-08-11] MEDS: CHOLECALCIFEROL (D3) 1,000 UNIT TABLET PO SCH (09:05)
[2018-08-11] MEDS: 1/2 NORMAL SALINE 1,000 ML IV PRN (10:28)
--- NOTE | 2018-08-11 12:00 | PDOC DISCHARGE SUMMARY ---
General - Admit/Disc Date/PCP Admission Date/Primary Care Provider: 08/09/18 15:35 ALFREDA RENTERIA MD Discharge Date: 08/11/18 - Discharge Diagnosis (1) Acute metabolic encephalopathy Is this a current diagnosis for this admission?: Yes (2) Dehydration Is this a current diagnosis for this admission?: Yes (3) Hypertension Is this a current diagnosis for this admission?: Yes (4) UTI (urinary tract infection) Is this a current diagnosis for this admission?: Yes - Additional Information Discharge Diet: As Tolerated Discharge Activity: Activity As Tolerated Prescriptions: Ampicillin Trihydrate [Princepen 500 mg Capsule] 500 mg PO Q8 #20 capsule Lactulose [Cephulac Syrup 20 gm/30 ml Udcup] 30 gm PO BID #120 udc Home Medications: Atorvastatin Calcium [Lipitor 10 mg Tablet] 10 mg PO QHS 07/13/18 Folic Acid [Folvite 1 mg Tablet] 1 mg PO DAILY 07/13/18 Pantoprazole Sodium [Protonix] 40 mg PO DAILY 07/13/18 Aspirin [Ecotrin 81 mg EC Tablet] 81 mg PO DAILY tabec 07/16/18 Metoprolol Tartrate [Lopressor 25 mg Tablet] 12.5 mg PO Q12 tablet 07/16/18 Allopurinol [Zyloprim 100 mg Tablet] 100 mg PO DAILY 08/09/18 Cholecalciferol (Vitamin D3) [Vitamin D3 1000 Unit Tablet] 1,000 unit PO DAILY 08/09/18 Ipratropium/Albuterol Sulfate [Duoneb 3 ml Ampul] 3 ml NEB RTQ3 PRN 08/09/18 Ampicillin Trihydrate [Princepen 500 mg Capsule] 500 mg PO Q8 #20 capsule 08/11/18 Folic Acid [Folvite 1 mg Tablet] 1 mg PO DAILY tablet 08/11/18 Lactulose [Cephulac Syrup 20 gm/30 ml Udcup] 30 gm PO BID #120 udc 08/11/18 Spironolactone [Aldactone 25 mg Tablet] 25 mg PO QAM #0 08/11/18 History of Present Illness Patient complains of: Altered mental status sluggishness weakness and ability to stand poor appetite History of Present Illness: RACHNA MAYERS is a 77 year old female Patient presents with progressive weakness, lethargy, slurring of speech, decreased appetite for 3-4 days prior to admission Hospital Course Hospital Course: Was admitted to telemetry no abnormal cardiac enzymes she had blood cultures which are negative CT of the head showed no CV CVA her medication meaning torsemide and spironolactone were decreased she had a vitamin B12 folic acid ammonia level. Her lactulose was increased to 30 mg twice daily, she was put on IV hydration. Throughout her hospital course within 24 hours of hydration she showed improvement with increasing mentation cognition interaction she still had some confusion to place not time and date. She was found to have a positive urinary tract infection with E. coli over 50,000 units and started on ampicillin which was sensitive. After this her appetite improved she was able to get up seen by physical therapy and she was felt stable for discharge Physical Exam Vital Signs: Temp Pulse Resp BP Pulse Ox 98.0 F 66 15 118/41 L 96 08/11/18 04:39 08/11/18 08:00 08/11/18 08:00 08/11/18 04:39 08/11/18 08:00 Intake & Output 08/10/18 08/11/18 08/12/18 06:59 06:59 06:59 Intake Total 1100 1960 1000 Balance 1100 1960 1000 Weight 44.9 kg 48 kg General appearance: PRESENT: no acute distress Head exam: PRESENT: atraumatic, normocephalic Eye exam: PRESENT: conjunctiva pink, EOMI, PERRLA. ABSENT: scleral icterus Ear exam: PRESENT: normal external ear exam Mouth exam: PRESENT: moist, tongue midline Neck exam: PRESENT: full ROM. ABSENT: carotid bruit, JVD, lymphadenopathy, thyromegaly Respiratory exam: PRESENT: clear to auscultation alfredo Cardiovascular exam: PRESENT: bradycardia, RRR. ABSENT: diastolic murmur, rubs, systolic murmur Murmur grade: 4 Pulses: PRESENT: normal dorsalis pedis pul, +2 pedal pulses bilateral Vascular exam: PRESENT: normal capillary refill GI/Abdominal exam: PRESENT: normal bowel sounds, soft. ABSENT: distended, guarding, mass, organolmegaly, rebound, tenderness Rectal exam: PRESENT: deferred Musculoskeletal exam: PRESENT: ambulatory Neurological exam: PRESENT: alert, awake, oriented to person, oriented to place, oriented to time, oriented to situation, CN II-XII grossly intact. ABSENT: motor sensory deficit Psychiatric exam: PRESENT: appropriate affect, normal mood. ABSENT: homicidal ideation, suicidal ideation Skin exam: PRESENT: dry, intact, warm. ABSENT: cyanosis, rash Results Laboratory Results: 08/09/18 18:13 08/09/18 17:44 08/09/18 20:05 Clean Catch Midstream Urine Culture - Final Escherichia Coli Group B Beta Streptococcus 08/10/18 08/10/18 08/10/18 09:59 09:59 14:45 Creatine Kinase 88 79 CK-MB (CK-2) 0.42 Troponin I < 0.012 08/10/18 08/10/18 08/10/18 14:45 21:20 21:20 Creatine Kinase 74 CK-MB (CK-2) 0.38 0.28 Troponin I < 0.012 < 0.012 Impressions: Head CT 08/09/18 00:00 IMPRESSION: CHRONIC CHANGES OF ATROPHY AND MICROVASCULAR ISCHEMIA. NO ACUTE PROCESS. EVIDENCE OF ACUTE STROKE: NO. Qualifiers - * PATIENT BEING DISCHARGED WITH ANY OF THE FOLLOWING DIAGNOSIS: No Plan Discharge Plan: Plan she will be discharged home with the new addition of ampicillin 500 q. 8 her lactulose will be increased to 30 twice daily her spironolactone will be dropped to 25 daily, her torsemide will be held daily weights will be done. Home [facility] with [facility] will be ordered she will also get a bedside commode. And she will follow-up in 1 week Time Spent: Less than 30 Minutes
[2018-08-11 12:23] VITALS: BP 127/46
[2018-08-11] MEDS ORDERED: AMPICILLIN TRIHYD 500 MG CAPSULE PO SCH (14:00)
== END 2018-08-11 13:51 | disposition home health service (06) | DRG 689 ==
LOC: 5 15:35
PROVIDERS: ADMIT Internal Medicine; ATTEND Internal Medicine
DX: N39.0 Urinary tract infection, site not specified (principal); G93.41 Metabolic encephalopathy; K76.6 Portal hypertension; E86.0 Dehydration; I65.23 Occlusion and stenosis of bilateral carotid arteries; I35.0 Nonrheumatic aortic (valve) stenosis; K74.69 Other cirrhosis of liver; B96.20 Unspecified Escherichia coli [E. coli] as the cause of diseases classified elsewhere; I10 Essential (primary) hypertension; I25.10 Atherosclerotic heart disease of native coronary artery without angina pectoris; I73.9 Peripheral vascular disease, unspecified; E83.119 Hemochromatosis, unspecified; M19.90 Unspecified osteoarthritis, unspecified site; Z79.82 Long term (current) use of aspirin; Z87.440 Personal history of urinary (tract) infections; Z82.49 Family history of ischemic heart disease and other diseases of the circulatory system
CPT/HCPCS: 36415; 36600; 70450; 80053; 82140; 82550; 82553; 82607; 82746; 82803; 83735; 84439; 84443; 84481; 84484; 85025; 87040; 87086; 87088; 87186; 94640; J3480; J7620

== ENCOUNTER → 2018-08-20 | Outpatient (CLI) | payer MEDICARE, OTHER ==
[2018-08-20 12:53] LABS: ABSOLUTE BASOPHILS # (AUTO) 0.1 10^3/uL (0.0-0.2); ABSOLUTE EOSINOPHILS # (AUTO) 0.1 10^3/uL (0.0-0.6); ABSOLUTE LYMPHOCYTES (AUTO) 0.9 10^3/uL (0.5-4.7); ABSOLUTE MONOCYTES (AUTO) 0.7 10^3/uL (0.1-1.4); ABSOLUTE NEUT (AUTO) 4.1 10^3/uL (1.7-8.2); BASOPHILS % (AUTO) 0.9 % (0-2); EOSINOPHILS % (AUTO) 2.3 % (0-6); HEMATOCRIT 34.3 % (36.0-47.0); HEMOGLOBIN 12.2 g/dL (12.0-15.5); LYMPHOCYTES % (AUTO) 15.4 % (13-45); MEAN CORPUSCULAR HGB CONC 35.5 g/dL (32.0-36.0); MEAN CORPUSCULAR VOLUME 99 fl (80-97); MONOCYTES % (AUTO) 12.6 % (3-13); RED BLOOD COUNT 3.48 10^6/uL (3.72-5.28); RED CELL DISTRIBUTION WIDTH 15.9 % (11.5-14.0); SEGMENTED NEUTROPHILS % (AUTO) 68.8 % (42-78); TOTAL CELLS COUNTED % (AUTO) 100 %; WHITE BLOOD COUNT 5.9 10^3/uL (4.0-10.5)
[2018-08-20 13:08] LABS: ALANINE AMINOTRANSFERASE 41 U/L (9-52); ALBUMIN 3.4 g/dL (3.5-5.0); ALKALINE PHOSPHATASE 138 U/L (38-126); ANION GAP 7 (5-19); ASPARTATE AMINO TRANSFERASE 67 U/L (14-36); BILIRUBIN,DIRECT 0.3 mg/dL (0.0-0.4); BILIRUBIN,TOTAL 1.6 mg/dL (0.2-1.3); BLOOD UREA NITROGEN 20 mg/dL (7-20); CALCIUM 8.8 mg/dL (8.4-10.2); CARBON DIOXIDE 29 mmol/L (22-30); CHLORIDE 105 mmol/L (98-107); GLUCOSE 99 mg/dL (75-110); POTASSIUM 3.4 mmol/L (3.6-5.0); SODIUM 141.2 mmol/L (137-145)
[2018-08-20 13:29] LABS: PLATELET COUNT 75 10^3/uL (150-450)
[2018-08-23 15:37] LABS: HGB A 97.6 % (96.4-98.8); HGB A2 2.4 % (1.8-3.2); HGB SOLUBILITY RESULT Negative (Negative)
== END ==
LOC: OD 11:15
PROVIDERS: ATTEND Internal Medicine
DX: D64.9 Anemia, unspecified (principal); R10.9 Unspecified abdominal pain
CPT/HCPCS: 36415; 80053; 82140; 83020; 85025

== ENCOUNTER 2018-08-24 13:31 | Inpatient (IN) | payer MEDICARE, OTHER ==
--- NOTE | 2018-08-24 15:39 | ER Document Report ---
ED Medical Screen (RME) - General Chief Complaint: Dizziness Stated Complaint: WEAKNESS Time Seen by Provider: 08/24/18 15:22 Primary Care Provider: ALFREDA RENTERIA MD [Primary Care Provider] - Follow up as needed TRAVEL OUTSIDE OF THE [place] IN LAST 30 DAYS: No - HPI Notes: 08/24/18 15:39 Patient is a 77-year-old female with a history of disease, hemochromatosis, coronary artery disease who presents to the emergency department with son with concern of confusion that began last evening. Patient has also had some dizziness and lightheadedness associated. No injury. Patient has had similar symptoms she was admitted for previously. Denies any chest pain, shortness of breath, abdominal pain, vomiting, diarrhea, fever, headache. I have treated and performed a rapid initial assessment of this patient. A comprehensive ED assessment and evaluation of the patient, analysis of test results and completion of medical decision making process will be conducted by additional ED providers. PHYSICAL EXAMINATION: GENERAL: Well-appearing, well-nourished and in no acute distress. A&O to person/place, not time. Pt does not follow direction well which is not her baseline per son. LUNGS: Breath sounds clear to auscultation bilaterally and equal. No wheezes rales or rhonchi. HEART: Regular rate and rhythm, + murmur. Extremities: No cyanosis, clubbing, or edema b/l. NEUROLOGICAL: Speech clear. Cranial nerves grossly intact. Pt will not follow some commands as she gets confused, however. PSYCH: Normal mood, normal affect. - Related Data Allergies/Adverse Reactions: furosemide [From Lasix] Allergy (Verified 08/24/18 13:38) shellfish derived Allergy (Verified 08/24/18 13:38) Iodinated Contrast- Oral and IV Dye Adverse Reaction (Verified 08/24/18 13:38) iodine Adverse Reaction (Verified 08/24/18 13:38) Past Medical History - Social History Frequency of alcohol use: None Drug Abuse: None - Past Medical History Cardiac Medical History: Reports: Hx Coronary Artery Disease, Hx Hypertension, Hx Peripheral Vascular Disease - Bilateral internal carotid artery stenosis, Hx Heart Murmur - Aortic stenosis Denies: Hx Heart Attack Pulmonary Medical History: Reports: Hx COPD Denies: Hx Asthma, Hx Bronchitis, Hx Pneumonia Neurological Medical History: Reports: Hx Cerebrovascular Accident - 2014. Denies: Hx Seizures Endocrine Medical History: Denies: Hx Diabetes Mellitus Type 1, Hx Diabetes Mellitus Type 2 Renal/ Medical History: Denies: Hx Peritoneal Dialysis GI Medical History: Reports: Hx Cirrhosis - Thank you for your. Denies: Hx Crohn's Disease, Hx Hepatitis, Hx Ulcerative Colitis Musculoskeltal Medical History: Reports Hx Arthritis, Denies Hx Gout Skin Medical History: Denies Hx Eczema, Denies Hx Psoriasis Infectious Medical History: Denies: Hx Hepatitis Past Surgical History: Reports: Hx Appendectomy, Hx Carotid Endarterectomy - Left, Hx Cholecystectomy, Hx Hysterectomy, Hx Tonsillectomy - Immunizations Hx Diphtheria, Pertussis, Tetanus Vaccination: Yes Physical Exam - Vital signs Vitals: Temp Pulse Resp BP Pulse Ox 98.3 F 67 20 123/55 L 93 08/24/18 14:25 08/24/18 14:25 08/24/18 14:25 08/24/18 14:25 08/24/18 14:25 Course - Vital Signs Vital signs: Temp Pulse Resp BP Pulse Ox 98.3 F 67 20 123/55 L 93 08/24/18 14:25 08/24/18 14:25 08/24/18 14:25 08/24/18 14:25 08/24/18 14:25 Doctor's Discharge - Discharge Referrals: ALFREDA RENTERIA MD [Primary Care Provider] - Follow up as needed
--- NOTE | 2018-08-24 16:15 | RADIOLOGY REPORT (SQ) ---
EXAM DESCRIPTION: CT HEAD WITHOUT COMPLETED DATE/TIME: 08/24/2018 4:00 pm REASON FOR STUDY: Confused COMPARISON: 08/09/2018 TECHNIQUE: Axial images acquired through the brain without intravenous contrast. Images reviewed wi th bone, brain and subdural windows. Additional sagittal and coronal reconstructions were generated. Images stored on PACS. All CT scanners at this facility use dose modulation, iterative reconstruction, and/or weight based d osing when appropriate to reduce radiation dose to as low as reasonably achievable (ALARA). [facility]: Dose Right [facility]: CareDose [facility]: Dose Right [facility]: Teradose 4D [facility]: Smart Loterity RADIATION DOSE: CT Rad equipment meets quality standard of care and radiation dose reduction techniq ues were employed. CTDIvol: 53.2 mGy. DLP: 964 mGy-cm. mGy. LIMITATIONS: None. FINDINGS: VENTRICLES: Normal size and contour. CEREBRUM: No masses. No hemorrhage. No midline shift. No evidence for acute infarction. Few scatte red areas of low density in the white matter most likely chronic small vessel ischemic changes. CEREBELLUM: No masses. No hemorrhage. No alteration of density. No evidence for acute infarction. EXTRAAXIAL SPACES: No fluid collections. No masses. ORBITS AND GLOBE: No intra- or extraconal masses. Normal contour of globe without masses. CALVARIUM: No fracture. PARANASAL SINUSES: No fluid or mucosal thickening. SOFT TISSUES: No mass or hematoma. OTHER: No other significant finding. IMPRESSION: No acute intracranial pathology. Small vessel white matter disease. EVIDENCE OF ACUTE STROKE: NO. COMMENT: Quality ID # [id number]: Final reports with documentation of one or more dose reduction techniques (e.g., Automated exposure control, adjustment of the mA and/or kV according to patient size, use of iterative reconstruction technique) TECHNICAL DOCUMENTATION: JOB ID: [id number] [employer]- All Rights Reserved Reading location - IP/workstation name: [email or web address]
[2018-08-24 16:44] LABS: APPEARANCE,URINE TURBID; BILIRUBIN,URINE NEGATIVE (NEGATIVE); GLUCOSE, URINE NEGATIVE (NEGATIVE); KETONES,URINE NEGATIVE (NEGATIVE); LEUKOCYTE ESTERASE,URINE LARGE (NEGATIVE); NITRITE,URINE NEGATIVE (NEGATIVE); PROTEIN,URINE 30 mg/dL (NEGATIVE); URINE SPECIFIC GRAVITY 1.018
[2018-08-24 16:45] LABS: ABSOLUTE BASOPHILS # (AUTO) 0.1 10^3/uL (0.0-0.2); ABSOLUTE EOSINOPHILS # (AUTO) 0.1 10^3/uL (0.0-0.6); ABSOLUTE LYMPHOCYTES (AUTO) 1.2 10^3/uL (0.5-4.7); ABSOLUTE MONOCYTES (AUTO) 0.9 10^3/uL (0.1-1.4); ABSOLUTE NEUT (AUTO) 5.6 10^3/uL (1.7-8.2); BASOPHILS % (AUTO) 0.8 % (0-2); COLOR,URINE YELLOW; EOSINOPHILS % (AUTO) 1.4 % (0-6); HEMATOCRIT 35.5 % (36.0-47.0); HEMOGLOBIN 12.3 g/dL (12.0-15.5); LYMPHOCYTES % (AUTO) 14.9 % (13-45); MEAN CORPUSCULAR HEMOGLOBIN 34.7 pg (27.0-33.4); MEAN CORPUSCULAR HGB CONC 34.7 g/dL (32.0-36.0); MEAN CORPUSCULAR VOLUME 100 fl (80-97); MONOCYTES % (AUTO) 11.9 % (3-13); RED BLOOD COUNT 3.55 10^6/uL (3.72-5.28); RED CELL DISTRIBUTION WIDTH 16.4 % (11.5-14.0); TOTAL CELLS COUNTED % (AUTO) 100 %; WHITE BLOOD COUNT 7.9 10^3/uL (4.0-10.5)
[2018-08-24 16:47] LABS: INTERNATIONAL RATION (INR) 1.23; PROTHROMBIN TIME 16.1 SEC (11.4-15.4)
[2018-08-24 17:02] LABS: ALANINE AMINOTRANSFERASE 27 U/L (9-52); ALBUMIN 3.6 g/dL (3.5-5.0); ALKALINE PHOSPHATASE 124 U/L (38-126); ANION GAP 8 (5-19); ASPARTATE AMINO TRANSFERASE 80 U/L (14-36); BILIRUBIN,DIRECT 0.6 mg/dL (0.0-0.4); BILIRUBIN,TOTAL 1.8 mg/dL (0.2-1.3); BLOOD UREA NITROGEN 19 mg/dL (7-20); CALCIUM 9.1 mg/dL (8.4-10.2); CARBON DIOXIDE 27 mmol/L (22-30); CHLORIDE 107 mmol/L (98-107); GLUCOSE 128 mg/dL (75-110); POTASSIUM 3.7 mmol/L (3.6-5.0); TOTAL PROTEIN 7.5 g/dL (6.3-8.2)
[2018-08-24 17:07] LABS: PLATELET COUNT 79 10^3/uL (150-450)
--- NOTE | 2018-08-24 19:34 | EKG REPORT ---
SEVERITY:- ABNORMAL ECG - SINUS RHYTHM LEFT ANTERIOR FASCICULAR BLOCK LVH WITH SECONDARY REPOLARIZATION ABNORMALITY : Confirmed by: Beatrice Del Cid MD 24-Aug-2018 19:33:48
[2018-08-24] MEDS ORDERED: NORMAL SALINE 500 ML IV ONE (19:54)
[2018-08-24] MEDS ORDERED: ERYTHROMYCIN BASE 250 MG TABLET PO ONE (19:55)
[2018-08-24] MEDS ORDERED: LACTULOSE SYRUP 20 GM/30 ML UDCUP PO ONE (19:55)
--- NOTE | 2018-08-24 19:57 | ER Document Report ---
ED General - General Chief Complaint: Dizziness Stated Complaint: WEAKNESS Time Seen by Provider: 08/24/18 15:22 Notes: 77-year-old female to the emergency department at request of family members for increased somnolence. Patient has hemochromatosis with hepatic disease with chronic elevated ammonia levels with intermittent elevated ammonia is causing acute confusion. Intermittent UTIs which seem to exacerbate her underlying conditions as well. Over the last several days they have noticed that she has had decreased urine and stool output. They states that they have been giving her the lactulose but this does not seem to be helping. Followed by Dr. Kwok. Sent here for further evaluation. TRAVEL OUTSIDE OF THE [place] IN LAST 30 DAYS: No - HPI Onset: Yesterday Onset/Duration: Gradual, Worse Quality of pain: No pain Severity: Moderate Pain Level: Denies Associated symptoms: Nausea, Weakness - Related Data Allergies/Adverse Reactions: furosemide [From Lasix] Allergy (Verified 08/24/18 13:38) shellfish derived Allergy (Verified 08/24/18 13:38) Iodinated Contrast- Oral and IV Dye Adverse Reaction (Verified 08/24/18 13:38) iodine Adverse Reaction (Verified 08/24/18 13:38) Past Medical History - General Information source: Patient, Relative - Social History Smoking Status: Never Smoker Frequency of alcohol use: None Drug Abuse: None Lives with: Family Family History: CAD, DM, Hypertension Patient has suicidal ideation: No Patient has homicidal ideation: No - Past Medical History Cardiac Medical History: Reports: Hx Coronary Artery Disease, Hx Hypertension, Hx Peripheral Vascular Disease - Bilateral internal carotid artery stenosis, Hx Heart Murmur - Aortic stenosis Denies: Hx Heart Attack Pulmonary Medical History: Reports: Hx COPD Denies: Hx Asthma, Hx Bronchitis, Hx Pneumonia Neurological Medical History: Reports: Hx Cerebrovascular Accident - 2014. Denies: Hx Seizures Endocrine Medical History: Denies: Hx Diabetes Mellitus Type 1, Hx Diabetes Mellitus Type 2 Renal/ Medical History: Denies: Hx Peritoneal Dialysis GI Medical History: Reports: Hx Cirrhosis - Thank you for your. Denies: Hx Crohn's Disease, Hx Hepatitis, Hx Ulcerative Colitis Musculoskeletal Medical History: Reports Hx Arthritis, Denies Hx Gout Skin Medical History: Denies Hx Eczema, Denies Hx Psoriasis Infectious Medical History: Denies: Hx Hepatitis Past Surgical History: Reports: Hx Appendectomy, Hx Carotid Endarterectomy - Left, Hx Cholecystectomy, Hx Hysterectomy, Hx Tonsillectomy - Immunizations Hx Diphtheria, Pertussis, Tetanus Vaccination: Yes Hx Pneumococcal Vaccination: 06/03/16 Review of Systems - Review of Systems Notes: Constitutional: denies: Chills, Diaphoresis, Fever, or increased weakness, increased confusion. EENT: denies: Eye discharge, Blurred vision, Tearing, Double vision, Nose congestion, Nose discharge, Throat swelling, Mouth pain Cardiovascular: denies: Palpitations, Heart racing, Orthopnea, Dyspnea, Chest pain Respiratory: denies: Cough, Hurts to breathe, Wheezing, Shortness of breath Gastrointestinal: denies: Abdominal pain, Diarrhea, Nausea, Vomiting, Black stools, bright red blood in stool Genitourinary: denies: Burning, Dysuria, Discharge, Frequency, Flank pain, Hematuria Musculoskeletal: denies: Joint pain, Joint swelling, Muscle pain, Muscle stiffness, back pain Hematologic/Lymphatic: denies: Anemia, Easy bleeding, Easy bruising, Blood clots Neurological/Psychological: Positive for confusion,. No focal weakness other than chronic weakness from prior CVA. Skin: No lesions, no masses, no skin breakdown, no abscesses Physical Exam - Vital signs Vitals: Temp Pulse Resp BP Pulse Ox 98.3 F 67 20 123/55 L 93 08/24/18 14:25 08/24/18 14:25 08/24/18 14:25 08/24/18 14:25 08/24/18 14:25 Interpretation: Normal - General General appearance: Appears well, Lethargic - HEENT Head: Normocephalic, Atraumatic Eyes: Normal Pupils: PERRL Mucous membranes: Dry - Respiratory Respiratory status: No respiratory distress Chest status: Nontender Breath sounds: Normal Chest palpation: Normal - Cardiovascular Rhythm: Regular Heart sounds: Normal auscultation Murmur: No - Abdominal Inspection: Normal Distension: No distension Bowel sounds: Normal Tenderness: Nontender Organomegaly: No organomegaly - Back Back: Normal, Nontender - Extremities General upper extremity: Normal inspection, Nontender, Normal color, Normal ROM, Normal temperature General lower extremity: Normal inspection, Nontender, Normal color, Normal ROM, Normal temperature. No: Hoa's sign - Neurological Neuro grossly intact: Yes Cognition: Confused [place] Coma Scale Eye Opening: Spontaneous [place] Coma Scale Verbal: Confused [place] Coma Scale Motor: Obeys Commands [place] Coma Scale Total: 14 Speech: Normal Motor strength normal: LUE, RUE, LLE, RLE Sensory: Normal - Psychological Associated symptoms: Normal affect, Normal mood - Skin Skin Temperature: Warm Skin Moisture: Dry Skin Color: Normal Course - Re-evaluation Re-evalutation: 08/24/18 19:54 77-year-old female patient with liver disease and chronic elevated ammonia level with increased lethargy and UTI. Will start on IV fluids. IV antibiotics. Still quite confused. Family members are comfortable with her being admitted. Will consult with hospitalist shortly about admission. 08/24/18 22:08 Laboratory 08/24/18 08/24/18 08/24/18 16:20 16:20 16:20 WBC 7.9 RBC 3.55 L Hgb 12.3 Hct 35.5 L MCV 100 H MCH 34.7 H MCHC 34.7 RDW 16.4 H Plt Count 79 L Seg Neutrophils % 71.0 Lymphocytes % 14.9 Monocytes % 11.9 Eosinophils % 1.4 Basophils % 0.8 Absolute Neutrophils 5.6 Absolute Lymphocytes 1.2 Absolute Monocytes 0.9 Absolute Eosinophils 0.1 Absolute Basophils 0.1 PT 16.1 H INR 1.23 Sodium 142.0 Potassium 3.7 Chloride 107 Carbon Dioxide 27 Anion Gap 8 BUN 19 Creatinine 1.01 Est GFR ( Amer) > 60 Est GFR (Non-Af Amer) 53 L Glucose 128 H Calcium 9.1 Magnesium 2.4 H Total Bilirubin 1.8 H Direct Bilirubin 0.6 H Neonat Total Bilirubin Not Reportable Neonat Direct Bilirubin Not Reportable Neonat Indirect Bili Not Reportable AST 80 H ALT 27 Alkaline Phosphatase 124 Ammonia Troponin I NT-Pro-B Natriuret Pep Total Protein 7.5 Albumin 3.6 Urine Color Urine Appearance Urine pH Ur Specific [place] Urine Protein Urine Glucose (UA) Urine Ketones Urine Blood Urine Nitrite Urine Bilirubin Urine Urobilinogen Ur Leukocyte Esterase Urine WBC (Auto) Urine RBC (Auto) U Hyaline Cast (Auto) Urine Bacteria (Auto) Urine WBC Clumps Squamous Epi Cells Auto U Non-Squamous Epis Auto Urine Mucus (Auto) Urine Ascorbic Acid 08/24/18 08/24/18 08/24/18 16:20 16:20 16:20 WBC RBC Hgb Hct MCV MCH MCHC RDW Plt Count Seg Neutrophils % Lymphocytes % Monocytes % Eosinophils % Basophils % Absolute Neutrophils Absolute Lymphocytes Absolute Monocytes Absolute Eosinophils Absolute Basophils PT INR Sodium Potassium Chloride Carbon Dioxide Anion Gap BUN Creatinine Est GFR ( Amer) Est GFR (Non-Af Amer) Glucose Calcium Magnesium Total Bilirubin Direct Bilirubin Neonat Total Bilirubin Neonat Direct Bilirubin Neonat Indirect Bili AST ALT Alkaline Phosphatase Ammonia Troponin I 0.012 NT-Pro-B Natriuret Pep 478 H Total Protein Albumin Urine Color YELLOW Urine Appearance TURBID Urine pH 5.0 Ur Specific [place] 1.018 Urine Protein 30 H Urine Glucose (UA) NEGATIVE Urine Ketones NEGATIVE Urine Blood SMALL H Urine Nitrite NEGATIVE Urine Bilirubin NEGATIVE Urine Urobilinogen 4.0 H Ur Leukocyte Esterase LARGE H Urine WBC (Auto) >182 Urine RBC (Auto) 34 U Hyaline Cast (Auto) 11 Urine Bacteria (Auto) 3+ Urine WBC Clumps FEW Squamous Epi Cells Auto 134 U Non-Squamous Epis Auto 12 Urine Mucus (Auto) RARE Urine Ascorbic Acid 40 H 08/24/18 18:22 WBC RBC Hgb Hct MCV MCH MCHC RDW Plt Count Seg Neutrophils % Lymphocytes % Monocytes % Eosinophils % Basophils % Absolute Neutrophils Absolute Lymphocytes Absolute Monocytes Absolute Eosinophils Absolute Basophils PT INR Sodium Potassium Chloride Carbon Dioxide Anion Gap BUN Creatinine Est GFR ( Amer) Est GFR (Non-Af Amer) Glucose Calcium Magnesium Total Bilirubin Direct Bilirubin Neonat Total Bilirubin Neonat Direct Bilirubin Neonat Indirect Bili AST ALT Alkaline Phosphatase Ammonia 60.3 H Troponin I NT-Pro-B Natriuret Pep Total Protein Albumin Urine Color Urine Appearance Urine pH Ur Specific [place] Urine Protein Urine Glucose (UA) Urine Ketones Urine Blood Urine Nitrite Urine Bilirubin Urine Urobilinogen Ur Leukocyte Esterase Urine WBC (Auto) Urine RBC (Auto) U Hyaline Cast (Auto) Urine Bacteria (Auto) Urine WBC Clumps Squamous Epi Cells Auto U Non-Squamous Epis Auto Urine Mucus (Auto) Urine Ascorbic Acid Head CT 08/24/18 15:37 IMPRESSION: No acute intracranial pathology. Small vessel white matter disease. EVIDENCE OF ACUTE STROKE: NO. Chest X-Ray 08/24/18 19:54 IMPRESSION: Chronic appearing, coarse interstitial changes bilaterally copyright 2011 [employer]- All Rights Reserved - Vital Signs Vital signs: Temp Pulse Resp BP Pulse Ox 98.3 F 67 20 116/44 L 96 08/24/18 14:25 08/24/18 14:25 08/24/18 17:14 08/24/18 17:13 08/24/18 17:29 - Laboratory Result Diagrams: 08/24/18 16:20 08/24/18 16:20 Laboratory results interpreted by me: 08/24/18 08/24/18 08/24/18 16:20 16:20 16:20 RBC 3.55 L Hct 35.5 L MCV 100 H MCH 34.7 H RDW 16.4 H Plt Count 79 L PT 16.1 H Est GFR (Non-Af Amer) 53 L Glucose 128 H Magnesium 2.4 H Total Bilirubin 1.8 H Direct Bilirubin 0.6 H AST 80 H Ammonia NT-Pro-B Natriuret Pep Urine Protein Urine Blood Urine Urobilinogen Ur Leukocyte Esterase Urine Ascorbic Acid 08/24/18 08/24/18 08/24/18 16:20 16:20 18:22 RBC Hct MCV MCH RDW Plt Count PT Est GFR (Non-Af Amer) Glucose Magnesium Total Bilirubin Direct Bilirubin AST Ammonia 60.3 H NT-Pro-B Natriuret Pep 478 H Urine Protein 30 H Urine Blood SMALL H Urine Urobilinogen 4.0 H Ur Leukocyte Esterase LARGE H Urine Ascorbic Acid 40 H Discharge - Discharge Clinical Impression: Increased ammonia level UTI (urinary tract infection) Qualifiers: Urinary tract infection type: site unspecified Hematuria presence: without hematuria Qualified Code(s): N39.0 - Urinary tract infection, site not specified Condition: Good Disposition: ADMITTED INPATIENT Admitting Provider: [facility]ist [facility] Unit Admitted: Telemetry
[2018-08-24] MEDS ORDERED: CEFTRIAXONE INJ 1000 MG VIAL IV ONE (19:58)
--- NOTE | 2018-08-24 20:28 | RADIOLOGY REPORT (SQ) ---
EXAM DESCRIPTION: XR CHEST 1 VIEW COMPLETED DATE/TME: 08/24/2018 19:54 CLINICAL HISTORY: 77 years, Female, sob, altered COMPARISON: 07/13/2018 chest NUMBER OF VIEWS: 1 TECHNIQUE: Portable chest LIMITATIONS: None. FINDINGS: Heart size is normal. Atheromatous change thoracic aorta. Osteopenia. Coarse nodular/reticulonodular changes bilaterally, similar to the prior exam. No pneumothorax. No confluent airspace opacity. IMPRESSION: Chronic appearing, coarse interstitial changes bilaterally copyright 2010 [employer]- All Rights Reserved
[2018-08-24] MEDS ORDERED: MAG HYDROX/AL HYDROX/SIMETH SUSP 30 ML UDCUP PO PRN (20:41)
[2018-08-24] MEDS ORDERED: ONDANSETRON 4 MG TAB.RAPDIS PO PRN (20:41)
[2018-08-24] MEDS ORDERED: MAGNESIUM HYDROXIDE SUSP 30 ML UDCUP PO PRN (20:41)
[2018-08-24] MEDS ORDERED: ONDANSETRON HCL INJ/PF 4 MG/2 ML SDV IV PRN (20:41)
[2018-08-24] MEDS ORDERED: ACETAMINOPHEN 325 MG TABLET PO PRN (20:47)
[2018-08-24] MEDS ORDERED: ACETAMINOPHEN 650 MG SUPP.RECT PR PRN (20:47)
[2018-08-24] MEDS ORDERED: MORPHINE SULFATE 10 MG/ML INJ IV PRN ×3 (20:47)
[2018-08-24] MEDS: HEPARIN SOD (PORCINE) 5,000 UNIT/ML 1 ML SYRINGE SUBCUT SCH (22:59)
[2018-08-25] MEDS ORDERED: ALBUTEROL SULFATE 0.083% NEB 2.5 MG/3 ML AMPUL NEB PRN (00:56)
[2018-08-25] MEDS: FAMOTIDINE 20 MG TABLET PO SCH ×3 (03:21→22:18)
[2018-08-25] MEDS: HEPARIN SOD (PORCINE) 5,000 UNIT/ML 1 ML SYRINGE SUBCUT SCH ×3 (05:39→22:17)
--- NOTE | 2018-08-25 06:49 | PDOC H&P ---
History of Present Illness Admission Date/PCP: 08/24/18 20:54 ALFREDA RNETERIA MD Patient complains of: Altered mental status with delirium History of Present Illness: RACHNA RICHARDS is a 77 year old female who presented to the emergency room with a 5 day history of progressively worsening delirium. Her family states that she started becoming slightly confused and a little more somnolent than normal approximately 5 days ago on Thursday. Her symptoms progressed over the weekend with increased confusion and increased somnolence as well as decreased oral int paras and progressively worsening delirium. Her symptoms have gotten to the point today where it was felt that she was severe and needed to be treated. 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 Because of her delirium she is unable to participate in a meaningful way to provide medical history or other information. In the emergency room she was found to have a serum ammonia of 60 and severe pyuria with a positive urine nitrite. Patient was subsequently admitted to the hospital for further evaluation and treatment. Past Medical History Cardiac Medical History: Reports: Coronary Artery Disease, Hypertension, Peripheral Vascular Disease - Bilateral internal carotid artery stenosis, Heart Murmur - Aortic stenosis Denies: Myocardial Infarction, Hyperlipidema Pulmonary Medical History: Reports: Chronic Obstructive Pulmonary Disease (COPD) Denies: Asthma, Bronchitis, Pneumonia EENT Medical History: Reports: None Neurological Medical History: Denies: Multiple Sclerosis, Seizures Endocrine Medical History: Denies: Diabetes Mellitus Type 1, Diabetes Mellitus Type 2 Renal/ Medical History: Denies: Chronic Kidney Disease, Nephrolithiasis Malignancy Medical History: Reports: None GI Medical History: Reports: Cirrhosis - Thank you for your Denies: Crohn's Disease, Hepatitis, Ulcerative Colitis Musculoskeltal Medical History: Reports: Arthritis Denies: Gout Skin Medical History: Denies: Eczema, Psoriasis Psychiatric Medical History: Denies: Alcohol Dependency, Substance Abuse, Tobacco Dependency Traumatic Medical History: Reports: None Hematology: Denies: Anemia, Hemophilia, Bleeding Tendencies, Neutropenia Infectious Medical History: Reports: None Past Surgical History Past Surgical History: Reports: Appendectomy, Carotid Endarterectomy - Left, Cholecystectomy, Hysterectomy, Tonsillectomy Social History Information 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 Lives with: Family Smoking Status: Never Smoker Frequency of Alcohol Use: None Hx Recreational Drug Use: No Drugs: None Hx Prescription Drug Abuse: No - Advance Directive Resuscitation Status: Full Code Surrogate healthcare decision maker:: Mario Richards Family History Family History: CAD, DM, Hypertension Parental Family History Reviewed: Yes Children Family History Reviewed: Yes Sibling(s) Family History Reviewed.: Yes Medication/Allergy Home Medications: Albuterol Sulfate [Ventolin 0.083% Neb 2.5 mg/3 mL Ampul] 3 ml NEB Q8HP PRN 08/24/18 Allopurinol [Zyloprim 100 mg Tablet] 100 mg PO DAILY 08/24/18 Amlodipine Besylate [Norvasc 2.5 mg Tablet] 2.5 mg PO DAILY 08/24/18 Atorvastatin Calcium [Lipitor 10 mg Tablet] 10 mg PO QHS 08/24/18 Folic Acid [Folvite 1 mg Tablet] 1 mg PO DAILY 08/24/18 Lactulose [Constulose 10 gm/15 mL Oral Solution] 30 ml PO DAILY 08/24/18 Metoprolol Tartrate [Lopressor 25 mg Tablet] 12.5 mg PO Q12 08/24/18 Pantoprazole Sodium [Protonix] 40 mg PO DAILY 08/24/18 Rifaximin [Xifaxan 550 mg Tablet] 550 mg PO Q12 08/24/18 Spironolactone [Aldactone] 50 mg PO DAILY 08/24/18 Tramadol HCl [Ultram 50 mg Tablet] 50 mg PO Q6HP PRN 08/24/18 Vitamin B Complex [B Complex] 1 cap PO DAILY 08/24/18 Allergies/Adverse Reactions: furosemide [From Lasix] Allergy (Verified 08/24/18 13:38) shellfish derived Allergy (Verified 08/24/18 13:38) Iodinated Contrast- Oral and IV Dye Adverse Reaction (Verified 08/24/18 13:38) iodine Adverse Reaction (Verified 08/24/18 13:38) Review of Systems ROS unobtainable: Due to mental status - Patient has significant hepatic encephalopathy at the time my evaluation and cannot contribute to a review of systems. Physical Exam Vital Signs: Temp Pulse Resp BP Pulse Ox 98.3 F 67 20 116/44 L 96 08/24/18 14:25 08/24/18 14:25 08/24/18 17:14 08/24/18 17:13 08/24/18 17:29 Intake & Output 08/22/18 08/23/18 08/24/18 23:59 23:59 23:59 Weight 59.3 kg General appearance: PRESENT: no acute distress, cooperative Head exam: PRESENT: atraumatic, normocephalic Eye exam: PRESENT: conjunctiva pink, EOMI. ABSENT: scleral icterus Ear exam: PRESENT: normal external ear exam. ABSENT: bleeding, drainage Mouth exam: PRESENT: dry mucosa, neck supple Neck exam: ABSENT: JVD, thyromegaly, tracheal deviation Respiratory exam: PRESENT: clear to auscultation alfredo, symmetrical, unlabored Cardiovascular exam: PRESENT: RRR, systolic murmur - Grade 3/6 systolic murmur of the crescendo decrescendo type heard best at the left upper sternal border radiating to the neck. ABSENT: clicks, gallop, rubs Pulses: PRESENT: normal radial pulses, normal dorsalis pedis pul Vascular exam: PRESENT: normal capillary refill. ABSENT: pallor GI/Abdominal exam: PRESENT: normal bowel sounds, soft. ABSENT: tenderness Rectal exam: PRESENT: deferred Extremities exam: ABSENT: joint swelling, pedal edema Musculoskeletal exam: ABSENT: deformity, dislocation Neurological exam: PRESENT: alert, CN II-XII grossly intact, other - No asterixis is noted.. ABSENT: oriented to person, oriented to place, oriented to time, oriented to situation, motor sensory deficit Psychiatric exam: PRESENT: flat affect Focused psych exam: PRESENT: restlessness Skin exam: PRESENT: dry, intact, warm. ABSENT: jaundice, rash, urticaria Results Laboratory Results: 08/24/18 16:20 08/24/18 16:20 08/24/18 08/24/18 08/24/18 16:20 16:20 16:20 WBC 7.9 RBC 3.55 L Hgb 12.3 Hct 35.5 L MCV 100 H MCH 34.7 H MCHC 34.7 RDW 16.4 H Plt Count 79 L Seg Neutrophils % 71.0 Lymphocytes % 14.9 Monocytes % 11.9 Eosinophils % 1.4 Basophils % 0.8 Absolute Neutrophils 5.6 Absolute Lymphocytes 1.2 Absolute Monocytes 0.9 Absolute Eosinophils 0.1 Absolute Basophils 0.1 Sodium 142.0 Potassium 3.7 Chloride 107 Carbon Dioxide 27 Anion Gap 8 BUN 19 Creatinine 1.01 Est GFR ( Amer) > 60 Est GFR (Non-Af Amer) 53 L Glucose 128 H Calcium 9.1 Magnesium 2.4 H Total Bilirubin 1.8 H AST 80 H ALT 27 Alkaline Phosphatase 124 Ammonia Total Protein 7.5 Albumin 3.6 Urine Color YELLOW Urine Appearance TURBID Urine pH 5.0 Ur Specific [place] 1.018 Urine Protein 30 H Urine Glucose (UA) NEGATIVE Urine Ketones NEGATIVE Urine Blood SMALL H Urine Nitrite NEGATIVE Ur Leukocyte Esterase LARGE H Urine WBC (Auto) >182 Urine RBC (Auto) 34 08/24/18 18:22 WBC RBC Hgb Hct MCV MCH MCHC RDW Plt Count Seg Neutrophils % Lymphocytes % Monocytes % Eosinophils % Basophils % Absolute Neutrophils Absolute Lymphocytes Absolute Monocytes Absolute Eosinophils Absolute Basophils Sodium Potassium Chloride Carbon Dioxide Anion Gap BUN Creatinine Est GFR ( Amer) Est GFR (Non-Af Amer) Glucose Calcium Magnesium Total Bilirubin AST ALT Alkaline Phosphatase Ammonia 60.3 H Total Protein Albumin Urine Color Urine Appearance Urine pH Ur Specific [place] Urine Protein Urine Glucose (UA) Urine Ketones Urine Blood Urine Nitrite Ur Leukocyte Esterase Urine WBC (Auto) Urine RBC (Auto) 08/24/18 08/24/18 16:20 16:20 Troponin I 0.012 NT-Pro-B Natriuret Pep 478 H Impressions: Head CT 08/24/18 15:37 IMPRESSION: No acute intracranial pathology. Small vessel white matter disease. EVIDENCE OF ACUTE STROKE: NO. Chest X-Ray 08/24/18 19:54 IMPRESSION: Chronic appearing, coarse interstitial changes bilaterally copyright 2011 [employer]- All Rights Reserved Assessment & Plan - Diagnosis (1) Urinary tract infection Qualifiers: Urinary tract infection type: site unspecified Hematuria presence: without hematuria Qualified Code(s): N39.0 - Urinary tract infection, site not specified Is this a current diagnosis for this admission?: Yes Plan: Patient's urinary tract infection will be treated with ceftriaxone 1 g IV daily. Urine and blood cultures are pending at this time. Any pain that the patient may have be treated with morphine sulfate 2-4 mg IV every 2 hours as needed pain based on a sliding scale. (2) Hepatic encephalopathy Is this a current diagnosis for this admission?: Yes Plan: Patient's hepatic encephalopathy will be treated with an increased dose of lactulose utilizing 20 g p.o. twice daily instead of daily. She will be continued on refill And she will be given IV fluid support until such time she is able to eat and drink more adequately. 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 Her liver enzymes will be monitored throughout her hospital course. Her serum ammonia be monitored on a daily basis and will be treated with lactulose as previously noted. 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 Hematology consultation will be obtained if required. - Time Time Spent: 30 to 50 Minutes Critical Time spent with patient: Less than 15 minutes Medications reviewed and adjusted accordingly: Yes Anticipated discharge: Home, Home with Homehealth - Inpatient Certification Based on my medical assessment, after consideration of the patient's comorbidities, presenting symptoms, or acuity I expect that the services needed warrant INPATIENT care.: Yes I certify that my determination is in accordance with my understanding of Medicare's requirements for reasonable and necessary INPATIENT services [42 CFR 412.3e].: Yes Medical Necessity: Significant Comorbidiites Make Outpatient Treatment Too Risky, Need Close Monitoring Due to Risk of Patient Decompensation, Need For IV Fluids, Need for IV Antibiotics, Risk of Complication if Not Cared For in Hospital
[2018-08-25 07:11] LABS: ABSOLUTE BASOPHILS # (AUTO) 0.1 10^3/uL (0.0-0.2); ABSOLUTE EOSINOPHILS # (AUTO) 0.2 10^3/uL (0.0-0.6); ABSOLUTE LYMPHOCYTES (AUTO) 1.1 10^3/uL (0.5-4.7); ABSOLUTE MONOCYTES (AUTO) 0.7 10^3/uL (0.1-1.4); ABSOLUTE NEUT (AUTO) 3.2 10^3/uL (1.7-8.2); BASOPHILS % (AUTO) 1.1 % (0-2); EOSINOPHILS % (AUTO) 3.4 % (0-6); HEMATOCRIT 31.2 % (36.0-47.0); HEMOGLOBIN 10.9 g/dL (12.0-15.5); LYMPHOCYTES % (AUTO) 20.7 % (13-45); MEAN CORPUSCULAR HEMOGLOBIN 34.7 pg (27.0-33.4); MEAN CORPUSCULAR HGB CONC 34.9 g/dL (32.0-36.0); MEAN CORPUSCULAR VOLUME 100 fl (80-97); RED BLOOD COUNT 3.14 10^6/uL (3.72-5.28); RED CELL DISTRIBUTION WIDTH 16.1 % (11.5-14.0); SEGMENTED NEUTROPHILS % (AUTO) 61.8 % (42-78); TOTAL CELLS COUNTED % (AUTO) 100 %; WHITE BLOOD COUNT 5.1 10^3/uL (4.0-10.5)
[2018-08-25 07:30] LABS: ALANINE AMINOTRANSFERASE 31 U/L (9-52); ALBUMIN 2.7 g/dL (3.5-5.0); ALKALINE PHOSPHATASE 110 U/L (38-126); ASPARTATE AMINO TRANSFERASE 59 U/L (14-36); BILIRUBIN,DIRECT 0.5 mg/dL (0.0-0.4); BILIRUBIN,TOTAL 1.9 mg/dL (0.2-1.3); BLOOD UREA NITROGEN 17 mg/dL (7-20); CALCIUM 8.6 mg/dL (8.4-10.2); GLUCOSE 109 mg/dL (75-110); POTASSIUM 3.4 mmol/L (3.6-5.0)
[2018-08-25 07:35] LABS: ANION GAP 5 (5-19); CARBON DIOXIDE 27 mmol/L (22-30); CHLORIDE 111 mmol/L (98-107); SODIUM 142.5 mmol/L (137-145)
[2018-08-25 07:39] LABS: FREE T4 (FREE THYROXINE) 1.88 ng/dL (0.78-2.19)
[2018-08-25 07:40] LABS: FREE T3 3.05 pg/mL (2.77-5.27)
[2018-08-25 07:53] LABS: THYROID STIMULATING HORMONE 3.88 uIU/mL (0.47-4.68)
[2018-08-25 08:11] LABS: PLATELET COUNT 54 10^3/uL (150-450)
[2018-08-25] MEDS ORDERED: (PENDING PHARMACY ID) (Vitamin B Complex [B Complex] 1 CAP) PO SCH (10:00)
[2018-08-25] MEDS: LACTULOSE SYRUP 20 GM/30 ML UDCUP PO SCH ×2 (10:45→17:41)
[2018-08-25] MEDS: METOPROLOL TARTRATE 25 MG TABLET PO SCH ×2 (10:45→22:19)
[2018-08-25] MEDS: FOLIC ACID 1 MG TABLET PO SCH (10:45)
[2018-08-25] MEDS: ALLOPURINOL 100 MG TABLET PO SCH (10:46)
[2018-08-25] MEDS: SPIRONOLACTONE 25 MG TABLET PO SCH (10:46)
[2018-08-25] MEDS: DOCUSATE SODIUM 100 MG CAPSULE PO SCH ×2 (10:46→17:41)
[2018-08-25] MEDS: AMLODIPINE BESYLATE 2.5 MG TABLET PO SCH (10:47)
[2018-08-25] MEDS: RIFAXIMIN 550 MG TABLET PO SCH ×2 (10:47→22:18)
[2018-08-25] MEDS: NORMAL SALINE 1000 ML 1,000 ML IV PRN (17:43)
[2018-08-25] MEDS: POTASSIUM CHLORIDE 20 MEQ/15 ML UDCUP PO SCH (22:18)
[2018-08-25] MEDS: ATORVASTATIN CALCIUM 10 MG TABLET PO SCH (22:19)
[2018-08-25] MEDS: CEFTRIAXONE 1 GM/D5W RTU 1 GM/50 ML RTUPB IV SCH (22:20)
[2018-08-26] MEDS: HEPARIN SOD (PORCINE) 5,000 UNIT/ML 1 ML SYRINGE SUBCUT SCH ×3 (05:36→22:24)
[2018-08-26 08:47] LABS: ABSOLUTE BASOPHILS # (AUTO) 0.1 10^3/uL (0.0-0.2); ABSOLUTE EOSINOPHILS # (AUTO) 0.2 10^3/uL (0.0-0.6); ABSOLUTE LYMPHOCYTES (AUTO) 1.1 10^3/uL (0.5-4.7); ABSOLUTE MONOCYTES (AUTO) 0.7 10^3/uL (0.1-1.4); ABSOLUTE NEUT (AUTO) 3.1 10^3/uL (1.7-8.2); BASOPHILS % (AUTO) 1.2 % (0-2); EOSINOPHILS % (AUTO) 3.5 % (0-6); HEMATOCRIT 32.7 % (36.0-47.0); HEMOGLOBIN 11.3 g/dL (12.0-15.5); LYMPHOCYTES % (AUTO) 21.6 % (13-45); MEAN CORPUSCULAR HEMOGLOBIN 34.6 pg (27.0-33.4); MEAN CORPUSCULAR HGB CONC 34.5 g/dL (32.0-36.0); MEAN CORPUSCULAR VOLUME 100 fl (80-97); MONOCYTES % (AUTO) 13.2 % (3-13); RED BLOOD COUNT 3.26 10^6/uL (3.72-5.28); RED CELL DISTRIBUTION WIDTH 16.5 % (11.5-14.0); SEGMENTED NEUTROPHILS % (AUTO) 60.5 % (42-78); TOTAL CELLS COUNTED % (AUTO) 100 %; WHITE BLOOD COUNT 5.2 10^3/uL (4.0-10.5)
[2018-08-26 09:03] LABS: ALANINE AMINOTRANSFERASE 33 U/L (9-52); ALBUMIN 2.8 g/dL (3.5-5.0); ALKALINE PHOSPHATASE 115 U/L (38-126); ANION GAP 7 (5-19); ASPARTATE AMINO TRANSFERASE 60 U/L (14-36); BILIRUBIN,DIRECT 0.5 mg/dL (0.0-0.4); BILIRUBIN,TOTAL 1.6 mg/dL (0.2-1.3); BLOOD UREA NITROGEN 17 mg/dL (7-20); CALCIUM 8.7 mg/dL (8.4-10.2); CARBON DIOXIDE 22 mmol/L (22-30); CHLORIDE 114 mmol/L (98-107); GLUCOSE 91 mg/dL (75-110); POTASSIUM 3.9 mmol/L (3.6-5.0); TOTAL PROTEIN 6.3 g/dL (6.3-8.2)
[2018-08-26 09:25] LABS: PLATELET COUNT 59 10^3/uL (150-450)
[2018-08-26] MEDS: DOCUSATE SODIUM 100 MG CAPSULE PO SCH ×2 (10:17→17:57)
[2018-08-26] MEDS: SPIRONOLACTONE 25 MG TABLET PO SCH (10:23)
[2018-08-26] MEDS: FOLIC ACID 1 MG TABLET PO SCH (10:23)
[2018-08-26] MEDS: LACTULOSE SYRUP 20 GM/30 ML UDCUP PO SCH ×2 (10:23→17:58)
[2018-08-26] MEDS: METOPROLOL TARTRATE 25 MG TABLET PO SCH ×2 (10:24→22:26)
[2018-08-26] MEDS: POTASSIUM CHLORIDE 20 MEQ/15 ML UDCUP PO SCH ×2 (10:24→22:25)
[2018-08-26] MEDS: MULTIVIT-STRESS FORMULA/ZINC TABLET PO SCH (10:25)
[2018-08-26] MEDS: FAMOTIDINE 20 MG TABLET PO SCH ×2 (10:25→22:27)
[2018-08-26] MEDS: ALLOPURINOL 100 MG TABLET PO SCH (10:25)
[2018-08-26] MEDS: AMLODIPINE BESYLATE 2.5 MG TABLET PO SCH (10:25)
[2018-08-26] MEDS: RIFAXIMIN 550 MG TABLET PO SCH ×2 (10:25→22:28)
--- NOTE | 2018-08-26 11:53 | PDOC PROGRESS REPORT ---
Subjective Progress Note for:: 08/26/18 Subjective:: Sitting up in bed today more awake eating had a hard time mostly with her IV but it is flowing well she denies any complaints son is at bedside says she has had a bowel movement she has not had any shortness of breath she is afebrile. Reason For Visit: ACUTE URINARY TRACT INFECTION Physical Exam Vital Signs: Temp Pulse Resp BP Pulse Ox 97.9 F 55 L 18 129/40 H 93 08/26/18 08:00 08/26/18 08:00 08/26/18 08:00 08/26/18 08:00 08/26/18 08:00 Intake & Output 08/25/18 08/26/18 08/27/18 06:59 06:59 06:59 Intake Total 575 1350 Output Total 301 Balance 575 1049 Weight 60.7 kg 60.8 kg General appearance: PRESENT: no acute distress, well-nourished Head exam: PRESENT: atraumatic, normocephalic Eye exam: PRESENT: conjunctiva pink, EOMI, PERRLA. ABSENT: scleral icterus Ear exam: PRESENT: normal external ear exam Mouth exam: PRESENT: moist, tongue midline Teeth exam: PRESENT: poor dentation Neck exam: PRESENT: full ROM. ABSENT: carotid bruit, JVD, lymphadenopathy, thyromegaly Respiratory exam: PRESENT: crackles Additional comments: Chronic the bases Cardiovascular exam: PRESENT: systolic murmur Murmur grade: 4 Pulses: PRESENT: +1 pedal pulses bilateral Vascular exam: PRESENT: normal capillary refill GI/Abdominal exam: PRESENT: normal bowel sounds, soft. ABSENT: distended, guarding, mass, organolmegaly, rebound, tenderness Rectal exam: PRESENT: deferred Musculoskeletal exam: PRESENT: ambulatory Neurological exam: PRESENT: alert, altered, awake, oriented to person, oriented to place, oriented to situation, reflexes normal, CN II-XII grossly intact Psychiatric exam: PRESENT: appropriate affect, normal mood. ABSENT: homicidal ideation, suicidal ideation Skin exam: PRESENT: dry, intact, warm. ABSENT: cyanosis, rash Results Laboratory Results: 08/26/18 08:17 08/26/18 08:17 08/26/18 08/26/18 08/26/18 08:17 08:17 08:17 WBC 5.2 RBC 3.26 L Hgb 11.3 L Hct 32.7 L MCV 100 H MCH 34.6 H MCHC 34.5 RDW 16.5 H Plt Count 59 L Seg Neutrophils % 60.5 Lymphocytes % 21.6 Monocytes % 13.2 H Eosinophils % 3.5 Basophils % 1.2 Absolute Neutrophils 3.1 Absolute Lymphocytes 1.1 Absolute Monocytes 0.7 Absolute Eosinophils 0.2 Absolute Basophils 0.1 Sodium 143.0 Potassium 3.9 Chloride 114 H Carbon Dioxide 22 Anion Gap 7 BUN 17 Creatinine 0.87 Est GFR ( Amer) > 60 Est GFR (Non-Af Amer) > 60 Glucose 91 Calcium 8.7 Magnesium 2.3 Total Bilirubin 1.6 H AST 60 H ALT 33 Alkaline Phosphatase 115 Ammonia 27.8 Total Protein 6.3 Albumin 2.8 L 08/24/18 16:20 Clean Catch Midstream Urine Culture - Final Mixed Skin. Possible Pathogen 08/24/18 08/24/18 16:20 16:20 Troponin I 0.012 NT-Pro-B Natriuret Pep 478 H Impressions: Head CT 08/24/18 15:37 IMPRESSION: No acute intracranial pathology. Small vessel white matter disease. EVIDENCE OF ACUTE STROKE: NO. Chest X-Ray 08/24/18 19:54 IMPRESSION: Chronic appearing, coarse interstitial changes bilaterally copyright 2011 [employer]- All Rights Reserved Assessment & Plan - Diagnosis (1) Hepatic encephalopathy Is this a current diagnosis for this admission?: Yes Plan: continue lactulose, monitor ammonia, folic acid (2) UTI (urinary tract infection) Qualifiers: Urinary tract infection type: acute cystitis Hematuria presence: without hematuria Qualified Code(s): N30.00 - Acute cystitis without hematuria Is this a current diagnosis for this admission?: Yes Plan: Due to the indeterminate urine culture we will reorder a urine culture continue antibiotics. (3) Hypokalemia Is this a current diagnosis for this admission?: Yes Plan: replace potassium chloride 20 meq. po bid, check bmp7 (4) Hypertension Qualifiers: Hypertension type: essential hypertension Qualified Code(s): I10 - Essential (primary) hypertension Is this a current diagnosis for this admission?: Yes Plan: continue amlodipine and metoprolol - Inpatient Certification I certify that my determination is in accordance with my understanding of [employer]'s requirements for reasonable and necessary INPATIENT services [42 CFR 412.3e].: Yes Medical Necessity: Need for IV Antibiotics Post Hospital Care: D/C [employer] Delivery Driver Documentation
--- NOTE | 2018-08-26 15:31 | PDOC PROGRESS REPORT ---
Subjective Progress Note for:: 08/25/18 Subjective:: Still lethargic some PO intake afebrile no n/v abd. pain. SHe has no respiratory distress. Reason For Visit: ACUTE URINARY TRACT INFECTION Physical Exam Vital Signs: Temp Pulse Resp BP Pulse Ox 98.4 F 64 14 117/47 L 98 08/25/18 15:33 08/25/18 15:33 08/25/18 15:33 08/25/18 15:33 08/25/18 15:33 Intake & Output 08/24/18 08/25/18 08/26/18 06:59 06:59 06:59 Intake Total 575 Balance 575 Weight 60.7 kg General appearance: PRESENT: no acute distress, cooperative, well-nourished Head exam: PRESENT: atraumatic Eye exam: PRESENT: conjunctiva pink, EOMI, PERRLA. ABSENT: scleral icterus Ear exam: PRESENT: normal external ear exam Mouth exam: PRESENT: dry mucosa Neck exam: PRESENT: full ROM. ABSENT: carotid bruit, JVD, lymphadenopathy, thyromegaly Respiratory exam: PRESENT: decreased breath sounds Cardiovascular exam: PRESENT: systolic murmur Murmur grade: 4 Pulses: PRESENT: +1 pedal pulses bilateral Vascular exam: PRESENT: normal capillary refill GI/Abdominal exam: PRESENT: normal bowel sounds Rectal exam: PRESENT: deferred Extremities exam: PRESENT: full ROM Musculoskeletal exam: PRESENT: ambulatory Neurological exam: PRESENT: awake, oriented to person, reflexes normal, CN II- XII grossly intact Psychiatric exam: PRESENT: appropriate affect, normal mood. ABSENT: homicidal ideation, suicidal ideation Skin exam: PRESENT: dry, intact, warm. ABSENT: cyanosis, rash Results Laboratory Results: 08/25/18 06:44 08/25/18 06:44 08/24/18 08/25/18 08/25/18 18:22 06:44 06:44 WBC 5.1 RBC 3.14 L Hgb 10.9 L Hct 31.2 L MCV 100 H MCH 34.7 H MCHC 34.9 RDW 16.1 H Plt Count 54 L Seg Neutrophils % 61.8 Lymphocytes % 20.7 Monocytes % 13.0 Eosinophils % 3.4 Basophils % 1.1 Absolute Neutrophils 3.2 Absolute Lymphocytes 1.1 Absolute Monocytes 0.7 Absolute Eosinophils 0.2 Absolute Basophils 0.1 Sodium 142.5 Potassium 3.4 L Chloride 111 H Carbon Dioxide 27 Anion Gap 5 BUN 17 Creatinine 0.85 Est GFR ( Amer) > 60 Est GFR (Non-Af Amer) > 60 Glucose 109 Calcium 8.6 Magnesium 2.2 Total Bilirubin 1.9 H AST 59 H ALT 31 Alkaline Phosphatase 110 Ammonia 60.3 H Total Protein 6.0 L Albumin 2.7 L TSH Free T4 Free T3 pg/mL 08/25/18 08/25/18 06:44 06:44 WBC RBC Hgb Hct MCV MCH MCHC RDW Plt Count Seg Neutrophils % Lymphocytes % Monocytes % Eosinophils % Basophils % Absolute Neutrophils Absolute Lymphocytes Absolute Monocytes Absolute Eosinophils Absolute Basophils Sodium Potassium Chloride Carbon Dioxide Anion Gap BUN Creatinine Est GFR ( Amer) Est GFR (Non-Af Amer) Glucose Calcium Magnesium Total Bilirubin AST ALT Alkaline Phosphatase Ammonia 47.8 H Total Protein Albumin TSH 3.88 Free T4 1.88 Free T3 pg/mL 3.05 08/24/18 16:20 Clean Catch Midstream Urine Culture - Final Mixed Skin. Possible Pathogen 08/24/18 08/24/18 16:20 16:20 Troponin I 0.012 NT-Pro-B Natriuret Pep 478 H Impressions: Head CT 08/24/18 15:37 IMPRESSION: No acute intracranial pathology. Small vessel white matter disease. EVIDENCE OF ACUTE STROKE: NO. Chest X-Ray 08/24/18 19:54 IMPRESSION: Chronic appearing, coarse interstitial changes bilaterally copyright 2011 [employer]- All Rights Reserved Assessment & Plan - Diagnosis (1) Hepatic encephalopathy Is this a current diagnosis for this admission?: Yes Plan: continue lactulose, monitor ammonia, folic acid (2) UTI (urinary tract infection) Qualifiers: Urinary tract infection type: acute cystitis Hematuria presence: without hematuria Qualified Code(s): N30.00 - Acute cystitis without hematuria Is this a current diagnosis for this admission?: Yes Plan: continue ceftriaxone, await blood and urine c/s (3) Hypokalemia Is this a current diagnosis for this admission?: Yes Plan: replace potassium chloride 20 meq. po bid, check bmp7 (4) Hypertension Qualifiers: Hypertension type: essential hypertension Qualified Code(s): I10 - Essential (primary) hypertension Is this a current diagnosis for this admission?: Yes Plan: continue amlodipine and metoprolol - Time Time Spent with patient: 15-24 minutes Medications reviewed and adjusted accordingly: Yes Anticipated discharge: Home Within: Other - Inpatient Certification Based on my medical assessment, after consideration of the patient's comorbidities, presenting symptoms, or acuity I expect that the services needed warrant INPATIENT care.: Yes I certify that my determination is in accordance with my understanding of Medicare's requirements for reasonable and necessary INPATIENT services [42 CFR 412.3e].: Yes Medical Necessity: Failure to Improve With Outpatient Therapy, Need For IV Fluids, Need for IV Antibiotics Post Hospital Care: D/C Ceramic Tiler Documentation
[2018-08-26] MEDS: ATORVASTATIN CALCIUM 10 MG TABLET PO SCH (22:25)
[2018-08-26] MEDS: CEFTRIAXONE 1 GM/D5W RTU 1 GM/50 ML RTUPB IV SCH (22:29)
[2018-08-27] MEDS: HEPARIN SOD (PORCINE) 5,000 UNIT/ML 1 ML SYRINGE SUBCUT SCH ×3 (06:41→21:36)
[2018-08-27 08:21] LABS: ABSOLUTE BASOPHILS # (AUTO) 0.1 10^3/uL (0.0-0.2); ABSOLUTE EOSINOPHILS # (AUTO) 0.1 10^3/uL (0.0-0.6); ABSOLUTE LYMPHOCYTES (AUTO) 1.1 10^3/uL (0.5-4.7); ABSOLUTE MONOCYTES (AUTO) 0.8 10^3/uL (0.1-1.4); ABSOLUTE NEUT (AUTO) 4.5 10^3/uL (1.7-8.2); EOSINOPHILS % (AUTO) 1.2 % (0-6); HEMATOCRIT 34.1 % (36.0-47.0); HEMOGLOBIN 11.6 g/dL (12.0-15.5); LYMPHOCYTES % (AUTO) 16.9 % (13-45); MEAN CORPUSCULAR HEMOGLOBIN 34.4 pg (27.0-33.4); MEAN CORPUSCULAR VOLUME 101 fl (80-97); MONOCYTES % (AUTO) 11.7 % (3-13); RED BLOOD COUNT 3.37 10^6/uL (3.72-5.28); RED CELL DISTRIBUTION WIDTH 16.1 % (11.5-14.0); SEGMENTED NEUTROPHILS % (AUTO) 69.2 % (42-78); TOTAL CELLS COUNTED % (AUTO) 100 %; WHITE BLOOD COUNT 6.5 10^3/uL (4.0-10.5)
[2018-08-27 08:41] LABS: ALANINE AMINOTRANSFERASE 36 U/L (9-52); ALBUMIN 2.9 g/dL (3.5-5.0); ALKALINE PHOSPHATASE 125 U/L (38-126); ANION GAP 6 (5-19); ASPARTATE AMINO TRANSFERASE 69 U/L (14-36); BILIRUBIN,DIRECT 0.5 mg/dL (0.0-0.4); BILIRUBIN,TOTAL 1.7 mg/dL (0.2-1.3); BLOOD UREA NITROGEN 16 mg/dL (7-20); CALCIUM 8.5 mg/dL (8.4-10.2); CARBON DIOXIDE 18 mmol/L (22-30); CHLORIDE 117 mmol/L (98-107); GLUCOSE 106 mg/dL (75-110); POTASSIUM 4.4 mmol/L (3.6-5.0); SODIUM 140.7 mmol/L (137-145); TOTAL PROTEIN 6.6 g/dL (6.3-8.2)
[2018-08-27 08:42] LABS: PLATELET COUNT 59 10^3/uL (150-450)
--- NOTE | 2018-08-27 09:59 | PDOC PROGRESS REPORT ---
Subjective Progress Note for:: 08/27/18 Subjective:: Patient is sitting up eating breakfast by herself w/o assistance her family states to better, up and ambulated, no fever, chills her appetite has improved. Discussed recent lab results. Reason For Visit: ACUTE URINARY TRACT INFECTION Physical Exam Vital Signs: Temp Pulse Resp BP Pulse Ox 98.2 F 92 16 138/75 H 93 08/27/18 07:31 08/27/18 07:31 08/27/18 07:31 08/27/18 07:31 08/27/18 07:31 Intake & Output 08/26/18 08/27/18 08/28/18 06:59 06:59 06:59 Intake Total 1350 1440 Output Total 301 Balance 1049 1440 Weight 60.8 kg 63.7 kg General appearance: PRESENT: no acute distress, well-developed, well-nourished Head exam: PRESENT: atraumatic, normocephalic Eye exam: PRESENT: conjunctiva pink, EOMI, PERRLA. ABSENT: scleral icterus Ear exam: PRESENT: normal external ear exam Mouth exam: PRESENT: moist, tongue midline Neck exam: PRESENT: full ROM. ABSENT: carotid bruit, JVD, lymphadenopathy, thyromegaly Respiratory exam: PRESENT: clear to auscultation alfredo, crackles Additional comments: at bases chronic Cardiovascular exam: PRESENT: RRR, systolic murmur. ABSENT: diastolic murmur, rubs Murmur grade: 4 Pulses: PRESENT: +1 pedal pulses bilateral Vascular exam: PRESENT: normal capillary refill GI/Abdominal exam: PRESENT: normal bowel sounds, soft. ABSENT: distended, guarding, mass, organolmegaly, rebound, tenderness Rectal exam: PRESENT: deferred Extremities exam: PRESENT: full ROM Musculoskeletal exam: PRESENT: ambulatory Neurological exam: PRESENT: alert, awake, oriented to person, oriented to place, oriented to time, oriented to situation, CN II-XII grossly intact. ABSENT: motor sensory deficit Psychiatric exam: PRESENT: appropriate affect, normal mood. ABSENT: homicidal ideation, suicidal ideation Skin exam: PRESENT: dry, intact, warm. ABSENT: cyanosis, rash Results Laboratory Results: 08/27/18 07:39 08/27/18 07:39 08/27/18 08/27/18 08/27/18 07:39 07:39 07:39 WBC 6.5 RBC 3.37 L Hgb 11.6 L Hct 34.1 L MCV 101 H MCH 34.4 H MCHC 34.0 RDW 16.1 H Plt Count 59 L Seg Neutrophils % 69.2 Lymphocytes % 16.9 Monocytes % 11.7 Eosinophils % 1.2 Basophils % 1.0 Absolute Neutrophils 4.5 Absolute Lymphocytes 1.1 Absolute Monocytes 0.8 Absolute Eosinophils 0.1 Absolute Basophils 0.1 Sodium 140.7 Potassium 4.4 Chloride 117 H Carbon Dioxide 18 L Anion Gap 6 BUN 16 Creatinine 0.81 Est GFR ( Amer) > 60 Est GFR (Non-Af Amer) > 60 Glucose 106 Calcium 8.5 Magnesium 2.2 Total Bilirubin 1.7 H AST 69 H ALT 36 Alkaline Phosphatase 125 Ammonia 9.4 Total Protein 6.6 Albumin 2.9 L 08/24/18 08/24/18 16:20 16:20 Troponin I 0.012 NT-Pro-B Natriuret Pep 478 H Impressions: Head CT 08/24/18 15:37 IMPRESSION: No acute intracranial pathology. Small vessel white matter disease. EVIDENCE OF ACUTE STROKE: NO. Chest X-Ray 08/24/18 19:54 IMPRESSION: Chronic appearing, coarse interstitial changes bilaterally copyright 2011 [employer]- All Rights Reserved Assessment & Plan - Diagnosis (1) Hepatic encephalopathy Is this a current diagnosis for this admission?: Yes Plan: continue lactulose, monitor ammonia, folic acid (2) UTI (urinary tract infection) Qualifiers: Urinary tract infection type: acute cystitis Hematuria presence: without hematuria Qualified Code(s): N30.00 - Acute cystitis without hematuria Is this a current diagnosis for this admission?: Yes Plan: discussed with nursing will re check urine culture and possible straight cath. if necessary will continue IV antibiotics. (3) Hypokalemia Is this a current diagnosis for this admission?: Yes Plan: replace potassium chloride 20 meq. po bid, check bmp7 (4) Hypertension Qualifiers: Hypertension type: essential hypertension Qualified Code(s): I10 - Essential (primary) hypertension Is this a current diagnosis for this admission?: Yes Plan: continue amlodipine and metoprolol - Time Time Spent with patient: 15-24 minutes Medications reviewed and adjusted accordingly: Yes Anticipated discharge: Other Within: Other - Inpatient Certification I certify that my determination is in accordance with my understanding of Medicare's requirements for reasonable and necessary INPATIENT services [42 CFR 412.3e].: Yes Medical Necessity: Need for IV Antibiotics Post Hospital Care: D/C Administrative Office Clerk Documentation
[2018-08-27] MEDS: METOPROLOL TARTRATE 25 MG TABLET PO SCH ×2 (10:38→21:46)
[2018-08-27] MEDS: LACTULOSE SYRUP 20 GM/30 ML UDCUP PO SCH ×2 (10:38→18:55)
[2018-08-27] MEDS: POTASSIUM CHLORIDE 20 MEQ/15 ML UDCUP PO SCH ×2 (10:38→21:44)
[2018-08-27] MEDS: ALLOPURINOL 100 MG TABLET PO SCH (10:38)
[2018-08-27] MEDS: FOLIC ACID 1 MG TABLET PO SCH (10:38)
[2018-08-27] MEDS: FAMOTIDINE 20 MG TABLET PO SCH ×2 (10:38→21:46)
[2018-08-27] MEDS: MULTIVIT-STRESS FORMULA/ZINC TABLET PO SCH (10:39)
[2018-08-27] MEDS: SPIRONOLACTONE 25 MG TABLET PO SCH (10:39)
[2018-08-27] MEDS: DOCUSATE SODIUM 100 MG CAPSULE PO SCH ×2 (10:39→18:55)
[2018-08-27] MEDS: AMLODIPINE BESYLATE 2.5 MG TABLET PO SCH (10:40)
[2018-08-27] MEDS: RIFAXIMIN 550 MG TABLET PO SCH ×2 (10:40→21:45)
[2018-08-27] MEDS: CEFTRIAXONE 1 GM/D5W RTU 1 GM/50 ML RTUPB IV SCH (21:44)
[2018-08-27] MEDS: ATORVASTATIN CALCIUM 10 MG TABLET PO SCH (21:46)
[2018-08-27] MEDS: NORMAL SALINE 1000 ML 1,000 ML IV PRN (22:07)
[2018-08-28] MEDS: HEPARIN SOD (PORCINE) 5,000 UNIT/ML 1 ML SYRINGE SUBCUT SCH ×3 (05:13→21:19)
[2018-08-28] MEDS: NORMAL SALINE 1000 ML 1,000 ML IV PRN ×2 (07:28→17:45)
[2018-08-28 07:39] LABS: ALANINE AMINOTRANSFERASE 25 U/L (9-52); ALBUMIN 2.4 g/dL (3.5-5.0); ALKALINE PHOSPHATASE 110 U/L (38-126); ASPARTATE AMINO TRANSFERASE 61 U/L (14-36); BILIRUBIN,DIRECT 0.4 mg/dL (0.0-0.4); BLOOD UREA NITROGEN 13 mg/dL (7-20); CALCIUM 8.1 mg/dL (8.4-10.2); CARBON DIOXIDE 18 mmol/L (22-30); CHLORIDE 119 mmol/L (98-107); GLUCOSE 92 mg/dL (75-110); POTASSIUM 4.6 mmol/L (3.6-5.0); SODIUM 140.2 mmol/L (137-145); TOTAL PROTEIN 5.7 g/dL (6.3-8.2)
[2018-08-28 07:48] LABS: ANION GAP 3 (5-19)
[2018-08-28] MEDS: METOPROLOL TARTRATE 25 MG TABLET PO SCH ×2 (09:43→21:25)
[2018-08-28] MEDS: POTASSIUM CHLORIDE 20 MEQ/15 ML UDCUP PO SCH ×2 (09:43→21:30)
[2018-08-28] MEDS: LACTULOSE SYRUP 20 GM/30 ML UDCUP PO SCH ×2 (09:43→17:43)
[2018-08-28] MEDS: SPIRONOLACTONE 25 MG TABLET PO SCH (09:44)
[2018-08-28] MEDS: ALLOPURINOL 100 MG TABLET PO SCH (09:44)
[2018-08-28] MEDS: MULTIVIT-STRESS FORMULA/ZINC TABLET PO SCH (09:44)
[2018-08-28] MEDS: FAMOTIDINE 20 MG TABLET PO SCH ×2 (09:44→21:25)
[2018-08-28] MEDS: FOLIC ACID 1 MG TABLET PO SCH (09:44)
[2018-08-28] MEDS: DOCUSATE SODIUM 100 MG CAPSULE PO SCH ×2 (09:45→17:43)
[2018-08-28] MEDS: AMLODIPINE BESYLATE 2.5 MG TABLET PO SCH (09:45)
[2018-08-28] MEDS: RIFAXIMIN 550 MG TABLET PO SCH ×2 (09:45→21:30)
[2018-08-28] MEDS: TRAMADOL HCL 50 MG TABLET PO PRN (19:44)
[2018-08-28] MEDS: CEFTRIAXONE 1 GM/D5W RTU 1 GM/50 ML RTUPB IV SCH (21:24)
[2018-08-28] MEDS: ATORVASTATIN CALCIUM 10 MG TABLET PO SCH (21:25)
[2018-08-29] MEDS: NORMAL SALINE 1000 ML 1,000 ML IV PRN (01:43)
[2018-08-29] MEDS: HEPARIN SOD (PORCINE) 5,000 UNIT/ML 1 ML SYRINGE SUBCUT SCH ×3 (05:15→21:19)
[2018-08-29] MEDS: METOPROLOL TARTRATE 25 MG TABLET PO SCH ×2 (09:46→21:13)
[2018-08-29] MEDS: MULTIVIT-STRESS FORMULA/ZINC TABLET PO SCH (09:46)
[2018-08-29] MEDS: SPIRONOLACTONE 25 MG TABLET PO SCH (09:46)
[2018-08-29] MEDS: POTASSIUM CHLORIDE 20 MEQ/15 ML UDCUP PO SCH ×2 (09:46→21:19)
[2018-08-29] MEDS: LACTULOSE SYRUP 20 GM/30 ML UDCUP PO SCH ×2 (09:46→17:25)
[2018-08-29] MEDS: AMLODIPINE BESYLATE 2.5 MG TABLET PO SCH (09:47)
[2018-08-29] MEDS: RIFAXIMIN 550 MG TABLET PO SCH ×2 (09:47→21:13)
[2018-08-29] MEDS: FAMOTIDINE 20 MG TABLET PO SCH ×2 (09:47→21:13)
[2018-08-29] MEDS: DOCUSATE SODIUM 100 MG CAPSULE PO SCH ×2 (09:47→17:26)
[2018-08-29] MEDS: FOLIC ACID 1 MG TABLET PO SCH (09:47)
[2018-08-29] MEDS: ALLOPURINOL 100 MG TABLET PO SCH (09:47)
[2018-08-29] MEDS: TRAMADOL HCL 50 MG TABLET PO PRN ×2 (15:16→21:03)
--- NOTE | 2018-08-29 17:06 | PDOC PROGRESS REPORT ---
Subjective Progress Note for:: 08/29/18 Subjective:: No adverse events overnight. No new complaints. Mental status is at baseline according to her family. No fevers. No chest pain or shortness of breath. She been eating and drinking without difficulty. Reason For Visit: ACUTE URINARY TRACT INFECTION Physical Exam Vital Signs: Temp Pulse Resp BP Pulse Ox 98.0 F 60 18 129/49 H 96 08/29/18 15:26 08/29/18 15:26 08/29/18 15:26 08/29/18 15:26 08/29/18 15:26 Intake & Output 08/28/18 08/29/18 08/30/18 06:59 06:59 06:59 Intake Total 1460 4625 1739 Output Total 700 Balance 760 4625 1739 Weight 63.7 kg 63.7 kg General appearance: PRESENT: no acute distress, cooperative Respiratory exam: PRESENT: crackles - Bibasilar, apparently this is chronic, symmetrical, unlabored. ABSENT: accessory muscle use, prolonged expiratory phas, rhonchi, tachypnea, wheezes Cardiovascular exam: PRESENT: RRR, +S1, +S2, systolic murmur - Loud Vascular exam: PRESENT: normal capillary refill GI/Abdominal exam: PRESENT: normal bowel sounds, soft. ABSENT: distended, guarding, rebound, tenderness Extremities exam: ABSENT: clubbing, pedal edema Musculoskeletal exam: PRESENT: normal inspection. ABSENT: deformity Neurological exam: PRESENT: alert, awake, oriented to person, oriented to place, oriented to situation Psychiatric exam: PRESENT: appropriate affect, normal mood Skin exam: PRESENT: dry, warm Results Laboratory Results: 08/27/18 07:39 08/28/18 06:54 08/27/18 13:51 Catheterized Urine Urine Culture - Final NO GROWTH 2 DAYS 08/24/18 08/24/18 16:20 16:20 Troponin I 0.012 NT-Pro-B Natriuret Pep 478 H Impressions: Head CT 08/24/18 15:37 IMPRESSION: No acute intracranial pathology. Small vessel white matter disease. EVIDENCE OF ACUTE STROKE: NO. Chest X-Ray 08/24/18 19:54 IMPRESSION: Chronic appearing, coarse interstitial changes bilaterally copyright 2011 [employer]- All Rights Reserved Assessment & Plan - Diagnosis (1) Hepatic encephalopathy Is this a current diagnosis for this admission?: Yes Plan: Resolved (2) Hypertension Qualifiers: Hypertension type: essential hypertension Qualified Code(s): I10 - Essential (primary) hypertension Is this a current diagnosis for this admission?: Yes Plan: Well-controlled on her home regimen (3) Hypokalemia Is this a current diagnosis for this admission?: Yes Plan: Resolved (4) UTI (urinary tract infection) Qualifiers: Urinary tract infection type: acute cystitis Hematuria presence: without hematuria Qualified Code(s): N30.00 - Acute cystitis without hematuria Is this a current diagnosis for this admission?: Yes Plan: Her first urine culture showed mixed skin barbie, and her second culture was negative. Rocephin has been discontinued. - Time Time Spent with patient: 15-24 minutes - Plan Summary Plan Summary: I offered to discharge the patient home today, but the son seemed very reluctant, and wanted her primary care provider Dr. Kwok to "look over ev erything" before she went home. I told him that if they change their mind today that I would be glad to discharge him home.
[2018-08-29 17:47] LABS: ALANINE AMINOTRANSFERASE 38 U/L (9-52); ALBUMIN 2.7 g/dL (3.5-5.0); ALKALINE PHOSPHATASE 119 U/L (38-126); ASPARTATE AMINO TRANSFERASE 68 U/L (14-36); BILIRUBIN,DIRECT 0.2 mg/dL (0.0-0.4); BILIRUBIN,TOTAL 1.4 mg/dL (0.2-1.3); BLOOD UREA NITROGEN 13 mg/dL (7-20); CALCIUM 8.5 mg/dL (8.4-10.2); GLUCOSE 116 mg/dL (75-110); POTASSIUM 5.2 mmol/L (3.6-5.0); TOTAL PROTEIN 6.1 g/dL (6.3-8.2)
[2018-08-29 17:51] LABS: CARBON DIOXIDE 20 mmol/L (22-30); CHLORIDE 115 mmol/L (98-107); SODIUM 137.2 mmol/L (137-145)
[2018-08-29 17:53] LABS: ANION GAP 2 (5-19)
--- NOTE | 2018-08-29 19:05 | RADIOLOGY REPORT (SQ) ---
EXAM DESCRIPTION: KUB/ABDOMEN (SINGLE VIEW) COMPLETED DATE/TIME: 08/29/2018 6:50 pm REASON FOR STUDY: RUQ pain COMPARISON: 01/29/2018 NUMBER OF VIEWS: One view. TECHNIQUE: Supine radiographic image of the abdomen acquired. LIMITATIONS: None. FINDINGS: BOWEL GAS PATTERN: Normal bowel gas pattern. No dilated loops. CALCIFICATIONS: No suspicious calcifications. SOFT TISSUES: No gross mass or suggestion of organomegaly. HARDWARE: Surgical clips. BONES: No acute fracture. No worrisome bone lesions. OTHER: No other significant finding. IMPRESSION: NO RADIOGRAPHIC EVIDENCE FOR ACUTE ABDOMINAL DISEASE. TECHNICAL DOCUMENTATION: JOB ID: [id number] [email or web address]- All Rights Reserved Reading location - IP/workstation name: [email or web address]
[2018-08-29] MEDS: ATORVASTATIN CALCIUM 10 MG TABLET PO SCH (21:13)
[2018-08-30] MEDS: HEPARIN SOD (PORCINE) 5,000 UNIT/ML 1 ML SYRINGE SUBCUT SCH ×2 (05:04→14:39)
[2018-08-30] MEDS: FOLIC ACID 1 MG TABLET PO SCH (09:47)
[2018-08-30] MEDS: FAMOTIDINE 20 MG TABLET PO SCH (09:47)
[2018-08-30] MEDS: SPIRONOLACTONE 25 MG TABLET PO SCH (09:47)
[2018-08-30] MEDS: METOPROLOL TARTRATE 25 MG TABLET PO SCH (09:47)
[2018-08-30] MEDS: ALLOPURINOL 100 MG TABLET PO SCH (09:47)
[2018-08-30] MEDS: MULTIVIT-STRESS FORMULA/ZINC TABLET PO SCH (09:47)
[2018-08-30] MEDS: LACTULOSE SYRUP 20 GM/30 ML UDCUP PO SCH (09:47)
[2018-08-30] MEDS: DOCUSATE SODIUM 100 MG CAPSULE PO SCH (09:49)
[2018-08-30] MEDS: AMLODIPINE BESYLATE 2.5 MG TABLET PO SCH (09:50)
[2018-08-30] MEDS: RIFAXIMIN 550 MG TABLET PO SCH (09:51)
--- NOTE | 2018-08-30 14:59 | PDOC DISCHARGE SUMMARY ---
General - Admit/Disc Date/PCP Admission Date/Primary Care Provider: 08/24/18 20:54 ALFREDA RENTERIA MD Discharge Date: 08/30/18 - Discharge Diagnosis (1) Hepatic encephalopathy Is this a current diagnosis for this admission?: Yes (2) UTI (urinary tract infection) Is this a current diagnosis for this admission?: Yes (3) Hypokalemia Is this a current diagnosis for this admission?: Yes (4) Hypertension Is this a current diagnosis for this admission?: Yes - Additional Information Resuscitation Status: Full Code Discharge Diet: As Tolerated Discharge Activity: Activity As Tolerated Home Medications: Albuterol Sulfate [Ventolin 0.083% Neb 2.5 mg/3 mL Ampul] 3 ml NEB Q8HP PRN 08/24/18 Allopurinol [Zyloprim 100 mg Tablet] 100 mg PO DAILY 08/24/18 Atorvastatin Calcium [Lipitor 10 mg Tablet] 10 mg PO QHS 08/24/18 Folic Acid [Folvite 1 mg Tablet] 1 mg PO DAILY 08/24/18 Lactulose [Constulose 10 gm/15 mL Oral Solution] 30 ml PO DAILY 08/24/18 Metoprolol Tartrate [Lopressor 25 mg Tablet] 12.5 mg PO Q12 08/24/18 Pantoprazole Sodium [Protonix] 40 mg PO DAILY 08/24/18 Rifaximin [Xifaxan 550 mg Tablet] 550 mg PO Q12 08/24/18 Spironolactone [Aldactone] 50 mg PO DAILY 08/24/18 Vitamin B Complex [B Complex] 1 cap PO DAILY 08/24/18 History of Present Illness Patient complains of: Patient is brought into the hospital with altered mentis mental status, lethargy, dysarthria generalized weakness. History of Present Illness: RACHNA MAYERS is a 77 year old female Hospital Course Hospital Course: She was admitted to the broad-spectrum antibiotics after garcia cultures were done IV fluids her ammonia level was over 60 so her lactulose was increased to 30 daily prior to discharge her lactulose was less than 20. Also her initial urine culture showed 80-90 urine pathogens rechecking urine with a straight contrast showed no organisms but by that time the patient had showed improvement with mentation her appetite and her energy level has improved. While in the hospital she was also given IV fluid hydration which was decreased as her weight started rising and her BUN and creatinine normalized. Patient prior to discharge had no evidence of encephalopathy, laboratory tests were essentially normal she was afebrile. To discharge she was able to ambulate with the assistance of a walker over 100 feet without any weight weakness, dizziness, exertional shortness of breath. Physical Exam Vital Signs: Temp Pulse Resp BP Pulse Ox 98.5 F 66 17 103/83 98 08/30/18 11:51 08/30/18 11:51 08/30/18 11:51 08/30/18 11:51 08/30/18 11:51 Intake & Output 08/29/18 08/30/18 08/31/18 06:59 06:59 06:59 Intake Total 4625 3199 980 Balance 4625 3199 980 Weight 63.7 kg 68.9 kg General appearance: PRESENT: no acute distress Head exam: PRESENT: atraumatic, normocephalic Eye exam: PRESENT: conjunctiva pink, EOMI, PERRLA. ABSENT: scleral icterus Ear exam: PRESENT: normal external ear exam Mouth exam: PRESENT: moist, tongue midline Neck exam: PRESENT: full ROM. ABSENT: carotid bruit, JVD, lymphadenopathy, thyromegaly Respiratory exam: PRESENT: crackles Additional comments: Crackles at the bases Cardiovascular exam: PRESENT: systolic murmur Murmur grade: 4 Pulses: PRESENT: +1 pedal pulses bilateral Vascular exam: PRESENT: normal capillary refill GI/Abdominal exam: PRESENT: normal bowel sounds, soft. ABSENT: distended, guarding, mass, organolmegaly, rebound, tenderness Rectal exam: PRESENT: deferred Extremities exam: PRESENT: full ROM Musculoskeletal exam: PRESENT: ambulatory Neurological exam: PRESENT: alert, awake, oriented to person, oriented to place, oriented to time, oriented to situation, CN II-XII grossly intact. ABSENT: motor sensory deficit Psychiatric exam: PRESENT: appropriate affect, normal mood. ABSENT: homicidal ideation, suicidal ideation Skin exam: PRESENT: dry, intact, warm. ABSENT: cyanosis, rash Results Laboratory Results: 08/27/18 07:39 08/29/18 17:15 08/29/18 17:15 Sodium 137.2 Potassium 5.2 H Chloride 115 H Carbon Dioxide 20 L Anion Gap 2 L BUN 13 Creatinine 0.81 Est GFR ( Amer) > 60 Est GFR (Non-Af Amer) > 60 Glucose 116 H Calcium 8.5 Total Bilirubin 1.4 H AST 68 H ALT 38 Alkaline Phosphatase 119 Total Protein 6.1 L Albumin 2.7 L 08/24/18 23:38 Blood Blood Culture - Final NO GROWTH IN 5 DAYS 08/24/18 20:24 Blood Blood Culture - Final NO GROWTH IN 5 DAYS 08/27/18 13:51 Catheterized Urine Urine Culture - Final NO GROWTH 2 DAYS 08/24/18 08/24/18 16:20 16:20 Troponin I 0.012 NT-Pro-B Natriuret Pep 478 H Impressions: Head CT 08/24/18 15:37 IMPRESSION: No acute intracranial pathology. Small vessel white matter disease. EVIDENCE OF ACUTE STROKE: NO. Chest X-Ray 08/24/18 19:54 IMPRESSION: Chronic appearing, coarse interstitial changes bilaterally copyright 2011 [email or web address]- All Rights Reserved KUB X-Ray 08/29/18 00:00 IMPRESSION: NO RADIOGRAPHIC EVIDENCE FOR ACUTE ABDOMINAL DISEASE. Qualifiers - * PATIENT BEING DISCHARGED WITH ANY OF THE FOLLOWING DIAGNOSIS: No Plan Discharge Plan: Med reconciliation she will resume all her home medications with the addition of the torsemide 20 daily. Because of the episodes of 3 different urinary tract infections treated with Viagra improving antibiotics we will refer to urology as an outpatient and she will be seen in the office in 1 week. We will also resume her home health physical therapy and occupational and RN care. Time Spent: Less than 30 Minutes
[2018-08-30 16:09] VITALS: BP 117/55
== END 2018-08-30 17:56 | disposition home health service (06) | DRG 442 ==
LOC: ER 13:31 → EH 20:54 → 5 23:46
PROVIDERS: ADMIT Emergency Medicine; ATTEND Emergency Medicine
DX: K72.90 Hepatic failure, unspecified without coma (principal); N30.00 Acute cystitis without hematuria; K74.60 Unspecified cirrhosis of liver; E87.6 Hypokalemia; I10 Essential (primary) hypertension; E83.110 Hereditary hemochromatosis; I25.10 Atherosclerotic heart disease of native coronary artery without angina pectoris; I73.9 Peripheral vascular disease, unspecified; J44.9 Chronic obstructive pulmonary disease, unspecified; M19.90 Unspecified osteoarthritis, unspecified site; Z79.899 Other long term (current) drug therapy; Z90.49 Acquired absence of other specified parts of digestive tract; Z90.710 Acquired absence of both cervix and uterus; Z91.041 Radiographic dye allergy status; Z91.013 Allergy to seafood; Z88.8 Allergy status to other drugs, medicaments and biological substances
CPT/HCPCS: 36415; 70450; 71045; 74018; 80048; 80053; 80076; 81001; 82140; 83735; 83880; 84439; 84443; 84481; 84484; 85025; 85610; 87040; 87086; 93005; 93010; 96374; 99285; A9270-GY; J0696; J3490; J7030; J7040

== ENCOUNTER → 2018-09-11 | Outpatient (CLI) | payer MEDICARE, OTHER ==
[2018-09-11 11:21] LABS: ALANINE AMINOTRANSFERASE 27 U/L (9-52); ALBUMIN 3.1 g/dL (3.5-5.0); ALKALINE PHOSPHATASE 123 U/L (38-126); ANION GAP 9 (5-19); ASPARTATE AMINO TRANSFERASE 60 U/L (14-36); BILIRUBIN,DIRECT 0.4 mg/dL (0.0-0.4); BILIRUBIN,TOTAL 1.5 mg/dL (0.2-1.3); BLOOD UREA NITROGEN 14 mg/dL (7-20); CALCIUM 8.7 mg/dL (8.4-10.2); CARBON DIOXIDE 28 mmol/L (22-30); CHLORIDE 103 mmol/L (98-107); GLUCOSE 82 mg/dL (75-110); SODIUM 140.2 mmol/L (137-145); TOTAL PROTEIN 6.7 g/dL (6.3-8.2)
== END ==
LOC: OD 10:04
PROVIDERS: ATTEND Internal Medicine
DX: N19 Unspecified kidney failure (principal); K72.90 Hepatic failure, unspecified without coma
CPT/HCPCS: 36415; 80053; 82140

== ENCOUNTER → 2018-09-30 | Outpatient (CLI) | payer MEDICARE, OTHER ==
[2018-09-30 11:51] LABS: ABSOLUTE EOSINOPHILS # (AUTO) 0.1 10^3/uL (0.0-0.6); ABSOLUTE LYMPHOCYTES (AUTO) 0.9 10^3/uL (0.5-4.7); ABSOLUTE MONOCYTES (AUTO) 0.9 10^3/uL (0.1-1.4); ABSOLUTE NEUT (AUTO) 4.7 10^3/uL (1.7-8.2); BASOPHILS % (AUTO) 0.6 % (0-2); EOSINOPHILS % (AUTO) 1.1 % (0-6); HEMATOCRIT 35.5 % (36.0-47.0); HEMOGLOBIN 12.3 g/dL (12.0-15.5); LYMPHOCYTES % (AUTO) 13.3 % (13-45); MEAN CORPUSCULAR HEMOGLOBIN 34.4 pg (27.0-33.4); MEAN CORPUSCULAR HGB CONC 34.6 g/dL (32.0-36.0); MEAN CORPUSCULAR VOLUME 99 fl (80-97); MONOCYTES % (AUTO) 13.9 % (3-13); RED BLOOD COUNT 3.58 10^6/uL (3.72-5.28); RED CELL DISTRIBUTION WIDTH 16.6 % (11.5-14.0); SEGMENTED NEUTROPHILS % (AUTO) 71.1 % (42-78); TOTAL CELLS COUNTED % (AUTO) 100 %; WHITE BLOOD COUNT 6.6 10^3/uL (4.0-10.5)
[2018-09-30 11:57] LABS: APPEARANCE,URINE CLOUDY; BILIRUBIN,URINE NEGATIVE (NEGATIVE); COLOR,URINE YELLOW; GLUCOSE, URINE NEGATIVE (NEGATIVE); KETONES,URINE NEGATIVE (NEGATIVE); LEUKOCYTE ESTERASE,URINE MODERATE (NEGATIVE); NITRITE,URINE NEGATIVE (NEGATIVE); PROTEIN,URINE NEGATIVE (NEGATIVE); URINE SPECIFIC GRAVITY 1.005; UROBILINOGEN,URINE NEGATIVE mg/dL (<2.0)
[2018-09-30 12:16] LABS: ALANINE AMINOTRANSFERASE 32 U/L (9-52); ALBUMIN 3.6 g/dL (3.5-5.0); ALKALINE PHOSPHATASE 146 U/L (38-126); ANION GAP 11 (5-19); ASPARTATE AMINO TRANSFERASE 66 U/L (14-36); BILIRUBIN,DIRECT 0.3 mg/dL (0.0-0.4); BILIRUBIN,TOTAL 1.7 mg/dL (0.2-1.3); BLOOD UREA NITROGEN 20 mg/dL (7-20); CALCIUM 9.5 mg/dL (8.4-10.2); CARBON DIOXIDE 25 mmol/L (22-30); CHLORIDE 108 mmol/L (98-107); GLUCOSE 97 mg/dL (75-110); POTASSIUM 4.1 mmol/L (3.6-5.0); SODIUM 143.5 mmol/L (137-145); TOTAL PROTEIN 7.6 g/dL (6.3-8.2)
[2018-09-30 12:25] LABS: PLATELET COUNT 74 10^3/uL (150-450)
== END ==
LOC: OD 11:05
PROVIDERS: ATTEND Internal Medicine
DX: K72.90 Hepatic failure, unspecified without coma (principal); N39.0 Urinary tract infection, site not specified; D64.9 Anemia, unspecified
CPT/HCPCS: 36415; 80053; 81001; 82140; 85025; 87086; 87088; 87186

== ENCOUNTER 2018-10-21 17:57 | Inpatient (IN) | payer MEDICARE, OTHER ==
[2018-10-21] MEDS ORDERED: ACETAMINOPHEN 325 MG TABLET PO ONE (19:01)
--- NOTE | 2018-10-21 19:07 | ER Document Report ---
ED General - General Chief Complaint: Shortness Of Breath Stated Complaint: FATIGUE Time Seen by Provider: 10/21/18 18:51 Primary Care Provider: ALFREDA RENTERIA MD [Primary Care Provider] - Follow up as needed Mode of Arrival: Stretcher Information source: Patient, Relative TRAVEL OUTSIDE OF THE [place] IN LAST 30 DAYS: No - HPI Patient complains to provider of: generalized weakness, sob Onset: Yesterday Onset/Duration: Gradual, Persistent, Worse Quality of pain: No pain Associated symptoms: Body/muscle aches, Chills, Diarrhea, Shortness of breath, Weakness Exacerbated by: Denies Relieved by: Denies Similar symptoms previously: No Notes: Patient is a 70-year-old female presenting to the emergency room today complaining of "weak and out of it", she has had multiple episodes of watery diarrhea, symptoms started sometime yesterday evening and continued, she denies any pain, she denies any nausea or, no cough, cold or congestion, she does report chills and is noted to have a temperature of 101 in the triage area, rep orts great-grandson with viral illness approximately 1 week ago - Related Data Allergies/Adverse Reactions: furosemide [From Lasix] Allergy (Verified 10/21/18 18:46) shellfish derived Allergy (Verified 10/21/18 18:46) Iodinated Contrast- Oral and IV Dye Adverse Reaction (Verified 10/21/18 18:46) iodine Adverse Reaction (Verified 10/21/18 18:46) Past Medical History - General Information source: Patient, Relative - Social History Smoking Status: Never Smoker Frequency of alcohol use: None Drug Abuse: None Family History: CAD, DM, Hypertension Patient has suicidal ideation: No Patient has homicidal ideation: No - Past Medical History Cardiac Medical History: Reports: Hx Coronary Artery Disease, Hx Hypertension, Hx Peripheral Vascular Disease - Bilateral internal carotid artery stenosis, Hx Heart Murmur - Aortic stenosis Denies: Hx Heart Attack, Hx Hypercholesterolemia Pulmonary Medical History: Reports: Hx COPD Denies: Hx Asthma, Hx Bronchitis, Hx Pneumonia Neurological Medical History: Reports: Hx Cerebrovascular Accident - 2014. Denies: Hx Seizures Endocrine Medical History: Denies: Hx Diabetes Mellitus Type 1, Hx Diabetes Mellitus Type 2 Renal/ Medical History: Denies: Hx Peritoneal Dialysis GI Medical History: Reports: Hx Cirrhosis - Thank you for your. Denies: Hx Crohn's Disease, Hx Hepatitis, Hx Ulcerative Colitis Musculoskeletal Medical History: Reports Hx Arthritis, Denies Hx Gout Skin Medical History: Denies Hx Eczema, Denies Hx Psoriasis Infectious Medical History: Denies: Hx Hepatitis Past Surgical History: Reports: Hx Appendectomy, Hx Cardiac Surgery - L cartoid, Hx Carotid Endarterectomy - Left, Hx Cholecystectomy, Hx Hysterectomy, Hx Tonsillectomy - Immunizations Hx Diphtheria, Pertussis, Tetanus Vaccination: Yes Hx Pneumococcal Vaccination: 06/03/16 Review of Systems - Review of Systems Constitutional: See HPI EENT: No symptoms reported Cardiovascular: No symptoms reported Respiratory: No symptoms reported Gastrointestinal: Diarrhea Genitourinary: No symptoms reported Female Genitourinary: No symptoms reported Musculoskeletal: No symptoms reported Skin: No symptoms reported Hematologic/Lymphatic: No symptoms reported Neurological/Psychological: No symptoms reported -: Yes All other systems reviewed and negative Physical Exam - Vital signs Vitals: Temp Pulse Resp BP Pulse Ox 101 F H 76 26 H 124/53 L 85 L 10/21/18 18:17 10/21/18 18:17 10/21/18 18:17 10/21/18 18:17 10/21/18 18:17 Interpretation: Hypoxic, Tachypneic, Febrile - General General appearance: Appears well, Alert - HEENT Head: Normocephalic, Atraumatic Eyes: Normal Pupils: PERRL - Respiratory Respiratory status: No respiratory distress Chest status: Nontender Breath sounds: Normal Chest palpation: Normal - Cardiovascular Rhythm: Regular Heart sounds: Normal auscultation Murmur: No - Abdominal Inspection: Normal Distension: No distension Bowel sounds: Normal Tenderness: Nontender Organomegaly: No organomegaly - Back Back: Normal, Nontender - Extremities General upper extremity: Normal inspection, Nontender, Normal color, Normal ROM, Normal temperature General lower extremity: Normal inspection, Nontender, Normal ROM, Normal temp erature, Normal weight bearing, Other - Large ecchymoses on bilateral forearms. No: Hoa's sign - Neurological Neuro grossly intact: Yes Cognition: Normal Orientation: AAOx4 Holden Coma Scale Eye Opening: Spontaneous Holden Coma Scale Verbal: Oriented Dragoon Coma Scale Motor: Obeys Commands Holden Coma Scale Total: 15 Speech: Normal Motor strength normal: LUE, RUE, LLE, RLE Sensory: Normal - Psychological Associated symptoms: Normal affect, Normal mood - Skin Skin Temperature: Warm Skin Moisture: Dry Skin Color: Normal Course - Re-evaluation Re-evalutation: 10/21/18 22:08 Patient was able to tolerate p.o. intake, she does continue to complain of some shortness of breath, has mild wheezing and her lung bowman, I did attempt to remove the oxygen, however patient had a rapid decline in her oxygen saturation going down to 89%, therefore oxygen was replaced, will plan to admit to hospitalist service for Dr. Renteria for further evaluation and treatment Patient was discussed with hospitalist, Dr. iVeyra who agrees to admit patient for further evaluation - Vital Signs Vital signs: Temp Pulse Resp BP Pulse Ox 98.2 F 76 19 111/57 L 92 10/21/18 21:01 10/21/18 18:17 10/21/18 21:01 10/21/18 21:01 10/21/18 21:01 - Laboratory Result Diagrams: 10/21/18 18:46 10/21/18 18:46 Laboratory results interpreted by me: 10/21/18 10/21/18 10/21/18 18:46 18:46 18:46 RBC 3.51 L Hct 34.7 L MCV 99 H MCH 34.4 H RDW 17.2 H Plt Count 90 L Monocytes % 15.3 H Potassium 3.4 L Est GFR ( Amer) 56 L Est GFR (Non-Af Amer) 46 L Total Bilirubin 1.8 H Direct Bilirubin 0.5 H AST 58 H Alkaline Phosphatase 140 H NT-Pro-B Natriuret Pep 546 H Albumin 3.1 L Urine Urobilinogen Urine Ascorbic Acid 10/21/18 20:07 RBC Hct MCV MCH RDW Plt Count Monocytes % Potassium Est GFR ( Amer) Est GFR (Non-Af Amer) Total Bilirubin Direct Bilirubin AST Alkaline Phosphatase NT-Pro-B Natriuret Pep Albumin Urine Urobilinogen 2.0 H Urine Ascorbic Acid 20 H - Diagnostic Test Radiology reviewed: Image reviewed, Reports reviewed - EKG Interpretation by Me EKG shows normal: Sinus rhythm Rate: Normal Rhythm: NSR Discharge - Discharge Clinical Impression: COPD exacerbation, Fever of unknown origin, Hypoxia Condition: Fair Disposition: ADMITTED INPATIENT Admitting Provider: Hospitalist Unit Admitted: Medical Floor Referrals: ALFREDA RENTERIA MD [Primary Care Provider] - Follow up as needed
[2018-10-21 19:14] LABS: ABSOLUTE EOSINOPHILS # (AUTO) 0.1 10^3/uL (0.0-0.6); ABSOLUTE LYMPHOCYTES (AUTO) 1.2 10^3/uL (0.5-4.7); ABSOLUTE MONOCYTES (AUTO) 1.1 10^3/uL (0.1-1.4); ABSOLUTE NEUT (AUTO) 4.9 10^3/uL (1.7-8.2); BASOPHILS % (AUTO) 0.6 % (0-2); EOSINOPHILS % (AUTO) 1.7 % (0-6); HEMATOCRIT 34.7 % (36.0-47.0); HEMOGLOBIN 12.1 g/dL (12.0-15.5); LYMPHOCYTES % (AUTO) 15.7 % (13-45); MEAN CORPUSCULAR HEMOGLOBIN 34.4 pg (27.0-33.4); MEAN CORPUSCULAR HGB CONC 34.7 g/dL (32.0-36.0); MEAN CORPUSCULAR VOLUME 99 fl (80-97); MONOCYTES % (AUTO) 15.3 % (3-13); RED BLOOD COUNT 3.51 10^6/uL (3.72-5.28); RED CELL DISTRIBUTION WIDTH 17.2 % (11.5-14.0); SEGMENTED NEUTROPHILS % (AUTO) 66.7 % (42-78); TOTAL CELLS COUNTED % (AUTO) 100 %; WHITE BLOOD COUNT 7.3 10^3/uL (4.0-10.5)
--- NOTE | 2018-10-21 19:14 | RADIOLOGY REPORT (SQ) ---
EXAM DESCRIPTION: CHEST SINGLE VIEW COMPLETED DATE/TIME: 10/21/2018 7:05 pm REASON FOR STUDY: sob COMPARISON: 08/24/2018 EXAM PARAMETERS: NUMBER OF VIEWS: One view. TECHNIQUE: Single frontal radiographic view of the chest acquired. RADIATION DOSE: NA LIMITATIONS: None. FINDINGS: LUNGS AND PLEURA: Chronic interstitial changes are present. There is no infiltrate or eff usion. No mass is seen. MEDIASTINUM AND HILAR STRUCTURES: No masses. Contour normal. HEART AND VASCULAR STRUCTURES: Heart size is borderline. There is no cullen pulmonary edema. BONES: No acute findings. HARDWARE: None in the chest. OTHER: No other significant finding. IMPRESSION: Borderline cardiomegaly without pulmonary edema. Chronic interstitial changes. TECHNICAL DOCUMENTATION: JOB ID: [id number] [employer]- All Rights Reserved Reading location - IP/workstation name: [email or web address]
[2018-10-21 19:19] LABS: ALANINE AMINOTRANSFERASE 35 U/L (9-52); ALBUMIN 3.1 g/dL (3.5-5.0); ALKALINE PHOSPHATASE 140 U/L (38-126); ANION GAP 11 (5-19); ASPARTATE AMINO TRANSFERASE 58 U/L (14-36); BILIRUBIN,DIRECT 0.5 mg/dL (0.0-0.4); BILIRUBIN,TOTAL 1.8 mg/dL (0.2-1.3); BLOOD UREA NITROGEN 18 mg/dL (7-20); CALCIUM 8.9 mg/dL (8.4-10.2); CARBON DIOXIDE 25 mmol/L (22-30); CHLORIDE 101 mmol/L (98-107); GLUCOSE 85 mg/dL (75-110); POTASSIUM 3.4 mmol/L (3.6-5.0)
[2018-10-21 19:26] LABS: PLATELET COUNT 90 10^3/uL (150-450)
[2018-10-21 19:30] LABS: TROPONIN I 0.014 ng/mL
[2018-10-21 19:45] LABS: A TYPE INFLUENZA AG NEGATIVE (NEGATIVE); B INFLUENZA AG NEGATIVE (NEGATIVE)
[2018-10-21 20:41] LABS: APPEARANCE,URINE CLOUDY; BILIRUBIN,URINE NEGATIVE (NEGATIVE); GLUCOSE, URINE NEGATIVE (NEGATIVE); KETONES,URINE NEGATIVE (NEGATIVE); LEUKOCYTE ESTERASE,URINE NEGATIVE (NEGATIVE); NITRITE,URINE NEGATIVE (NEGATIVE); PROTEIN,URINE NEGATIVE (NEGATIVE); URINE SPECIFIC GRAVITY 1.013
[2018-10-21 20:42] LABS: COLOR,URINE YELLOW
[2018-10-21] MEDS ORDERED: NORMAL SALINE 1000 ML 1,000 ML IV ONE (21:02)
[2018-10-21] MEDS ORDERED: ALBUTEROL SULFATE 0.083% NEB 2.5 MG/3 ML AMPUL NEB ONE (22:00)
[2018-10-21] MEDS ORDERED: IPRATROPIUM/ALBUTEROL 0.5-2.5 MG/3 ML AMPUL NEB ONE (22:00)
[2018-10-21] MEDS ORDERED: METHYLPREDNISOLONE INJ 125 MG/2 ML SDV IV ONE (22:00)
[2018-10-21] MEDS ORDERED: RINGERS SOLUTION,LACTATED 1,000 ML IV PRN (22:27)
[2018-10-21] MEDS ORDERED: MAG HYDROX/AL HYDROX/SIMETH SUSP 30 ML UDCUP PO PRN (22:27)
[2018-10-21] MEDS ORDERED: MORPHINE SULFATE 10 MG/ML INJ IV PRN ×4 (22:33→22:56)
[2018-10-21] MEDS ORDERED: ACETAMINOPHEN 325 MG TABLET PO PRN (22:33)
--- NOTE | 2018-10-21 22:44 | EKG REPORT ---
SEVERITY:- ABNORMAL ECG - SINUS RHYTHM LEFT ANTERIOR FASCICULAR BLOCK LVH WITH SECONDARY REPOLARIZATION ABNORMALITY : Confirmed by: Rd Hart 21-Oct-2018 22:43:54
[2018-10-21] MEDS ORDERED: METOPROLOL TARTRATE 25 MG TABLET PO ONE (23:00)
[2018-10-21] MEDS ORDERED: RIFAXIMIN 550 MG TABLET PO ONE (23:00)
[2018-10-21] MEDS ORDERED: FAMOTIDINE 20 MG TABLET PO ONE (23:00)
[2018-10-21] MEDS: TEMAZEPAM 7.5 MG CAPSULE PO PRN (23:05)
[2018-10-21] MEDS: MAGNESIUM HYDROXIDE SUSP 30 ML UDCUP PO PRN (23:05)
[2018-10-21] MEDS: ONDANSETRON HCL INJ/PF 4 MG/2 ML SDV IV PRN (23:05)
[2018-10-22] MEDS: IPRATROPIUM BROMIDE 0.02% NEB 0.5 MG/2.5 ML AMPUL NEB SCH ×4 (00:48→23:57)
[2018-10-22] MEDS: LEVALBUTEROL HCL NEB 1.25 MG/3 ML AMPUL NEB SCH ×4 (00:48→23:57)
[2018-10-22 01:00] LABS: CREATINE KINASE MB 1.14 ng/mL (<4.55)
[2018-10-22 01:17] LABS: TROPONIN I 0.078 ng/mL
--- NOTE | 2018-10-22 02:24 | PDOC H&P ---
History of Present Illness Admission Date/PCP: ALFREDA RENTERIA MD Patient complains of: Generalized weakness History of Present Illness: ARCHNA MAYERS is a 77 year old female who presents the emergency room with a 1 day history of progressively worsening generalized weakness. Patient admits progressive generalized weakness which is now severe accompanied by fatigue and intermittent delirium, starting on the evening of the day prior to admission. She further admits the accompanying symptoms of fever (101 F) with chills and multiple episodes of watery diarrhea since the onset of her weakness. Patient admits numerous prior similar episodes with varied infections usually resulting in hepatic encephalopathy. She has not identified any aggravating or ameliorating factors for her generalized weakness. In the emergency room she was found to be hypoxic with a O2 sat of 85% on room air, she was noted to be mildly dyspneic by EMS and was subsequently given a nebulizer treatment with albuterol causing marked improvement by the time she arrived at the emergency room. She required supplemental oxygen to maintain an adequate O2 saturation. Remainder her evaluation was essentially unremarkable compared to baseline studies. Because of her need for supplemental oxygen and the acute nature of her illness patient was admitted for further evaluation and treatment. Past Medical History Cardiac Medical History: Reports: Congestive Heart Failure - Chronic diastolic congestive heart failure with LVH, Coronary Artery Disease, Hypertension, Peripheral Vascular Disease - Bilateral internal carotid artery stenosis, Heart Murmur - Aortic stenosis Denies: Myocardial Infarction, Hyperlipidema Pulmonary Medical History: Reports: Chronic Obstructive Pulmonary Disease (COPD) Denies: Asthma, Bronchitis, Pneumonia, Respiratory Failure EENT Medical History: Reports: Eyes - Wears corrective lenses Denies: Cataracts Neurological Medical History: Denies: Hemorrhagic CVA, Ischemic CVA, Seizures Endocrine Medical History: Denies: Diabetes Mellitus Type 1, Diabetes Mellitus Type 2, Hyperthyroidism, Hypothyroidism, Obesity Renal/ Medical History: Denies: Chronic Kidney Disease, Nephrolithiasis Malignancy Medical History: Reports: Other - Hemochromatosis with chronic thrombocytopenia GI Medical History: Reports: 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 Denies: Crohn's Disease, Hepatitis, Ulcerative Colitis Musculoskeltal Medical History: Reports: Arthritis Denies: Gout Skin Medical History: Denies: Eczema, Psoriasis Psychiatric Medical History: Denies: Alcohol Dependency, Substance Abuse, Tobacco Dependency Traumatic Medical History: Reports: None Hematology: Reports: Other - 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 Denies: Anemia, Bleeding Tendencies, Neutropenia Infectious Medical History: Reports: None Past Surgical History Past Surgical History: Reports: Appendectomy, Carotid Endarterectomy - Left, Cholecystectomy, Hysterectomy, Tonsillectomy Social History Smoking Status: Never Smoker Frequency of Alcohol Use: None Hx Recreational Drug Use: No Drugs: None Hx Prescription Drug Abuse: No - Advance Directive Resuscitation Status: Full Code Surrogate healthcare decision maker:: Her daughter Ana Family History Family History: CAD, DM, Hypertension Parental Family History Reviewed: Yes Children Family History Reviewed: No Sibling(s) Family History Reviewed.: Yes Medication/Allergy Home Medications: Albuterol Sulfate [Ventolin 0.083% Neb 2.5 mg/3 mL Ampul] 3 ml NEB Q8HP PRN 08/24/18 Allopurinol [Zyloprim 100 mg Tablet] 100 mg PO DAILY 08/24/18 Atorvastatin Calcium [Lipitor 10 mg Tablet] 10 mg PO QHS 08/24/18 Folic Acid [Folvite 1 mg Tablet] 1 mg PO DAILY 08/24/18 Lactulose [Constulose 10 gm/15 mL Oral Solution] 30 ml PO DAILY 08/24/18 Metoprolol Tartrate [Lopressor 25 mg Tablet] 12.5 mg PO Q12 08/24/18 Pantoprazole Sodium [Protonix] 40 mg PO DAILY 08/24/18 Rifaximin [Xifaxan 550 mg Tablet] 550 mg PO Q12 08/24/18 Spironolactone [Aldactone] 50 mg PO DAILY 08/24/18 Vitamin B Complex [B Complex] 1 cap PO DAILY 08/24/18 Allergies/Adverse Reactions: furosemide [From Lasix] Allergy (Verified 10/21/18 18:46) shellfish derived Allergy (Verified 10/21/18 18:46) Iodinated Contrast- Oral and IV Dye Adverse Reaction (Verified 10/21/18 18:46) iodine Adverse Reaction (Verified 10/21/18 18:46) Review of Systems Constitutional: PRESENT: as per HPI, chills, fever(s), weakness Eyes: ABSENT: visual disturbances, other - Ocular pain Ears: ABSENT: hearing changes, other - Ear pain Nose, Mouth, and Throat: ABSENT: mouth pain, sore throat Cardiovascular: ABSENT: chest pain, palpitations Respiratory: ABSENT: cough, dyspnea Gastrointestinal: PRESENT: as per HPI, diarrhea. ABSENT: abdominal pain, constipation, hematochezia, nausea, vomiting Genitourinary: ABSENT: dysuria, hematuria Musculoskeletal: ABSENT: back pain, joint swelling Integumentary: ABSENT: pruritus, rash Neurological: ABSENT: confusion, convulsions, focal weakness, memory loss Psychiatric: ABSENT: anxiety, depression Endocrine: ABSENT: cold intolerance, heat intolerance Hematologic/Lymphatic: ABSENT: easy bleeding, easy bruising Physical Exam Vital Signs: Temp Pulse Resp BP Pulse Ox 98.2 F 76 19 111/57 L 92 10/21/18 21:01 10/21/18 18:17 10/21/18 21:01 10/21/18 21:01 10/21/18 21:01 Intake & Output 10/19/18 10/20/18 10/21/18 23:59 23:59 23:59 Weight 62.9 kg General appearance: PRESENT: no acute distress, cooperative Head exam: PRESENT: atraumatic, normocephalic Eye exam: PRESENT: conjunctiva pink. ABSENT: scleral icterus Ear exam: PRESENT: normal external ear exam. ABSENT: bleeding, drainage Mouth exam: PRESENT: dry mucosa, neck supple Neck exam: ABSENT: JVD, thyromegaly, tracheal deviation Respiratory exam: PRESENT: decreased breath sounds - Minimally decreased breath sounds in the, prolonged expiratory phas - Minimally prolonged expiratory phase in all bowman, symmetrical, unlabored, wheezes - Mild end expiratory wheezes in all bowman. ABSENT: rales, rhonchi Cardiovascular exam: PRESENT: RRR, systolic murmur - 4/6 systolic murmur consistent with known aortic stenosis.. ABSENT: clicks, gallop, rubs Pulses: PRESENT: normal radial pulses, normal dorsalis pedis pul Vascular exam: PRESENT: normal capillary refill. ABSENT: pallor GI/Abdominal exam: PRESENT: normal bowel sounds, soft Rectal exam: PRESENT: deferred Extremities exam: ABSENT: joint swelling, pedal edema Musculoskeletal exam: PRESENT: normal inspection. ABSENT: deformity, tenderness Neurological exam: PRESENT: alert, awake, oriented to person, oriented to place, oriented to time, oriented to situation, CN II-XII grossly intact. ABSENT: motor sensory deficit Psychiatric exam: PRESENT: appropriate affect, normal mood Skin exam: PRESENT: dry, intact, warm. ABSENT: jaundice, rash, urticaria Results Laboratory Results: 10/21/18 18:46 10/21/18 18:46 10/21/18 10/21/18 10/21/18 18:46 18:46 20:07 WBC 7.3 RBC 3.51 L Hgb 12.1 Hct 34.7 L MCV 99 H MCH 34.4 H MCHC 34.7 RDW 17.2 H Plt Count 90 L Seg Neutrophils % 66.7 Lymphocytes % 15.7 Monocytes % 15.3 H Eosinophils % 1.7 Basophils % 0.6 Absolute Neutrophils 4.9 Absolute Lymphocytes 1.2 Absolute Monocytes 1.1 Absolute Eosinophils 0.1 Absolute Basophils 0.0 Sodium 137.0 Potassium 3.4 L Chloride 101 Carbon Dioxide 25 Anion Gap 11 BUN 18 Creatinine 1.14 Est GFR ( Amer) 56 L Est GFR (Non-Af Amer) 46 L Glucose 85 Calcium 8.9 Total Bilirubin 1.8 H AST 58 H ALT 35 Alkaline Phosphatase 140 H Total Protein 7.0 Albumin 3.1 L Urine Color YELLOW Urine Appearance CLOUDY Urine pH 6.0 Ur Specific [place] 1.013 Urine Protein NEGATIVE Urine Glucose (UA) NEGATIVE Urine Ketones NEGATIVE Urine Blood NEGATIVE Urine Nitrite NEGATIVE Ur Leukocyte Esterase NEGATIVE Urine WBC (Auto) 1 Urine RBC (Auto) 1 10/21/18 18:46 Troponin I 0.014 NT-Pro-B Natriuret Pep 546 H Impressions: Chest X-Ray 10/21/18 18:55 IMPRESSION: Borderline cardiomegaly without pulmonary edema. Chronic interstitial changes. Assessment and Plan - Diagnosis (1) Acute respiratory failure with hypoxia Is this a current diagnosis for this admission?: Yes Plan: Patient be treated with supplemental oxygen as required to maintain an adequate oxygen saturation. (2) Acute exacerbation of chronic obstructive pulmonary disease (COPD) Is this a current diagnosis for this admission?: Yes Plan: Patient be treated with a pulmonary toilet utilizing Xopenex and Atrovent 3 times daily as well as Pulmicort twice daily all given via nebulizer. Additionally she will have an albuterol nebulizer available on a as needed basis. She will be given Solu-Medrol 40 mg IV every 8 hours for 3 doses with further steroids to be determined by her daytime hospitalist. Her COPD status will be followed clinically. (3) Acute metabolic encephalopathy Is this a current diagnosis for this admission?: Yes Plan: At this point the patient has relatively minor metabolic encephalopathy which will be treated supportively and symptomatically. Due to her diarrhea the lactulose will be held and we will monitor her serum ammonia level on a daily basis. Reinstitution of lactulose or other therapy can be thereby facilitated in the event of increased serum ammonia. (4) Cirrhosis Qualifiers: Hepatic cirrhosis type: unspecified hepatic cirrhosis Ascites presence: [facility] ascites Qualified Code(s): K74.60 - Unspecified cirrhosis of liver Is this a current diagnosis for this admission?: Yes Plan: Patient's hepatic functions and ammonia level be monitored on a regular basis. 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 - Time Time Spent with patient: 35 or more minutes Medications reviewed and adjusted accordingly: Yes Anticipated discharge: Home - Inpatient Certification Based on my medical assessment, after consideration of the patient's com orbidities, presenting symptoms, or acuity I expect that the services needed warrant INPATIENT care.: Yes I certify that my determination is in accordance with my understanding of Medicare's requirements for reasonable and necessary INPATIENT services [42 CFR 412.3e].: Yes Medical Necessity: Significant Comorbidiites Make Outpatient Treatment Too Risky, Need Close Monitoring Due to Risk of Patient Decompensation, Need For IV Fluids, Need for Nebulizer Therapy and Monitoring of Response, Need for Neurological Checks, Risk of Complication if Not Cared For in Hospital
[2018-10-22] MEDS: HEPARIN SOD (PORCINE) 5,000 UNIT/ML 1 ML SYRINGE SUBCUT SCH ×3 (05:12→21:59)
[2018-10-22] MEDS: METHYLPREDNISOLONE INJ 40 MG/1 ML SDV IV SCH ×3 (06:28→22:07)
[2018-10-22 08:37] LABS: ALANINE AMINOTRANSFERASE 32 U/L (9-52); ALKALINE PHOSPHATASE 133 U/L (38-126); ANION GAP 13 (5-19); ASPARTATE AMINO TRANSFERASE 104 U/L (14-36); BILIRUBIN,DIRECT 0.4 mg/dL (0.0-0.4); BILIRUBIN,TOTAL 2.1 mg/dL (0.2-1.3); BLOOD UREA NITROGEN 21 mg/dL (7-20); CALCIUM 8.8 mg/dL (8.4-10.2); CARBON DIOXIDE 21 mmol/L (22-30); CHLORIDE 105 mmol/L (98-107); CREATINE KINASE 299 U/L (30-135); GLUCOSE 167 mg/dL (75-110); POTASSIUM 3.6 mmol/L (3.6-5.0); TOTAL PROTEIN 6.8 g/dL (6.3-8.2)
[2018-10-22 08:41] LABS: ABSOLUTE LYMPHOCYTES (AUTO) 0.3 10^3/uL (0.5-4.7); ABSOLUTE MONOCYTES (AUTO) 0.1 10^3/uL (0.1-1.4); ABSOLUTE NEUT (AUTO) 3.5 10^3/uL (1.7-8.2); BASOPHILS % (AUTO) 0.3 % (0-2); HEMATOCRIT 34.4 % (36.0-47.0); HEMOGLOBIN 11.9 g/dL (12.0-15.5); LYMPHOCYTES % (AUTO) 8.3 % (13-45); MEAN CORPUSCULAR HEMOGLOBIN 34.3 pg (27.0-33.4); MEAN CORPUSCULAR HGB CONC 34.5 g/dL (32.0-36.0); MEAN CORPUSCULAR VOLUME 100 fl (80-97); MONOCYTES % (AUTO) 3.5 % (3-13); RED BLOOD COUNT 3.46 10^6/uL (3.72-5.28); RED CELL DISTRIBUTION WIDTH 16.7 % (11.5-14.0); SEGMENTED NEUTROPHILS % (AUTO) 87.9 % (42-78); TOTAL CELLS COUNTED % (AUTO) 100 %
[2018-10-22 08:48] LABS: CREATINE KINASE MB 22.9 ng/mL (<4.55)
[2018-10-22 08:55] LABS: TROPONIN I 11.7 ng/mL
[2018-10-22 09:25] LABS: PLATELET COUNT 61 10^3/uL (150-450)
[2018-10-22] MEDS: BUDESONIDE NEB 0.5 MG/2 ML AMPUL NEB SCH ×2 (09:31→19:51)
[2018-10-22] MEDS ORDERED: SPIRONOLACTONE 25 MG TABLET PO SCH (10:00)
[2018-10-22] MEDS: RIFAXIMIN 550 MG TABLET PO SCH ×2 (11:46→22:10)
[2018-10-22] MEDS: ALLOPURINOL 100 MG TABLET PO SCH (11:46)
[2018-10-22] MEDS: FOLIC ACID 1 MG TABLET PO SCH (11:46)
[2018-10-22] MEDS: FAMOTIDINE 20 MG TABLET PO SCH ×2 (11:46→22:07)
[2018-10-22] MEDS: METOPROLOL TARTRATE 25 MG TABLET PO SCH ×2 (11:47→22:00)
[2018-10-22] MEDS: DOCUSATE SODIUM 100 MG CAPSULE PO SCH ×2 (11:53→17:04)
[2018-10-22 13:25] LABS: CREATINE KINASE MB 26.4 ng/mL (<4.55); TROPONIN I 10.7 ng/mL
--- NOTE | 2018-10-22 14:56 | XCELERA REPORT ---
[address] [address] Transthoracic Echocardiogram Report Name: RACHNA MAYERS Age: 77 yrs Gender: Female : 1940 Patient Status: Inpatient Patient Location: [place] [address]^A Study Date: 10/22/2018 10:28 AM Height: 62 in Weight: 138 lb BSA: 1.6 m2 Procedure: A two-dimensional transthoracic echocardiogram with color flow and Doppler was performed. Images were not obtained from all of the standard acoustic windows due to the limited scope of the study. Reason For Study: / Hemochromatosis /CHF History: /Hemochroatosis / CHF. Ordering Physician: BEATRICE BELTRE Performed By: Jose Ma Interpretation Summary /Hemochroatosis / CHF The left ventricle is normal in size. There is mild concentric left ventricular hypertrophy. No True apical 2 chamber views obtained.Hence cannot comment on the apical anterior , the basal anterior, the basal inferior and apical inferior [place]cfar[place].THERE IS SUBTLE HYPOKINESIS OF THE APICAL SEPTUM.The mid anterior , the mid inferior and the rest of the LV mcfarland contract normally. .Normal LVEF is normal and is greater than 65% in the limited views. Doppler measurements suggest normal left ventricular diastolic function There is no thrombus. There is no ventricular septal defect visualized. The right ventricle is normal in size and function. The right atrium is normal. The left atrial size is normal. The interatrial septum is intact with no evidence for an atrial septal defect. There is no Doppler evidence for an interatrial shunt There is no evidence of mitral valve prolapse. There is no vegetation seen on the mitral valve. There is no mitral valve stenosis. There is a mild amount of mitral regurgitation There is no aortic valvular vegetation. There is moderate to severe aortic stenosis There is a peak gradient of 55 AND MEAN GRADIENT OF 30 mm of Hg. There is a mild amount of aortic regurgitation There is no tricuspid stenosis. There is a mild amount of tricuspid regurgitation Mild to moderate pulmonary hypertension.RVSP is 43 to 48 mm of Hg , with RA mean of 5 to 10. The aortic root is normal size. The inferior vena cava appeared normal and decreased > 50% with respiration (RAP 5-10 mmHg) There is no pericardial effusion. MMode/2D Measurements & Calculations RVDd: 2.6 cm LVIDd: 4.0 cm FS: 36.8 % Ao root diam: 3.1 cm IVSd: 1.3 cm LVIDs: 2.5 cm EDV(Teich): 71.1 ml Ao root area: 7.5 cm2 LVPWd: 1.3 cm ESV(Teich): 23.3 ml LA dimension: 2.9 cm EF(Teich): 67.2 % LVOT diam: 2.0 cm LVOT area: 3.1 cm2 Doppler Measurements & Calculations MV E max carole: MV P1/2t max carole: Ao V2 max: AI max carole: 163.5 cm/sec 166.0 cm/sec 371.7 cm/sec 411.0 cm/sec MV A max carole: MV P1/2t: 38.0 msec Ao max PG: AI max P.5 cm/sec MVA(P1/2t): 5.8 cm2 55.3 mmHg 67.6 mmHg MV E/A: 1.2 MV dec slope: Ao V2 mean: AI dec slope: 249.1 cm/sec 386.9 cm/sec2 1278 cm/sec2 Ao mean PG: AI P1/2t: MV dec time: 29.6 mmHg 311.1 msec 0.13 sec Ao V2 VTI: 73.6 cm NALINI(I,D): 1.0 cm2 NALINI(V,D): 1.1 cm2 LV V1 max PG: SV(LVOT): 74.0 ml PA V2 max: TR max carole: 6.2 mmHg 90.8 cm/sec 307.7 cm/sec LV V1 mean PG: PA max PG: TR max P.2 mmHg 3.3 mmHg 37.9 mmHg LV V1 max: 124.0 cm/sec LV V1 mean: 84.7 cm/sec LV V1 VTI: 23.5 cm AV P1/2t-pr_phl: MV P1/2t-pr_phl: 311.1 msec 38.0 msec Left Ventricle The left ventricle is normal in size. There is mild concentric left ventricular hypertrophy. No True apical 2 chamber views obtained.Hence cannot comment on the apical anterior , the basal anterior, the basal inferior and apical inferior mcfarland.THERE IS SUBTLE HYPOKINESIS OF THE APICAL SEPTUM.The mid anterior , the mid inferior and the rest of the LV mcfarland contract normally. .Normal LVEF is normal and is greater than 65% in the limited views. Doppler measurements suggest normal left ventricular diastolic function. There is no thrombus. There is no ventricular septal defect visualized. Right Ventricle The right ventricle is normal in size and function. Atria The right atrium is normal. The left atrial size is normal. The interatrial septum is intact with no evidence for an atrial septal defect. There is no Doppler evidence for an interatrial shunt. Mitral Valve There is mild to moderate mitral annular calcification. There is no evidence of mitral valve prolapse. There is no vegetation seen on the mitral valve. There is no mitral valve stenosis. There is a mild amount of mitral regurgitation. Aortic Valve There is no aortic valvular vegetation. There is moderate to severe aortic stenosis. There is a peak gradient of 55 AND MEAN GRADIENT OF 30 mm of Hg. There is a mild amount of aortic regurgitation. Tricuspid Valve There is no tricuspid stenosis. There is a mild amount of tricuspid regurgitation. Mild to moderate pulmonary hypertension.RVSP is 43 to 48 mm of Hg , with RA mean of 5 to 10. Pulmonic Valve There is no pulmonic valvular stenosis. There is no pulmonic valvular regurgitation. Great Vessels The aortic root is normal size. The inferior vena cava appeared normal and decreased > 50% with respiration (RAP 5-10 mmHg). Effusions There is no pericardial effusion. : BEATRICE BELTRE > Beatrice Beltre
--- NOTE | 2018-10-22 18:53 | PDOC PROGRESS REPORT ---
Subjective Progress Note for:: 10/22/18 Subjective:: Patient evaluated with family present. Son seems to be informed of her history. He provides much of the information. Patient was evaluated by cardiology this morning. She had a troponin that jumped to 11. During that timeframe she was asymptomatic. Shortly after the troponin resulted found the patient eating breakfast comfortably in bed and being fed by her son. Reason For Visit: ACUTE HYPOXIC RESPIRATORY FAILURE Physical Exam Vital Signs: Temp Pulse Resp BP Pulse Ox 97.3 F 78 16 109/56 L 93 10/22/18 14:06 10/22/18 15:52 10/22/18 15:52 10/22/18 14:06 10/22/18 15:52 Intake & Output 10/21/18 10/22/18 10/23/18 06:59 06:59 06:59 Intake Total 1250 Balance 1250 Weight 62.9 kg 63.8 kg General appearance: PRESENT: no acute distress, well-developed, well-nourished Head exam: PRESENT: atraumatic Eye exam: PRESENT: conjunctiva pink, EOMI, PERRLA. ABSENT: scleral icterus Ear exam: PRESENT: normal external ear exam Respiratory exam: PRESENT: prolonged expiratory phas, other - No appreciable whe [place], rhonchi, crackles Cardiovascular exam: PRESENT: +S1, +S2, other - Systolic ejection murmur GI/Abdominal exam: PRESENT: normal bowel sounds, soft. ABSENT: distended, guarding, mass, organolmegaly, rebound, tenderness Extremities exam: PRESENT: +1 edema - Bilateral lower extremities Musculoskeletal exam: PRESENT: full ROM, normal inspection Neurological exam: PRESENT: alert, awake, oriented to person, oriented to place, oriented to time, CN II-XII grossly intact, other - Gait not assessed Psychiatric exam: PRESENT: normal mood Results Laboratory Results: 10/22/18 08:06 10/22/18 08:06 10/21/18 10/21/18 10/21/18 18:46 18:46 20:07 WBC 7.3 RBC 3.51 L Hgb 12.1 Hct 34.7 L MCV 99 H MCH 34.4 H MCHC 34.7 RDW 17.2 H Plt Count 90 L Seg Neutrophils % 66.7 Lymphocytes % 15.7 Monocytes % 15.3 H Eosinophils % 1.7 Basophils % 0.6 Absolute Neutrophils 4.9 Absolute Lymphocytes 1.2 Absolute Monocytes 1.1 Absolute Eosinophils 0.1 Absolute Basophils 0.0 Sodium 137.0 Potassium 3.4 L Chloride 101 Carbon Dioxide 25 Anion Gap 11 BUN 18 Creatinine 1.14 Est GFR ( Amer) 56 L Est GFR (Non-Af Amer) 46 L Glucose 85 Calcium 8.9 Magnesium Total Bilirubin 1.8 H AST 58 H ALT 35 Alkaline Phosphatase 140 H Ammonia Total Protein 7.0 Albumin 3.1 L Urine Color YELLOW Urine Appearance CLOUDY Urine pH 6.0 Ur Specific [place] 1.013 Urine Protein NEGATIVE Urine Glucose (UA) NEGATIVE Urine Ketones NEGATIVE Urine Blood NEGATIVE Urine Nitrite NEGATIVE Ur Leukocyte Esterase NEGATIVE Urine WBC (Auto) 1 Urine RBC (Auto) 1 10/22/18 10/22/18 10/22/18 00:20 08:06 08:06 WBC 4.0 RBC 3.46 L Hgb 11.9 L Hct 34.4 L MCV 100 H MCH 34.3 H MCHC 34.5 RDW 16.7 H Plt Count 61 L Seg Neutrophils % 87.9 H Lymphocytes % 8.3 L Monocytes % 3.5 Eosinophils % 0.0 Basophils % 0.3 Absolute Neutrophils 3.5 Absolute Lymphocytes 0.3 L Absolute Monocytes 0.1 Absolute Eosinophils 0.0 Absolute Basophils 0.0 Sodium 139.0 Potassium 3.6 Chloride 105 Carbon Dioxide 21 L Anion Gap 13 BUN 21 H Creatinine 1.13 Est GFR ( Amer) 56 L Est GFR (Non-Af Amer) 46 L Glucose 167 H Calcium 8.8 Magnesium 2.5 H Total Bilirubin 2.1 H AST 104 H ALT 32 Alkaline Phosphatase 133 H Ammonia < 8.7 L Total Protein 6.8 Albumin 3.0 L Urine Color Urine Appearance Urine pH Ur Specific [place] Urine Protein Urine Glucose (UA) Urine Ketones Urine Blood Urine Nitrite Ur Leukocyte Esterase Urine WBC (Auto) Urine RBC (Auto) 10/22/18 08:06 WBC RBC Hgb Hct MCV MCH MCHC RDW Plt Count Seg Neutrophils % Lymphocytes % Monocytes % Eosinophils % Basophils % Absolute Neutrophils Absolute Lymphocytes Absolute Monocytes Absolute Eosinophils Absolute Basophils Sodium Potassium Chloride Carbon Dioxide Anion Gap BUN Creatinine Est GFR ( Amer) Est GFR (Non-Af Amer) Glucose Calcium Magnesium Total Bilirubin AST ALT Alkaline Phosphatase Ammonia < 8.7 L Total Protein Albumin Urine Color Urine Appearance Urine pH Ur Specific [place] Urine Protein Urine Glucose (UA) Urine Ketones Urine Blood Urine Nitrite Ur Leukocyte Esterase Urine WBC (Auto) Urine RBC (Auto) 10/21/18 10/22/18 10/22/18 18:46 00:20 00:20 Creatine Kinase 82 CK-MB (CK-2) 1.14 Troponin I 0.014 0.078 NT-Pro-B Natriuret Pep 546 H 10/22/18 10/22/18 10/22/18 08:06 08:06 12:37 Creatine Kinase 299 H 322 H CK-MB (CK-2) 22.90 H Troponin I 11.700 NT-Pro-B Natriuret Pep 10/22/18 12:37 Creatine Kinase CK-MB (CK-2) 26.40 H Troponin I 10.700 NT-Pro-B Natriuret Pep Impressions: Chest X-Ray 10/21/18 18:55 IMPRESSION: Borderline cardiomegaly without pulmonary edema. Chronic interstitial changes. Assessment and Plan - Time Time Spent with patient: 15-24 minutes Medications reviewed and adjusted accordingly: Yes - Inpatient Certification Based on my medical assessment, after consideration of the patient's comorbidities, presenting symptoms, or acuity I expect that the services needed warrant INPATIENT care.: Yes I certify that my determination is in accordance with my understanding of Medicare's requirements for reasonable and necessary INPATIENT services [42 CFR 412.3e].: Yes - Plan Summary Plan Summary: - Diagnosis (1) Acute respiratory failure with hypoxia Is this a current diagnosis for this admission?: Yes Plan: Patient be treated with supplemental oxygen as required to maintain an adequate oxygen saturation. 10/22: Related to problem #2. See below (2) Acute exacerbation of chronic obstructive pulmonary disease (COPD) Is this a current diagnosis for this admission?: Yes Plan: Patient be treated with a pulmonary toilet utilizing Xopenex and Atrovent 3 times daily as well as Pulmicort twice daily all given via nebulizer. Additionally she will have an albuterol nebulizer available on a as needed basis. She will be given Solu-Medrol 40 mg IV every 8 hours for 3 doses with further steroids to be determined by her daytime hospitalist. Her COPD status will be followed clinically. 10/22: No acute issues. Seems to be stable at this time. (3) Acute metabolic encephalopathy Is this a current diagnosis for this admission?: Yes Plan: At this point the patient has relatively minor metabolic encephalopathy which will be treated supportively and symptomatically. Due to her diarrhea the lactulose will be held and we will monitor her serum ammonia level on a daily basis. Reinstitution of lactulose or other therapy can be thereby facilitated in the event of increased serum ammonia. 10/22: Seem to be mostly oriented today. Continue with monitoring ammonia and lactulose use. (4) Cirrhosis Qualifiers: Hepatic cirrhosis type: unspecified hepatic cirrhosis Ascites presence: without ascites Qualified Code(s): K74.60 - Unspecified cirrhosis of liver Is this a current diagnosis for this admission?: Yes Plan: Patient's hepatic functions and ammonia level be monitored on a regular basis. 10/22: Continue to check her ammonia level, as her lactulose has been held. Her chronic low level diarrhea associated with lactulose, is closer to normal. 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 No acute management at this time. (6) aortic stenosis: This seems to be the likely cause of the weakness. Diagnosed on echocardiogram. Evaluated by cardiology. We will proceed with their recommendations. Unsure if family and patient would like to go forth and considering a TAVR procedure. Normal ejection fraction and apical hypokinesis reported. Will await official report for definitive findings. (7) elevated troponin: 11 on 10/22 am. Cardiology involved. Patient is on a statin, beta-carson, and spironolactone. Aspirin is not listed as an allergy, I am unsure why she is not on an antiplatelet agent at this time. Will discuss with the family. Consideration could also be given to an ALEXIA or arb, however h er blood pressure runs on the lower end of normal.
[2018-10-22] MEDS: ATORVASTATIN CALCIUM 10 MG TABLET PO SCH (21:59)
[2018-10-22] MEDS: TEMAZEPAM 7.5 MG CAPSULE PO PRN (22:24)
--- NOTE | 2018-10-22 22:54 | EKG REPORT ---
SEVERITY:- ABNORMAL ECG - SINUS ARRHYTHMIA, RATE 50-79 LVH WITH IVCD, LAD AND SECONDARY REPOL ABNRM : Confirmed by: Rd Hart 22-Oct-2018 22:54:21
--- NOTE | 2018-10-22 23:22 | PDOC CONSULTATION ---
Consultation-Blank Consultation: CARDIOLOGY CONSULTATION by Dr. Beatrice Del Cid on 10/22/2018. Patient seen at 9 AM on 10/22/2018. REASON FOR CONSULTATION: Patient with aortic stenosis, with shortness of breath hypoxia and significantly elevated troponin I levels. HISTORY OF PRESENT ILLNESS: Patient is a 77-year-old female with known history of hypertension, hemochromatosis, aortic stenosis, who was admitted with progressive generalized weakness with severe fatigue and intermittent delirium. She also had a temperature of 101 F with chills and multiple episodes of watery diarrhea without abdominal pain. The patient also was hypoxic with O2 sat of 85% on room air on admission and this improved with supplemental oxygen. The patient denies any chest pain or discomfort. There is no PND orthopnea. She has also a history of COPD, but denies any cough or sputum production or wheezing. There is no palpitations. There is no leg edema. Of note although the patient's EKG shows sinus rhythm with left intravascular block and LVH with strain pattern, with no acute ischemic changes, the patient troponin I has been elevated to 11.70. Again on repeated questioning patient denies any chest discomfort or any symptoms suggestive of atypical angina. There is no cough or sputum production or hemoptysis. There is no pleuritic chest pain. The patient denies any symptoms suggestive of urinary tract infection. PAST MEDICAL HISTORY: She has a past history of chronic diastolic heart failure. She also denies [corroborated by [facility]] coronary artery . No history of KS or anginal symptoms. She also has a history of hypertension. She also has a history of peripheral vascular disease with bilateral carotid stenosis. She also has aortic stenosis. She also has COPD and hyperlipidemia, and also has hemochromatosis. The son states that her hemochromatosis since the last 2 years has been stable and has not had any phlebotomies recently. There is no history of diabetes mellitus or thyroid disease. 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 At present the patient stage III with a GFR of 46. PAST SURGICAL HISTORY: Appendectomy, left carotid endarterectomy, cholecystectomy hysterectomy and tonsillectomy. History of phlebotomies in the past. Family HISTORY: Is positive coronary artery disease, diabetes mellitus, and hypertension. Allergies: She Is Allergic to Furosemide. She Is Also Allergic to Shellfish and Iodinated Oral and IV Contrast Which Causes Hives. There Is No Anaphylaxis. SOCIAL HISTORY: The Patient Is Not a Smoker. There Is No History of EtOH Abuse. DISPOSITION: The Patient Is a Full Code Her Son and Daughter Are Her Surrogate Healthcare Decision Makers. REVIEW SYSTEMS: CONSTITUTIONAL: Reports history of fever to 101 F with chills and Reiger's. At present patient is afebrile. She also has generalized weakness and severe fatigue. Which is improved slightly after hydration. HEAD: Denies headaches or head injury. EYES: No history of amblyopia diplopia. No history of amaurosis fugax. EARS: No history of tinnitus. No vertigo. No recurrent ear infections. NOSE: No history of nosebleeds. No sick hayfever. MOUTH: No history of altered taste sensation. No ulcers in the mouth. No bleeding from the gums. THROAT: No history of odynophagia or dysphagia. No recurrent sore throats. SKIN: No history of pruritus. No yellowish discoloration of the skin. No psoriasis or eczema. NECK: No history of neck pain. No swelling in the neck. LUNGS: History of COPD which is mild as per the patient's son. No cough or wheezing. Although she denies short of breath she does appear to be short of breath. There is no orthopnea. There is no history of sleep apnea. No history of asthma. History of secondhand smoke exposure present. No history of pleuritic chest pain or hemoptysis. No history of pulmonary embolism. CARDIAC: History of hypertension present prior. Prior history of chronic diastolic heart failure. No history of cardiac arrhythmia. No history of palpitations. No history of PND orthopnea leg edema recently. No history of coronary artery disease, KS or anginal symptoms. No history of rheumatic fever. History of aortic stenosis present. No history of syncope. GI: No history of fatty food intolerance. No history of jaundice. No history of GI bleed. No history of altered bowel movements. Denies abdominal pain. MUSCULOSKELETAL: History of arthritis present. But no acute flareup of arthritis. No history of collagen vascular disease. ENDOCRINE: No history of diabetes mellitus, or thyroid disease. No history of polydipsia polyuria no history of heat or cold intolerance. No history of hirsutism. No history of excessive sweating. RENAL: Most likely patient is chronic kidney disease. No hematuria pyuria or dysuria. No symptoms a UTI. METABOLIC: History of hyperlipidemia present. No history of obesity. No history of gout. BUSINESS ANALYST MANAGER: No history of TIA or CVA. No history of headaches migraines or seizures. No history of gait imbalance. PSYCHIATRIC: No history of anxiety or depression. No history of suicidal ideation. No history of homicidal ideation. VASCULAR: History of bilateral carotid stenosis, status post left carotid endarterectomy. No history of calf or buttock claudication. No history of DVT. HEMATOLOGICAL: History of hemochromatosis present seems to be stable since last 2 years. History of anemia in the past. History of chronic thrombocytopenia present no history of bleeding diathesis or clotting disorders. PHYSICAL EXAMINATION: The patient appears to be of stated age. She appears to be chronically ill. Although she is in no acute distress, and denies any shortness of breath. She appears to be mildly short of breath. She is well- groomed. 10/22/18 10/22/18 10/22/18 06:31 07:00 08:31 Temperature 97.8 F Pulse Rate Heart Rate ( 85 75 Monitors) Respiratory 21 H 16 Rate Blood Pressure 108/59 L 116/65 Blood Pressure 75 82 Mean O2 Sat by Pulse 96 99 Oximetry Oxygen Delivery Method ( includes room air) Oxygen Flow Rate 10/22/18 10/22/18 10/22/18 09:00 09:30 09:31 Temperature 98.4 F Pulse Rate 77 Heart Rate ( 85 68 Monitors) Respiratory 17 Rate Blood Pressure 128/62 H Blood Pressure 84 Mean O2 Sat by Pulse 93 Oximetry Oxygen Delivery Method ( includes room air) Oxygen Flow Rate 10/22/18 10:00 Temperature Pulse Rate Heart Rate ( Monitors) Respiratory Rate Blood Pressure Blood Pressure Mean O2 Sat by Pulse Oximetry Oxygen Delivery Nasal Cannula Method ( includes room air) Oxygen Flow 2 Rate HEAD: Is atraumatic normocephalic. EYES: Pupils equal round regular reactive to light accommodation. Extraocular movements are normal. There is no conjunctival pallor. There is no scleral icterus. EARS: Tympanic membranes are intact. External auditory canals are clear. NOSE: There is no deviated nasal septum. There is no inflammation of the nasal mucous membrane. MOUTH: Mucous membranes of the mouth are moist. Tongue is moist. There is no ulcers. There is no bleeding from the gums. THROAT: There is no redness of the oropharynx. There is no exudates. SKIN: There is no skin rashes or petechia or ecchymosis. There is no skin lesions. NECK: Is supple. There is no JVD. Carotids are equal without any significant delay. There is bilateral carotid bruit present. Right greater than left. There is also transmitted murmur of the aortic stenosis of both carotids. There is no lymphadenopathy. There is no goiter. There is no accessory muscle respiration use.. Trachea central. LUNGS: There is diminished air entry and prolonged expiration. There is a few dry leathery rales present in both bases. There is no rales of CHF. There is no rhonchi or wheezing. On percussion there is hyperresonance. On palpation there is no chest wall tenderness. HEART: S1-S2 is heard. There is no S3 gallop there is no S4 gallop. There is a systolic murmur of aortic stenosis present. A2 is diminished. But is still heard. There is faint murmur of aortic regurgitation present. There is mild mitral regurgitation present at the moment present in the apex with radiation to the left axilla. There is no rub. There is no thrill of aortic stenosis. There is no significant carotid delay. ABDOMEN: Soft. Nontender. There is no paraspinal megaly. Bowel sounds well heard. There is no tender areas masses. EXTREMITIES: Femorals are well felt. There is no femoral bruits. Leg pulses are well felt. There is no pedal edema. There is no DVT or cellulitis. There is no calf tenderness. BUSINESS ANALYST MANAGER: The patient is conscious awake alert oriented x3 with no focal deficit although she is slightly of slow mentation. PSYCHIATRIC: Patient judgment insight seem to be intact although she takes some time on deciding on any issue. Her affect appears to be normal. 10/21/18 10/21/18 10/22/18 18:46 19:14 00:20 WBC 7.3 RBC 3.51 L Hgb 12.1 Hct 34.7 L MCV 99 H MCH 34.4 H MCHC 34.7 RDW 17.2 H Plt Count 90 L Seg Neutrophils % 66.7 Lymphocytes % 15.7 Monocytes % 15.3 H Eosinophils % 1.7 Basophils % 0.6 Absolute Neutrophils 4.9 Absolute Lymphocytes 1.2 Absolute Monocytes 1.1 Absolute Eosinophils 0.1 Absolute Basophils 0.0 Sodium Potassium Chloride Carbon Dioxide Anion Gap BUN Creatinine Est GFR (Non-Af Amer) Glucose Calcium Magnesium Total Bilirubin Direct Bilirubin Neonat Total Bilirubin Neonat Direct Bilirubin Neonat Indirect Bili AST ALT Alkaline Phosphatase Ammonia Creatine Kinase CK-MB (CK-2) 1.14 Troponin I 0.078 Total Protein Albumin C. difficile Tox (PCR) Influenza A (Rapid) NEGATIVE Influenza B (Rapid) NEGATIVE 10/22/18 10/22/18 10/22/18 00:20 08:06 08:06 WBC RBC Hgb Hct MCV MCH MCHC RDW Plt Count Seg Neutrophils % Lymphocytes % Monocytes % Eosinophils % Basophils % Absolute Neutrophils Absolute Lymphocytes Absolute Monocytes Absolute Eosinophils Absolute Basophils Sodium 139.0 Potassium 3.6 Chloride 105 Carbon Dioxide 21 L Anion Gap 13 BUN 21 H Creatinine 1.13 Est GFR (Non-Af Amer) 46 L Glucose 167 H Calcium 8.8 Magnesium 2.5 H Total Bilirubin 2.1 H Direct Bilirubin 0.4 Neonat Total Bilirubin Not Reportable Neonat Direct Bilirubin Not Reportable Neonat Indirect Bili Not Reportable AST 104 H ALT 32 Alkaline Phosphatase 133 H Ammonia < 8.7 L Creatine Kinase 299 H CK-MB (CK-2) 22.90 H Troponin I 11.700 Total Protein 6.8 Albumin 3.0 L C. difficile Tox (PCR) Influenza A (Rapid) Influenza B (Rapid) 10/22/18 10/23/18 08:06 12:15 WBC 4.0 RBC 3.46 L Hgb 11.9 L Hct 34.4 L MCV 100 H MCH 34.3 H MCHC 34.5 RDW 16.7 H Plt Count 61 L Seg Neutrophils % 87.9 H Lymphocytes % 8.3 L Monocytes % 3.5 Eosinophils % 0.0 Basophils % 0.3 Absolute Neutrophils 3.5 Absolute Lymphocytes 0.3 L Absolute Monocytes 0.1 Absolute Eosinophils 0.0 Absolute Basophils 0.0 Sodium Potassium Chloride Carbon Dioxide Anion Gap BUN Creatinine Est GFR (Non-Af Amer) Glucose Calcium Magnesium Total Bilirubin Direct Bilirubin Neonat Total Bilirubin Neonat Direct Bilirubin Neonat Indirect Bili AST ALT Alkaline Phosphatase Ammonia Creatine Kinase CK-MB (CK-2) Troponin I Total Protein Albumin C. difficile Tox (PCR) NEGATIVE Influenza A (Rapid) Influenza B (Rapid) EKG: Sinus rhythm left anterior fascicular block. LVH with strain pattern. The patient's chest x-ray shows cardiomegaly with chronic interstitial changes. The patient's echocardiogram shows mild concentric left ventricular hypertrophy. There are no true apical 2 chamber views obtained. Hence cannot comment on the apical anterior the basal anterior, the basal inferior and the apical inferior mcfarland. There is subtle hypokinesis of the apical septum. The mid inferior at the mid anterior and the rest of the LV mcfarland contract normally LV ejection fraction limited views there is mild amount of tricuspid regurgitation. Mild to moderate pulmonary hypertension with right ventricle systolic pressure of 43-48 mmHg. There is no pericardial effusion. There is mild mitral regurgitation, without mitral stenosis or mitral prolapse. There is moderate to severe aortic stenosis with a peak gradient of 55 mmHg, and a mean gradient of 30 mmHg. I influences that the patient has severe aortic stenosis. There is mild AR. IMPRESSION/RECOMMENDATION: 1. Non-ST elevation KS versus type II myocardial supply demand ischemia causing troponin I leak. Note the patient does have moderate to severe aortic stenosis. Visually it appears to be a little more than severe. Hence this troponin I leak may be secondary to the patient's aortic stenosis, due to of myocytes. This could be an early harbinger of impending deterioration of the aortic stenosis, and also may signal the start of LV systolic dysfunction, in spite of the patient's normal ejection fraction by echo this admission. Also troponin elevation may be due to the patient's hypoxemia. But also cannot exclude coronary artery disease as cause of non-ST elevation KS, in view of the subtle apical septal hypokinesis. 2. Severe aortic stenosis: The patient may need evaluation with a ALIX or other modalities to make sure that the aortic stenosis is indeed severe and not critical. The patient may need aortic valve replacement if indeed the stenosis is significant, to cause troponin I elevation . 3. Coronary artery disease, underlying coronary artery disease cannot be excluded, 4. COPD with possible acute exacerbation. 5. Chronic changes on the x-ray may reflect interstitial fibrosis. Will get a chest CT without contrast to assess this. 6. Acute renal insufficiency: This could be secondary to dehydration due to patient's diarrhea. [She has no more diarrhea]. The GFR is improved to 55 mL/min after hydration. The patient's labs were reviewed from 2013. The patient does seem to have some chronic kidney disease in the past being stage II to stage III at times. Hence this is acute on chronic kidney disease. 7. Hypertension by prior history. Blood pressure is well controlled 8. 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 9. Peripheral vascular disease: Bilateral carotid stenosis. Patient status post left carotid endarterectomy. Will get a carotid Doppler to assess stenosis severity. Medications reviewed. Management plan discussed with attending physician. Discussed echo findings and EKG findings and lab tests with the patient and patient's son. Medical decision making is of high complexity. Later we will discuss with the [facility]U cardiology to see if the patient needs further workup to see if indeed the aortic stenosis is the cause of the patient's troponin leak. This will be done if the patient and son decide to go forward with this. They need some time. Will follow. 60 minutes spent on this patient with more than 50% of time spent in direct patient care.
[2018-10-23] MEDS: ONDANSETRON HCL INJ/PF 4 MG/2 ML SDV IV PRN (00:44)
[2018-10-23 04:24] LABS: HEMATOCRIT 31.7 % (36.0-47.0); HEMOGLOBIN 11.1 g/dL (12.0-15.5); MEAN CORPUSCULAR HEMOGLOBIN 34.1 pg (27.0-33.4); MEAN CORPUSCULAR HGB CONC 34.8 g/dL (32.0-36.0); MEAN CORPUSCULAR VOLUME 98 fl (80-97); RED BLOOD COUNT 3.24 10^6/uL (3.72-5.28); RED CELL DISTRIBUTION WIDTH 16.6 % (11.5-14.0)
[2018-10-23 04:45] LABS: PLATELET COUNT 62 10^3/uL (150-450); WHITE BLOOD COUNT 12.7 10^3/uL (4.0-10.5)
[2018-10-23 04:48] LABS: ABSOLUTE LYMPHOCYTES# (MANUAL) 0.4 10^3/uL (0.5-4.7); ABSOLUTE MONOCYTES # (MANUAL) 0.6 10^3/uL (0.1-1.4); ABSOLUTE NEUTROPHILS# (MANUAL) 11.7 10^3/uL (1.7-8.2); BASOPHILS % (MANUAL) 0 % (0-2); EOSINOPHILS % (MANUAL) 0 % (0-6); LYMPHOCYTES % (MANUAL) 3 % (13-45); MONOCYTES % (MANUAL) 5 % (3-13); SEGMENTED NEUTROPHILS % (MAN) 92 % (42-78); TOTAL CELLS COUNTED 100
[2018-10-23 04:49] LABS: ANISOCYTOSIS 1+; PLATELET COMMENT ADEQUATE; POLYCHROMASIA 1+
[2018-10-23 04:52] LABS: CHOLESTEROL 111.93 mg/dL (0-200); TRIGLYCERIDES 38 mg/dL (<150)
[2018-10-23 05:01] LABS: ALANINE AMINOTRANSFERASE 39 U/L (9-52); ALBUMIN 2.6 g/dL (3.5-5.0); ALKALINE PHOSPHATASE 109 U/L (38-126); ANION GAP 9 (5-19); ASPARTATE AMINO TRANSFERASE 88 U/L (14-36); BILIRUBIN,DIRECT 0.4 mg/dL (0.0-0.4); BILIRUBIN,TOTAL 1.3 mg/dL (0.2-1.3); BLOOD UREA NITROGEN 25 mg/dL (7-20); CALCIUM 8.7 mg/dL (8.4-10.2); CARBON DIOXIDE 22 mmol/L (22-30); CHLORIDE 101 mmol/L (98-107); CREATINE KINASE 210 U/L (30-135); GLUCOSE 152 mg/dL (75-110); POTASSIUM 4.2 mmol/L (3.6-5.0); SODIUM 132.2 mmol/L (137-145); TOTAL PROTEIN 6.1 g/dL (6.3-8.2)
[2018-10-23 05:04] LABS: DIRECT LDL 66 mg/dL (<100)
[2018-10-23] MEDS: HEPARIN SOD (PORCINE) 5,000 UNIT/ML 1 ML SYRINGE SUBCUT SCH ×3 (05:47→22:27)
[2018-10-23] MEDS: MAGNESIUM HYDROXIDE SUSP 30 ML UDCUP PO PRN (05:47)
[2018-10-23] MEDS: BUDESONIDE NEB 0.5 MG/2 ML AMPUL NEB SCH ×2 (08:03→19:31)
[2018-10-23] MEDS: IPRATROPIUM BROMIDE 0.02% NEB 0.5 MG/2.5 ML AMPUL NEB SCH ×2 (08:03→15:51)
[2018-10-23] MEDS: LEVALBUTEROL HCL NEB 1.25 MG/3 ML AMPUL NEB SCH ×2 (08:03→15:51)
[2018-10-23] MEDS: FOLIC ACID 1 MG TABLET PO SCH (09:38)
[2018-10-23] MEDS: SPIRONOLACTONE 25 MG TABLET PO SCH (09:38)
[2018-10-23] MEDS: FAMOTIDINE 20 MG TABLET PO SCH ×2 (09:38→22:32)
[2018-10-23] MEDS: METOPROLOL TARTRATE 25 MG TABLET PO SCH ×2 (09:38→22:35)
[2018-10-23] MEDS: ALLOPURINOL 100 MG TABLET PO SCH (09:38)
[2018-10-23] MEDS: ASPIRIN 81 MG TABLET, ENT COATED PO SCH (09:38)
[2018-10-23] MEDS: DOCUSATE SODIUM 100 MG CAPSULE PO SCH ×2 (09:39→17:44)
[2018-10-23] MEDS: RIFAXIMIN 550 MG TABLET PO SCH ×2 (09:40→22:32)
--- NOTE | 2018-10-23 12:31 | EKG REPORT ---
SEVERITY:- ABNORMAL ECG - SINUS RHYTHM LEFT ANTERIOR FASCICULAR BLOCK LVH WITH SECONDARY REPOLARIZATION ABNORMALITY BORDERLINE PROLONGED QT INTERVAL : Confirmed by: Rd Hart 23-Oct-2018 12:30:07
--- NOTE | 2018-10-23 15:16 | PDOC PROGRESS REPORT ---
Addendum entered and electronically signed by BERT RAY PA-C 10/23/18 15:17: Provider Note Provider Note: Repeat labs. Unsure if leukocytosis is accurate. Original Note: Subjective Progress Note for:: 10/23/18 Subjective:: Patient evaluated with son present this morning. She has a bright affect, and reports feeling better. Her stools are mostly formed at this point. Seems that she was started on rifampin approximate 3 weeks ago, and this has kept her diarrhea at bay while on lactulose. She ran out of the samples in the past week, and the diarrhea restarted. She does admit to generalized weakness since being diagnosed with hemochromatosis in her 30s. She also admits to a very mild and gradual dyspnea on exertion over the past few weeks to few months. She seems to be more oriented and a more reliable historian today. She has no acute concerns at this time. Cardiology is involved. It seems she was planning on f ollowing up with a copper plate printer known to the family on discharge. Reason For Visit: ACUTE HYPOXIC RESPIRATORY FAILURE Physical Exam Vital Signs: Temp Pulse Resp BP Pulse Ox 97.2 F 79 16 126/57 H 90 L 10/23/18 11:23 10/23/18 11:23 10/23/18 11:23 10/23/18 11:23 10/23/18 11:23 Intake & Output 10/22/18 10/23/18 10/24/18 06:59 06:59 06:59 Intake Total 1250 1074 Balance 1250 1074 Weight 62.9 kg 64.7 kg General appearance: PRESENT: no acute distress, cooperative Head exam: PRESENT: atraumatic, normocephalic Eye exam: PRESENT: conjunctiva pink, EOMI, PERRLA. ABSENT: scleral icterus Mouth exam: PRESENT: moist, tongue midline Respiratory exam: PRESENT: other - Diffuse fine crackles throughout. No significant rhonchi or wheeze appreciated. Cardiovascular exam: PRESENT: RRR, +S1, +S2 GI/Abdominal exam: PRESENT: normal bowel sounds, soft. ABSENT: distended, guarding, mass, organolmegaly, rebound, tenderness Extremities exam: PRESENT: +1 edema - Bilateral lower extremities. Neurological exam: PRESENT: alert, awake, oriented to person, oriented to place, oriented to time, oriented to situation, CN II-XII grossly intact. ABSENT: josé r sensory deficit Psychiatric exam: PRESENT: normal mood Results Laboratory Results: 10/23/18 04:09 10/23/18 04:09 10/23/18 10/23/18 10/23/18 04:09 04:09 04:09 WBC 12.7 H D RBC 3.24 L Hgb 11.1 L Hct 31.7 L MCV 98 H MCH 34.1 H MCHC 34.8 RDW 16.6 H Plt Count 62 L Seg Neutrophils % Not Reportable Lymphocytes % Not Reportable Monocytes % Not Reportable Eosinophils % Not Reportable Basophils % Not Reportable Absolute Neutrophils Not Reportable Absolute Lymphocytes Not Reportable Absolute Monocytes Not Reportable Absolute Eosinophils Not Reportable Absolute Basophils Not Reportable Sodium Potassium Chloride Carbon Dioxide Anion Gap BUN Creatinine Est GFR ( Amer) Est GFR (Non-Af Amer) Glucose Calcium Magnesium 2.6 H Ferritin 42.40 Total Bilirubin Cancelled AST Cancelled ALT Cancelled Alkaline Phosphatase Cancelled Ammonia 27.6 Total Protein Cancelled Albumin Cancelled Triglycerides 38 Cholesterol 111.93 LDL Cholesterol Direct 66 VLDL Cholesterol 8.0 L HDL Cholesterol 42 10/23/18 04:09 WBC RBC Hgb Hct MCV MCH MCHC RDW Plt Count Seg Neutrophils % Lymphocytes % Monocytes % Eosinophils % Basophils % Absolute Neutrophils Absolute Lymphocytes Absolute Monocytes Absolute Eosinophils Absolute Basophils Sodium 132.2 L Potassium 4.2 Chloride 101 Carbon Dioxide 22 Anion Gap 9 BUN 25 H Creatinine 0.98 Est GFR ( Amer) > 60 Est GFR (Non-Af Amer) 55 L Glucose 152 H Calcium 8.7 Magnesium Ferritin Total Bilirubin 1.3 AST 88 H ALT 39 Alkaline Phosphatase 109 Ammonia Total Protein 6.1 L Albumin 2.6 L Triglycerides Cholesterol LDL Cholesterol Direct VLDL Cholesterol HDL Cholesterol 10/21/18 20:07 Catheterized Urine Urine Culture - Final NO GROWTH 2 DAYS 10/21/18 10/22/18 10/22/18 18:46 00:20 00:20 Creatine Kinase 82 CK-MB (CK-2) 1.14 Troponin I 0.014 0.078 NT-Pro-B Natriuret Pep 546 H 10/22/18 10/22/18 10/22/18 08:06 08:06 12:37 Creatine Kinase 299 H 322 H CK-MB (CK-2) 22.90 H Troponin I 11.700 NT-Pro-B Natriuret Pep 10/22/18 10/22/18 10/23/18 12:37 23:48 04:09 Creatine Kinase 210 H CK-MB (CK-2) 26.40 H Troponin I 10.700 6.560 NT-Pro-B Natriuret Pep Impressions: Chest X-Ray 10/21/18 18:55 IMPRESSION: Borderline cardiomegaly without pulmonary edema. Chronic inter stitial changes. Assessment and Plan - Diagnosis (1) Aortic stenosis Is this a current diagnosis for this admission?: Yes - Time Time Spent with patient: 15-24 minutes Medications reviewed and adjusted accordingly: Yes - Inpatient Certification Based on my medical assessment, after consideration of the patient's comorbid ities, presenting symptoms, or acuity I expect that the services needed warrant INPATIENT care.: Yes I certify that my determination is in accordance with my understanding of Medicare's requirements for reasonable and necessary INPATIENT services [42 CFR 412.3e].: Yes - Plan Summary Plan Summary: (1) Acute respiratory failure with hypoxia Is this a current diagnosis for this admission?: Yes Plan: Patient be treated with supplemental oxygen as required to maintain an adequate oxygen saturation. 10/22: Related to problem #2. See below (2) Acute exacerbation of chronic obstructive pulmonary disease (COPD) Is this a current diagnosis for this admission?: Yes Plan: Patient be treated with a pulmonary toilet utilizing Xopenex and Atrovent 3 times daily as well as Pulmicort twice daily all given via nebulizer. Additionally she will have an albuterol nebulizer available on a as needed basis. She will be given Solu-Medrol 40 mg IV every 8 hours for 3 doses with further steroids to be determined by her daytime hospitalist. Her COPD status will be followed clinically. 10/22: No acute issues. Seems to be stable at this time. (3) Acute metabolic encephalopathy Is this a current diagnosis for this admission?: Yes Plan: At this point the patient has relatively minor metabolic encephalopathy which will be treated supportively and symptomatically. Due to her diarrhea the lactulose will be held and we will monitor her serum ammonia level on a daily basis. Reinstitution of lactulose or other therapy can be thereby facilitated in the event of increased serum ammonia. 10/22: Seem to be mostly oriented today. Continue with monitoring ammonia and lactulose use. 10/23: Improved. Oriented today. (4) Cirrhosis Qualifiers: Hepatic cirrhosis type: unspecified hepatic cirrhosis Ascites presence: without ascites Qualified Code(s): K74.60 - Unspecified cirrhosis of liver Is this a current diagnosis for this admission?: Yes Plan: Patient's hepatic functions and ammonia level be monitored on a regular basis. 10/22: Continue to check her ammonia level, as her lactulose has been held. Her chronic low level diarrhea associated with lactulose, is closer to normal. 10/23: Chronic. Related to filtration by hemochromatosis. Patient seems to need rifampin to give the lactulose from making her stool successfully loose. Obviously needs lactulose given her cirrhosis. 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 No acute management at this time. 10/23: Likely contributing to generalized weakness. (6) aortic stenosis: This seems to be the likely cause of the weakness. Diagnosed on echocardiogram. Evaluated by cardiology. We will proceed with their recommendations. Unsure if family and patient would like to go forth and considering a TAVR procedure. Normal ejection fraction and apical hypokinesis reported. Will await official report for definitive findings. 10/23: We will proceed with cardiology recommendations. (7) elevated troponin: 11 on 10/22 am. Cardiology involved. Patient is on a statin, beta-carson, and spironolactone. Aspirin is not listed as an allergy, I am unsure why she is not on an antiplatelet agent at this time. Will discuss with the family. Consideration could also be given to an ALEXIA or arb, however her blood pressure runs on the lower end of normal. Elevated troponin felt to be related to aortic stenosis. 10/23: Again will follow with cardiology recommendations. Aspirin started. Patient is on atorvastatin 10 mg nightly.
[2018-10-23] MEDS ORDERED: PHENYLEPHRINE HCL 1 EACH SUPP.RECT PR PRN (18:32)
--- NOTE | 2018-10-23 21:01 | Progress Note ---
Provider Note Provider Note: CARDIOLOGY PROGRESS NOTE by Dr. Beatrice Del Cid on 10/23/2018. SUBJECTIVE: The patient denies any chest pain or discomfort. Although she denies shortness of breath, she does appear to be mildly short of breath. But she is not in any acute distress. She denies any cough or sputum production. There is no PND orthopnea. There is no atrial or ventricular arrhythmia seen on the monitor. The patient has no PND or orthopnea. There is no leg edema. There is no TIA CVA symptoms. Repeated questioning she definitely denies any chest pain or discomfort or any typical or atypical anginal symptoms. Troponin I is trending down. Her EKG shows nonspecific T changes in the anterior leads. These does not seem to be dramatic changes. SUBJECTIVE: The patient appears to be of her stated age. She appears to be chronically ill. She is in no acute distress, except does appear to be slightly short of breath. Selected Entries 10/23/18 11:23 Temperature 97.2 F Temperature Oral Source Pulse Rate 79 Respiratory 16 Rate Blood Pressure 126/57 H Blood Pressure 80 Mean BP Location Right Arm BP Position Supine O2 Sat by Pulse 90 L Oximetry Oxygen Flow 1.50 Rate Oxygen Delivery Nasal Cannula Method HEAD: Is atraumatic normocephalic. EYES: Pupils equal round regular reactive to light accommodation. Extraocular movements are normal. There is no conjunctival pallor. There is no scleral icterus. EARS: Tympanic membranes are intact. External auditory canals are clear. NOSE: There is no deviated nasal septum. There is no inflammation of the nasal mucous membrane. MOUTH: Mucous membranes of the mouth are moist. Tongue is moist. There is no ulcers. There is no bleeding from the gums. THROAT: There is no redness of the oropharynx. There is no exudates. SKIN: There is no skin rashes or petechia or ecchymosis. There is no skin lesions. NECK: Is supple. There is no JVD. Carotids are equal without any significant delay. There is bilateral carotid bruit present. Right greater than left. There is also transmitted murmur of the aortic stenosis of both carotids. There is no lymphadenopathy. There is no goiter. There is no accessory muscle respiration use.. Trachea central. LUNGS: There is diminished air entry and prolonged expiration. There is a few dry leathery rales present in both bases. There is no rales of CHF. There is no rhonchi or wheezing. On percussion there is hyperresonance. On palpation there is no chest wall tenderness. HEART: S1-S2 is heard. There is no S3 gallop there is no S4 gallop. There is a systolic murmur of aortic stenosis present. A2 is diminished. But is still heard. There is faint murmur of aortic regurgitation present. There is mild mitral regurgitation present at the moment present in the apex with radiation to the left axilla. There is no rub. There is no thrill of aortic stenosis. There is no significant carotid delay. ABDOMEN: Soft. Nontender. There is no paraspinal megaly. Bowel sounds well heard. There is no tender areas masses. EXTREMITIES: Femorals are well felt. There is no femoral bruits. Leg pulses are well felt. There is no pedal edema. There is no DVT or cellulitis. There is no calf tenderness. RESEARCH MANAGER: The patient is conscious awake alert oriented x3 with no focal deficit although she is slightly of slow mentation. PSYCHIATRIC: Patient judgment insight seem to be intact although she takes some time on deciding on any issue. Her affect appears to be normal. Labs- Entire Visit 10/21/18 10/21/18 10/21/18 18:46 18:46 18:46 WBC 7.3 RBC 3.51 L Hgb 12.1 Hct 34.7 L MCV 99 H MCH 34.4 H MCHC 34.7 RDW 17.2 H Plt Count 90 L Total Counted Seg Neutrophils % 66.7 Seg Neuts % (Manual) Lymphocytes % 15.7 Lymphocytes % (Manual) Monocytes % 15.3 H Monocytes % (Manual) Eosinophils % 1.7 Eosinophils % (Manual) Basophils % 0.6 Basophils % (Manual) Absolute Neutrophils 4.9 Abs Neuts (Manual) Absolute Lymphocytes 1.2 Abs Lymphs (Manual) Absolute Monocytes 1.1 Abs Monocytes (Manual) Absolute Eosinophils 0.1 Absolute Eos (Manual) Absolute Basophils 0.0 Abs Basophils (Manual) Platelet Comment Polychromasia Anisocytosis Sodium 137.0 Potassium 3.4 L Chloride 101 Carbon Dioxide 25 Anion Gap 11 BUN 18 Creatinine 1.14 Est GFR ( Amer) 56 L Est GFR (Non-Af Amer) 46 L Glucose 85 Calcium 8.9 Magnesium Ferritin Total Bilirubin 1.8 H Direct Bilirubin 0.5 H Neonat Total Bilirubin Not Reportable Neonat Direct Bilirubin Not Reportable Neonat Indirect Bili Not Reportable AST 58 H ALT 35 Alkaline Phosphatase 140 H Ammonia Creatine Kinase CK-MB (CK-2) Troponin I 0.014 NT-Pro-B Natriuret Pep 546 H Total Protein 7.0 Albumin 3.1 L Triglycerides Cholesterol LDL Cholesterol Direct VLDL Cholesterol HDL Cholesterol Urine Color Urine Appearance Urine pH Ur Specific Bruin Urine Protein Urine Glucose (UA) Urine Ketones Urine Blood Urine Nitrite Urine Bilirubin Urine Urobilinogen Ur Leukocyte Esterase Urine WBC (Auto) Urine RBC (Auto) U Hyaline Cast (Auto) Urine Mucus (Auto) Urine Ascorbic Acid C. difficile Tox (PCR) Influenza A (Rapid) Influenza B (Rapid) 10/21/18 10/21/18 10/22/18 19:14 20:07 00:20 WBC RBC Hgb Hct MCV MCH MCHC RDW Plt Count Total Counted Seg Neutrophils % Seg Neuts % (Manual) Lymphocytes % Lymphocytes % (Manual) Monocytes % Monocytes % (Manual) Eosinophils % Eosinophils % (Manual) Basophils % Basophils % (Manual) Absolute Neutrophils Abs Neuts (Manual) Absolute Lymphocytes Abs Lymphs (Manual) Absolute Monocytes Abs Monocytes (Manual) Absolute Eosinophils Absolute Eos (Manual) Absolute Basophils Abs Basophils (Manual) Platelet Comment Polychromasia Anisocytosis Sodium Potassium Chloride Carbon Dioxide Anion Gap BUN Creatinine Est GFR ( Amer) Est GFR (Non-Af Amer) Glucose Calcium Magnesium Ferritin Total Bilirubin Direct Bilirubin Neonat Total Bilirubin Neonat Direct Bilirubin Neonat Indirect Bili AST ALT Alkaline Phosphatase Ammonia Creatine Kinase 82 CK-MB (CK-2) Troponin I NT-Pro-B Natriuret Pep Total Protein Albumin Triglycerides Cholesterol LDL Cholesterol Direct VLDL Cholesterol HDL Cholesterol Urine Color YELLOW Urine Appearance CLOUDY Urine pH 6.0 Ur Specific Bruin 1.013 Urine Protein NEGATIVE Urine Glucose (UA) NEGATIVE Urine Ketones NEGATIVE Urine Blood NEGATIVE Urine Nitrite NEGATIVE Urine Bilirubin NEGATIVE Urine Urobilinogen 2.0 H Ur Leukocyte Esterase NEGATIVE Urine WBC (Auto) 1 Urine RBC (Auto) 1 U Hyaline Cast (Auto) 1 Urine Mucus (Auto) RARE Urine Ascorbic Acid 20 H C. difficile Tox (PCR) Influenza A (Rapid) NEGATIVE Influenza B (Rapid) NEGATIVE 10/22/18 10/22/18 10/22/18 00:20 00:20 08:06 WBC RBC Hgb Hct MCV MCH MCHC RDW Plt Count Total Counted Seg Neutrophils % Seg Neuts % (Manual) Lymphocytes % Lymphocytes % (Manual) Monocytes % Monocytes % (Manual) Eosinophils % Eosinophils % (Manual) Basophils % Basophils % (Manual) Absolute Neutrophils Abs Neuts (Manual) Absolute Lymphocytes Abs Lymphs (Manual) Absolute Monocytes Abs Monocytes (Manual) Absolute Eosinophils Absolute Eos (Manual) Absolute Basophils Abs Basophils (Manual) Platelet Comment Polychromasia Anisocytosis Sodium 139.0 Potassium 3.6 Chloride 105 Carbon Dioxide 21 L Anion Gap 13 BUN 21 H Creatinine 1.13 Est GFR ( Amer) 56 L Est GFR (Non-Af Amer) 46 L Glucose 167 H Calcium 8.8 Magnesium 2.5 H Ferritin Total Bilirubin 2.1 H Direct Bilirubin 0.4 Neonat Total Bilirubin Not Reportable Neonat Direct Bilirubin Not Reportable Neonat Indirect Bili Not Reportable AST 104 H ALT 32 Alkaline Phosphatase 133 H Ammonia < 8.7 L Creatine Kinase 299 H CK-MB (CK-2) 1.14 Troponin I 0.078 NT-Pro-B Natriuret Pep Total Protein 6.8 Albumin 3.0 L Triglycerides Cholesterol LDL Cholesterol Direct VLDL Cholesterol HDL Cholesterol Urine Color Urine Appearance Urine pH Ur Specific Bruin Urine Protein Urine Glucose (UA) Urine Ketones Urine Blood Urine Nitrite Urine Bilirubin Urine Urobilinogen Ur Leukocyte Esterase Urine WBC (Auto) Urine RBC (Auto) U Hyaline Cast (Auto) Urine Mucus (Auto) Urine Ascorbic Acid C. difficile Tox (PCR) Influenza A (Rapid) Influenza B (Rapid) 10/22/18 10/22/18 10/22/18 08:06 08:06 08:06 WBC 4.0 RBC 3.46 L Hgb 11.9 L Hct 34.4 L MCV 100 H MCH 34.3 H MCHC 34.5 RDW 16.7 H Plt Count 61 L Total Counted Seg Neutrophils % 87.9 H Seg Neuts % (Manual) Lymphocytes % 8.3 L Lymphocytes % (Manual) Monocytes % 3.5 Monocytes % (Manual) Eosinophils % 0.0 Eosinophils % (Manual) Basophils % 0.3 Basophils % (Manual) Absolute Neutrophils 3.5 Abs Neuts (Manual) Absolute Lymphocytes 0.3 L Abs Lymphs (Manual) Absolute Monocytes 0.1 Abs Monocytes (Manual) Absolute Eosinophils 0.0 Absolute Eos (Manual) Absolute Basophils 0.0 Abs Basophils (Manual) Platelet Comment Polychromasia Anisocytosis Sodium Potassium Chloride Carbon Dioxide Anion Gap BUN Creatinine Est GFR ( Amer) Est GFR (Non-Af Amer) Glucose Calcium Magnesium Ferritin Total Bilirubin Direct Bilirubin Neonat Total Bilirubin Neonat Direct Bilirubin Neonat Indirect Bili AST ALT Alkaline Phosphatase Ammonia < 8.7 L Creatine Kinase CK-MB (CK-2) 22.90 H Troponin I 11.700 NT-Pro-B Natriuret Pep Total Protein Albumin Triglycerides Cholesterol LDL Cholesterol Direct VLDL Cholesterol HDL Cholesterol Urine Color Urine Appearance Urine pH Ur Specific Bruin Urine Protein Urine Glucose (UA) Urine Ketones Urine Blood Urine Nitrite Urine Bilirubin Urine Urobilinogen Ur Leukocyte Esterase Urine WBC (Auto) Urine RBC (Auto) U Hyaline Cast (Auto) Urine Mucus (Auto) Urine Ascorbic Acid C. difficile Tox (PCR) Influenza A (Rapid) Influenza B (Rapid) 10/22/18 10/22/18 10/22/18 12:37 12:37 23:48 WBC RBC Hgb Hct MCV MCH MCHC RDW Plt Count Total Counted Seg Neutrophils % Seg Neuts % (Manual) Lymphocytes % Lymphocytes % (Manual) Monocytes % Monocytes % (Manual) Eosinophils % Eosinophils % (Manual) Basophils % Basophils % (Manual) Absolute Neutrophils Abs Neuts (Manual) Absolute Lymphocytes Abs Lymphs (Manual) Absolute Monocytes Abs Monocytes (Manual) Absolute Eosinophils Absolute Eos (Manual) Absolute Basophils Abs Basophils (Manual) Platelet Comment Polychromasia Anisocytosis Sodium Potassium Chloride Carbon Dioxide Anion Gap BUN Creatinine Est GFR ( Amer) Est GFR (Non-Af Amer) Glucose Calcium Magnesium Ferritin Total Bilirubin Direct Bilirubin Neonat Total Bilirubin Neonat Direct Bilirubin Neonat Indirect Bili AST ALT Alkaline Phosphatase Ammonia Creatine Kinase 322 H CK-MB (CK-2) 26.40 H Troponin I 10.700 6.560 NT-Pro-B Natriuret Pep Total Protein Albumin Triglycerides Cholesterol LDL Cholesterol Direct VLDL Cholesterol HDL Cholesterol Urine Color Urine Appearance Urine pH Ur Specific Bruin Urine Protein Urine Glucose (UA) Urine Ketones Urine Blood Urine Nitrite Urine Bilirubin Urine Urobilinogen Ur Leukocyte Esterase Urine WBC (Auto) Urine RBC (Auto) U Hyaline Cast (Auto) Urine Mucus (Auto) Urine Ascorbic Acid C. difficile Tox (PCR) Influenza A (Rapid) Influenza B (Rapid) 10/23/18 10/23/18 10/23/18 04:09 04:09 04:09 WBC 12.7 H D RBC 3.24 L Hgb 11.1 L Hct 31.7 L MCV 98 H MCH 34.1 H MCHC 34.8 RDW 16.6 H Plt Count 62 L Total Counted 100 Seg Neutrophils % Not Reportable Seg Neuts % (Manual) 92 H Lymphocytes % Not Reportable Lymphocytes % (Manual) 3 L Monocytes % Not Reportable Monocytes % (Manual) 5 Eosinophils % Not Reportable Eosinophils % (Manual) 0 Basophils % Not Reportable Basophils % (Manual) 0 Absolute Neutrophils Not Reportable Abs Neuts (Manual) 11.7 H Absolute Lymphocytes Not Reportable Abs Lymphs (Manual) 0.4 L Absolute Monocytes Not Reportable Abs Monocytes (Manual) 0.6 Absolute Eosinophils Not Reportable Absolute Eos (Manual) 0.0 Absolute Basophils Not Reportable Abs Basophils (Manual) 0.0 Platelet Comment ADEQUATE Polychromasia 1+ Anisocytosis 1+ Sodium Potassium Chloride Carbon Dioxide Anion Gap BUN Creatinine Est GFR ( Amer) Est GFR (Non-Af Amer) Glucose Calcium Magnesium 2.6 H Ferritin 42.40 Total Bilirubin Cancelled Direct Bilirubin Cancelled Neonat Total Bilirubin Cancelled Neonat Direct Bilirubin Cancelled Neonat Indirect Bili Cancelled AST Cancelled ALT Cancelled Alkaline Phosphatase Cancelled Ammonia 27.6 Creatine Kinase CK-MB (CK-2) Troponin I NT-Pro-B Natriuret Pep Total Protein Cancelled Albumin Cancelled Triglycerides 38 Cholesterol 111.93 LDL Cholesterol Direct 66 VLDL Cholesterol 8.0 L HDL Cholesterol 42 Urine Color Urine Appearance Urine pH Ur Specific Bruin Urine Protein Urine Glucose (UA) Urine Ketones Urine Blood Urine Nitrite Urine Bilirubin Urine Urobilinogen Ur Leukocyte Esterase Urine WBC (Auto) Urine RBC (Auto) U Hyaline Cast (Auto) Urine Mucus (Auto) Urine Ascorbic Acid C. difficile Tox (PCR) Influenza A (Rapid) Influenza B (Rapid) 10/23/18 10/23/18 04:09 12:15 WBC RBC Hgb Hct MCV MCH MCHC RDW Plt Count Total Counted Seg Neutrophils % Seg Neuts % (Manual) Lymphocytes % Lymphocytes % (Manual) Monocytes % Monocytes % (Manual) Eosinophils % Eosinophils % (Manual) Basophils % Basophils % (Manual) Absolute Neutrophils Abs Neuts (Manual) Absolute Lymphocytes Abs Lymphs (Manual) Absolute Monocytes Abs Monocytes (Manual) Absolute Eosinophils Absolute Eos (Manual) Absolute Basophils Abs Basophils (Manual) Platelet Comment Polychromasia Anisocytosis Sodium 132.2 L Potassium 4.2 Chloride 101 Carbon Dioxide 22 Anion Gap 9 BUN 25 H Creatinine 0.98 Est GFR ( Amer) > 60 Est GFR (Non-Af Amer) 55 L Glucose 152 H Calcium 8.7 Magnesium Ferritin Total Bilirubin 1.3 Direct Bilirubin 0.4 Neonat Total Bilirubin Not Reportable Neonat Direct Bilirubin Not Reportable Neonat Indirect Bili Not Reportable AST 88 H ALT 39 Alkaline Phosphatase 109 Ammonia Creatine Kinase 210 H CK-MB (CK-2) Troponin I NT-Pro-B Natriuret Pep Total Protein 6.1 L Albumin 2.6 L Triglycerides Cholesterol LDL Cholesterol Direct VLDL Cholesterol HDL Cholesterol Urine Color Urine Appearance Urine pH Ur Specific Bruin Urine Protein Urine Glucose (UA) Urine Ketones Urine Blood Urine Nitrite Urine Bilirubin Urine Urobilinogen Ur Leukocyte Esterase Urine WBC (Auto) Urine RBC (Auto) U Hyaline Cast (Auto) Urine Mucus (Auto) Urine Ascorbic Acid C. difficile Tox (PCR) NEGATIVE Influenza A (Rapid) Influenza B (Rapid) Chest X-Ray 10/21/18 18:55 IMPRESSION: Borderline cardiomegaly without pulmonary edema. Chronic interstitial changes. IMPRESSION/RECOMMENDATION: 1. Non-ST elevation [place] versus type II myocardial supply demand ischemia causing troponin I leak. Note the patient does have moderate to severe aortic stenosis. Visually it appears to be a little more than severe. Hence this troponin I leak may be secondary to the patient's aortic stenosis, due to of myositis. This could be an early harbinger of impending deterioration of the aortic stenosis, and also may signal the start of LV systolic dysfunction, in spite of the patient's normal ejection fraction by echo this admission. But also cannot exclude coronary artery disease as cause of non-ST elevation [place], in view of the subtle apical septal hypokinesis. 2. Severe aortic stenosis: The patient may need evaluation with a ALIX or other modalities to make sure that the aortic stenosis is indeed severe and not critical. The patient may need aortic valve replacement if indeed the stenosis is significant, to cause troponin I elevation . 3. Coronary artery disease, underlying coronary artery disease cannot be excluded, 4. COPD with possible acute exacerbation. 5. Chronic changes on the x-ray may reflect interstitial fibrosis. Will get a chest CT without contrast to assess this. 6. Acute renal insufficiency: This could be secondary to dehydration due to patient's diarrhea. [She has no more diarrhea]. The GFR is improved to 55 mL/min after hydration. The patient's labs were reviewed from 2013. The patient does seem to have some chronic kidney disease in the past being stage II to stage III at times. Hence this is acute on chronic kidney disease. With no improvement with a GFR with hydration. 7. Hypertension by prior history. Blood pressure is well controlled 8. 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 Patient's ferritin levels are within normal limits. 9. Peripheral vascular disease: Bilateral carotid stenosis. Patient status p ost left carotid endarterectomy. Will get a carotid Doppler to assess stenosis severity. Case was discussed with the Dr. Truong of [facility] cardiology. He agrees that the patient may need further for workup to see if the patient indeed needs the aortic valve stenosis addressed. This has been discussed with the patient and patient's son. They will decide, and let me know. Medications reviewed. Management plan discussed with attending physician on the case. Medical decision making is of high complexity. 40 minutes spent on this patient more than 50% of time spent in direct patient care.
[2018-10-23] MEDS ORDERED: HYDROCORTISONE ACETATE 25 MG SUPP.RECT PR ONE (21:45)
[2018-10-23] MEDS ORDERED: (PENDING PHARMACY ID) (Lactulose [Constulose 10 Gm/15 Ml Oral Solution] 10 ML) PO SCH (22:00)
[2018-10-23] MEDS: LACTULOSE SYRUP 20 GM/30 ML UDCUP PO SCH (22:32)
[2018-10-23] MEDS: ATORVASTATIN CALCIUM 10 MG TABLET PO SCH (22:32)
[2018-10-24] MEDS: IPRATROPIUM BROMIDE 0.02% NEB 0.5 MG/2.5 ML AMPUL NEB SCH ×3 (00:49→15:42)
[2018-10-24] MEDS: LEVALBUTEROL HCL NEB 1.25 MG/3 ML AMPUL NEB SCH ×3 (00:49→15:42)
[2018-10-24] MEDS: HEPARIN SOD (PORCINE) 5,000 UNIT/ML 1 ML SYRINGE SUBCUT SCH ×2 (05:39→13:19)
[2018-10-24 07:20] LABS: ABSOLUTE LYMPHOCYTES (AUTO) 0.7 10^3/uL (0.5-4.7); ABSOLUTE MONOCYTES (AUTO) 1.5 10^3/uL (0.1-1.4); ABSOLUTE NEUT (AUTO) 11.3 10^3/uL (1.7-8.2); BASOPHILS % (AUTO) 0.3 % (0-2); HEMATOCRIT 31.7 % (36.0-47.0); HEMOGLOBIN 10.9 g/dL (12.0-15.5); LYMPHOCYTES % (AUTO) 5.1 % (13-45); MEAN CORPUSCULAR HEMOGLOBIN 34.1 pg (27.0-33.4); MEAN CORPUSCULAR HGB CONC 34.5 g/dL (32.0-36.0); MEAN CORPUSCULAR VOLUME 99 fl (80-97); MONOCYTES % (AUTO) 10.8 % (3-13); RED CELL DISTRIBUTION WIDTH 16.8 % (11.5-14.0); SEGMENTED NEUTROPHILS % (AUTO) 83.8 % (42-78); TOTAL CELLS COUNTED % (AUTO) 100 %; WHITE BLOOD COUNT 13.4 10^3/uL (4.0-10.5)
[2018-10-24 07:48] LABS: PLATELET COUNT 81 10^3/uL (150-450)
[2018-10-24 07:53] LABS: ALANINE AMINOTRANSFERASE 31 U/L (9-52); ALBUMIN 2.7 g/dL (3.5-5.0); ALKALINE PHOSPHATASE 104 U/L (38-126); ANION GAP 7 (5-19); ASPARTATE AMINO TRANSFERASE 78 U/L (14-36); BILIRUBIN,DIRECT 0.7 mg/dL (0.0-0.4); BLOOD UREA NITROGEN 32 mg/dL (7-20); CALCIUM 9.1 mg/dL (8.4-10.2); CARBON DIOXIDE 25 mmol/L (22-30); CHLORIDE 102 mmol/L (98-107); GLUCOSE 126 mg/dL (75-110); SODIUM 133.6 mmol/L (137-145); TOTAL PROTEIN 6.3 g/dL (6.3-8.2)
[2018-10-24] MEDS: BUDESONIDE NEB 0.5 MG/2 ML AMPUL NEB SCH (08:13)
--- NOTE | 2018-10-24 09:24 | RADIOLOGY REPORT (SQ) ---
EXAM DESCRIPTION: CT CHEST WITHOUT COMPLETED DATE/TIME: 10/24/2018 9:01 am REASON FOR STUDY: chronic interstitial changes COMPARISON: Radiographs from recently and from 2018. TECHNIQUE: CT scan performed of the chest without intravenous contrast. Images reviewed with lung, soft tissue and bone windows. Reconstructed coronal and sagittal MPR images reviewed. All images st ored on PACS. All CT scanners at this facility use dose modulation, iterative reconstruction, and/or weight based d osing when appropriate to reduce radiation dose to as low as reasonably achievable (ALARA). [facility]: Dose Right [facility]: CareDose [facility]: Dose Right [facility]: Teradose 4D [facility]: Smart [employer] RADIATION DOSE: CT Rad equipment meets quality standard of care and radiation dose reduction techniq ues were employed. CTDIvol: 5.7 mGy. DLP: 205 mGy-cm. mGy. LIMITATIONS: Motion artifact. FINDINGS: LUNGS AND PLEURA: Reticular opacities in the upper and lower lung bowman, at least some co mponent of septal thickening. Patchy multifocal ground-glass densities, appearance suggestive of "Cr azy paving" . This raises the possibility of alveolar proteinosis but numerous additional possible e tiologies as well. Includes sarcoid, organizing pneumonia, atypical infection, hemorrhage and edema. Nonspecific interstitial pneumonia is also in the differential. HILAR AND MEDIASTINAL STRUCTURES: No bulky adenopathy. Small nodes are suspected. HEART AND VASCULAR STRUCTURES: Cardiac enlargement with marked coronary calcification. No aortic ane urysm. UPPER ABDOMEN: Marked ascites. Heterogeneous incompletely evaluated liver. Nodular contours, presum ed cirrhosis. THYROID AND OTHER SOFT TISSUES: Thyroid unremarkable. Prominent venous collaterals along the anterio r chest wall. BONES: No significant finding. HARDWARE: None in the chest. OTHER: No other significant findings. IMPRESSION: 1. Extensive interstitial changes throughout the lungs with broad differential as above. 2. Findings consistent with cirrhosis and portal hypertension. Considerable upper abdominal ascites. TECHNICAL DOCUMENTATION: JOB ID: [id number] Quality ID # [id number]: Final reports with documentation of one or more dose reduction techniques (e.g., Au tomated exposure control, adjustment of the mA and/or kV according to patient size, use of iterative reconstruction technique) 2010 [employer]- All Rights Reserved Reading location - IP/workstation name: [email or web address]
[2018-10-24] MEDS: ALLOPURINOL 100 MG TABLET PO SCH (09:43)
[2018-10-24] MEDS: SPIRONOLACTONE 25 MG TABLET PO SCH (09:43)
[2018-10-24] MEDS: FOLIC ACID 1 MG TABLET PO SCH (09:43)
[2018-10-24] MEDS: ASPIRIN 81 MG TABLET, ENT COATED PO SCH (09:43)
[2018-10-24] MEDS: LACTULOSE SYRUP 20 GM/30 ML UDCUP PO SCH (09:43)
[2018-10-24] MEDS: FAMOTIDINE 20 MG TABLET PO SCH (09:43)
[2018-10-24] MEDS: RIFAXIMIN 550 MG TABLET PO SCH (09:44)
[2018-10-24] MEDS: METOPROLOL TARTRATE 25 MG TABLET PO SCH (09:44)
[2018-10-24] MEDS: DOCUSATE SODIUM 100 MG CAPSULE PO SCH (09:45)
[2018-10-24] MEDS ORDERED: CHOLECALCIFEROL (D3) 1,000 UNIT TABLET PO SCH (10:00)
[2018-10-24] MEDS ORDERED: (PENDING PHARMACY ID) (Cholecalciferol (Vitamin D3) [Vitamin D3 2000 Unit Tablet] 2,000 UN PO SCH (10:00)
--- NOTE | 2018-10-24 10:36 | EKG REPORT ---
SEVERITY:- ABNORMAL ECG - SINUS RHYTHM LEFT ANTERIOR FASCICULAR BLOCK LVH WITH SECONDARY REPOLARIZATION ABNORMALITY : Confirmed by: Rd Hart 24-Oct-2018 10:36:26
[2018-10-24] MEDS ORDERED: LEVOFLOXACIN 500 MG TABLET PO SCH (15:30)
--- NOTE | 2018-10-24 16:05 | Progress Note ---
Provider Note Provider Note: CARDIOLOGY PROGRESS NOTE by Dr. Beatrice Walters on 10/20/2018. SUBJECTIVE: The patient continues to look to be short of breath, although she denies it. There is no chest pain or discomfort. The patient's troponin I is coming down. She has no leg edema. There is no arrhythmias seen on the monitor. There is no PND orthopnea. The patient states that she has a cough and this bringing up some scanty sputum, but cannot tell us as to what color the sputum is. There is no wheezing. PHYSICAL EXAMINATION:The patient appears to be of her stated age. She appears to be chronically ill. She is in no acute distress, except does appear to be slightly short of breath. Selected Entries 10/24/18 12:02 Temperature 97.8 F Temperature Oral Source Pulse Rate 70 Respiratory 18 Rate Blood Pressure 148/65 H Blood Pressure 92 Mean BP Location Left Arm BP Position Supine O2 Sat by Pulse 91 L Oximetry Oxygen Flow 4.00 Rate Oxygen Delivery Nasal Cannula Method HEAD: Is atraumatic normocephalic. EYES: Pupils equal round regular reactive to light accommodation. Extraocular movements are normal. There is no conjunctival pallor. There is no scleral icterus. EARS: Tympanic membranes are intact. External auditory canals are clear. NOSE: There is no deviated nasal septum. There is no inflammation of the nasal mucous membrane. MOUTH: Mucous membranes of the mouth are moist. Tongue is moist. There is no ulcers. There is no bleeding from the gums. THROAT: There is no redness of the oropharynx. There is no exudates. SKIN: There is no skin rashes or petechia or ecchymosis. There is no skin lesions. NECK: Is supple. There is no JVD. Carotids are equal without any significant delay. There is bilateral carotid bruit present. Right greater than left. There is also transmitted murmur of the aortic stenosis of both carotids. There is no lymphadenopathy. There is no goiter. There is no accessory muscle respiration use.. Trachea central. LUNGS: There is diminished air entry and prolonged expiration. There is a few dry leathery rales present in both bases. There is no rales of CHF. There is no rhonchi or wheezing. On percussion there is hyperresonance. On palpation there is no chest wall tenderness. HEART: S1-S2 is heard. There is no S3 gallop there is no S4 gallop. There is a systolic murmur of aortic stenosis present. A2 is diminished. But is still heard. There is faint murmur of aortic regurgitation present. There is mild mitral regurgitation present at the moment present in the apex with radiation to the left axilla. There is no rub. There is no thrill of aortic stenosis. There is no significant carotid delay. ABDOMEN: S oft. Nontender. There is no paraspinal megaly. Bowel sounds well heard. There is no tender areas masses. EXTREMITIES: Femorals are well felt. There is no femoral bruits. Leg pulses are well felt. There is no pedal edema. There is no DVT or cellulitis. There is no calf tenderness. TOBACCO WEIGHER: The patient is conscious awake alert oriented x3 with no focal deficit although she is slightly of slow mentation. PSYCHIATRIC: Patient judgment insight seem to be intact although she takes some time on deciding on any issue. Her affect appears to be normal. Labs- All tests 24 hr 10/24/18 10/24/18 10/24/18 06:50 06:50 06:50 WBC 13.4 H RBC 3.20 L Hgb 10.9 L Hct 31.7 L MCV 99 H MCH 34.1 H MCHC 34.5 RDW 16.8 H Plt Count 81 L Seg Neutrophils % 83.8 H Lymphocytes % 5.1 L Monocytes % 10.8 Eosinophils % 0.0 Basophils % 0.3 Absolute Neutrophils 11.3 H Absolute Lymphocytes 0.7 Absolute Monocytes 1.5 H Absolute Eosinophils 0.0 Absolute Basophils 0.0 Sodium 133.6 L Potassium 5.0 Chloride 102 Carbon Dioxide 25 Anion Gap 7 BUN 32 H Creatinine 1.00 Est GFR ( Amer) > 60 Est GFR (Non-Af Amer) 53 L Glucose 126 H Calcium 9.1 Magnesium 3.1 H Total Bilirubin 2.0 H Direct Bilirubin 0.7 H Neonat Total Bilirubin Not Reportable Neonat Direct Bilirubin Not Reportable Neonat Indirect Bili Not Reportable AST 78 H ALT 31 Alkaline Phosphatase 104 Ammonia 41.1 H Troponin I Total Protein 6.3 Albumin 2.7 L 10/24/18 06:50 WBC RBC Hgb Hct MCV MCH MCHC RDW Plt Count Seg Neutrophils % Lymphocytes % Monocytes % Eosinophils % Basophils % Absolute Neutrophils Absolute Lymphocytes Absolute Monocytes Absolute Eosinophils Absolute Basophils Sodium Potassium Chloride Carbon Dioxide Anion Gap BUN Creatinine Est GFR ( Amer) Est GFR (Non-Af Amer) Glucose Calcium Magnesium Total Bilirubin Direct Bilirubin Neonat Total Bilirubin Neonat Direct Bilirubin Neonat Indirect Bili AST ALT Alkaline Phosphatase Ammonia Troponin I 2.670 Total Protein Albumin Chest X-Ray 10/21/18 18:55 IMPRESSION: Borderline cardiomegaly without pulmonary edema. Chronic interstitial changes. Chest CT 10/24/18 06:00 IMPRESSION: 1. Extensive interstitial changes throughout the lungs with broad differential as above. 2. Findings consistent with cirrhosis and portal hypertension. Considerable upper abdominal ascites. IMPRESSION/RECOMMENDATION: 1. Non-ST elevation IN versus type II myocardial supply demand ischemia causing troponin I leak. Note the patient does have moderate to severe aortic stenosis. Visually it appears to be a little more than severe. Hence this troponin I leak may be secondary to the patient's aortic stenosis, due to of myositis. This could be an early harbinger of impending deterioration of the aortic stenosis, and also may signal the start of LV systolic dysfunction, in spite of the patient's normal ejection fraction by echo this admission. But also cannot exclude coronary artery disease as cause of non-ST elevation IN, in view of the subtle apical septal hypokinesis. 2. Severe aortic stenosis: The patient may need evaluation with a ALIX or other modalities to make sure that the aortic stenosis is indeed severe and not c ritical. The patient may need aortic valve replacement if indeed the stenosis is significant, to cause troponin I elevation . 3. Coronary artery disease, underlying coronary artery disease cannot be excluded, 4. COPD with possible acute exacerbation. 5. Chronic changes on the x-ray may reflect interstitial fibrosis. 6. Acute renal insufficiency: This could be secondary to dehydration due to patient's diarrhea. [She has no more diarrhea]. The GFR is improved to 55 mL/min after hydration. The patient's labs were reviewed from 2013. The patient does seem to have some chronic kidney disease in the past being stage II to stage III at times. Hence this is acute on chronic kidney disease. With no improvement with a GFR with hydration. 7. Hypertension by prior history. Blood pressure is well controlled 8. 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 Patient's ferritin levels are within normal limits. 9. Peripheral vascular disease: Bilateral carotid stenosis. Patient status p ost left carotid endarterectomy. Will get a carotid Doppler to assess stenosis severity. 10. Possible interstitial lung disease. 11.? Cirrhosis of the liver. Medications reviewed. In view of the patient's cough will add Levaquin Levaquin. The patient discussed with the PCU cardiology who has accepted the patient for further workup. The son knows that this patient is being transferred for further investigation to see if the patient does require any interventions. Discussed management plan discussed with attending physician on the case. Patient being transferred to [facility]. Will sign off. The patient is a full code. Her son and daughter are her surrogate healthcare decision makers. Medical decision making is of high complexity.
--- NOTE | 2018-10-24 16:12 | RADIOLOGY REPORT (SQ) ---
EXAM DESCRIPTION: CAROTID DOPPLER COMPLETED DATE/TIME: 10/24/2018 3:37 pm REASON FOR STUDY: Joseph Carotid stenosis COMPARISON: 06/08/2014. TECHNIQUE: Grayscale ultrasound, Doppler velocity and spectra, and color Doppler images acquired of the extra-cranial carotid and vertebral arteries. Images stored on PACS. LIMITATIONS: Respiratory motion. Patient cooperation issues. Tortuous vessels. FINDINGS: RIGHT CAROTID CCA Velocities: Within normal limits. ICA Velocities Peak systolic 0.77 m/s. End diastolic 0.26 m/s. Proximal ICA/CCA peak systolic ratio 1.1. Tortuous vessels. No luminal compromise. LEFT CAROTID CCA Velocities: Within normal limits. ICA Velocities Peak systolic 1.1 m/s. End diastolic 0.32 m/s. Proximal ICA/CCA peak systolic ratio 1.9. Tortuous vessels. No luminal compromise. VERTEBRAL ARTERIES: Antegrade flow. Normal waveforms. SUBCLAVIAN ARTERIES: No finding. OTHER: No other significant finding. IMPRESSION: 1. Difficult study. No evidence of hemodynamically significant stenosis on today's study. COMMENT: Quality ID #[id number]: Velocity criteria are extrapolated from the diameter data as defined by t he Society of Radiologists in Ultrasound Consensus Conference. Radiology 2003: 229; 340-346. TECHNICAL DOCUMENTATION: JOB ID: [id number] [employer]- All Rights Reserved Reading location - IP/workstation name: [email or web address]
[2018-10-24 16:28] VITALS: BP 148/63
--- NOTE | 2018-10-24 16:38 | PDOC TRANSFER SUMMARY ---
General Admission Date/PCP: 10/21/18 22:27 ALFREDA RENTERIA MD Admission Date: 10/21/18 Transfer Date: 10/24/18 Accepting Facility: [facility] Accepting Physician: Dr Lees Resuscitation Status: Full Code - Transfer Diagnosis (1) Aortic stenosis Is this a current diagnosis for this admission?: Yes (2) Pneumonia Is this a current diagnosis for this admission?: Yes (3) Cirrhosis Is this a current diagnosis for this admission?: Yes (4) Dehydration Is this a current diagnosis for this admission?: Yes (5) Elevated troponin Is this a current diagnosis for this admission?: Yes (6) Hemochromatosis Is this a current diagnosis for this admission?: Yes (7) Pulmonary vascular congestion Is this a current diagnosis for this admission?: Yes - Transfer Medications Home Medications: Cholecalciferol (Vitamin D3) [Vitamin D3 2000 unit Tablet] 2,000 unit PO DAILY 10/22/18 Transfer Medications: Current Medications Acetaminophen (Tylenol 325 Mg Tablet) 650 mg PO Q4HP PRN PRN Reason: For headache, pain or fever Stop: 11/20/18 22:32 Al Hydrox/Mg Hydrox/Simethicone (Maalox Plus Susp 30 Udcup) 30 ml PO Q6HP PRN PRN Reason: HEARTBURN Stop: 11/20/18 22:26 Last Admin: 10/21/18 23:05 Dose: 30 ml Documented by: Allopurinol (Zyloprim 100 Mg Tablet) 100 mg PO DAILY ROBERTA Stop: 11/21/18 09:59 Last Admin: 10/24/18 09:43 Dose: 100 mg Documented by: Aspirin (Ecotrin 81 Mg Ec Tablet) 81 mg PO DAILY ROBERTA Stop: 11/22/18 09:59 Last Admin: 10/24/18 09:43 Dose: 81 mg Documented by: Atorvastatin Calcium (Lipitor 10 Mg Tablet) 10 mg PO QHS ROBERTA Stop: 11/21/18 21:59 Last Admin: 10/23/18 22:32 Dose: 10 mg Documented by: Budesonide (Pulmicort Neb 0.5 Mg/2 Ml Ampul) 0.5 mg NEB RTBID ROBERTA Stop: 11/21/18 07:59 Last Admin: 10/24/18 08:13 Dose: 0.5 mg Documented by: Cholecalciferol (Vitamin D3 1000 Unit Tablet) 2,000 unit PO DAILY [facility] Stop: 11/23/18 09:59 Last Admin: 10/24/18 09:43 Dose: 2,000 unit Documented by: Docusate Sodium (Colace 100 Mg Capsule) 100 mg PO BID ROBERTA Stop: 11/21/18 09:59 Last Admin: 10/24/18 09:45 Dose: Not Given Documented by: Famotidine (Pepcid 20 Mg Tablet) 20 mg PO Q12 ROBERTA Stop: 11/21/18 09:59 Last Admin: 10/24/18 09:43 Dose: 20 mg Documented by: Folic Acid (Folvite 1 Mg Tablet) 1 mg PO DAILY [facility] Stop: 11/21/18 09:59 Last Admin: 10/24/18 09:43 Dose: 1 mg Documented by: Hard Fat/Phenylephrine (Anusol Suppository) 1 each SD Q8HP PRN PRN Reason: HEMORRHOIDS Stop: 11/22/18 18:31 Heparin Sodium (Porcine) (Heparin Inj 5,000 Units/Ml 1 Ml Syringe) 5,000 unit SUBCUT Q8 ROBERTA Stop: 11/21/18 05:59 Last Admin: 10/24/18 13:19 Dose: Not Given Documented by: Ipratropium [place] (Atrovent 0.02% Neb 0.5 Mg/2.5 Ml Ampul) 0.5 mg NEB RTQ8 [facility] Stop: 11/21/18 00:00 Last Admin: 10/24/18 15:42 Dose: 0.5 mg Documented by: Lactulose (Cephulac Syrup 20 Gm/30 Ml Udcup) 10 gm PO Q12 ROBERTA Stop: 11/22/18 21:59 Last Admin: 10/24/18 09:43 Dose: 10 gm Documented by: Levalbuterol HCl (Xopenex Neb 1.25 Mg/3 Ml Ampul) 1.25 mg NEB RTQ8 [facility] Stop: 11/21/18 00:00 Last Admin: 10/24/18 15:42 Dose: 1.25 mg Documented by: Levofloxacin (Levaquin 500 Mg Tablet) 500 mg PO DAILY [facility] Stop: 10/31/18 15:29 Last Admin: 10/24/18 15:50 Dose: 500 mg Documented by: Magnesium Hydroxide (Milk Of Magnesia 30 Ml Udcup) 30 ml PO HSP PRN PRN Reason: FOR CONSTIPATION Stop: 11/20/18 22:26 Last Admin: 10/23/18 05:47 Dose: 30 ml Documented by: Metoprolol Tartrate (Lopressor 25 Mg Tablet) 12.5 mg PO Q12 [facility] Stop: 11/21/18 09:59 Last Admin: 10/24/18 09:44 Dose: 12.5 mg Documented by: Morphine Sulfate (Morphine 10 Mg/Ml Inj) 2 mg IV Q2HP PRN PRN Reason: FOR PAIN SCALE 1-2/5 Stop: 10/28/18 22:55 Last Admin: 10/21/18 23:07 Dose: 2 mg Documented by: Morphine Sulfate (Morphine 10 Mg/Ml Inj) 3 mg IV Q2HP PRN PRN Reason: FOR PAIN SCALE 3-4/5 Stop: 10/28/18 22:55 Morphine Sulfate (Morphine 10 Mg/Ml Inj) 4 mg IV Q2HP PRN PRN Reason: PAIN SCALE OF 5/5 Stop: 10/28/18 22:55 Ondansetron HCl (Zofran Inj/Pf 4 Mg/2 Ml Sdv) 4 mg IV Q4HP PRN PRN Reason: FOR NAUSEA/VOMITING Stop: 11/20/18 22:26 Last Admin: 10/23/18 00:44 Dose: 4 mg Documented by: Rifaximin (Xifaxan 550 Mg Tablet) 550 mg PO Q12 [facility] Stop: 10/29/18 09:59 Last Admin: 10/24/18 09:44 Dose: 550 mg Documented by: Sodium Chloride (Saline Flush 2.5 Ml Monoject Prefil Syrin) 2.5 ml IV Q8 [facility] Stop: 11/21/18 05:59 Last Admin: 10/24/18 13:49 Dose: 2.5 ml Documented by: Spironolactone (Aldactone 25 Mg Tablet) 25 mg PO DAILY ROBERTA Stop: 11/22/18 09:59 Last Admin: 10/24/18 09:43 Dose: 25 mg Documented by: Temazepam (Restoril 7.5 Mg Capsule) 7.5 mg PO HSP PRN PRN Reason: SLEEP OR INSOMNIA Stop: 10/28/18 22:26 Last Admin: 10/22/18 22:24 Dose: 7.5 mg Documented by: - Allergies Allergies/Adverse Reactions: furosemide [From Lasix] Allergy (Verified 10/21/18 18:46) shellfish derived Allergy (Verified 10/21/18 18:46) Iodinated Contrast- Oral and IV Dye Adverse Reaction (Verified 10/21/18 18:46) iodine Adverse Reaction (Verified 10/21/18 18:46) - Diet/Activity Discharge Diet: Cardiac Discharge Activity: Other - As tolerated with assistance. Hospital Course Hospital Course: 1: Acute respiratory failure with hypoxia/COPD exacerbation -Resolved early in admission with supplemental oxygen, Xopenex, Atrovent, albuterol, IV steroids of 40mg x 1 day. 2: Generalized weakness: Some mild improvements. felt to be poly-factorial. Related to aortic stenosis plus hemochromatosis plus dehydration 3: Aortic stenosis: Discovered on echocardiogram after an obvious systolic mu rmur was present. on 10/22 patient elevated troponin of 11. She is asymptomatic at this time. Later troponin trended down to 2. It was felt that the elevated troponin was likely related to the aortic stenosis. Echo showed normal ejection fraction is with apical hypokinesis. Please see the full and accurate report from cardiology. Cardiology does note that a non-STEMI cannot be ruled out. She was started on 81 mg of aspirin daily since there was no known contraindication. She will be maintained on her metoprolol 12.5 mg every 12 hours on discharge and spironolactone 25 mg daily. Cardiology helped with discharge arrangements. Lengthy conversation had with the family this morning by the hospitalist. Patient and family are aware that they are being transferred in order to have further investigation into the possibility of having a valve replacement. They seem to be in agreement with plan. She also had a carotid ultrasound while admitted. Study was grossly negative. 4: Diarrhea: Resolved with the restarting of rifaxamin in the holding of lactulose times 2 days. Lactulose was restarted at 10mg q12h. should be noted that patient tends to develop diarrhea when on lactulose alone. When unable to obtain rifaxamin. 5: Cirrhosis: Secondary to hemochromatosis. No acute issues. Recommend restarting lactulose at 10 mg every 12 hours. Ascites noted on chest CT. Likely contributing to generalized weakness. 6: hemochromatosis: Likely contributing to generalized weakness. No acute issues. Normal ferritin 7: PNA: Possible/Suspected on chest CT on 10/23. Oxygen demand via nasal cannula went from 2-4 L on 10/24. on 10/24 She reported a cough times 2 days. She was started on Levaquin at this time. Prior imaging has shown chronic changes that may be reflective of interstitial fibrosis. 8: Hyperlipidemia: Started on atorvastatin 10 mg nightly during admission 9 CKD 2-3. GFR around 55 range. Has remained relatively constant. Physical Exam Vital Signs: Temp Pulse Resp BP Pulse Ox 97.8 F 80 22 H 148/65 H 92 10/24/18 12:02 10/24/18 15:43 10/24/18 15:43 10/24/18 12:02 10/24/18 15:43 Intake & Output 10/23/18 10/24/18 10/25/18 06:59 06:59 06:59 Intake Total 1074 1116 492 Balance 1074 1116 492 Weight 64.7 kg 64.5 kg General appearance: PRESENT: no acute distress, cooperative Head exam: PRESENT: atraumatic Eye exam: PRESENT: conjunctiva pink, EOMI, PERRLA. ABSENT: scleral icterus Ear exam: PRESENT: normal external ear exam Mouth exam: PRESENT: moist, tongue midline Respiratory exam: PRESENT: other - Possible rhonchi. Diffuse faint crackles. Diminished airflow throughout. No appreciable wheeze Cardiovascular exam: PRESENT: RRR, +S1, +S2, systolic murmur, other Pulses: PRESENT: +1 pedal pulses bilateral GI/Abdominal exam: PRESENT: normal bowel sounds, soft, other - Possible ascites. ABSENT: distended, guarding, mass, organolmegaly, rebound, tenderness Extremities exam: PRESENT: other - Trace edema bilateral lower extremities Musculoskeletal exam: PRESENT: full ROM, normal inspection Neurological exam: PRESENT: alert, awake, oriented to person, oriented to place, oriented to time, oriented to situation, CN II-XII grossly intact, other - Gait not fully assessed. ABSENT: motor sensory deficit Psychiatric exam: PRESENT: normal mood Skin exam: PRESENT: other Results Laboratory Results: 10/24/18 06:50 10/24/18 06:50 10/24/18 10/24/18 10/24/18 06:50 06:50 06:50 WBC 13.4 H RBC 3.20 L Hgb 10.9 L Hct 31.7 L MCV 99 H MCH 34.1 H MCHC 34.5 RDW 16.8 H Plt Count 81 L Seg Neutrophils % 83.8 H Lymphocytes % 5.1 L Monocytes % 10.8 Eosinophils % 0.0 Basophils % 0.3 Absolute Neutrophils 11.3 H Absolute Lymphocytes 0.7 Absolute Monocytes 1.5 H Absolute Eosinophils 0.0 Absolute Basophils 0.0 Sodium 133.6 L Potassium 5.0 Chloride 102 Carbon Dioxide 25 Anion Gap 7 BUN 32 H Creatinine 1.00 Est GFR ( Amer) > 60 Est GFR (Non-Af Amer) 53 L Glucose 126 H Calcium 9.1 Magnesium 3.1 H Total Bilirubin 2.0 H AST 78 H ALT 31 Alkaline Phosphatase 104 Ammonia 41.1 H Total Protein 6.3 Albumin 2.7 L 10/21/18 10/22/18 10/22/18 18:46 00:20 00:20 Creatine Kinase 82 CK-MB (CK-2) 1.14 Troponin I 0.014 0.078 NT-Pro-B Natriuret Pep 546 H 10/22/18 10/22/18 10/22/18 08:06 08:06 12:37 Creatine Kinase 299 H 322 H CK-MB (CK-2) 22.90 H Troponin I 11.700 NT-Pro-B Natriuret Pep 10/22/18 10/22/18 10/23/18 12:37 23:48 04:09 Creatine Kinase 210 H CK-MB (CK-2) 26.40 H Troponin I 10.700 6.560 NT-Pro-B Natriuret Pep 10/24/18 06:50 Creatine Kinase CK-MB (CK-2) Troponin I 2.670 NT-Pro-B Natriuret Pep Impressions: Chest X-Ray 10/21/18 18:55 IMPRESSION: Borderline cardiomegaly without pulmonary edema. Chronic interstitial changes. Carotid Doppler Study 10/24/18 00:00 IMPRESSION: 1. Difficult study. No evidence of hemodynamically significant stenosis on today's study. Chest CT 10/24/18 06:00 IMPRESSION: 1. Extensive interstitial changes throughout the lungs with broad differential as above. 2. Findings consistent with cirrhosis and portal hypertension. Considerable upper abdominal ascites. Plan Discharge Plan: -Transfer the patient to [facility] to the care of dr lees (cardiology). our garment manufacturer dr villatoro has spoken with him. Patient can be further evaluated for candidacy and possible implementation of aortic valve replacement. -Stable at time of discharge -Defer further management to [facility] -We appreciate our garment manufacturer and [facility]'s garment manufacturer for assistance in this case. Time Spent: Greater than 30 Minutes
== END 2018-10-24 16:35 | disposition short-term general hospital (02) | DRG 306 ==
LOC: ER 17:57 → EH 22:27 → 3N 10-22 14:06
PROVIDERS: ADMIT Emergency Medicine; ATTEND Emergency Medicine
PROC: 3E0F73Z Introduction of Anti-inflammatory into Respiratory Tract, Via Natural or Artificial Opening (ICD-10-PCS; principal; 2018-10-22)
DX: I35.0 Nonrheumatic aortic (valve) stenosis (principal); J96.01 Acute respiratory failure with hypoxia; J18.9 Pneumonia, unspecified organism; J44.1 Chronic obstructive pulmonary disease with (acute) exacerbation; G93.40 Encephalopathy, unspecified; I50.32 Chronic diastolic (congestive) heart failure; R18.8 Other ascites; J44.0 Chronic obstructive pulmonary disease with (acute) lower respiratory infection; I13.0 Hypertensive heart and chronic kidney disease with heart failure and stage 1 through stage 4 chronic kidney disease, or unspecified chronic kidney disease; I25.10 Atherosclerotic heart disease of native coronary artery without angina pectoris; E86.0 Dehydration; E78.5 Hyperlipidemia, unspecified; N18.3 Chronic kidney disease, stage 3 (moderate); M19.90 Unspecified osteoarthritis, unspecified site; I73.9 Peripheral vascular disease, unspecified; D69.59 Other secondary thrombocytopenia; E83.110 Hereditary hemochromatosis; R74.8 Abnormal levels of other serum enzymes; Z90.49 Acquired absence of other specified parts of digestive tract; Z88.8 Allergy status to other drugs, medicaments and biological substances; R19.7 Diarrhea, unspecified; Z91.013 Allergy to seafood; Z82.49 Family history of ischemic heart disease and other diseases of the circulatory system; Z86.73 Personal history of transient ischemic attack (TIA), and cerebral infarction without residual deficits; Z90.710 Acquired absence of both cervix and uterus; Z83.3 Family history of diabetes mellitus; Z79.899 Other long term (current) drug therapy
CPT/HCPCS: 36415; 51701; 71045; 71250; 80048; 80053; 80061; 80076; 81001; 82140; 82550; 82553; 82728; 83735; 83880; 84484; 85025; 87040; 87086; 87493; 87804; 93005; 93010; 93306; 93880; 94640; 96361; 96374; 99285; A9270-GY; J2270; J2405; J2920; J2930; J3490; J7030; J7620